=== PATIENT | male | born 1945 | race Caucasian/White ===

== ENCOUNTER 2020-11-28 09:35 | Outpatient (REF) | payer MEDICARE, SELFPAY ==
--- NOTE | 2020-11-28 10:06 | ECG_ITS ---
Test Reason : CP Blood Pressure : / mmHG Vent. Rate : 055 BPM Atrial Rate : 055 BPM P-R Int : 192 ms QRS Dur : 086 ms QT Int : 430 ms P-R-T Axes : 008 -14 017 degrees QTc Int : 411 ms Sinus bradycardia Otherwise normal ECG When compared with ECG of 25-MAR-2020 09:12, No significant changes seen Referred By: Darrion Muse Electronically Signed By:VICKY AMAYA
--- NOTE | 2020-11-28 10:19 | XR_ITS ---
EXAMINATION: XR CHEST CLINICAL INFORMATION: Dyspnea. COMPARISON: 03/25/2020 chest radiograph. TECHNIQUE: 2 views of the chest were obtained. FINDINGS: Kyphotic positioning and low lung volumes limit evaluation. Increased thoracic kyphosis is seen with normal spinal alignment. Mild to moderate multilevel degenerative disc disease is seen with generalized osteopenia. The lungs are clear. The heart and mediastinal structures are unremarkable. XR/XR chest 2V IMPRESSION: No acute cardiopulmonary process.
[2020-11-28 10:37] LABS: MANUAL DIFF FLAG NO
[2020-11-28 10:48] LABS: Basophils Percent Auto 0.4 % (0-2); Eosinophils Absolute Auto 0.5 X10*3/uL (0.0-0.4); Hematocrit 44.5 % (42-52); Hemoglobin 14.3 g/dl (14.0-18.0); Imm Gran Abs Auto 0.02 X10*3/uL (0.00-0.03); Imm Gran Pct Auto 0.2 % (0.0-0.4); Lymphocytes Absolute Auto 2.2 X10*3/uL (1.2-4.9); Lymphocytes Percent Auto 26.8 % (20-40); Mean Corpuscular HGB Conc 32.1 g/dl (31.0-36.0); Mean Corpuscular Hemoglobin 30.3 pg (27.0-33.0); Mean Corpuscular Volume 94.3 fL (80-98); Mean Platelet Volume 10.3 fL (9.4-12.4); Monocytes Absolute Auto 0.6 X10*3/uL (0.1-1.2); Monocytes Percent Auto 7.6 % (2-11); Neutrophils Absolute Auto 4.8 X10*3/uL (2.0-8.3); Platelet Count 238 X10*3/uL (160-400); Red Blood Count 4.72 X10*6/uL (4.60-5.80); Red Cell Distribution Width 13.6 % (11.0-16.0); White Blood Count 8.2 X10*3/uL (4.8-10.8)
[2020-11-28 11:09] LABS: Anion Gap 10 (12-20); Blood Urea Nitrogen 17 mg/dL (9-16); Calcium 9.4 mg/dL (8.4-10.2); Carbon Dioxide 28 mmol/L (22-29); Chloride 107 mmol/L (96-108); Estimated Glomerular Filt Rate > 60; Glucose Fasting 94 mg/dL (60-99); Potassium 4.4 mmol/l (3.3-5.1); Sodium 141 mmol/L (135-145)
== END 2020-11-28 09:36 | disposition home or self-care (01) ==
LOC: HO.LAB 09:35
PROVIDERS: PCP Internal Medicine; Visit Provider Internal Medicine
DX: Z00.00 Encounter for general adult medical examination without abnormal findings (principal); R06.00 Dyspnea, unspecified
CPT/HCPCS: 36415; 71046; 80048; 85025; 93005

== ENCOUNTER 2020-12-20 11:25 | Outpatient (REF) | payer MEDICARE, SELFPAY ==
--- NOTE | ~2020-12-20 | CT_ITS ---
EXAMINATION: CT HEAD WITHOUT CONTRAST CLINICAL INFORMATION: Abnormality of gait and mobility. COMPARISON: None TECHNIQUE: Contiguous axial imaging was performed from the skull base to vertex without intravenous administration of contrast. This CT examination was performed using dose optimization techniques as appropriate, variously including the following: *Automated exposure control *Adjustment of mA and/or kV according to patient size (this includes techniques or standardized protocols for targeted exams where dose is matched to indication/reason for exam; i.e. extremities or head) *Use of iterative reconstruction technique DLP: 1095 mGy-cm FINDINGS: There is no acute intra-axial, extra-axial bleed, masses, collection, or midline shift. There is no acute infarction of evolution. The lateral ventricles are symmetrical and significantly enlarged. There is mild prominence of cortical sulci. There is no edema. The olea to white matter differences are maintained. Bone windows reveal no calvarial abnormality. Bilateral paranasal sinuses and mastoid air cells are well aerated. There is no scalp soft tissue abnormality. There is mild mucoperiosteal thickening in bilateral maxillary sinuses. The rest of the paranasal sinuses and mastoid air cells are well aerated. CT/CT head/brain wo con IMPRESSION: No acute intracranial process seen. Significant enlargement of lateral and third ventricles, suspicious for NPH.
== END 2020-12-20 11:26 | disposition home or self-care (01) ==
LOC: HO.CT 11:25
PROVIDERS: PCP Internal Medicine; Visit Provider Internal Medicine
DX: R26.9 Unspecified abnormalities of gait and mobility (principal)
CPT/HCPCS: 70450

== ENCOUNTER 2021-01-24 17:25 | Outpatient (REF) | payer MEDICARE, SELFPAY ==
--- NOTE | ~2021-01-24 | XR_ITS ---
EXAMINATION: PRE-MRI SCREENING ORBITS CLINICAL INFORMATION: Pre-MRI screening COMPARISON: CT head 12/20/2020 TECHNIQUE: 3 views of the orbits FINDINGS: A metallic fragment measuring about 2 mm is seen in the subcutaneous tissues just lateral to the right orbit. This is better spatial he visualized on the recent head CT (2:19). No other metallic foreign bodies are noted aside from dentures. No metallic foreign bodies are seen in the orbits. XR/XR pre mri screening IMPRESSION: Small metallic foreign body lateral to right orbit, better localized on the recent CT scan.
--- NOTE | ~2021-01-24 | MR_ITS ---
EXAMINATION: MR BRAIN WITHOUT CONTRAST CLINICAL INFORMATION: Idiopathic normal pressure hydrocephalus. COMPARISON: Head CT from 12/20/2020 and brain MRI dated 07/20/2012. TECHNIQUE: Multiplanar, multisequence imaging of the brain was performed without contrast. FINDINGS: Degree of lateral and third ventricular dilatation is stable compared to the recent CT study and mildly increased when compared to the MRI exam from 2012. The fourth ventricle is relatively normal in size. Generalized parenchymal volume loss again evident. No diffusion abnormalities are identified to suggest an acute or subacute infarct. No mass effect or midline shift is seen. Scattered mild white matter signal changes again evident which may be due to chronic microangiopathy. No extra-axial fluid collections are seen. The brainstem and cerebellum are normal. The gradient refocused acquisition is normal. The craniovertebral junction, marrow signal, and midline structures are normal. The major intracranial flow voids at the level of the [place] of [place] are preserved. The dural venous sinus flow voids are maintained. The mastoid air cells and paranasal sinuses are fairly well aerated. MR/MR head/brain wo con IMPRESSION: Significant lateral and third ventriculomegaly, stable from the recent CT study and mildly increased when compared to the MR study from 07/20/2012. Mild chronic white matter microangiopathy and generalized parenchymal volume loss.
== END 2021-01-24 17:26 | disposition home or self-care (01) ==
LOC: HO.MRI 17:25
PROVIDERS: PCP Internal Medicine; Visit Provider Internal Medicine
DX: G91.2 (Idiopathic) normal pressure hydrocephalus (principal)
CPT/HCPCS: 70551

== ENCOUNTER 2021-04-04 13:25 | Outpatient (REF) | payer MEDICARE, SELFPAY ==
[2021-04-04 14:29] LABS: Platelet Count 237 X10*3/uL (160-400)
[2021-04-04 14:51] LABS: INTERNATIONAL NORM RATIO 1.1 (0.9-1.1); Prothrombin Time 13.3 SEC (10.8-13.0)
== END 2021-04-04 13:26 | disposition home or self-care (01) ==
LOC: HO.LAB 13:25
PROVIDERS: PCP Internal Medicine; Visit Provider Neurological Surgery
DX: G93.89 Other specified disorders of brain (principal); G91.2 (Idiopathic) normal pressure hydrocephalus
CPT/HCPCS: 36415; 85049; 85610

== ENCOUNTER 2021-05-21 07:12 | Day surgery (SDC) | payer MEDICARE, SELFPAY ==
[2021-05-15 13:23] VITALS: BMI 33.6
--- NOTE | 2021-05-15 14:17 | P.CONAN_ITS ---
Documented by User: Michelle Gleason 05/18/21 08:37 HPI - Anesthesia Eval Consult details Narrative: 75yo M for Colonoscopy PMFSH Active Problems Active Problems: All Active Problems (Updated 05/15/21 @ 13:25 by Annette Brand) Skin lesion (Acute) Dyspnea (Acute) Normal pressure hydrocephalus (Acute) Cerebral ventriculomegaly (Acute) Past Medical History Medical History Arthritis Cerebral ventriculomegaly COVID-19 vaccine administered Dementia Gait instability History of BPH History of lumbar puncture Family History Family History Father No problems noted. Mother No problems noted. Surgical History Surgical History H/O colonoscopy History of esophagogastroduodenoscopy (EGD) History of tonsillectomy Hx of appendectomy Social History Social History Do you presently have visiting nurse or other home services: No Alcohol intake: former Patient Tobacco Use Status: Never used Tobacco Use of substances other than those prescribed or required for medical reasons: No Have you been hit, kicked, punched, or otherwise hurt by someone within the past year? If so, by whom?: No Are you DNR?: No Advance Directives Information Provided: No Advance Directives on File: No Recently lost weight without trying: No Eating poorly because of decreased appetite: No Nutrition Risks: No Nutritional Risk Poor oral hygiene: No (upper partial) Meds Allergies Allergy/AdvReac Type Severity Reaction Status Date / Time cabbage Allergy Severe throat Verified 05/21/21 07:[address] [facility] Medications Medication Instructions Recorded Confirmed Last Taken Type donepezil 10 mg tablet 10 mg PO BEDTIME 11/27/20 05/15/21 Unknown History tamsulosin 0.4 mg capsule 0.4 mg PO BEDTIME 11/27/20 05/15/21 Unknown History Exam Exam Date and Time: May 15, 2021 1417 Height,Weight and Vital Signs: Height 5 ft 11 in Weight 109.316 kg Pertinent Lab Results Pertinent Lab Results: Laboratory Tests 11/28/20 11/28/20 04/04/21 10:01 10:01 13:45 WBC 8.2 Hgb 14.3 Hct 44.5 Plt Count 237 Sodium 141 Potassium 4.4 Chloride 107 Carbon Dioxide 28 BUN 17 H Creatinine 1.18 Narrative Narrative: EKG 11/2020 Vent. Rate : 055 BPM Atrial Rate : 055 BPM P-R Int : 192 ms QRS Dur : 086 ms QT Int : 430 ms P-R-T Axes : 008 -14 017 degrees QTc Int : 411 ms Sinus bradycardia Otherwise normal ECG When compared with ECG of 25-MAR-2020 09:12, No significant changes seen Assessment and Plan Assessment Anesthesia Assessment: Chart Reviewed Documented by User: Rosalina Devlin 05/21/21 09:02 PMFSH Past Medical History Medical History Arthritis Cerebral ventriculomegaly COVID-19 vaccine administered Dementia Gait instability History of BPH History of lumbar puncture Family History Family History Father No problems noted. Mother No problems noted. Surgical History Surgical History H/O colonoscopy History of esophagogastroduodenoscopy (EGD) History of tonsillectomy Hx of appendectomy Social History Social History Do you presently have visiting nurse or other home services: No Alcohol intake: former Patient Tobacco Use Status: Never used Tobacco Use of substances other than those prescribed or required for medical reasons: No Have you been hit, kicked, punched, or otherwise hurt by someone within the past year? If so, by whom?: No Are you DNR?: No Advance Directives Information Provided: No Advance Directives on File: No Recently lost weight without trying: No Eating poorly because of decreased appetite: No Nutrition Risks: No Nutritional Risk Poor oral hygiene: No (upper partial) Meds Allergies Allergy/AdvReac Type Severity Reaction Status Date / Time cabbage Allergy Severe throat Verified 05/21/21 07:29 [facility] Medication Instructions Recorded Confirmed Last Taken Type donepezil 10 mg tablet 10 mg PO BEDTIME 11/27/20 05/15/21 Unknown History tamsulosin 0.4 mg capsule 0.4 mg PO BEDTIME 11/27/20 05/15/21 Unknown History Exam Airway Mallampati Class: II TM Dist: >3cm Neck ROM: Full Heart: RRR Lungs: CTA Assessment and Plan Assessment Anesthesia Assessment: Anesthesia Plan Discussed and Chart Reviewed Final Anesthetic Review NPO: Yes ASA Class: III Final Preanesthetic Review: Meds/Allgs Chart Reviewed, Consent Obtained/Reviewed and Anes Risks/Benef Reviewed Patient Risk: Intermediate Procedure Risk: Low Anesthetic Plan Anesthetic Plan: MAC: Disposition: Standard PACU
[2021-05-21 08:09] VITALS: BP 118/78; PULSE 60; RESP 18; TEMP 36.3; O2SAT 97
[2021-05-21] MEDS: Lactated Ringers 1,000 ML 50 ML IVCONT (08:11)
[2021-05-21 09:21] VITALS: BP 88/43; PULSE 60; RESP 18; TEMP 36.1; O2SAT 95
[2021-05-21 09:25] VITALS: BP 97/49; PULSE 53; RESP 19; O2SAT 96
--- NOTE | 2021-05-21 09:26 | P.BOP_ITS ---
Brief Operative Note Date of Service: 05/21/21 Pre-op diagnosis: Screening Post-op diagnosis: other (Colon polyp) Procedure: Colonoscopy to the cecum with snare polypectomy Surgeon: Lang Wylie Anesthesia: MAC Was an Pediatric Clinical Nurse Specialist used for this Procedure?: No Estimated blood loss (mL): 3.0 Pathology: other (A. Ascending colon polyp) Condition: stable Disposition: PACU
[2021-05-21 09:36] VITALS: BP 109/59; PULSE 57; RESP 20; O2SAT 97
[2021-05-21 09:51] VITALS: BP 115/56; PULSE 66; RESP 18; O2SAT 99
--- NOTE | 2021-05-21 10:23 | OP_ITS ---
SURGEON: Lang Wylie MD INDICATIONS: The patient presents for evaluation of colorectal cancer screening and personal history of tubular adenoma of the colon. Full consent has been obtained from him for this, including risks of bleeding and perforation. PREOPERATIVE DIAGNOSIS: POSTOPERATIVE DIAGNOSIS: PROCEDURE PERFORMED: Colonoscopy to cecum with snare polypectomy. ESTIMATED BLOOD LOSS: COMPLICATIONS: ANESTHESIA: Monitored anesthesia care. ASSISTANTS: SPECIMENS: PREOPERATIVE DIAGNOSES: Colorectal cancer screening and personal history of tubular adenoma of the colon. POSTOPERATIVE DIAGNOSES: Colorectal cancer screening and personal history of tubular adenoma of the colon, small colon polyp, diverticulosis and internal hemorrhoids. DESCRIPTION OF PROCEDURE: The patient was placed in the left lateral decubitus position. The digital rectal exam revealed no abnormalities. The Olympus video pediatric colonoscope was entered into the rectum and advanced to the cecum with the assistance of abdominal wall pressure. Once in the cecum, I did identify normal-appearing cecal pouch with appendiceal orifice and a normal-appearing ileocecal valve. The entire cecum was well visualized and appeared normal. The scope was slowly withdrawn assessing all mucosal surfaces carefully. Preparation was excellent. In the ascending colon, was a slightly raised approximately 6 mm polyp, which was snared and recovered by suction. The polypectomy site appeared clean, without any sign of residual polyp nor bleeding. I did not visualize any other polyps, colitis, nor angiodysplasia. There was a moderate amount of sigmoid diverticulosis. In the rectum, scope was retroflexed visualizing small internal hemorrhoids, but no other pathology. The rectal mucosa appeared normal. The scope was straightened out and withdrawn from the patient. He tolerated the procedure well and was returned to the recovery area in stable condition. IMPRESSION: 1. Small colon polyp, status post snare polypectomy. 2. Diverticulosis. 3. Internal hemorrhoids. PLAN: The results of the pathology will be checked. Given these relatively minimal findings and his age, I do not think he will need any further screening colonoscopies in the future. He was advised not to use any aspirin and NSAIDs for 1 week. MD ROLANDO Heart/MIGUE / [id number]
== END 2021-05-21 10:19 | disposition home or self-care (01) ==
PROVIDERS: PCP Internal Medicine; Visit Provider Internal Medicine
PROC: 0DJD8ZZ Inspection of Lower Intestinal Tract, Via Natural or Artificial Opening Endoscopic (ICD-10-PCS; CPT 45378; principal; 2021-05-21 08:20)
DX: Z12.11 Encounter for screening for malignant neoplasm of colon (principal); Z86.010 Personal history of colon polyps; D12.2 Benign neoplasm of ascending colon; K57.30 Diverticulosis of large intestine without perforation or abscess without bleeding; K64.8 Other hemorrhoids; G91.2 (Idiopathic) normal pressure hydrocephalus; G93.89 Other specified disorders of brain; F03.90 Unspecified dementia, unspecified severity, without behavioral disturbance, psychotic disturbance, mood disturbance, and anxiety; R26.89 Other abnormalities of gait and mobility; Z79.899 Other long term (current) drug therapy
CPT/HCPCS: 45385; 88305

== ENCOUNTER 2021-11-01 12:20 | Outpatient (REF) | payer MEDICARE, SELFPAY ==
[2021-11-01 13:27] LABS: MANUAL DIFF FLAG NO
[2021-11-01 13:35] LABS: Basophils Percent Auto 0.4 % (0-2); Eosinophils Absolute Auto 0.6 X10*3/uL (0.0-0.4); Eosinophils Percent Auto 6.2 % (0-4); Hematocrit 36.4 % (42.0-52.0); Hemoglobin 11.7 g/dl (14.0-18.0); Imm Gran Abs Auto 0.02 X10*3/uL (0.00-0.03); Imm Gran Pct Auto 0.2 % (0.0-0.4); Lymphocytes Absolute Auto 2.9 X10*3/uL (1.2-4.9); Lymphocytes Percent Auto 31.2 % (20-40); Mean Corpuscular HGB Conc 32.1 g/dl (31.0-36.0); Mean Corpuscular Hemoglobin 29.7 pg (27.0-33.0); Mean Corpuscular Volume 92.4 fL (80.0-98.0); Mean Platelet Volume 9.5 fL (9.4-12.4); Monocytes Absolute Auto 0.9 X10*3/uL (0.1-1.2); Monocytes Percent Auto 9.1 % (2-11); Neutrophils Absolute Auto 4.9 x10*3/uL (2.0-8.3); Neutrophils Percent Auto 52.9 % (45-73); Platelet Count 405 X10*3/uL (160-400); Red Blood Count 3.94 X10*6/uL (4.60-5.80); White Blood Count 9.3 X10*3/uL (4.8-10.8)
[2021-11-01 13:50] LABS: Alanine Aminotransferase 14 U/L (0-40); Albumin Level 3.7 g/dL (3.5-5.0); Alkaline Phosphatase 95 U/L (39-117); Anion Gap 11 (12-20); Aspartate Amino Transferase 13 U/L (5-37); Bilirubin Direct 0.2 mg/dL (0.0-0.5); Bilirubin Total 0.4 mg/dL (0.0-1.0); Blood Urea Nitrogen 16 mg/dL (9-16); C Reactive Protein 6.04 mg/dL (< or = 0.50); Calcium 9.8 mg/dL (8.4-10.2); Carbon Dioxide 28 mmol/L (22-29); Chloride 104 mmol/L (96-108); Estimated Glomerular Filt Rate 53; Glucose Random 179 mg/dL (60-115); Potassium 4.4 mmol/L (3.3-5.1); Sodium 139 mmol/L (135-145); Total Protein 7.5 g/dL (6.5-8.0)
[2021-11-01 14:24] LABS: Thyroid Stimulating Hormone 1.58 uIU/mL (0.32-4.0)
[2021-11-01 14:29] LABS: Erythrocyte Sedimentation Rate 90 MM/HR (0-15)
[2021-11-01 14:50] LABS: T4 Thyroxine 6.4 ug/dL (4.5-12.0)
== END 2021-11-01 12:21 | disposition home or self-care (01) ==
LOC: HO.10HDL 12:20
PROVIDERS: PCP Internal Medicine; Visit Provider Internal Medicine
DX: K59.00 Constipation, unspecified (principal); K62.5 Hemorrhage of anus and rectum
CPT/HCPCS: 36415; 80048; 80076; 84436; 84443; 85025; 85652; 86140

== ENCOUNTER 2021-11-07 10:49 | Day surgery (SDC) | payer MEDICARE, SELFPAY ==
[2021-11-07 11:04] VITALS: BMI 31.6
[2021-11-07 11:13] VITALS: BP 129/72; PULSE 82; RESP 18; TEMP 36.9; O2SAT 98
[2021-11-07] MEDS: Sodium Phosphate,Mono-Dibasic 133 ML ENEMA PR ×2 (11:32→12:02)
--- NOTE | 2021-11-07 12:30 | HO.ANESPROP2 ---
[facility] Active Problems Active Problems: All Active Problems (Updated 10/24/21 @ 11:08 by Darrion Muse MD) Obesity (Acute) Sinusitis (Acute) Skin lesion (Acute) Dyspnea (Acute) Normal pressure hydrocephalus (Acute) Cerebral ventriculomegaly (Acute) Past Medical History Medical History Arthritis Cerebral ventriculomegaly COVID-19 vaccine administered Dementia Gait instability History of BPH History of lumbar puncture Obesity Family History Family History (Updated 10/24/21 @ 10:57 by FIDE Warren) Father No problems noted. Mother No problems noted. Family history of problems with anesthesia: No Surgical History Surgical History H/O colonoscopy History of esophagogastroduodenoscopy (EGD) History of tonsillectomy Hx of appendectomy History of Problems with Anesthesia: No Social History Social History Housing: House Do you presently have visiting nurse or other home services: No Alcohol intake: former Patient Tobacco Use Status: Never used Tobacco e-Cigarette/Vaping Use: Never Used Second Hand Smoke Exposure: No Use of substances other than those prescribed or required for medical reasons: No Are you DNR?: No Advance Directives: No Advance Directives Information Provided: No service: No Current occupational status: employed Cognitive needs: No Hearing needs: No Vision needs: Yes (Glasses) Meds Allergies Allergy/AdvReac Type Severity Reaction Status Date / Time cabbage Allergy Severe throat Verified 11/07/21 11:02 [facility] Medications Medication Instructions Recorded Confirmed Last Taken Type donepezil 10 mg tablet 10 mg PO BEDTIME 11/27/20 10/24/21 Unknown History tamsulosin 0.4 mg capsule 0.4 mg PO BEDTIME 11/27/20 10/24/21 Unknown History Exam Exam Date and Time: November 07, 2021 1230 Height,Weight and Vital Signs: Height 6 ft Weight 105.687 kg Last Vital Signs Temp 98.5 F 11/07/21 11:13 Pulse 82 11/07/21 11:13 Resp 18 11/07/21 11:13 BP 129/72 11/07/21 11:13 Pulse Ox 98 11/07/21 11:13 Airway Mallampati Class: I TM Dist: >3cm Neck ROM: Full Denture: Upper Loose/Missing/Broken Teeth: Yes Heart: ok Lungs: ok Assessment and Plan Final Anesthetic Review Family History of Problems with Anesthesia: No History of Problems with Anesthesia: No NPO: Yes ASA Class: III Final Preanesthetic Review: No Changes in Pt Med Stat, Meds/Allgs Chart Reviewed, Consent Obtained/Reviewed and Anes Risks/Benef Reviewed Patient Risk: High Procedure Risk: Low Anesthetic Plan Anesthetic Plan: MAC: and Agree w/ Assess. and Plan Disposition: Standard PACU
[2021-11-07 13:20] VITALS: BP 101/62; PULSE 67; RESP 18; TEMP 36.6; O2SAT 95
--- NOTE | 2021-11-07 13:31 | PM.OP ---
Brief Operative Note Date of Service: 11/07/21 Pre-op diagnosis: Change in Bowels, rectal bleeding Post-op diagnosis: other (Ulcerative colitis from rectum to 30cm) Procedure: Colonoscopy to the transverse colon with biopsies Surgeon: Lang Wylie Anesthesia: MAC Was an Endoscopy Support Specialist used for this Procedure?: No Estimated blood loss (mL): 3.0 Pathology: other (A. Colon at 30cm B. Colon 20-30cm C. Rectum) Condition: stable Disposition: PACU
[2021-11-07 13:35] VITALS: BP 116/65; PULSE 57; RESP 16; TEMP 36.6; O2SAT 95
[2021-11-07 13:50] VITALS: BP 126/67; PULSE 61; RESP 16; TEMP 36.6; O2SAT 99
--- NOTE | 2021-11-07 14:46 | OP_ITS ---
SURGEON: Lang Wylie MD INDICATIONS: Patient presents for evaluation of change in bowel habits and rectal bleeding. Full consent was obtained from him for this, including risks of bleeding and perforation. PREOPERATIVE DIAGNOSIS: Change in bowel habits and rectal bleeding. POSTOPERATIVE DIAGNOSIS: PROCEDURE PERFORMED: ESTIMATED BLOOD LOSS: COMPLICATIONS: ANESTHESIA: Monitored anesthesia care. ASSISTANTS: SPECIMENS: PROCEDURE: Colonoscopy to the transverse colon with biopsies. POSTOPERATIVE DIAGNOSES: Change in bowel habits and rectal bleeding, ulcerative colitis extending from rectum to 30 cm. DESCRIPTION OF PROCEDURE: The patient was placed in the left lateral decubitus position. The digital rectal exam revealed no abnormalities. There was no sign of perianal disease. The Olympus video pediatric colonoscope was entered into the rectum and advanced to the region of the transverse colon. I did not advance beyond this area due to a very poor prep. With irrigation, I was able to visualize normal underlying mucosa in different sections. The scope was then slowly withdrawn assessing all mucosal surfaces carefully. At 30 cm, there was a clear demarcation from normal mucosa to active colitis. The active colitis extended from the distal rectum, seen in the retroflexed position to 30 cm. There were no skip lesions. There were no polyps nor masses. I did obtain biopsies at 30 cm in the area of normal-appearing mucosa. I then obtained multiple biopsies between 20 and 30 cm and in the rectum. The scope was retroflexed visualizing some small internal hemorrhoids as well as the proctitis. Scope was straightened and withdrawn from the patient. He tolerated the procedure well and was returned to the recovery area in stable condition. IMPRESSION: Active proctocolitis extending to 30 cm. PLAN: Given the patient's symptomatology of some systemic symptoms with fatigue and anorexia, in addition to his GI symptoms of the bowel movement irregularity and bleeding, I shall put him on a short course of prednisone. I will start him on 30 mg daily for 1 week, then have him decrease that by 5 mg per week. Given his age, I opted to start him on 30mg of prednisone rather than 40mg. I will also start him on mesalamine 1600 mg t.i.d. and also a mesalamine suppository 1000 mg nightly. I will see him in within 1 or 2 months for followup but hopefully the medication, particularly the prednisone, will help things settle down quickly and improve his symptoms. He was advised to stay off all aspirin and NSAIDs long-term. He was advised to contact me before the office visit if problems persist or worsen. MD ROLANDO Heart/MIGUE / [id number] MTDD
== END 2021-11-07 14:39 | disposition home or self-care (01) ==
PROVIDERS: PCP Internal Medicine; Visit Provider Internal Medicine
PROC: 0DJD8ZZ Inspection of Lower Intestinal Tract, Via Natural or Artificial Opening Endoscopic (ICD-10-PCS; CPT 45378; principal; 2021-11-07 12:00)
DX: K62.5 Hemorrhage of anus and rectum (principal); K59.00 Constipation, unspecified; Z86.010 Personal history of colon polyps; K51.30 Ulcerative (chronic) rectosigmoiditis without complications; K64.8 Other hemorrhoids; R15.2 Fecal urgency; R53.83 Other fatigue; G91.2 (Idiopathic) normal pressure hydrocephalus; Z79.899 Other long term (current) drug therapy
CPT/HCPCS: 45380; 88305

== ENCOUNTER → 2022-03-26 07:30 | Outpatient (REF) | payer MEDICARE, SELFPAY ==
--- NOTE | 2022-03-26 | HM_ITS ---
Conclusion: 1. Patient was monitored for total period of 5 days and 2 hours 2. Baseline rhythm was normal sinus rhythm with average heart of 68 beats per minute 3. Multiple short runs of supraventricular episodes noted with longest lasting 23 beats, fastest at 164 beats per minute. Longest episode is irregular and could represent short episode of atrial fibrillation 4. No sustained atrial fibrillation noted 5. No pauses or bradycardia noted 6. Total of 15,887 PACs noted accounting for 2.65% of total beats account for frequent PACs 7. No patient reported events MTDD
== END ==
LOC: HO.CARD 07:30
PROVIDERS: Visit Provider Nurse Practitioner Family
DX: R00.1 Bradycardia, unspecified (principal)
CPT/HCPCS: 93242

== ENCOUNTER → 2022-04-05 09:50 | Outpatient (REF) | payer MEDICARE, SELFPAY ==
[2022-04-05 10:10] LABS: MANUAL DIFF FLAG NO
--- NOTE | 2022-04-05 10:14 | ECG_ITS ---
Test Reason : bradycardia Blood Pressure : / mmHG Vent. Rate : 056 BPM Atrial Rate : 056 BPM P-R Int : 174 ms QRS Dur : 084 ms QT Int : 438 ms P-R-T Axes : 020 -20 004 degrees QTc Int : 422 ms Sinus bradycardia Inferior infarct , age undetermined Abnormal ECG When compared with ECG of 28-NOV-2020 10:11, No significant change was found Referred By: Darrion Muse Electronically Signed By:Harrison Fernandez
[2022-04-05 10:27] LABS: Basophils Percent Auto 0.5 % (0-2); Eosinophils Absolute Auto 0.3 X10*3/uL (0.0-0.4); Eosinophils Percent Auto 3.9 % (0-4); Hematocrit 39.6 % (42.0-52.0); Hemoglobin 12.7 g/dl (14.0-18.0); Imm Gran Abs Auto 0.02 X10*3/uL (0.00-0.03); Imm Gran Pct Auto 0.3 % (0.0-0.4); Lymphocytes Absolute Auto 2.6 X10*3/uL (1.2-4.9); Lymphocytes Percent Auto 35.5 % (20-40); Mean Corpuscular HGB Conc 32.1 g/dl (31.0-36.0); Mean Corpuscular Hemoglobin 29.2 pg (27.0-33.0); Mean Platelet Volume 9.8 fL (9.4-12.4); Monocytes Absolute Auto 0.5 X10*3/uL (0.1-1.2); Neutrophils Absolute Auto 3.9 x10*3/uL (2.0-8.3); Neutrophils Percent Auto 52.8 % (45-73); Platelet Count 251 X10*3/uL (160-400); Red Blood Count 4.35 X10*6/uL (4.60-5.80); Red Cell Distribution Width 13.6 % (11.0-16.0); White Blood Count 7.4 X10*3/uL (4.8-10.8)
[2022-04-05 10:36] LABS: Estimated Average Glucose 174 mg/dL; Hemoglobin A1c % 7.7 %
[2022-04-05 10:49] LABS: Alanine Aminotransferase 131 U/L (0-40); Albumin Level 3.7 g/dL (3.5-5.0); Alkaline Phosphatase 229 U/L (39-117); Anion Gap 11 (12-20); Aspartate Amino Transferase 284 U/L (5-37); Blood Urea Nitrogen 15 mg/dL (9-16); Calcium 9.7 mg/dL (8.4-10.2); Carbon Dioxide 24 mmol/L (22-29); Chloride 105 mmol/L (96-108); Estimated Glomerular Filt Rate > 60; Glucose Fasting 168 mg/dL (60-99); Potassium 4.3 mmol/L (3.3-5.1); Sodium 136 mmol/L (135-145); Total Protein 7.2 g/dL (6.5-8.0)
== END ==
LOC: HO.CARD 09:50
PROVIDERS: PCP Internal Medicine; Visit Provider Internal Medicine
DX: Z00.00 Encounter for general adult medical examination without abnormal findings (principal); Z13.0 Encounter for screening for diseases of the blood and blood-forming organs and certain disorders involving the immune mechanism; E11.9 Type 2 diabetes mellitus without complications
CPT/HCPCS: 36415; 80053; 83036; 85025; 93005

== ENCOUNTER 2022-04-09 09:06 | Outpatient (REF) | payer MEDICARE, SELFPAY ==
[2022-04-09 11:08] LABS: Alanine Aminotransferase 61 U/L (0-40); Albumin Level 3.7 g/dL (3.5-5.0); Alkaline Phosphatase 227 U/L (39-117); Aspartate Amino Transferase 35 U/L (5-37); Bilirubin Direct 0.2 mg/dL (0.0-0.5); Bilirubin Total 0.6 mg/dL (0.0-1.0); Total Protein 7.1 g/dL (6.5-8.0)
[2022-04-09 11:22] LABS: ~HepC Num1 0.12 S/CO (0.00-0.79); ~Hepatitis B Surface Antibody NONREACTIVE (Nonreactive); ~Hepatitis C Antibody Nonreactive (Nonreactive)
== END 2022-04-09 09:07 | disposition home or self-care (01) ==
LOC: HO.LAB 09:06
PROVIDERS: PCP Internal Medicine; Visit Provider Internal Medicine
DX: Z00.00 Encounter for general adult medical examination without abnormal findings (principal); R79.89 Other specified abnormal findings of blood chemistry; Z20.2 Contact with and (suspected) exposure to infections with a predominantly sexual mode of transmission
CPT/HCPCS: 36415; 80076; 86706; 86803

== ENCOUNTER 2022-04-25 11:28 | Outpatient (REF) | payer MEDICARE, SELFPAY ==
--- NOTE | ~2022-04-25 | US_ITS ---
EXAMINATION: US ABDOMEN COMPLETE CLINICAL INFORMATION: Unspecified abdominal pain. Abnormal LFTs. COMPARISON: None TECHNIQUE: Real-time imaging of the abdominal viscera. FINDINGS: PANCREAS: Most of the pancreas is obscured by overlying gas. ABDOMINAL AORTA: The proximal, mid, and distal segments are normal in caliber. INFERIOR VENA CAVA: Visualized portions are normal. LIVER: The liver is normal in size. The liver contour is normal. Parenchymal echogenicity is normal. No focal hepatic lesion. Mild dilated intrahepatic ducts are noted. GALLBLADDER: Gallbladder wall thickness is 0.18 cm with slightly echogenic calcified jackson and echogenic bile. The gallbladder is physiologically distended without evidence of stones, polyps, wall thickening or pericholecystic fluid. COMMON BILE DUCT: Normal in caliber measuring 0.6 cm in diameter. RIGHT KIDNEY: There are 2 anechoic cysts. A midpole cyst measures 1.4 x 1.8 x 1.6 cm and a lower pole cyst measures 6.7 x 5.8 x 7.0 cm. No hydronephrosis or renal calculi. The kidney measures 10.2 cm in maximum dimension. LEFT KIDNEY: There is an echogenic stone in the midpole measuring 0.3 x 0.3 x 0.3 cm. No hydronephrosis or focal parenchymal lesions. The kidney measures 13.1 cm in maximum dimension. SPLEEN: No focal lesion seen. The spleen measures 9.5 cm in maximum dimension. FREE FLUID: None. US/US abdomen complete IMPRESSION: Mild dilated intrahepatic ducts . No extrahepatic ductal dilatation. Echogenic bile with calcified echogenic jackson but no wall thickness. It is not typical-appearing for porcelain-type gallbladder. Nonobstructive echogenic midpole calculi left kidney and at least 2 right renal cysts.
== END 2022-04-25 11:29 | disposition home or self-care (01) ==
LOC: HO.HMGCX 11:28
PROVIDERS: Visit Provider Internal Medicine
DX: R10.9 Unspecified abdominal pain (principal)
CPT/HCPCS: 76700

== ENCOUNTER → 2022-06-03 09:49 | Outpatient (BNVA) | payer MEDICARE, SELFPAY | PROVIDERS: PCP Internal Medicine; Visit Provider Dietitian, Registered | DX: E11.69 Type 2 diabetes mellitus with other specified complication (principal); E66.9 Obesity, unspecified; Z68.30 Body mass index [BMI] 30.0-30.9, adult; Z71.3 Dietary counseling and surveillance | CPT/HCPCS: 97802 ==

== ENCOUNTER → 2022-06-20 13:28 | Outpatient (BNVA) | payer MEDICARE, SELFPAY | PROVIDERS: PCP Internal Medicine; Referring Provider Nurse Practitioner Family; Visit Provider Internal Medicine | DX: I25.10 Atherosclerotic heart disease of native coronary artery without angina pectoris (principal); I48.0 Paroxysmal atrial fibrillation; R94.31 Abnormal electrocardiogram [ECG] [EKG] | CPT/HCPCS: 93005; 99202 ==

== ENCOUNTER 2022-06-25 14:11 | Outpatient (REF) | payer MEDICARE, SELFPAY ==
[2022-06-25 14:34] LABS: MANUAL DIFF FLAG NO
[2022-06-25 15:47] LABS: Basophils Percent Auto 0.4 % (0-2); Eosinophils Absolute Auto 0.3 X10*3/uL (0.0-0.4); Eosinophils Percent Auto 3.7 % (0-4); Hematocrit 40.5 % (42.0-52.0); Hemoglobin 13.1 g/dl (14.0-18.0); Imm Gran Abs Auto 0.01 X10*3/uL (0.00-0.03); Imm Gran Pct Auto 0.1 % (0.0-0.4); Lymphocytes Absolute Auto 2.3 X10*3/uL (1.2-4.9); Mean Corpuscular HGB Conc 32.3 g/dl (31.0-36.0); Mean Corpuscular Hemoglobin 29.6 pg (27.0-33.0); Mean Corpuscular Volume 91.6 fL (80.0-98.0); Mean Platelet Volume 9.7 fL (9.4-12.4); Monocytes Absolute Auto 0.8 X10*3/uL (0.1-1.2); Monocytes Percent Auto 10.9 % (2-11); Neutrophils Absolute Auto 3.6 x10*3/uL (2.0-8.3); Neutrophils Percent Auto 51.9 % (45-73); Platelet Count 294 X10*3/uL (160-400); Red Blood Count 4.42 X10*6/uL (4.60-5.80); Red Cell Distribution Width 13.9 % (11.0-16.0)
[2022-06-25 15:56] LABS: Estimated Average Glucose 140 mg/dL; Hemoglobin A1c % 6.5 %
[2022-06-25 16:30] LABS: Erythrocyte Sedimentation Rate 45 MM/HR (0-15)
[2022-06-25 16:32] LABS: Creatinine Urine 205.25 mg/dL; Microalbum/Creatinine Ratio Ur 14.1 ug/mg cr
[2022-06-25 16:35] LABS: Alanine Aminotransferase 8 U/L (0-40); Albumin Level 3.8 g/dL (3.5-5.0); Alkaline Phosphatase 85 U/L (39-117); Anion Gap 14 (12-20); Aspartate Amino Transferase 13 U/L (5-37); Bilirubin Total 0.2 mg/dL (0.0-1.0); Blood Urea Nitrogen 17 mg/dL (9-16); Calcium 9.2 mg/dL (8.4-10.2); Carbon Dioxide 27 mmol/L (22-29); Chloride 104 mmol/L (96-108); Estimated Glomerular Filt Rate 56; Glucose Random 155 mg/dL (60-115); Potassium 4.4 mmol/L (3.3-5.1); Sodium 141 mmol/L (135-145); Total Protein 7.1 g/dL (6.5-8.0)
== END 2022-06-25 14:12 | disposition home or self-care (01) ==
LOC: HO.LAB 14:11
PROVIDERS: PCP Internal Medicine; Visit Provider Surgery
DX: R10.9 Unspecified abdominal pain (principal); E11.69 Type 2 diabetes mellitus with other specified complication; E66.01 Morbid (severe) obesity due to excess calories; G91.2 (Idiopathic) normal pressure hydrocephalus; G93.89 Other specified disorders of brain; K62.5 Hemorrhage of anus and rectum; R63.4 Abnormal weight loss; R93.5 Abnormal findings on diagnostic imaging of other abdominal regions, including retroperitoneum; R94.31 Abnormal electrocardiogram [ECG] [EKG]
CPT/HCPCS: 36415; 80053; 82043; 83036; 85025; 85652; 99202

== ENCOUNTER → 2022-06-26 12:50 | Outpatient (REF) | payer MEDICARE, SELFPAY ==
--- NOTE | 2022-06-26 12:52 | CA_ITS ---
Transthoracic Echocardiogram Patient (Last, First, Middle): Juventino Escobar D Gender: Male Date of : 1945 Age: 76 Procedure Date: 06/26/2022 Procedure Type: Transthoracic Echocardiogram Location: OP Height: 180.34 cm Weight: 98.88 kg BSA: 2.19 m2 Heart Rate: 50 bpm BP: 130 / 67 mmHg Plant Technical Specialist: SB Referring MD: Jimenez Spencer MD Medieval English Literature Professor: Jesse Montenegro MD Symptoms: I25.10 - Atherosclerotic heart disease of [place] coronary artery without... Study Quality: Adequate ECG Rhythm: Bradycardia Conclusions: - 1. Normal LV systolic function with grade 1 diastolic dysfunction with underlying regional wall motion abnormality suggestive coronary artery disease 2. Trivial aortic and mitral regurgitation 3. Mildly dilated ascending aorta at 3.7 cm 4. No pericardial effusion Findings Left Ventricle Normal left ventricular size, thickness, and systolic function. The visually estimated ejection fraction is between 60-65%. Spectral Doppler is indicative of an impaired relaxation filling pattern. E/E prime ratio is <8, consistent with normal filling pressures. Evidence suggests grade I (mild) diastolic dysfunction. There is mild septal asymmetric hypertrophy. Wall Motion Rest Echo Findings The basal inferior segment is hypokinetic. The mid inferoseptal and mid anteroseptal segments are akinetic. All other scored wall segments showed normal motion. Right Ventricle Normal right ventricular cavity size and systolic function. Atria The left atrium is mildly dilated. Interatrial shunt cannot be excluded. The right atrium is normal in size. Aortic Valve Normal aortic valve structure and function. There is no aortic valve stenosis. There is trace (trivial) aortic valve regurgitation. Mitral Valve There is mild anterior and posterior mitral leaflet thickening. There is trace mitral valve regurgitation. There is no mitral valve stenosis. Pulmonic Valve The pulmonic valve was not well visualized. Tricuspid Valve Likely normal tricuspid valve structure and function. Tricuspid regurgitation envelope is inadequate for calculation of right ventricular systolic pressure. Normal right atrial pressure. Great Vessels The pulmonary artery was not well visualized. There is mild dilatation of the ascending aorta measuring 3.70 cm. Venous The inferior vena cava is normal in size and collapses greater than 50% with inspiration. Pericardium/Pleural There is no evidence of pericardial effusion. Prior Study Comparison no previous study in the last 5 years for comparison Measurements 2D Linear Measurements IVSd: 0.56 0.6-0.9/0.6-1.0 cm LVIDd: 5.31 3.9-5.3/4.2-5.9 cm LVIDd Index: 2.42 2.4-3.2/2.2-3.1 cm/m2 LVIDs: 3.54 2.0-3.6 cm LVPWd: 0.55 0.7-1.1 cm LA Diam: 4.60 2.7-3.8/3.0-4.0 cm LAIDs Index: 2.10 1.5-2.3 cm/m2 LV Mass: 120.13 67-162/88-224 g LV Mass Index: 54.85 43-95/49-115 g/m2 LVOT Diam: 2.20 3.0+(-)1.3 cm 2D Systolic Function EF 4C: 65.20 >55% EF 2C: 54.90 >55% EF BiP: 61.50 >55% Mitral Valve MV Pk E: 0.56 MV PK A: 0.42 MV Decel Time: 175.00 E/A: 1.30 E'Lateral: 9.68 E'Medial: 5.98 E/E' Med: 9.30 E/E' Lat: 5.80 PHT: 51.00 MVA PHT: 4.31 Decel Edmunds: 3.18 Aortic Valve AoV Pk Jarocho: 1.18 AoV Mn Jarocho: 0.80 AoV VTI: 0.26 AoV Pk Grad: 6.00 Aov Mn Grad: 3.00 ABEL Cont.VTI: 3.29 AI Pk Jarocho: 3.74 AI Edmunds: 2.09 LVOT LVOT Pk Jarocho: 0.94 LVOT Mn Jarocho: 0.67 LVOT VTI: 0.22 LVOT Pk Grad: 4.00 LVOT Mn Grad: 2.00 LVOT Diam: 2.20 LVOT Area: 3.80 Diastolic Function MV Pk E: 0.56 MV Pk A: 0.42 E/A: 1.30 E'Medial: 5.98 E/E' Med: 9.30 E' Laterial: 9.68 E/E' Lat: 5.80 Right Ventricle TAPSE (mm): 17.10 TVS' Jarocho: 7.29 Tricuspid Valve RA Press: 3.00 Great Vessels Aorta Sinus of Valsalva: 4.00 2.0-3.[address] Ridge: 3.13 1.7-3.4 cm Ao Asc: 3.70 2.1-3.4 cm Ao Arch: 3.60 Pulmonary Valve PV Pk Jarocho: 0.95 Peak PV Grad: 4.00 Updated in Other Vendor System with Status of Final Jesse Montenegro MD electronically signed on 06/26/2022 3:09:53 PM with status of Final
== END ==
LOC: HO.CARD 12:50
PROVIDERS: Visit Provider Internal Medicine
DX: I25.10 Atherosclerotic heart disease of native coronary artery without angina pectoris (principal); I48.0 Paroxysmal atrial fibrillation
CPT/HCPCS: 93306

== ENCOUNTER → 2022-07-05 09:55 | Outpatient (REF) | payer MEDICARE, SELFPAY ==
--- NOTE | ~2022-07-05 | NM_ITS ---
Lexiscan Myocardial perfusion study Indication: Abnormal EKG, assess for coronary disease and ischemia Technique: The patient was brought in for a Lexiscan perfusion study on 07/05/2022 and was injected 0.4 mg of Lexiscan intravenously. Within a minute of this injection 35 mCi of sestamibi was given intravenously. Images were obtained using the SPECT gamma camera interlaced with the gating device. Images were obtained in supine position. Resting perfusion study was performed on 07/08/2022. Patient was administered 35 mCi of sestamibi intravenously at rest. Images were then obtained in supine position. Total DLP 90mG-cm. Images were processed with the software and compared side to side in short axis, horizontal long axis and vertical long axis views. Findings: Raw acquisition reviewed. The stress perfusion study showed mildly diminished tracer uptake in the basal part of inferior wall. However there is also adjacent subdiaphragmatic tracer uptake. With CT attenuation correction, there seems to be improvement and hence could be all from diaphragmatic attenuation artifact. The gated study shows normal LV systolic function with calculated LVEF of 74%. LV cavity is normal in size. The gated study shows normal wall thickening and contraction of segments. Resting study shows diminished tracer uptake along the basal to mid inferior wall and adjacent inferior septum. There is improvement with CT attenuation correction. Hence could all be from diaphragmatic attenuation artifact. Gating at rest reveals normal wall motion with ejection fraction at 69%. The findings are consistent with fixed basal inferior and adjacent inferior septal defect. Could be from diaphragmatic attenuation artifact based on improvement with CT attenuation correction. No clear reversible defects. NM/NM cardiolite stress test Impression: 1. Myocardial perfusion imaging study shows no clear evidence of any ischemia or infarction. Probably normal perfusion. 2. Gated LVEF is 74% during stress and 69% during rest. 3. Transient ischemic dilatation not present. EKG component of the test reported separately.
--- NOTE | 2022-07-05 09:58 | CA_ITS ---
Acquisition Time: 2022-07-05 10:10:02 Total Exercise Time: 00:02:00 Test Indications: Abnormal ECG Medications: METFORMIN TRAZADONE TAMSULOSIN DONEPEZIL Protocol: LEXISCAN Max HR: 121 BPM 83% of Pred: 145 BPM Max BP: 118/062 mmHG Max Work Load: 1.0 METS Pharmacological stress test with Lexiscan injection, while sitting and kicking his legs, without anginal symptoms, with isolated PACs, with normotensive response to injection, with nondiagnostic EKG for ischemia. Nuclear images pending. Test reviewed with Dr Perez. Note: Test originally ordered as exercise nuclear stress test and pt reports unsteadiness with ambulation and inablity to walk on treadmill . Thest changed to a pharmacological nuclear stress test. Referred By: Jimenez Spencer Overread By: KIEL ROBIN
== END ==
LOC: HO.CARD 09:55
PROVIDERS: PCP Internal Medicine; Visit Provider Internal Medicine
DX: Z13.89 Encounter for screening for other disorder (principal)
CPT/HCPCS: 78452; 93017; A9500; J0280; J2785

== ENCOUNTER 2022-07-05 16:27 | Observation (INO) | payer MEDICARE, SELFPAY ==
[2022-07-05 16:44] VITALS: BP 109/61; BP 148/98; PULSE 56; PULSE 63; RESP 18; TEMP 37.1; O2SAT 98; O2SAT 99; BMI 29.5
--- NOTE | 2022-07-05 16:46 | ECG_ITS ---
Test Reason : SYNCOPE Blood Pressure : / mmHG Vent. Rate : 052 BPM Atrial Rate : 052 BPM P-R Int : 160 ms QRS Dur : 088 ms QT Int : 410 ms P-R-T Axes : 009 -19 -08 degrees QTc Int : 381 ms Sinus bradycardia Inferior infarct (cited on or before 05-APR-2022) Abnormal ECG When compared with ECG of 05-APR-2022 10:12, No significant change was found Referred By: Haylie Ramirez Electronically Signed By:ENA IRVIN
[2022-07-05 16:52] LABS: Glucose, Whole Blood 139 mg/dL (60-115)
[2022-07-05 17:10] LABS: MANUAL DIFF FLAG NO
--- NOTE | 2022-07-05 17:17 | ED_ITS ---
HPI - Syncope General Chief Complaint: Syncope Stated Complaint: SYNCOPE Time Seen by Provider: 07/05/22 16:33 Source: patient and EMS Mode of arrival: EMS Limitations: no limitations History of Present Illness HPI narrative: Patient comes to the emergency room complaining of nausea vomiting, diarrhea and a syncopal episode. Patient states that he was sitting in his garage, supervising work that was being done at his son's house. Patient states that the garage door was open, he was sitting down. The next thing he remembers is EMS arriving. EMS reports that the patient was in a sitting position, not responding, seems like he was in a deep sleep, then he started waking up. Patient states that he does not remember any of this. Patient states that he never had any chest pain or shortness of breath. Of note, this morning, initially patient started doing a stress test cycling, however it was switched to a nuclear stress test. Patient states that he was warned that he will not feel well in the afternoon. Patient states that after he woke from his unconscious state, he had 1 episode of vomiting and diarrhea. At this time, patient states he is asymptomatic. Related Data Home Medications Medication Instructions Recorded Confirmed donepezil 10 mg tablet 10 mg PO BEDTIME 11/27/20 06/25/22 tamsulosin 0.4 mg capsule 0.4 mg PO BEDTIME 11/27/20 06/25/22 balsalazide 750 mg capsule 2,250 mg PO TID 03/12/22 06/25/22 Previous Rx's Medication Instructions Recorded trazodone 50 mg tablet 50 mg PO BEDTIME PRN sleep #30 tabs 02/07/22 zolpidem 5 mg tablet (Ambien) 5 mg PO BEDTIME PRN sleep #30 tabs 02/12/22 metformin 500 mg tablet 500 mg PO DAILY #90 tabs 04/15/22 Allergies Allergy/AdvReac Type Severity Reaction Status Date / Time cabbage Allergy Severe throat Verified 06/25/22 13:40 stepan Review of Systems Review of Systems: Constitutional : No Weight loss, No Fever, No Chills, No Night Sweats, No Fatigue, No Malaise ENT/Mouth : No Hearing loss, No Ear Pain, No Nasal Congestion, No Sinus Pain, No Hoarseness, No sore throat, No Rhinorrhea, No Swallowing Difficulty Eyes: No Eye Pain, No Swelling, No Redness, No Foreign Body, No Discharge, No Vision Changes Cardiovascular : No Chest Pain, No SOB, No Dyspnea on Exertion, No Orthopnea, No Edema, No Palpitations, complaining of a syncopal episode Respiratory : No Cough, No Sputum, No Wheezing, No Smoke Exposure, No Dyspnea Gastrointestinal : No Nausea, No Vomiting, No Diarrhea, No Constipation, No abd ominal Pain, No Hematochezia, No Melena Genitourinary : no irregular bleeding, No Dysuria, No Urinary Frequency, No Hematuria, No Urinary Incontinence, No Urgency, No Flank Pain, No Urinary Flow Changes, No Hesitancy Musculoskeletal : No joint pain, No Myalgias, No Joint Swelling Skin : No Skin Lesions, No rash Neuro : No Weakness, No Numbness, No Paresthesias, No Dizziness, No Headache Psych : No Anxiety/Panic, No Depression, No SI/HI/AH/VH, No Social Issues, Heme/Lymph: No Bruising, No Bleeding,No Lymphadenopathy Endocrine : No Polyuria, No Polydipsia, No Temperature Intolerance [facility] Past Medical History Medical History Arthritis Cerebral ventriculomegaly COVID-19 vaccine administered Dementia Gait instability History of BPH History of lumbar puncture Obesity Surgical History H/O colonoscopy History of esophagogastroduodenoscopy (EGD) History of tonsillectomy Hx of appendectomy Family History Family History Father No problems noted. Mother No problems noted. Social History Social History Housing: House Do you presently have visiting nurse or other home services: No Alcohol intake: former Patient Tobacco Use Status: Never used Tobacco e-Cigarette/Vaping Use: Never Used Second Hand Smoke Exposure: No Advance Directives: No Advance Directives Information Provided: No service: No Current occupational status: employed Cognitive needs: No Hearing needs: No Vision needs: Yes (Glasses) Physical Exam Vital Signs: Vital Signs: Last Vital Signs Temp 98.7 F 07/05/22 16:44 Pulse 56 07/05/22 16:44 Resp 18 07/05/22 16:44 BP 109/61 07/05/22 16:44 Pulse Ox 99 07/05/22 16:44 O2 Del Method 07/05/22 16:44 BMI result Body Mass Index 29.5 Const: Other: Appearance: Alert. Oriented X3. No acute distress. Eyes: Pupils equal, round and reactive to light. ENT: Pharynx normal. Neck: Normal inspection. Neck supple. No lymph nodes noted. No crepitus CVS: Normal heart rate and rhythm. Pulses normal. Normal S1 and S2 Respiratory: No respiratory distress. Breath sounds normal. No Wheezing. No ral es Abdomen: Soft and nontender. No rigidity. No distention. Skin: Skin warm and dry. Normal skin color. Normal skin turgor. Extremities: No lower extremity edema. No Lacerations. No Rash Neuro: Oriented X 3. No motor deficit. No sensory deficit. Moving all extremities. No slurred speech. CN 2 through 12 grossly intact Psych: calm, cooperative, normal affect Course Course Course Narrative: At this time, patient is asymptomatic. Labs and EKG pending. I discussed the labs and EKG with Dr. Sal, patient had a syncopal episode, new onset acute kidney injury, likely secondary to vomiting and diarrhea. Patient remains asymptomatic at this time. Patient will be admitted MDM - Syncope Lab Data Result diagrams: 07/05/22 17:06 07/05/22 17:05 Labs: Lab Results 07/05/22 07/05/22 07/05/22 Range/Units 16:48 17:01 17:05 WBC (4.8-10.8) X10*3/uL RBC (4.60-5.80) X10*6/uL Hgb (14.0-18.0) g/dl Hct (42.0-52.0) % MCV (80.0-98.0) fL MCH (27.0-33.0) pg MCHC (31.0-36.0) g/dl RDW (11.0-16.0) % Plt Count (160-400) X10*3/uL MPV (9.4-12.4) fL Immature Gran % (Auto) (0.0-0.4) % Neut % (Auto) (45-73) % Lymph % (Auto) (20-40) % [place] % (Auto) (2-11) % Eos % (Auto) (0-4) % Baso % (Auto) (0-2) % Lymph # (Auto) (1.2-4.9) X10*3/uL [place] # (Auto) (0.1-1.2) X10*3/uL Eos # (Auto) (0.0-0.4) X10*3/uL Baso # (Auto) (0.0-0.2) X10*3/uL Abs Immat Gran (auto) (0.00-0.03) X10*3/uL Absolute Neuts (auto) (2.0-8.3) x10*3/uL Absolute Nucleated RBC (0.0-0.012) X10*3/uL Nucleated RBC % (auto) (0.0-0.2) /100WBC PT (10.0-13.1) SEC INR (0.9-1.1) Sodium 142 (135-145) mmol/L Potassium 4.2 (3.3-5.1) mmol/L Chloride 103 (96-108) mmol/L Carbon Dioxide 30 H (22-29) mmol/L Anion Gap 13 (12-20) BUN 24 H (9-16) mg/dL Creatinine 1.64 H (0.5-1.4) mg/dL Estim Creat Clear Calc 48.7 Estimated GFR 41 POC Glucose 139 H (60-115) mg/dL Random Glucose 162 H (60-115) mg/dL Calcium 9.3 (8.4-10.2) mg/dL Magnesium 2.3 (1.6-2.6) mg/dL Total Bilirubin 0.4 (0.0-1.0) mg/dL Direct Bilirubin < 0.2 (0.0-0.5) mg/dL AST 12 (5-37) U/L ALT 10 (0-40) U/L Alkaline Phosphatase 73 (39-117) U/L Troponin I High Sens (<3.5-35.0) ng/L B-Natriuretic Peptide (<100) pg/mL Total Protein 6.4 L (6.5-8.0) g/dL Albumin 3.5 (3.5-5.0) g/dL Ethyl Alcohol mg/dL COVID-19 (DONALD) Negative (Negative) COVID-19 Clin Com See Note 07/05/22 07/05/22 07/05/22 Range/Units 17:05 17:05 17:06 WBC 15.2 H (4.8-10.8) X10*3/uL RBC 4.30 L (4.60-5.80) X10*6/uL Hgb 12.7 L (14.0-18.0) g/dl Hct 39.5 L (42.0-52.0) % MCV 91.9 (80.0-98.0) fL MCH 29.5 (27.0-33.0) pg MCHC 32.2 (31.0-36.0) g/dl RDW 14.4 (11.0-16.0) % Plt Count 341 (160-400) X10*3/uL MPV 9.2 L (9.4-12.4) fL Immature Gran % (Auto) 0.9 H (0.0-0.4) % Neut % (Auto) 74.3 H (45-73) % Lymph % (Auto) 15.8 L (20-40) % [place] % (Auto) 8.2 (2-11) % Eos % (Auto) 0.4 (0-4) % Baso % (Auto) 0.4 (0-2) % Lymph # (Auto) 2.4 (1.2-4.9) X10*3/uL [place] # (Auto) 1.2 (0.1-1.2) X10*3/uL Eos # (Auto) 0.1 (0.0-0.4) X10*3/uL Baso # (Auto) 0.1 (0.0-0.2) X10*3/uL Abs Immat Gran (auto) 0.13 H (0.00-0.03) X10*3/uL Absolute Neuts (auto) 11.3 H (2.0-8.3) x10*3/uL Absolute Nucleated RBC 0.000 (0.0-0.012) X10*3/uL Nucleated RBC % (auto) 0.0 (0.0-0.2) /100WBC PT 13.4 H (10.0-13.1) SEC INR 1.2 H (0.9-1.1) Sodium (135-145) mmol/L Potassium (3.3-5.1) mmol/L Chloride (96-108) mmol/L Carbon Dioxide (22-29) mmol/L Anion Gap (12-20) BUN (9-16) mg/dL Creatinine (0.5-1.4) mg/dL Estim Creat Clear Calc Estimated GFR POC Glucose (60-115) mg/dL Random Glucose (60-115) mg/dL Calcium (8.4-10.2) mg/dL Magnesium (1.6-2.6) mg/dL Total Bilirubin (0.0-1.0) mg/dL Direct Bilirubin (0.0-0.5) mg/dL AST (5-37) U/L ALT (0-40) U/L Alkaline Phosphatase (39-117) U/L Troponin I High Sens 5.6 (<3.5-35.0) ng/L B-Natriuretic Peptide 126 H (<100) pg/mL Total Protein (6.5-8.0) g/dL Albumin (3.5-5.0) g/dL Ethyl Alcohol mg/dL COVID-19 (DONALD) (Negative) COVID-19 Clin Com 07/05/22 Range/Units 17:06 WBC (4.8-10.8) X10*3/uL RBC (4.60-5.80) X10*6/uL Hgb (14.0-18.0) g/dl Hct (42.0-52.0) % MCV (80.0-98.0) fL MCH (27.0-33.0) pg MCHC (31.0-36.0) g/dl RDW (11.0-16.0) % Plt Count (160-400) X10*3/uL MPV (9.4-12.4) fL Immature Gran % (Auto) (0.0-0.4) % Neut % (Auto) (45-73) % Lymph % (Auto) (20-40) % [place] % (Auto) (2-11) % Eos % (Auto) (0-4) % Baso % (Auto) (0-2) % Lymph # (Auto) (1.2-4.9) X10*3/uL [place] # (Auto) (0.1-1.2) X10*3/uL Eos # (Auto) (0.0-0.4) X10*3/uL Baso # (Auto) (0.0-0.2) X10*3/uL Abs Immat Gran (auto) (0.00-0.03) X10*3/uL Absolute Neuts (auto) (2.0-8.3) x10*3/uL Absolute Nucleated RBC (0.0-0.012) X10*3/uL Nucleated RBC % (auto) (0.0-0.2) /100WBC PT (10.0-13.1) SEC INR (0.9-1.1) Sodium (135-145) mmol/L Potassium (3.3-5.1) mmol/L Chloride (96-108) mmol/L Carbon Dioxide (22-29) mmol/L Anion Gap (12-20) BUN (9-16) mg/dL Creatinine (0.5-1.4) mg/dL Estim Creat Clear Calc Estimated GFR POC Glucose (60-115) mg/dL Random Glucose (60-115) mg/dL Calcium (8.4-10.2) mg/dL Magnesium (1.6-2.6) mg/dL Total Bilirubin (0.0-1.0) mg/dL Direct Bilirubin (0.0-0.5) mg/dL AST (5-37) U/L ALT (0-40) U/L Alkaline Phosphatase (39-117) U/L Troponin I High Sens (<3.5-35.0) ng/L B-Natriuretic Peptide (<100) pg/mL Total Protein (6.5-8.0) g/dL Albumin (3.5-5.0) g/dL Ethyl Alcohol < 10 mg/dL COVID-19 (DONALD) (Negative) COVID-19 Clin Com Discharge Plan Discharge Clinical Impression: Syncope, ADRIANA (acute kidney injury), Nausea vomiting and diarrhea Patient Disposition: Admitted as Observation Prescriptions: No Action trazodone 50 mg tablet 50 mg PO BEDTIME PRN (Reason: sleep) Qty: 30 8RF zolpidem [Ambien] 5 mg tablet 5 mg PO BEDTIME PRN (Reason: sleep) Qty: 30 2RF tamsulosin 0.4 mg capsule 0.4 mg PO BEDTIME donepezil 10 mg tablet 10 mg PO BEDTIME balsalazide 750 mg capsule 2,250 mg PO TID metformin 500 mg tablet 500 mg PO DAILY Qty: 90 8RF
[2022-07-05 17:19] LABS: INTERNATIONAL NORM RATIO 1.2 (0.9-1.1); Prothrombin Time 13.4 SEC (10.0-13.1)
[2022-07-05 17:24] LABS: Ethanol < 10 mg/dL
[2022-07-05 17:27] LABS: Alanine Aminotransferase 10 U/L (0-40); Albumin Level 3.5 g/dL (3.5-5.0); Alkaline Phosphatase 73 U/L (39-117); Anion Gap 13 (12-20); Aspartate Amino Transferase 12 U/L (5-37); Bilirubin Direct < 0.2 mg/dL (0.0-0.5); Bilirubin Total 0.4 mg/dL (0.0-1.0); Blood Urea Nitrogen 24 mg/dL (9-16); Calcium 9.3 mg/dL (8.4-10.2); Carbon Dioxide 30 mmol/L (22-29); Chloride 103 mmol/L (96-108); Creatinine Clr Calc Pharmacy 48.7; Estimated Glomerular Filt Rate 41; Glucose Random 162 mg/dL (60-115); Magnesium 2.3 mg/dL (1.6-2.6); Potassium 4.2 mmol/L (3.3-5.1); Sodium 142 mmol/L (135-145); Total Protein 6.4 g/dL (6.5-8.0)
[2022-07-05 17:30] LABS: Basophils Absolute Auto 0.1 X10*3/uL (0.0-0.2); Basophils Percent Auto 0.4 % (0-2); Eosinophils Absolute Auto 0.1 X10*3/uL (0.0-0.4); Eosinophils Percent Auto 0.4 % (0-4); Hematocrit 39.5 % (42.0-52.0); Hemoglobin 12.7 g/dl (14.0-18.0); Imm Gran Abs Auto 0.13 X10*3/uL (0.00-0.03); Imm Gran Pct Auto 0.9 % (0.0-0.4); Lymphocytes Absolute Auto 2.4 X10*3/uL (1.2-4.9); Lymphocytes Percent Auto 15.8 % (20-40); Mean Corpuscular HGB Conc 32.2 g/dl (31.0-36.0); Mean Corpuscular Hemoglobin 29.5 pg (27.0-33.0); Mean Corpuscular Volume 91.9 fL (80.0-98.0); Mean Platelet Volume 9.2 fL (9.4-12.4); Monocytes Absolute Auto 1.2 X10*3/uL (0.1-1.2); Monocytes Percent Auto 8.2 % (2-11); Neutrophils Absolute Auto 11.3 x10*3/uL (2.0-8.3); Neutrophils Percent Auto 74.3 % (45-73); Platelet Count 341 X10*3/uL (160-400); Red Cell Distribution Width 14.4 % (11.0-16.0); White Blood Count 15.2 X10*3/uL (4.8-10.8)
[2022-07-05 17:32] LABS: B Type Natriuretic Peptide 126 pg/mL (<100); Troponin-I High Sensitivity 5.6 ng/L (<3.5-35.0)
[2022-07-05 17:36] LABS: COVID-19 Test Negative (Negative)
[2022-07-05] MEDS: 0.9 % Sodium Chloride 1,000 ML 999 ML IVCONT (17:39)
[2022-07-05] MEDS: ondansetron HCL 4 MG/2 ML VIAL IVPUSH (18:16)
[2022-07-05] MEDS: Loperamide HCl 2 MG CAPSULE 4 MG PO (18:17)
--- NOTE | 2022-07-05 18:39 | PHA.MEDREC ---
Pharmacy Consult ? Medication Reconciliation Pharmacy has completed the medication reconciliation. To note: patient states he is not taking metformin, trazodone or ambien. However there are recent claims.
[2022-07-05 18:56] VITALS: BP 109/52; PULSE 55
[2022-07-05 18:58] VITALS: BP 118/53; PULSE 82
[2022-07-05 18:59] VITALS: BP 118/50; PULSE 80
[2022-07-05 19:00] VITALS: PULSE 74; RESP 20; TEMP 36.7; O2SAT 99
--- NOTE | 2022-07-05 19:14 | PM.IMHP ---
History of Present Illness Date of Service: 07/05/22 Chief Complaint: syncope Started 6-year-old male with past medical history of BPH, cerebral ventriculomegaly, normal pressure hydrocephalus, type 2 diabetes, SVT, PAF, who presents to the hospital with syncopal episode. Patient reports that he had an elective stress test in the morning, it appears to have been a pharmacological stress test. Patient reports that he did well during the stress but he was told to take it easy. On being sent home, he went to help his son move items from a property had just claimed. Patient reports the building was very hot with very minimal air movement. He reports that he was not doing any moving or lifting and was just sitting in the chair observing his son when all the sudden he felt slight lightheadedness and passed out. He reports no shortness of breath, no palpitations, no change in vision, and no headache before, during or after the syncopal episode. This lasted less than a minute and he regained consciousness with no postictal symptoms. Patient denies any nausea or vomiting, no abdominal pain, no diarrhea constipation, any urinary symptoms and no lower extremity edema. No shortness of breath. On arrival to the ED patient hemodynamically stable with no significant abnormal vitals labs are significant for WBC count 12.9, 24, BUN of 24, creatinine of 1.64 patient's EKG shows sinus bradycardia with a heart rate of 52, otherwise no significant ST T wave changes Review of Systems Review of Systems: Yes all other systems are reviewed and are negative [facility] Medical History (Updated 07/06/22 @ 06:50 by Syl Donato MD) Abnormal LFTs Arthritis Cerebral ventriculomegaly COVID-19 vaccine administered Dementia Gait instability History of BPH History of lumbar puncture Insomnia Obesity PAF (paroxysmal atrial fibrillation) SVT (supraventricular tachycardia) Type 2 diabetes mellitus with obesity Family History Father No problems noted. Mother No problems noted. Surgical History H/O colonoscopy History of esophagogastroduodenoscopy (EGD) History of tonsillectomy Hx of appendectomy Social History Housing: House Do you presently have visiting nurse or other home services: No Alcohol intake: never Patient Tobacco Use Status: Never used Tobacco e-Cigarette/Vaping Use: Never Used Second Hand Smoke Exposure: No Use of substances other than those prescribed or required for medical reasons: No Advance Directives: No Advance Directives Information Provided: No service: No Current occupational status: employed Cognitive needs: No Hearing needs: No Vision needs: Yes (Glasses) Meds Allergies Allergy/AdvReac Type Severity Reaction Status Date / Time cabbage Allergy Severe throat Verified 06/25/22 13:40 swells Active Medications: Current Medications Acetaminophen (Acetaminophen 325 Mg Tablet) 650 mg PO Q6H PRN PRN Reason: Pain, Mild (Pain Scale 1-3) Docusate Sodium (Docusate Sodium 100 Mg Capsule) 100 mg PO DAILY PRN PRN Reason: Constipation Lactated Ringer's (Lr) 1,000 mls @ 100 mls/hr IVCONT .Q10H CAMELIA Ondansetron HCl (Ondansetron Hcl 4 Mg/2 Ml Vial) 4 mg IVPUSH Q8H PRN PRN Reason: Nausea and Vomiting Pharmacy Consult (Consult Rx Perform Med Rec) 1 each MISCELLANE ONCE PRN PRN Reason: Consult order Sodium Chloride (0.9 % Sodium Chloride Flush 3 Ml Syringe) [facility] Home Medications Medication Instructions Recorded Confirmed Last Taken Type donepezil 10 mg tablet 10 mg PO BEDTIME 11/27/20 07/05/22 Unknown History tamsulosin 0.4 mg capsule 0.4 mg PO BEDTIME 11/27/20 07/05/22 Unknown History balsalazide 750 mg capsule 2,250 mg PO TID 03/12/22 07/05/22 Unknown History prednisone 5 mg tablet See Taper PO DAILY 07/05/22 07/05/22 Unknown History Physical Exam Vital Signs and Narrative: Vital Signs: Last Vital Signs Temp 98.0 F 07/05/22 19:00 Pulse 74 07/05/22 19:00 Resp 20 07/05/22 19:00 BP 118/50 L 07/05/22 18:59 Pulse Ox 99 07/05/22 19:00 O2 Del Method 07/05/22 19:00 BMI result Body Mass Index 29.5 Const: General: cooperative and no acute distress Orientation/consciousness: patient oriented x3 Eyes: General: appearance normal, both eyes and all related structures Resp: Effort & Inspection: normal respiratory effort Auscultation: clear to auscultation bilaterally Cardio: Rate: regular rate Rhythm: regular rhythm GI: Palpation (GI): Soft to palpation Auscultation: normal bowel sounds Skin: General skin exam: no rashes or lesions noted Neuro: Other: no neurological deficits General: patient oriented x3 Cognition (Neuro): normal cognition Extrem: General: Yes normal to inspection and Yes no pedal edema Results Labs CBC and Chem 7: 07/06/22 04:16 07/06/22 04:16 Labs: Laboratory Results - last 24 hr 07/05/22 07/05/22 07/05/22 16:48 17:01 17:05 MCV MCH MCHC RDW Plt Count MPV Immature Gran % (Auto) Neut % (Auto) Lymph % (Auto) [place] % (Auto) Eos % (Auto) Baso % (Auto) Lymph # (Auto) [place] # (Auto) Eos # (Auto) Baso # (Auto) Abs Immat Gran (auto) Absolute Neuts (auto) Absolute Nucleated RBC Nucleated RBC % (auto) PT INR Anion Gap 13 Estim Creat Clear Calc 48.7 Estimated GFR 41 POC Glucose 139 H Random Glucose 162 H Calcium 9.3 Magnesium 2.3 Total Bilirubin 0.4 Direct Bilirubin < 0.2 AST 12 ALT 10 Alkaline Phosphatase 73 B-Natriuretic Peptide Total Protein 6.4 L Albumin 3.5 Ethyl Alcohol COVID-19 (DONALD) Negative COVID-19 Clin Com See Note 07/05/22 07/05/22 07/05/22 17:05 17:05 17:06 MCV 91.9 MCH 29.5 MCHC 32.2 RDW 14.4 Plt Count 341 MPV 9.2 L Immature Gran % (Auto) 0.9 H Neut % (Auto) 74.3 H Lymph % (Auto) 15.8 L [place] % (Auto) 8.2 Eos % (Auto) 0.4 Baso % (Auto) 0.4 Lymph # (Auto) 2.4 [place] # (Auto) 1.2 Eos # (Auto) 0.1 Baso # (Auto) 0.1 Abs Immat Gran (auto) 0.13 H Absolute Neuts (auto) 11.3 H Absolute Nucleated RBC 0.000 Nucleated RBC % (auto) 0.0 PT 13.4 H INR 1.2 H Anion Gap Estim Creat Clear Calc Estimated GFR POC Glucose Random Glucose Calcium Magnesium Total Bilirubin Direct Bilirubin AST ALT Alkaline Phosphatase B-Natriuretic Peptide 126 H Total Protein Albumin Ethyl Alcohol COVID-19 (DONALD) COVID-19 Clin Com 07/05/22 17:06 MCV MCH MCHC RDW Plt Count MPV Immature Gran % (Auto) Neut % (Auto) Lymph % (Auto) [place] % (Auto) Eos % (Auto) Baso % (Auto) Lymph # (Auto) [place] # (Auto) Eos # (Auto) Baso # (Auto) Abs Immat Gran (auto) Absolute Neuts (auto) Absolute Nucleated RBC Nucleated RBC % (auto) PT INR Anion Gap Estim Creat Clear Calc Estimated GFR POC Glucose Random Glucose Calcium Magnesium Total Bilirubin Direct Bilirubin AST ALT Alkaline Phosphatase B-Natriuretic Peptide Total Protein Albumin Ethyl Alcohol < 10 COVID-19 (DONALD) COVID-19 Clin Com Assessment and Plan (1) Syncope: Status: Acute (2) ADRIANA (acute kidney injury): Status: Acute Plan 76-year-old male with past medical history of a PAF, diabetes, presents to the hospital with a syncopal episode after undergoing elective stress test # syncope - SVT vs vasovagal given the setting that it occurred in - orthostatic vitals normal - no EKG changes suggestive of arrhythmia - echo done this month showed diastolic heart failure with wall motion abnormality as well as abnormal holter monitor- the holter reported frequent supraventricular ectopy and possible A fib. - that is why patient had undergone the stress test - will consult Cardiology for any further recommendation including Holter monitor # ADRIANA - likely secondary to dehydration - will treat with IV flui - follow BMPO # DM - diet controlled - diabetic diet # PAF? - seen on holtor monitor - held rate control as pt found to be bradycardic - per guest relations coordinator note ?As the suspected atrial fibrillation episodes are still not definitive and they are very brief lasting only seconds, we will probably watch him for now considering the high bleeding risk from rectum.? - will monitor on telemetry DVT ppx: early ambulation Quality Stroke Does the patient have a stroke diagnosis?: No VTE Prior VTE?: No VTE Risk Level:: Medical - low VTE Device Contraindication: Treatment Not Indicated VTE Drug Contraindication: Treatment Not Indicated
[2022-07-05] MEDS: Lactated Ringers 1,000 ML 100 ML IVCONT (20:33)
[2022-07-06] VITALS: BP 114/55; PULSE 53; RESP 16; TEMP 36.8; O2SAT 99
[2022-07-06 04:20] LABS: MANUAL DIFF FLAG NO
[2022-07-06 04:21] LABS: Basophils Percent Auto 0.2 % (0-2); Eosinophils Absolute Auto 0.1 X10*3/uL (0.0-0.4); Eosinophils Percent Auto 0.6 % (0-4); Hemoglobin 12.3 g/dl (14.0-18.0); Imm Gran Abs Auto 0.06 X10*3/uL (0.00-0.03); Imm Gran Pct Auto 0.5 % (0.0-0.4); Lymphocytes Absolute Auto 2.6 X10*3/uL (1.2-4.9); Lymphocytes Percent Auto 20.1 % (20-40); Mean Corpuscular HGB Conc 32.4 g/dl (31.0-36.0); Mean Corpuscular Hemoglobin 29.6 pg (27.0-33.0); Mean Corpuscular Volume 91.6 fL (80.0-98.0); Monocytes Absolute Auto 1.3 X10*3/uL (0.1-1.2); Monocytes Percent Auto 10.1 % (2-11); Neutrophils Absolute Auto 8.8 x10*3/uL (2.0-8.3); Neutrophils Percent Auto 68.5 % (45-73); Platelet Count 316 X10*3/uL (160-400); Red Blood Count 4.15 X10*6/uL (4.60-5.80); Red Cell Distribution Width 14.5 % (11.0-16.0); White Blood Count 12.9 X10*3/uL (4.8-10.8)
[2022-07-06 04:42] LABS: Anion Gap 14 (12-20); Blood Urea Nitrogen 21 mg/dL (9-16); Calcium 8.7 mg/dL (8.4-10.2); Carbon Dioxide 28 mmol/L (22-29); Chloride 103 mmol/L (96-108); Creatinine Clr Calc Pharmacy 68.9; Estimated Glomerular Filt Rate > 60; Glucose Random 114 mg/dL (60-115); Potassium 4.6 mmol/L (3.3-5.1); Sodium 140 mmol/L (135-145)
[2022-07-06] MEDS: Lactated Ringers 1,000 ML 100 ML IVCONT (05:52)
--- NOTE | 2022-07-06 10:16 | PM.CNCAR ---
History of Present Illness History of Present Illness Date of Service: 07/06/22 Chief complaint: SYNCOPE Narrative: This is a cardiology consultation regarding syncopal episode. Patient was recently seen in the office for an abnormal Holter. He had no cardiac symptoms or prior cardiac history. He underwent Holter monitor that showed frequent supraventricular ectopy and a very short burst of possible atrial fibrillation. He was then seen in consultation and was scheduled for an echocardiogram and stress test. He actually came for the 1st part of stress test today had the procedure and then went home. He was okay and had lunch. Subsequently went to a building where apparently his son was just organizing. Patient was just sitting in a chair and giving instructions. In any case, he suddenly felt as if he was blacking out. His son apparently supported him. Also, it seems that the bleeding was very hard with minimal at movement. Patient has no other symptoms like angina or shortness of breath or in fact anything else cardiac related. After a brief moment or so he was able to regain consciousness and get back to his normal self. He was then brought to the ER admitted. Initial EKG had some sinus bradycardia but overnight he has been doing good with no complaints. Now he is back to his normal self. Would like to go home. Review of Systems Review of Systems: Yes all other systems are reviewed and are negative Constitutional: Constitutional: Reports as per HPI Eyes: Eyes: Reports as per HPI ENT: Reports as per HPI Cardiovascular: Cardiovascular: Reports as per HPI, Denies acrocyanosis, Denies cool extremities, Denies chest pain, Denies leg edema, Reports lightheadedness, Reports Loss of Consciousness, Denies palpitations and Denies dyspnea Respiratory: Respiratory: Reports as per HPI, Reports no additional respiratory complaints and Denies dyspnea Gastrointestinal: Gastrointestinal: Reports as per HPI and Reports no additional gastrointestinal complaints Genitourinary: Genitourinary: Reports no additional male genitourinary complaints and Reports as per HPI Musculoskeletal: Musculoskeletal: Reports no additional musculoskeletal complaints and Reports as per HPI Integumentary/Breasts: Skin/Breast: Reports system reviewed and no additional complaints, except as docu Neurologic: Reports system reviewed and no additional complaints, except as documented and Reports as per HPI Psychiatric: Psychiatric: Reports no additional psychiatric complaints and Reports as per HPI Endocrine: Endocrine: Reports no additional endocrine complaints, Reports as per HPI and Denies palpitations Hematologic/Lymphatic: Hematologic/Lymphatic: Reports no additional hematologic/lymphatic complaints and Reports as per HPI Allergic/Immunologic: Allergic/Immunologic: Reports no additional allergic/immunologic complaints and Reports as per HPI [facility] Past Medical History Medical History (Updated 07/06/22 @ 06:50 by Syl Donato MD) Abnormal LFTs Arthritis Cerebral ventriculomegaly COVID-19 vaccine administered Dementia Gait instability History of BPH History of lumbar puncture Insomnia Obesity PAF (paroxysmal atrial fibrillation) SVT (supraventricular tachycardia) Type 2 diabetes mellitus with obesity Family History Family History Father No problems noted. Mother No problems noted. Surgical History Surgical History H/O colonoscopy History of esophagogastroduodenoscopy (EGD) History of tonsillectomy Hx of appendectomy Social History Social History Housing: House Do you presently have visiting nurse or other home services: No Alcohol intake: never Patient Tobacco Use Status: Never used Tobacco e-Cigarette/Vaping Use: Never Used Second Hand Smoke Exposure: No service: No Current occupational status: employed Cognitive needs: No Hearing needs: No Vision needs: Yes (Glasses) Meds Allergies Allergy/AdvReac Type Severity Reaction Status Date / Time cabbage Allergy Severe throat Verified 06/25/22 13:40 swells Active Medications: Current Medications Acetaminophen (Acetaminophen 325 Mg Tablet) 650 mg PO Q6H PRN PRN Reason: Pain, Mild (Pain Scale 1-3) Balsalazide (Balsalazide Disodium 750 Mg Capsule) 2,250 mg PO TID [facility] Docusate Sodium (Docusate Sodium 100 Mg Capsule) 100 mg PO DAILY PRN PRN Reason: Constipation Donepezil HCl (Donepezil Hcl 10 Mg Tablet) 10 mg PO BEDTIME CAMEL[place] Lactated Ringer's (Lr) 1,000 mls @ 100 mls/hr IVCONT .Q10H [facility] Last Admin: 07/06/22 05:52 Dose: 100 mls/hr Ondansetron HCl (Ondansetron Hcl 4 Mg/2 Ml Vial) 4 mg IVPUSH Q8H PRN PRN Reason: Nausea and Vomiting Pharmacy Consult (Consult Rx Perform Med Rec) 1 each MISCELLANE ONCE PRN PRN Reason: Consult order Sodium Chloride (0.9 % Sodium Chloride Flush 3 Ml Syringe) 3 ml IVFLUSH QSHIFT [facility] Last Admin: 07/06/22 08:37 Dose: Not Given Tamsulosin HCl (Tamsulosin Hcl 0.4 Mg Capsule) 0.4 mg PO BEDTIME [facility] Home Medications Medication Instructions Recorded Confirmed Last Taken Type donepezil 10 mg tablet 10 mg PO BEDTIME 11/27/20 07/05/22 Unknown History tamsulosin 0.4 mg capsule 0.4 mg PO BEDTIME 11/27/20 07/05/22 Unknown History balsalazide 750 mg capsule 2,250 mg PO TID 03/12/22 07/05/22 Unknown History prednisone 5 mg tablet See Taper PO DAILY 07/05/22 07/05/22 Unknown History Physical Exam Vital Signs: Vital Signs: Last Vital Signs Temp 98.2 F 07/06/22 00:00 Pulse 53 07/06/22 00:00 Resp 16 07/06/22 00:00 BP 114/55 L 07/06/22 00:00 Pulse Ox 99 07/06/22 00:00 O2 Del Method 07/06/22 00:00 BMI result Body Mass Index 29.5 Const: General: comfortable and no acute distress Orientation/consciousness: patient oriented x3 HEENT: Other: Unremarkable Head: Yes normal to inspection Neck: Neck: Yes normal visual inspection Chest: Chest palpation & inspection: normal inspection of the chest Resp: Auscultation: clear to auscultation bilaterally Cardio: Palpation: normal PMI Heart sounds: S1 normal heart sound present, S2 normal heart sound present, no gallops, no murmurs and no rubs GI: Palpation (GI): Soft to palpation Back/Spine/Pelvis: Other: unremarkable Skin: General skin exam: no rashes or lesions noted Neuro: General: patient oriented x3 Extrem: General: Yes normal to inspection Psych: Mental Status: mental status grossly normal Objective Labs and Meds Result diagrams: 07/06/22 04:16 07/06/22 04:16 Lab results: Laboratory Results - last 24 hr 07/05/22 07/05/22 07/05/22 16:48 17:01 17:05 WBC RBC Hgb Hct MCV MCH MCHC RDW Plt Count MPV Immature Gran % (Auto) Neut % (Auto) Lymph % (Auto) [place] % (Auto) Eos % (Auto) Baso % (Auto) Lymph # (Auto) [place] # (Auto) Eos # (Auto) Baso # (Auto) Abs Immat Gran (auto) Absolute Neuts (auto) Absolute Nucleated RBC Nucleated RBC % (auto) PT INR Sodium 142 Potassium 4.2 Chloride 103 Carbon Dioxide 30 H Anion Gap 13 BUN 24 H Creatinine 1.64 H Estim Creat Clear Calc 48.7 Estimated GFR 41 POC Glucose 139 H Random Glucose 162 H Calcium 9.3 Magnesium 2.3 Total Bilirubin 0.4 Direct Bilirubin < 0.2 AST 12 ALT 10 Alkaline Phosphatase 73 Troponin I High Sens B-Natriuretic Peptide Total Protein 6.4 L Albumin 3.5 Ethyl Alcohol COVID-19 (DONALD) Negative COVID-19 Clin Com See Note 07/05/22 07/05/22 07/05/22 17:05 17:05 17:06 WBC 15.2 H RBC 4.30 L Hgb 12.7 L Hct 39.5 L MCV 91.9 MCH 29.5 MCHC 32.2 RDW 14.4 Plt Count 341 MPV 9.2 L Immature Gran % (Auto) 0.9 H Neut % (Auto) 74.3 H Lymph % (Auto) 15.8 L Angelina % (Auto) 8.2 Eos % (Auto) 0.4 Baso % (Auto) 0.4 Lymph # (Auto) 2.4 Angelina # (Auto) 1.2 Eos # (Auto) 0.1 Baso # (Auto) 0.1 Abs Immat Gran (auto) 0.13 H Absolute Neuts (auto) 11.3 H Absolute Nucleated RBC 0.000 Nucleated RBC % (auto) 0.0 PT 13.4 H INR 1.2 H Sodium Potassium Chloride Carbon Dioxide Anion Gap BUN Creatinine Estim Creat Clear Calc Estimated GFR POC Glucose Random Glucose Calcium Magnesium Total Bilirubin Direct Bilirubin AST ALT Alkaline Phosphatase Troponin I High Sens 5.6 B-Natriuretic Peptide 126 H Total Protein Albumin Ethyl Alcohol COVID-19 (DONALD) COVID-19 Clin Com 07/05/22 07/06/22 07/06/22 17:06 04:16 04:16 WBC 12.9 H RBC 4.15 L Hgb 12.3 L Hct 38.0 L MCV 91.6 MCH 29.6 MCHC 32.4 RDW 14.5 Plt Count 316 MPV 9.0 L Immature Gran % (Auto) 0.5 H Neut % (Auto) 68.5 Lymph % (Auto) 20.1 Angelina % (Auto) 10.1 Eos % (Auto) 0.6 Baso % (Auto) 0.2 Lymph # (Auto) 2.6 Angelina # (Auto) 1.3 H Eos # (Auto) 0.1 Baso # (Auto) 0.0 Abs Immat Gran (auto) 0.06 H Absolute Neuts (auto) 8.8 H Absolute Nucleated RBC 0.000 Nucleated RBC % (auto) 0.0 PT INR Sodium 140 Potassium 4.6 Chloride 103 Carbon Dioxide 28 Anion Gap 14 BUN 21 H Creatinine 1.16 Estim Creat Clear Calc 68.9 Estimated GFR > 60 POC Glucose Random Glucose 114 Calcium 8.7 D Magnesium Total Bilirubin Direct Bilirubin AST ALT Alkaline Phosphatase Troponin I High Sens B-Natriuretic Peptide Total Protein Albumin Ethyl Alcohol < 10 COVID-19 (DONALD) COVID-19 Clin Com Assessment and Plan (1) Syncope: Status: Acute (2) PAF (paroxysmal atrial fibrillation): Status: Acute Plan For EKG from admission with sinus bradycardia at 52/Min; cannot exclude old inferior infarct or anterior infarct. Not much different from prior EKG. Unremarkable troponin. Tele is also unremarkable. Etiology for syncope probably vasovagal. He did have some sinus bradycardia upon arrival but doubt that is the reason. Also because of the stress test he was NPO overnight and that could have played a role. At this time, he is stable and could be discharged. Will arrange outpatient follow-up with another Holter as well as carotid Dopplers. Discussed with the emergency room RN; discussed with Dr. Sal; discussed with over the phone. She is agreeable with plan. Procedures Date of Service Date of Service: 07/06/22
--- NOTE | 2022-07-06 10:35 | PM.DS ---
DS: Providers Provider Date of Service: 07/06/22 Date of admission: 07/05/22 19:08 Primary care physician: Unknown Physician Consults: 07/05/22 19:10 Consult to Cardiology Routine Consulting Provider: Jimenez Spencer Reason for consultation: Syncope post stress test Has provider been notified: No DS: Diagnosis Discharge Diagnosis (1) Syncope: Status: Acute (2) ADRIANA (acute kidney injury): Status: Acute DS: Summary Hospital Course Hospital Course: Admission note HPI ? Started 6-year-old male with past medical history of BPH, cerebral ventriculomegaly, normal pressure hydrocephalus, type 2 diabetes, SVT, PAF, who presents to the hospital with syncopal episode.? Patient reports that he had an elective stress test in the morning, it appears to have been a? pharmacological stress test.? Patient reports that he did well during the stress but he was told to take it easy.? On being sent home, he went to help his son move items from a property had just claimed.? Patient reports the building was very hot with very minimal air movement.? He reports that he was not doing any moving or lifting and was just sitting in the chair observing his son when all the sudden he felt slight lightheadedness and passed out.? He reports no shortness of breath, no palpitations, no change in vision, and no headache before, during or after the syncopal episode.? This lasted less than a minute and he regained consciousness with no postictal symptoms.? Patient denies any nausea or vomiting, no abdominal pain, no diarrhea constipation, any urinary symptoms and no lower extremity edema.? No shortness of breath.? On arrival to the ED patient hemodynamically stable with no significant abnormal vitals ?labs are significant for WBC count 12.9, 24, BUN of 24, creatinine of 1.64 ?patient's EKG shows sinus bradycardia with a heart rate of 52, otherwise no significant ST T wave changes Hospital course The patient was admitted to the hospital for evaluation of syncopal episode. Orthostatic vitals were normal. No EKG changes noted. Believed to be secondary to dehydration possible vasovagal attack as he was evaluated by Cardiology team who recommended outpatient follow-up for placement of Holter monitoring and carotid ultrasound. Noted to have mild acute kidney injury secondary to dehydration that recovered back to baseline with IV fluid overnight. continue the rest of your home medications Stay well hydrated Follow-up with cardiology clinic as scheduled Time Spent with Patient Time attestation: Total time spent providing and/or coordinating discharge services: Discharge coordination time: Less than 30 minutes Quality: Safe Use of Opioids Does Pt have an Active Cancer Diagnosis on the Problem List?: No Quality: Stroke Does the patient have a stroke diagnosis?: No Physical Exam Vital Signs: Vital Signs: Last Vital Signs Temp 98.2 F 07/06/22 00:00 Pulse 53 07/06/22 00:00 Resp 16 07/06/22 00:00 BP 114/55 L 07/06/22 00:00 Pulse Ox 99 07/06/22 00:00 O2 Del Method 07/06/22 00:00 BMI result Body Mass Index 29.5 Const: Other: Constitutional : Alert, oriented, not in distress Neck : Normal inspection, Supple Cardiovascular : RRR, no JVP, no lower extremity edema Respiratory : fair bilateral air entry, no crackles, wheezes or rhonchi Gastrointestinal: soft, lax, Normal bowel sounds, Non tender Skin : Warm, Dry Neurological : Alert & oriented x3, No focal deficit , CN 2-12 within normal DS: Data Data Completed and Pending Labs on day of discharge: Laboratory Results - last 24 hr 07/05/22 07/05/22 07/05/22 16:48 17:01 17:05 WBC RBC Hgb Hct MCV MCH MCHC RDW Plt Count MPV Immature Gran % (Auto) Neut % (Auto) Lymph % (Auto) [place] % (Auto) Eos % (Auto) Baso % (Auto) Lymph # (Auto) [place] # (Auto) Eos # (Auto) Baso # (Auto) Abs Immat Gran (auto) Absolute Neuts (auto) Absolute Nucleated RBC Nucleated RBC % (auto) PT INR Sodium 142 Potassium 4.2 Chloride 103 Carbon Dioxide 30 H Anion Gap 13 BUN 24 H Creatinine 1.64 H Estim Creat Clear Calc 48.7 Estimated GFR 41 POC Glucose 139 H Random Glucose 162 H Calcium 9.3 Magnesium 2.3 Total Bilirubin 0.4 Direct Bilirubin < 0.2 AST 12 ALT 10 Alkaline Phosphatase 73 Troponin I High Sens B-Natriuretic Peptide Total Protein 6.4 L Albumin 3.5 Ethyl Alcohol COVID-19 (DONALD) Negative COVID-19 Clin Com See Note 07/05/22 07/05/22 07/05/22 17:05 17:05 17:06 WBC 15.2 H RBC 4.30 L Hgb 12.7 L Hct 39.5 L MCV 91.9 MCH 29.5 MCHC 32.2 RDW 14.4 Plt Count 341 MPV 9.2 L Immature Gran % (Auto) 0.9 H Neut % (Auto) 74.3 H Lymph % (Auto) 15.8 L [place] % (Auto) 8.2 Eos % (Auto) 0.4 Baso % (Auto) 0.4 Lymph # (Auto) 2.4 [place] # (Auto) 1.2 Eos # (Auto) 0.1 Baso # (Auto) 0.1 Abs Immat Gran (auto) 0.13 H Absolute Neuts (auto) 11.3 H Absolute Nucleated RBC 0.000 Nucleated RBC % (auto) 0.0 PT 13.4 H INR 1.2 H Sodium Potassium Chloride Carbon Dioxide Anion Gap BUN Creatinine Estim Creat Clear Calc Estimated GFR POC Glucose Random Glucose Calcium Magnesium Total Bilirubin Direct Bilirubin AST ALT Alkaline Phosphatase Troponin I High Sens 5.6 B-Natriuretic Peptide 126 H Total Protein Albumin Ethyl Alcohol COVID-19 (DONALD) COVID-19 Clin Com 07/05/22 07/06/22 07/06/22 17:06 04:16 04:16 WBC 12.9 H RBC 4.15 L Hgb 12.3 L Hct 38.0 L MCV 91.6 MCH 29.6 MCHC 32.4 RDW 14.5 Plt Count 316 MPV 9.0 L Immature Gran % (Auto) 0.5 H Neut % (Auto) 68.5 Lymph % (Auto) 20.1 [place] % (Auto) 10.1 Eos % (Auto) 0.6 Baso % (Auto) 0.2 Lymph # (Auto) 2.6 [place] # (Auto) 1.3 H Eos # (Auto) 0.1 Baso # (Auto) 0.0 Abs Immat Gran (auto) 0.06 H Absolute Neuts (auto) 8.8 H Absolute Nucleated RBC 0.000 Nucleated RBC % (auto) 0.0 PT INR Sodium 140 Potassium 4.6 Chloride 103 Carbon Dioxide 28 Anion Gap 14 BUN 21 H Creatinine 1.16 Estim Creat Clear Calc 68.9 Estimated GFR > 60 POC Glucose Random Glucose 114 Calcium 8.7 D Magnesium Total Bilirubin Direct Bilirubin AST ALT Alkaline Phosphatase Troponin I High Sens B-Natriuretic Peptide Total Protein Albumin Ethyl Alcohol < 10 COVID-19 (DONALD) COVID-19 Clin Com Discharge Plan Discharge Patient Disposition: Home, Self-Care Referrals: Physician,Bernice J [Primary Care Provider] - 1 Week Discharge Medications: Continued prednisone 5 mg tablet See Taper PO DAILY Taper: Prednisone 80 mg daily for 7 Days and 0 Hour 70 mg daily for 7 Days and 0 Hour 60 mg daily for 7 Days and 0 Hour 50 mg daily for 7 Days and 0 Hour 40 mg daily for 7 Days and 0 Hour 30 mg daily for 7 Days and 0 Hour 20 mg daily for 7 Days and 0 Hour 10 mg daily for 7 Days and 0 Hour tamsulosin 0.4 mg capsule 0.4 mg PO BEDTIME donepezil 10 mg tablet 10 mg PO BEDTIME balsalazide 750 mg capsule 2,250 mg PO TID Discharge Orders: Discharge Order (Routine); Ordered 07/06/22 Ordered By: Kelly Sal Diet: Advance to usual diet Activity on Discharge: As tolerated Stand Alone Forms: Patient Portal Discharge page Care Plan Goals: Read below Health Concerns: Read below Plan of Treatment: Read below Assessment: you were admitted to the hospital for observation after having an episode of syncope. Evaluated by blood work and CT scan with no acute findings. Noticed to have mild kidney injury that was treated back to baseline with IV fluids. Evaluated by material flow analyst who recommended an outpatient follow-up for Holter monitoring and carotid Doppler. continue the rest of your home medications Stay well hydrated Follow-up with cardiology clinic as scheduled
--- NOTE | 2022-07-06 11:00 | PC.NURSE ---
Colazal not loaded in ed pyxis and pt pending discharge. pt aware.
== END 2022-07-06 11:30 | disposition home or self-care (01) ==
LOC: HO.ED 17:54 → HO.EDOVER 19:23 → HO.S3 07-06 09:38 → HO.EDOVER 07-06 10:30
PROVIDERS: Admitting Provider Internal Medicine; Emergency Provider Emergency Medicine; PCP Internal Medicine; Visit Provider Student in an Organized Health Care Education/Training Program
DX: R55 Syncope and collapse (principal); I48.0 Paroxysmal atrial fibrillation; N17.9 Acute kidney failure, unspecified; R06.02 Shortness of breath; E11.9 Type 2 diabetes mellitus without complications; R11.2 Nausea with vomiting, unspecified; R19.7 Diarrhea, unspecified; Z20.822 Contact with and (suspected) exposure to COVID-19; Z79.899 Other long term (current) drug therapy; Z20.828 Contact with and (suspected) exposure to other viral communicable diseases; Z79.4 Long term (current) use of insulin
CPT/HCPCS: 36415; 78452; 80048; 80076; 82077; 82947; 83735; 83880; 84484; 85025; 85610; 87635; 93005; 93017; 96365; 96366; 96375; 96376; 99215; 99218; 99285; A9500; J2405; J2785

== ENCOUNTER 2022-07-09 07:14 | Outpatient (REF) | payer MEDICARE, SELFPAY ==
--- NOTE | ~2022-07-09 | CT_ITS ---
EXAMINATION: CT ABDOMEN AND PELVIS WITH CONTRAST CLINICAL INFORMATION: Diverticulitis COMPARISON: Abdominal ultrasound April 2022 TECHNIQUE: Multidetector volumetric images were obtained from the superior aspect of the liver through the pubic symphysis following administration 85 mL of Omnipaque 350 intravenous contrast. Sagittal and coronal reformatted images were obtained on the technologist's workstation. Oral contrast: Yes This CT examination was performed using dose optimization techniques as appropriate, variously including the following: *Automated exposure control *Adjustment of mA and/or kV according to patient size (this includes techniques or standardized protocols for targeted exams where dose is matched to indication/reason for exam; i.e. extremities or head) *Use of iterative reconstruction technique DLP: 194 mGy-cm FINDINGS: LUNG BASES: The visualized lung bases are unremarkable. LIVER, GALLBLADDER, AND BILIARY TREE: The liver is normal in size, shape, and attenuation. No focal hepatic lesion or biliary ductal dilatation is present. The gallbladder is unremarkable with no evidence of radiopaque gallstones, gallbladder wall thickening, or obvious pericholecystic inflammatory changes. PANCREAS: There is a 1 x 1.5 cm cyst in the body of the pancreas. SPLEEN: Unremarkable. ADRENAL GLANDS: Unremarkable. KIDNEYS AND URETERS: There is cortical thinning or scarring of the lower pole of the left kidney. There are multiple right renal stones. There is a 6 x 4 mm stone in the right renal pelvis. There are smaller right upper pole stones, largest measuring 2 mm. There is mild right hydronephrosis. There are right renal cysts, largest measuring 6 x 7 cm exophytic to the lower pole of the right kidney. BLADDER: Unremarkable. GASTROINTESTINAL TRACT: There is long segment wall thickening and edema of the sigmoid colon and rectum. There is stranding of the surrounding fat, prominent vessels, and small pericolic lymph nodes. Appearance is more suggestive of proctocolitis than diverticulitis. There is diverticulosis of the colon. The more proximal colon is slightly dilated and stool-filled suggestive of mild partial obstruction. Small and large bowel is otherwise unremarkable. The appendix is not seen. ABDOMINAL WALL: There is an umbilical hernia containing fat. LYMPH NODES: Normal. VASCULAR: There is evidence of atherosclerotic disease. No aneurysm seen. PELVIC VISCERA: Unremarkable. OSSEOUS STRUCTURES: There are degenerative changes of the spine. CT/CT abdomen pelvis w IV con IMPRESSION: Abnormal sigmoid colon and rectum suggestive of proctocolitis. The more proximal colon is slightly dilated and filled with stool suggestive of mild secondary obstruction. Diverticulosis of the colon. Mild right hydronephrosis or by 6 mm right renal pelvis stone. Smaller stones in the upper pole right kidney. Right renal cysts. 1 x 1.5 cm cyst in the body of the pancreas. Follow-up MR of the pancreas with MRCP recommended. Findings will be communicated by the [place] work flow consultant dietitian. Fleischner guidelines were followed.
[2022-07-09] MEDS: iohexoL 350 MG/ML 100 ML INFUS..BTL IV (09:54)
[2022-07-09] MEDS: Barium Sulfate Oral (Mocha) 450 ML ORAL.SUSP 900 ML PO (09:55)
== END 2022-07-09 07:15 | disposition home or self-care (01) ==
LOC: HO.CT 07:14
PROVIDERS: Visit Provider Surgery
DX: K57.92 Diverticulitis of intestine, part unspecified, without perforation or abscess without bleeding (principal)
CPT/HCPCS: 74177; Q9967

== ENCOUNTER 2022-07-19 11:08 | Outpatient (REF) | payer MEDICARE, SELFPAY ==
[2022-07-19 11:32] LABS: MANUAL DIFF FLAG NO
[2022-07-19 11:48] LABS: Basophils Percent Auto 0.1 % (0-2); Eosinophils Percent Auto 0.2 % (0-4); Hematocrit 36.6 % (42.0-52.0); Hemoglobin 11.9 g/dl (14.0-18.0); Imm Gran Abs Auto 0.03 X10*3/uL (0.00-0.03); Imm Gran Pct Auto 0.4 % (0.0-0.4); Lymphocytes Absolute Auto 1.2 X10*3/uL (1.2-4.9); Lymphocytes Percent Auto 14.2 % (20-40); Mean Corpuscular HGB Conc 32.5 g/dl (31.0-36.0); Mean Corpuscular Hemoglobin 29.7 pg (27.0-33.0); Mean Corpuscular Volume 91.3 fL (80.0-98.0); Mean Platelet Volume 8.8 fL (9.4-12.4); Monocytes Absolute Auto 0.5 X10*3/uL (0.1-1.2); Monocytes Percent Auto 5.6 % (2-11); Neutrophils Absolute Auto 6.7 x10*3/uL (2.0-8.3); Neutrophils Percent Auto 79.5 % (45-73); Platelet Count 315 X10*3/uL (160-400); Red Blood Count 4.01 X10*6/uL (4.60-5.80); Red Cell Distribution Width 14.2 % (11.0-16.0); White Blood Count 8.4 X10*3/uL (4.8-10.8)
[2022-07-19 12:26] LABS: Alanine Aminotransferase 11 U/L (0-40); Albumin Level 3.3 g/dL (3.5-5.0); Alkaline Phosphatase 64 U/L (39-117); Anion Gap 15 (12-20); Aspartate Amino Transferase 9 U/L (5-37); Bilirubin Direct 0.2 mg/dL (0.0-0.5); Bilirubin Total 0.4 mg/dL (0.0-1.0); Blood Urea Nitrogen 17 mg/dL (9-16); Calcium 8.9 mg/dL (8.4-10.2); Carbon Dioxide 27 mmol/L (22-29); Chloride 102 mmol/L (96-108); Estimated Glomerular Filt Rate > 60; Glucose Random 195 mg/dL (60-115); Potassium 4.1 mmol/L (3.3-5.1); Sodium 140 mmol/L (135-145); Total Protein 6.2 g/dL (6.5-8.0)
[2022-07-19 14:01] LABS: Erythrocyte Sedimentation Rate 45 MM/HR (0-15)
[2022-07-22 03:42] LABS: HBc Num1 0.08 S/CO (0.00-0.79); HBsAGNum1 0.22 S/CO (0.00-0.99); Hepatitis B Core Antibody Nonreactive (Nonreactive); Hepatitis B Surface Antigen Negative (Negative); ~Hepatitis B Surface Antibody NONREACTIVE (Nonreactive)
[2022-07-22 17:11] LABS: TS Negative Control Passed; TS Panel A 1; TS Panel B 0; TS Positive Control Passed; TSpotTB Negative (Negative)
== END 2022-07-19 11:09 | disposition home or self-care (01) ==
LOC: HO.LAB 11:08
PROVIDERS: PCP Internal Medicine; Visit Provider Internal Medicine
DX: Z11.1 Encounter for screening for respiratory tuberculosis (principal); K51.311 Ulcerative (chronic) rectosigmoiditis with rectal bleeding
CPT/HCPCS: 36415; 80053; 82248; 85025; 85652; 86140; 86481; 86704; 86706; 87340

== ENCOUNTER → 2022-07-22 07:38 | Outpatient (REF) | payer MEDICARE, SELFPAY ==
--- NOTE | 2022-07-22 07:39 | HM_ITS ---
* Total monitoring time 6 days and 23 hours. * Underlying rhythm is sinus. Average rate 69/Min. Range 34 to 141/Min. * Frequent supraventricular ectopy with a burden of 12%. Several brief episodes, longest 20 beats. * Rare ventricular ectopy, isolated. * No patient events. MTDD
== END ==
LOC: HO.CARD 07:38
PROVIDERS: PCP Internal Medicine; Visit Provider Internal Medicine
DX: I48.0 Paroxysmal atrial fibrillation (principal); E11.69 Type 2 diabetes mellitus with other specified complication; E66.9 Obesity, unspecified
CPT/HCPCS: 93242; 97803

== ENCOUNTER → 2022-07-23 14:01 | Outpatient (BNVA) | payer MEDICARE, SELFPAY | PROVIDERS: PCP Internal Medicine; Visit Provider Surgery | DX: K52.9 Noninfective gastroenteritis and colitis, unspecified (principal); K62.5 Hemorrhage of anus and rectum; G91.2 (Idiopathic) normal pressure hydrocephalus; R93.5 Abnormal findings on diagnostic imaging of other abdominal regions, including retroperitoneum | CPT/HCPCS: 99212 ==

== ENCOUNTER 2022-08-06 09:38 | Outpatient (REF) | payer MEDICARE, SELFPAY ==
--- NOTE | ~2022-08-06 | US_ITS ---
EXAMINATION: US EXTRACRANIAL CAROTID DUPLEX, BILATERAL CLINICAL INFORMATION: Carotid stenosis COMPARISON: None TECHNIQUE: Real-time ultrasound and Doppler techniques (integrating B-mode 2-D vascular images, Doppler spectral analysis and color-flow Doppler imaging) were utilized to interrogate the extracranial carotid arteries, the vertebral arteries and proximal subclavian arteries bilaterally. The degree of stenosis is determined by criteria similar to NASCET. FINDINGS: Right Side: 1. There is minimal atherosclerotic plaque seen in the bifurcation/proximal ICA region. 2. The common carotid artery PSV proximally is 172 cm/s and distally 96.6 cm/s. 3. The proximal internal carotid artery velocities are 73.9 cm/s systolic and 23.5 cm/s diastolic. 4. The proximal external carotid artery PSV is 108 cm/s. 5. The vertebral artery shows antegrade flow. 6. The subclavian artery waveforms are normal. Left Side: 1. There is no significant atherosclerotic plaque seen in the bifurcation/proximal ICA region. 2. The common carotid artery PSV proximally is 123 cm/s and distally 85.6 cm/s. 3. The proximal internal carotid artery velocities are 104 cm/s systolic and 30.6 cm/s diastolic. 4. The proximal external carotid artery PSV is 129 cm/s. 5. The vertebral artery shows antegrade flow. 6. The subclavian artery waveforms are normal. US/US carotid duplex BI IMPRESSION: 1. RIGHT: Minimal, non-hemodynamically significant stenosis of the proximal right internal carotid artery corresponding to a 0-49% stenosis by velocity criteria. 2. LEFT: Normal left internal carotid artery without atherosclerotic plaque or hemodynamically significant stenosis.
== END 2022-08-06 09:39 | disposition home or self-care (01) ==
LOC: HO.HMGCX 09:38
PROVIDERS: PCP Internal Medicine; Visit Provider Internal Medicine
DX: I65.23 Occlusion and stenosis of bilateral carotid arteries (principal); R55 Syncope and collapse
CPT/HCPCS: 93880

== ENCOUNTER → 2022-08-28 14:35 | Outpatient (BNVA) | payer MEDICARE, SELFPAY | PROVIDERS: PCP Internal Medicine; Referring Provider Internal Medicine; Visit Provider Internal Medicine | DX: I25.10 Atherosclerotic heart disease of native coronary artery without angina pectoris (principal); I48.0 Paroxysmal atrial fibrillation; R94.31 Abnormal electrocardiogram [ECG] [EKG]; R55 Syncope and collapse | CPT/HCPCS: 99212 ==

== ENCOUNTER 2022-09-06 13:47 | Outpatient (REF) | payer MEDICARE, SELFPAY ==
[2022-09-06 14:00] VITALS: BP 123/61; PULSE 93; RESP 16; TEMP 37.7; O2SAT 96
[2022-09-06 14:02] VITALS: BMI 29.5
--- NOTE | 2022-09-06 14:46 | P.BOP_ITS ---
Brief Operative Note Date of Service: 09/06/22 Pre-op diagnosis: Syncope Post-op diagnosis: same Procedure: Placement of implantable loop recorder Implants: After obtaining full informed consent patient was in the minor surgery suite. Patient was then laid supine on the operating table. Patient's precordial area was then prepped and draped in a sterile fashion. Patient was then given local anesthetic with epinephrine intradermally and subcutaneously. Small incision was then made. A [employer]tr[employer] implantable loop recorder was then implanted using Seldinger technique in the subcutaneous space. Measured R-wave at 0.33-0.4 mV. The wound was then closed with Steri-Strips. Pressure dressing was then applied. Surgeon: Jesse Montenegro MD Anesthesia: local Was an [employer]chandising Coordinator used for this Procedure?: No Estimated blood loss (mL): 2 Pathology: none sent Condition: stable Disposition: same day
[2022-09-06 14:55] VITALS: BP 114/59; PULSE 71; RESP 16; O2SAT 95
== END 2022-09-06 13:48 | disposition home or self-care (01) ==
LOC: HO.MS 13:47
PROVIDERS: PCP Internal Medicine; Visit Provider Internal Medicine Cardiovascular Disease
PROC: (CPT 33285; principal; 2022-09-06 14:30)
DX: R55 Syncope and collapse (principal)
CPT/HCPCS: 33285; C1764

== ENCOUNTER 2022-09-09 12:46 | Outpatient (REF) | payer MEDICARE, SELFPAY ==
[2022-09-09 13:34] LABS: Estimated Average Glucose 151 mg/dL; Hemoglobin A1c % 6.9 %
== END 2022-09-09 12:47 | disposition home or self-care (01) ==
LOC: HO.LAB 12:46
PROVIDERS: PCP Internal Medicine; Visit Provider Internal Medicine
DX: E11.9 Type 2 diabetes mellitus without complications (principal)
CPT/HCPCS: 36415; 83036

== ENCOUNTER → 2022-09-26 14:01 | Outpatient (BNVA) | payer MEDICARE, SELFPAY | PROVIDERS: PCP Internal Medicine; Referring Provider Internal Medicine; Visit Provider Internal Medicine | DX: R94.31 Abnormal electrocardiogram [ECG] [EKG] (principal); R55 Syncope and collapse; I48.0 Paroxysmal atrial fibrillation; Z95.818 Presence of other cardiac implants and grafts | CPT/HCPCS: 99212 ==

== ENCOUNTER → 2022-11-12 08:18 | Outpatient (BNVA) | payer MEDICARE, SELFPAY | PROVIDERS: PCP Internal Medicine; Visit Provider Psychiatry & Neurology Neurology | DX: R41.89 Other symptoms and signs involving cognitive functions and awareness (principal); R26.9 Unspecified abnormalities of gait and mobility; F41.9 Anxiety disorder, unspecified; G47.00 Insomnia, unspecified | CPT/HCPCS: 36415; 82306; 82607; 82746; 84443; 85652; 99202 ==

== ENCOUNTER 2022-11-12 09:52 | Outpatient (REF) | payer MEDICARE, SELFPAY ==
[2022-11-12 11:42] LABS: Erythrocyte Sedimentation Rate 26 MM/HR (0-15)
[2022-11-12 12:04] LABS: Folate 15.2 ng/mL (> or = 4.0); TSH reflex Free T4 2.13 uIU/mL (0.32-4.0); Vitamin B12 548 pg/mL (200-900)
[2022-11-17 10:18] LABS: Vitamin D 25-OH, D2 <4 ng/mL; Vitamin D 25-OH, D3 17 ng/mL; Vitamin D 25-OH, Total 17 ng/mL (30-100)
== END 2022-11-12 09:53 | disposition home or self-care (01) ==
LOC: HO.10HDL 09:52
PROVIDERS: Visit Provider Psychiatry & Neurology Neurology
DX: Z13.89 Encounter for screening for other disorder (principal)
CPT/HCPCS: 36415; 82306; 82607; 82746; 84443; 85652

== ENCOUNTER 2022-12-31 14:00 | Outpatient (RCR) | payer MEDICARE, SELFPAY | END 2023-01-31 14:25 | disposition home or self-care (01) | LOC: HO.PT 14:00 | PROVIDERS: PCP Internal Medicine; Visit Provider Psychiatry & Neurology Neurology | DX: R26.9 Unspecified abnormalities of gait and mobility (principal) | CPT/HCPCS: 97110; 97162; 97530 ==

== ENCOUNTER → 2023-01-30 13:20 | Outpatient (BNVA) | payer MEDICARE, SELFPAY | PROVIDERS: PCP Internal Medicine; Visit Provider Dietitian, Registered | DX: E11.69 Type 2 diabetes mellitus with other specified complication (principal); E66.9 Obesity, unspecified; Z68.29 Body mass index [BMI] 29.0-29.9, adult; Z71.3 Dietary counseling and surveillance | CPT/HCPCS: 97803 ==

== ENCOUNTER → 2023-02-11 09:37 | Outpatient (BNVA) | payer MEDICARE, SELFPAY | PROVIDERS: Visit Provider Nurse Practitioner Family | DX: G47.00 Insomnia, unspecified (principal); R26.9 Unspecified abnormalities of gait and mobility; F41.9 Anxiety disorder, unspecified; R41.89 Other symptoms and signs involving cognitive functions and awareness | CPT/HCPCS: 99212 ==

== ENCOUNTER 2023-03-15 15:47 | Inpatient (IN) | payer MEDICARE, SELFPAY ==
--- NOTE | ~2023-03-15 | CT_ITS ---
EXAMINATION: CT ABDOMEN AND PELVIS without and with CONTRAST CLINICAL INFORMATION: brbpr. constipation. bloating COMPARISON: CT of the Abdomen pelvis 07/09/2022 TECHNIQUE: Helical CT scan of abdomen and pelvis. IV contrast: 80 mL Omnipaque 350 Oral contrast: Was not administered Reconstruction: Coronal and sagittal reformatted images performed at CT scanner by the technologist. [This CT examination was performed using dose optimization techniques as appropriate, variously including the following: *Automated exposure control *Adjustment of mA and/or kV according to patient size (this includes techniques or standardized protocols for targeted exams where dose is matched to indication/reason for exam; i.e. extremities or head) *Use of iterative reconstruction technique] FINDINGS: LUNG BASES: The visualized lung bases are unremarkable. Moderate volume of coronary calcification LIVER, GALLBLADDER, AND BILIARY TREE: The liver is normal in size, shape, and attenuation. No focal hepatic lesion or biliary ductal dilatation is present. The gallbladder is unremarkable with no evidence of radiopaque gallstones, gallbladder wall thickening, or obvious pericholecystic inflammatory changes. PANCREAS: No acute change of the pancreas. No mass. No pancreatic duct dilatation. SPLEEN: Spleen normal in size and contour. No focal lesion. ADRENAL GLANDS: Adrenal glands are normal in size. No focal mass. KIDNEYS AND URETERS: 2 mm nonobstructive stone at the midpole right kidney. There is a 9 mm stone in the right renal pelvis. No hydronephrosis. Exophytic cyst lower pole right kidney measuring 6.8 cm. No follow-up imaging is recommended for simple renal cyst. No ureteral calculus. No hydronephrosis. Normal left kidney. BLADDER: Unremarkable. GASTROINTESTINAL TRACT: No evidence of contrast pooling within the bowel loops to indicate site of active hemorrhage. There are numerous diverticula of the sigmoid colon. There is diffuse bowel wall thickening and pericolonic edema in the sigmoid colon. This suggests probable diverticulitis.. A colonic mass however cannot be excluded . This is more severe than the prior study 07/09/2022. There is moderate gaseous distention of the colon proximal to the area of edema. There is a moderate to large volume of stool in the colon. The appendix is nonvisualized . The small bowel loops are unremarkable. The stomach is normal. There is no hiatal hernia. MESENTERY: There is a percutaneous catheter looping through the anterior abdomen extending inferior to the liver. As noted above there is edema around the sigmoid colon. No abscess or free air. ABDOMINAL WALL: No significant hernia is appreciated. LYMPH NODES: Normal. VASCULAR: Scattered vascular calcifications in the abdomen and pelvis. No aneurysm of aorta. PELVIC VISCERA: Prostate measures 4.9 cm transverse. Coarse calcifications within the prostate. OSSEOUS STRUCTURES: Multilevel degenerative spondylosis spine. CT/CT gi bleed abd pel wo/w IVcon IMPRESSION: 1. No evidence of active hemorrhage in the bowel. 2. Diverticulosis of sigmoid colon. There is diffuse bowel wall thickening and pericolonic edema in the sigmoid colon. This suggests probable diverticulitis. A colonic mass however cannot be excluded. This is more severe than the prior study 07/09/2022. There is moderate gaseous distention of the colon proximal to the area of edema. 3. Percutaneous catheter in the abdomen. 4. Nonobstructive calculi right kidney. 9 mm stone in the right renal pelvis. No hydronephrosis.
[2023-03-15 15:48] VITALS: BP 108/69; PULSE 82; RESP 16; TEMP 36.6; O2SAT 97; BMI 27.4
--- NOTE | 2023-03-15 15:49 | ED_ITS ---
HPI - Abdominal Pain General Chief Complaint: Abdominal Pain <DOTTY Rahman - Last Filed: 03/15/23 15:54> Stated Complaint: bowel issue <DOTTY Rahman - Last Filed: 03/15/23 15:54> Time Seen by Provider: 03/15/23 16:35 <DOTTY Rahman - Last Filed: 03/15/23 15:54> Source: patient <Rosalina Deng MD - Last Filed: 03/15/23 23:18> Mode of arrival: ambulatory <Rosalina Deng MD - Last Filed: 03/15/23 23:18> History of Present Illness HPI narrative: 77-year-old male with history of 2 days of no bowel movement and increa sing abdominal discomfort and states that today he has been unable to pass gas but did have bleeding which she has not had before. Patient is status post shunt placement in January of this year for hydrocephalus. <Rosalina Deng MD - Last Filed: 03/15/23 23:18> Related Data Home Medications: Home Medications Medication Instructions Recorded Confirmed donepezil 10 mg tablet 10 mg PO BEDTIME 11/27/20 11/12/22 tamsulosin 0.4 mg capsule 0.4 mg PO BEDTIME 11/27/20 11/12/22 balsalazide 750 mg capsule 2,250 mg PO TID 03/12/22 11/12/22 Previous Rx's Medication Instructions Recorded flash glucose scanning reader #1 ea 09/04/22 (FreeStyle Tyrese 14 Day Grindstone) blood-glucose meter (FreeStyle #1 ea 09/17/22 Lite Meter kit) trazodone 50 mg tablet 50 mg PO BEDTIME #30 tabs 11/12/22 cholecalciferol (vitamin D3) 1,250 1,250 mcg PO QWEEK #14 caps 11/18/22 mcg (50,000 unit) capsule blood sugar diagnostic (FreeStyle #100 ea 11/19/22 Lite Strips) lancets 28 gauge (FreeStyle #100 ea 11/20/22 Lancets) metformin 500 mg tablet,extended 500 mg PO DAILY #90 tabs 11/21/22 release 24 hr magnesium citrate (Citrate of 45 ml PO BID PRN constipation #296 03/15/23 Magnesia oral) mL <DOTTY Rahman - Last Filed: 03/15/23 15:54> Allergies/Adverse Reactions: Allergies Allergy/AdvReac Type Severity Reaction Status Date / Time cabbage Allergy Severe throat Verified 02/11/23 09:52 swells <DOTTY Rahman - Last Filed: 03/15/23 15:54> Review of Systems Review of Systems Pertinent positives and negatives as stated in HPI <Rosalina Deng MD - Last Filed: 03/15/23 23:18> [facility] Past Medical History Source: nursing notes reviewed <Rosalina Deng MD - Last Filed: 03/15/23 23:18> Medical History: Medical History Abnormal LFTs Arthritis Cerebral ventriculomegaly COVID-19 vaccine administered Dementia Gait instability History of BPH History of lumbar puncture Insomnia Obesity PAF (paroxysmal atrial fibrillation) SVT (supraventricular tachycardia) Type 2 diabetes mellitus with obesity <DOTTY Rahman - Last Filed: 03/15/23 15:54> Surgical History: Surgical History H/O colonoscopy History of esophagogastroduodenoscopy (EGD) History of tonsillectomy Hx of appendectomy <DOTTY Rahman - Last Filed: 03/15/23 15:54> Family History Family History: Family History Father No problems noted. Mother No problems noted. <DOTTY Rahman - Last Filed: 03/15/23 15:54> Social History Social History: Social History Housing: House Do you presently have visiting nurse or other home services: No Alcohol intake: never Patient Tobacco Use Status: Never used Tobacco e-Cigarette/Vaping Use: Never Used Second Hand Smoke Exposure: No Advance Directives: No Advance Directives Information Provided: No service: No Current occupational status: employed Cognitive needs: Yes (cane) Hearing needs: No Vision needs: Yes (Glasses) <DOTTY Rahman - Last Filed: 03/15/23 15:54> Physical Exam ED Vital Signs: Vital Signs - 24 hr 03/15/23 15:48 03/15/23 18:00 03/15/23 20:00 Temperature 97.9 F 98.4 F 98.0 F Pulse Rate 82 60 68 Respiratory Rate 16 16 16 Blood Pressure 108/69 116/65 118/68 Pulse Oximetry 97 98 98 Oxygen Delivery Method Room Air Room Air Room Air BMI result Body Mass Index 27.4 <DOTTY Rahman - Last Filed: 03/15/23 15:54> Vital Signs - 24 hr 03/15/23 15:48 03/15/23 18:00 03/15/23 20:00 Temperature 97.9 F 98.4 F 98.0 F Pulse Rate 82 60 68 Respiratory Rate 16 16 16 Blood Pressure 108/69 116/65 118/68 Pulse Oximetry 97 98 98 Oxygen Delivery Method Room Air Room Air Room Air BMI result Body Mass Index 27.4 VITAL SIGNS: Reviewed. GENERAL: Well developed, well nourished, in no acute distress. HEAD: Normocephalic/atraumatic EYES: PERRLA, EOMI EARS: Ext canals without abnormality NOSE: Nares patent bilateral OROPHARYNX: no oral lesions noted, posterior pharynx clear NECK: Supple, no adenopathy LUNGS: Normal breath sounds. No adventitious sounds or accessory muscle use. SpO2<97> CARDIOVASCULAR: Regular rate and rhythm without noted murmurs, no JVD but bilateral nonpitting lower extremity edema ABDOMEN: Soft, left lower quadrant discomfort without rebound, mild distension with bowel sounds. ZENAIDA: No noted external hemorrhoids, rectal vault with minimal thin bloody stool MUSCULOSKELETAL: No tenderness, deformities, or effusions noted on gross inspection. EXTREMITIES: No cyanosis, clubbing or edema. SKIN: Inspection of the skin reveals no rashes NEUROLOGIC: Alert and oriented x 4. Strength and sensation to light touch were grossly intact x 4. <Rosalina Deng MD - Last Filed: 03/15/23 23:18> Course Course Course Narrative: RME: 77yo M w/PMHx DM, proximal AFib, cerebral ventriculomegaly c/o constipation x1 week without BM & passing brbpr. Last passed flatus yesterday. Also reports lightheadedness and fever the other day (resolved). Denies taking AC. denies N/V, CP, SOB Abdomen soft/nontender EKG, labs, UA, occult stool, CT/AP gi bleed protocol ordered Full HPI, ROS and PE to be performed by primary ED provider. <DOTTY Rahman - Last Filed: 03/15/23 15:54> Medical Decision Making Medical Decision Making MDM Narrative: 77-year-old male with history and clinical presentation mildly concerning for possible bowel obstruction, ischemic in nature given pain in low left lower quadrant with thin blood noted on rectal exam and obstipation. - labs, EKG, UA, CT scan for GI bleed I reviewed all investigations as well as speaking with the General senior research consultant and given the fact that patient is stating that he has been unable to pass gas there is obvious colonic thickening to suggest colitis though he shannan ins afebrile without leukocytosis there is a history of being treated for ulcerative colitis with Dr. Wylie. Recommendation is that patient should be admitted and evaluated by GI in the morning. 2314: I discussed case with inpatient hospitalist who accepts admission. <Rosalina Deng MD - Last Filed: 03/15/23 23:18> Differential Diagnosis Please see the discussion above <Rosalina Deng MD - Last Filed: 03/15/23 23:18> Consult Healthcare Provider Management of the patient was discussed with: Hospitalist and Respiratory Care Specialist <Rosalina Deng MD - Last Filed: 03/15/23 23:18> Please see the discussion above <Rosalina Deng MD - Last Filed: 03/15/23 23:18> Lab Data Please see the discussion above <Rosalina Deng MD - Last Filed: 03/15/23 23:18> Result Diagrams: 03/15/23 16:22 03/15/23 16:22 <DOTTY Rahman - Last Filed: 03/15/23 15:54> Labs: Lab Results 03/15/23 03/15/23 03/15/23 Range/Units 16:22 16:22 16:22 WBC 9.2 (4.8-10.8) X10*3/uL RBC 4.19 L (4.60-5.80) X10*6/uL Hgb 12.3 L (14.0-18.0) g/dl Hct 37.9 L (42.0-52.0) % MCV 90.5 (80.0-98.0) fL MCH 29.4 (27.0-33.0) pg MCHC 32.5 (31.0-36.0) g/dl RDW 15.0 (11.0-16.0) % Plt Count 325 (160-400) X10*3/uL MPV 9.3 L (9.4-12.4) fL Immature Gran % (Auto) 0.3 (0.0-0.4) % Neut % (Auto) 60.2 (45-73) % Lymph % (Auto) 25.9 (20-40) % [place] % (Auto) 12.6 H (2-11) % Eos % (Auto) 0.7 (0-4) % Baso % (Auto) 0.3 (0-2) % Lymph # (Auto) 2.4 (1.2-4.9) X10*3/uL [place] # (Auto) 1.2 (0.1-1.2) X10*3/uL Eos # (Auto) 0.1 (0.0-0.4) X10*3/uL Baso # (Auto) 0.0 (0.0-0.2) X10*3/uL Abs Immat Gran (auto) 0.03 (0.00-0.03) X10*3/uL Absolute Neuts (auto) 5.6 (2.0-8.3) x10*3/uL Absolute Nucleated RBC 0.000 (0.0-0.012) X10*3/uL Nucleated RBC % (auto) 0.0 (0.0-0.2) /100WBC PT 13.0 (10.0-13.1) SEC INR 1.1 (0.9-1.1) Sodium 139 (135-145) mmol/L Potassium 4.1 (3.3-5.1) mmol/L Chloride 106 (96-108) mmol/L Carbon Dioxide 24 (22-29) mmol/L Anion Gap 13 (12-20) BUN 26 H (9-16) mg/dL Creatinine 1.17 (0.5-1.4) mg/dL Estim Creat Clear Calc 58.9 Estimated GFR > 60 Random Glucose 156 H (60-115) mg/dL Calcium 9.6 D (8.4-10.2) mg/dL Magnesium 2.5 (1.6-2.6) mg/dL Total Bilirubin 0.4 (0.0-1.0) mg/dL Direct Bilirubin 0.1 (0.0-0.5) mg/dL AST 10 (5-37) U/L ALT 11 (0-40) U/L Alkaline Phosphatase 70 (39-117) U/L Troponin I High Sens (<3.5-35.0) ng/L Total Protein 6.7 (6.5-8.0) g/dL Albumin 3.7 (3.5-5.0) g/dL Lipase 6 L (8-78) U/L Stool Occult Blood (NEGATIVE) 03/15/23 03/15/23 Range/Units 16:22 17:50 WBC (4.8-10.8) X10*3/uL RBC (4.60-5.80) X10*6/uL Hgb (14.0-18.0) g/dl Hct (42.0-52.0) % MCV (80.0-98.0) fL MCH (27.0-33.0) pg MCHC (31.0-36.0) g/dl RDW (11.0-16.0) % Plt Count (160-400) X10*3/uL MPV (9.4-12.4) fL Immature Gran % (Auto) (0.0-0.4) % Neut % (Auto) (45-73) % Lymph % (Auto) (20-40) % [place] % (Auto) (2-11) % Eos % (Auto) (0-4) % Baso % (Auto) (0-2) % Lymph # (Auto) (1.2-4.9) X10*3/uL [place] # (Auto) (0.1-1.2) X10*3/uL Eos # (Auto) (0.0-0.4) X10*3/uL Baso # (Auto) (0.0-0.2) X10*3/uL Abs Immat Gran (auto) (0.00-0.03) X10*3/uL Absolute Neuts (auto) (2.0-8.3) x10*3/uL Absolute Nucleated RBC (0.0-0.012) X10*3/uL Nucleated RBC % (auto) (0.0-0.2) /100WBC PT (10.0-13.1) SEC INR (0.9-1.1) Sodium (135-145) mmol/L Potassium (3.3-5.1) mmol/L Chloride (96-108) mmol/L Carbon Dioxide (22-29) mmol/L Anion Gap (12-20) BUN (9-16) mg/dL Creatinine (0.5-1.4) mg/dL Estim Creat Clear Calc Estimated GFR Random Glucose (60-115) mg/dL Calcium (8.4-10.2) mg/dL Magnesium (1.6-2.6) mg/dL Total Bilirubin (0.0-1.0) mg/dL Direct Bilirubin (0.0-0.5) mg/dL AST (5-37) U/L ALT (0-40) U/L Alkaline Phosphatase (39-117) U/L Troponin I High Sens 4.3 (<3.5-35.0) ng/L Total Protein (6.5-8.0) g/dL Albumin (3.5-5.0) g/dL Lipase (8-78) U/L Stool Occult Blood POSITIVE (NEGATIVE) <DOTTY Rahman - Last Filed: 03/15/23 15:54> Lab Results 03/15/23 03/15/23 03/15/23 Range/Units 16:22 16:22 16:22 WBC 9.2 (4.8-10.8) X10*3/uL RBC 4.19 L (4.60-5.80) X10*6/uL Hgb 12.3 L (14.0-18.0) g/dl Hct 37.9 L (42.0-52.0) % MCV 90.5 (80.0-98.0) fL MCH 29.4 (27.0-33.0) pg MCHC 32.5 (31.0-36.0) g/dl RDW 15.0 (11.0-16.0) % Plt Count 325 (160-400) X10*3/uL MPV 9.3 L (9.4-12.4) fL Immature Gran % (Auto) 0.3 (0.0-0.4) % Neut % (Auto) 60.2 (45-73) % Lymph % (Auto) 25.9 (20-40) % [place] % (Auto) 12.6 H (2-11) % Eos % (Auto) 0.7 (0-4) % Baso % (Auto) 0.3 (0-2) % Lymph # (Auto) 2.4 (1.2-4.9) X10*3/uL [place] # (Auto) 1.2 (0.1-1.2) X10*3/uL Eos # (Auto) 0.1 (0.0-0.4) X10*3/uL Baso # (Auto) 0.0 (0.0-0.2) X10*3/uL Abs Immat Gran (auto) 0.03 (0.00-0.03) X10*3/uL Absolute Neuts (auto) 5.6 (2.0-8.3) x10*3/uL Absolute Nucleated RBC 0.000 (0.0-0.012) X10*3/uL Nucleated RBC % (auto) 0.0 (0.0-0.2) /100WBC PT 13.0 (10.0-13.1) SEC INR 1.1 (0.9-1.1) Sodium 139 (135-145) mmol/L Potassium 4.1 (3.3-5.1) mmol/L Chloride 106 (96-108) mmol/L Carbon Dioxide 24 (22-29) mmol/L Anion Gap 13 (12-20) BUN 26 H (9-16) mg/dL Creatinine 1.17 (0.5-1.4) mg/dL Estim Creat Clear Calc 58.9 Estimated GFR > 60 Random Glucose 156 H (60-115) mg/dL Calcium 9.6 D (8.4-10.2) mg/dL Magnesium 2.5 (1.6-2.6) mg/dL Total Bilirubin 0.4 (0.0-1.0) mg/dL Direct Bilirubin 0.1 (0.0-0.5) mg/dL AST 10 (5-37) U/L ALT 11 (0-40) U/L Alkaline Phosphatase 70 (39-117) U/L Troponin I High Sens (<3.5-35.0) ng/L Total Protein 6.7 (6.5-8.0) g/dL Albumin 3.7 (3.5-5.0) g/dL Lipase 6 L (8-78) U/L Stool Occult Blood (NEGATIVE) 03/15/23 03/15/23 Range/Units 16:22 17:50 WBC (4.8-10.8) X10*3/uL RBC (4.60-5.80) X10*6/uL Hgb (14.0-18.0) g/dl Hct (42.0-52.0) % MCV (80.0-98.0) fL MCH (27.0-33.0) pg MCHC (31.0-36.0) g/dl RDW (11.0-16.0) % Plt Count (160-400) X10*3/uL MPV (9.4-12.4) fL Immature Gran % (Auto) (0.0-0.4) % Neut % (Auto) (45-73) % Lymph % (Auto) (20-40) % [place] % (Auto) (2-11) % Eos % (Auto) (0-4) % Baso % (Auto) (0-2) % Lymph # (Auto) (1.2-4.9) X10*3/uL [place] # (Auto) (0.1-1.2) X10*3/uL Eos # (Auto) (0.0-0.4) X10*3/uL Baso # (Auto) (0.0-0.2) X10*3/uL Abs Immat Gran (auto) (0.00-0.03) X10*3/uL Absolute Neuts (auto) (2.0-8.3) x10*3/uL Absolute Nucleated RBC (0.0-0.012) X10*3/uL Nucleated RBC % (auto) (0.0-0.2) /100WBC PT (10.0-13.1) SEC INR (0.9-1.1) Sodium (135-145) mmol/L Potassium (3.3-5.1) mmol/L Chloride (96-108) mmol/L Carbon Dioxide (22-29) mmol/L Anion Gap (12-20) BUN (9-16) mg/dL Creatinine (0.5-1.4) mg/dL Estim Creat Clear Calc Estimated GFR Random Glucose (60-115) mg/dL Calcium (8.4-10.2) mg/dL Magnesium (1.6-2.6) mg/dL Total Bilirubin (0.0-1.0) mg/dL Direct Bilirubin (0.0-0.5) mg/dL AST (5-37) U/L ALT (0-40) U/L Alkaline Phosphatase (39-117) U/L Troponin I High Sens 4.3 (<3.5-35.0) ng/L Total Protein (6.5-8.0) g/dL Albumin (3.5-5.0) g/dL Lipase (8-78) U/L Stool Occult Blood POSITIVE (NEGATIVE) <Rosalina Deng MD - Last Filed: 03/15/23 23:18> Independent Interpretation I performed an independent interpretation of an: EKG <Rosalina Deng MD - Last Filed: 03/15/23 23:18> Interpretation: Sinus rhythm with PACs, HR-93, no STEMI, NM/QRS/QTC is within normal l imits. <Rosalina Deng MD - Last Filed: 03/15/23 23:18> Radiology Impression Radiologist Impression: My interpretation is in agreement with radiology's impression of the imaging studies. <Rosalina Deng MD - Last Filed: 03/15/23 23:18> Chronic Conditions Patient?s care impacted by: Diabetes <Rosalina Deng MD - Last Filed: 03/15/23 23:18> Medications Administered Discontinued Medications Generic Name Dose Route Start Last Admin Trade Name Freq PRN Reason Stop Dose Admin Iohexol 100 ml 03/15/23 18:42 03/15/23 18:42 Iohexol 350 Mg/Ml 100 Ml Infus..Btl IV 03/15/23 18:43 80 ml ONCE ONE Administration <DOTTY Rahman - Last Filed: 03/15/23 15:54> Medications Administered Discontinued Medications Generic Name Dose Route Start Last Admin Trade Name Freq PRN Reason Stop Dose Admin Iohexol 100 ml 03/15/23 18:42 03/15/23 18:42 Iohexol 350 Mg/Ml 100 Ml Infus..Btl IV 03/15/23 18:43 80 ml ONCE ONE Administration <Rosalina Deng MD - Last Filed: 03/15/23 23:18> Discharge Plan Discharge Clinical Impression: Ulcerative colitis, acute <DOTTY Rahman - Last Filed: 03/15/23 15:54> Patient Disposition: Admitted As Inpatient <DOTTY Rahman - Last Filed: 03/15/23 15:54> Prescriptions: No Action (DME) FreeStyle Tyrese 14 Day Grindstone Misc See Rx Instructions .Route Qty: 1 0RF Rx Instructions: As directed (DME) blood-glucose meter [FreeStyle Lite Meter] Kit See Rx Instructions .Route Qty: 1 0RF Rx Instructions: As directed cholecalciferol (vitamin D3) 1,250 mcg (50,000 unit) capsule 1,250 mcg PO QWEEK Qty: 14 0RF (DME) FreeStyle Lite Strips Strip See Rx Instructions .Route Qty: 100 0RF Rx Instructions: test blood sugar twice a day (DME) lancets [FreeStyle Lancets] 28 gauge misc See Rx Instructions .Route Qty: 100 3RF Rx Instructions: As directed metformin 500 mg tablet extended release 24 hr 500 mg PO DAILY Qty: 90 8RF magnesium citrate [Citrate of Magnesia] Solution 45 ml PO BID PRN (Reason: constipation) Qty: 296 0RF tamsulosin 0.4 mg capsule 0.4 mg PO BEDTIME donepezil 10 mg tablet 10 mg PO BEDTIME balsalazide 750 mg capsule 2,250 mg PO TID trazodone 50 mg tablet 50 mg PO BEDTIME Qty: 30 3RF <DOTTY Rahman - Last Filed: 03/15/23 15:54>
--- NOTE | 2023-03-15 15:51 | ECG_ITS ---
Test Reason : ABDOMINAL PAIN Blood Pressure : / mmHG Vent. 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 rate has increased BY 41 BPM QT has lengthened Referred By: Lesley Dao Electronically Signed By:CALEB OSORIO MD
[2023-03-15 16:31] LABS: MANUAL DIFF FLAG NO
[2023-03-15 16:39] LABS: Basophils Percent Auto 0.3 % (0-2); Eosinophils Absolute Auto 0.1 X10*3/uL (0.0-0.4); Eosinophils Percent Auto 0.7 % (0-4); Hematocrit 37.9 % (42.0-52.0); Hemoglobin 12.3 g/dl (14.0-18.0); Imm Gran Abs Auto 0.03 X10*3/uL (0.00-0.03); Imm Gran Pct Auto 0.3 % (0.0-0.4); Lymphocytes Absolute Auto 2.4 X10*3/uL (1.2-4.9); Lymphocytes Percent Auto 25.9 % (20-40); Mean Corpuscular HGB Conc 32.5 g/dl (31.0-36.0); Mean Corpuscular Hemoglobin 29.4 pg (27.0-33.0); Mean Corpuscular Volume 90.5 fL (80.0-98.0); Mean Platelet Volume 9.3 fL (9.4-12.4); Monocytes Absolute Auto 1.2 X10*3/uL (0.1-1.2); Monocytes Percent Auto 12.6 % (2-11); Neutrophils Absolute Auto 5.6 x10*3/uL (2.0-8.3); Neutrophils Percent Auto 60.2 % (45-73); Platelet Count 325 X10*3/uL (160-400); Red Blood Count 4.19 X10*6/uL (4.60-5.80); White Blood Count 9.2 X10*3/uL (4.8-10.8)
--- NOTE | 2023-03-15 16:43 | PC.NURSE ---
Pt arrived today with complaints of constipation, no good BM for weeks, reports he has been taking BM medications with no good effect. he is a.ox4. Reports he has a brain shunt placed in January, and has had some dizziness since, and has been able to have a couple of normal BM since surgery. Reports he has some bleeding when wiping and in stool that can be passed. denies n/v, reports his appetite has been decreased. reports off and on abdominal cramping, but has none present at this time. Labs collected awaiting provider
[2023-03-15 16:44] LABS: INTERNATIONAL NORM RATIO 1.1 (0.9-1.1)
[2023-03-15 16:56] LABS: Alanine Aminotransferase 11 U/L (0-40); Albumin Level 3.7 g/dL (3.5-5.0); Alkaline Phosphatase 70 U/L (39-117); Anion Gap 13 (12-20); Aspartate Amino Transferase 10 U/L (5-37); Bilirubin Direct 0.1 mg/dL (0.0-0.5); Bilirubin Total 0.4 mg/dL (0.0-1.0); Blood Urea Nitrogen 26 mg/dL (9-16); Calcium 9.6 mg/dL (8.4-10.2); Carbon Dioxide 24 mmol/L (22-29); Chloride 106 mmol/L (96-108); Creatinine Clr Calc Pharmacy 58.9; Estimated Glomerular Filt Rate > 60; Glucose Random 156 mg/dL (60-115); Lipase 6 U/L (8-78); Magnesium 2.5 mg/dL (1.6-2.6); Potassium 4.1 mmol/L (3.3-5.1); Sodium 139 mmol/L (135-145); Total Protein 6.7 g/dL (6.5-8.0)
[2023-03-15 17:03] LABS: Troponin-I High Sensitivity 4.3 ng/L (<3.5-35.0)
[2023-03-15 17:56] LABS: OBS Int Ctl Valid YES; OBS1 POSITIVE (NEGATIVE)
[2023-03-15 18:00] VITALS: BP 116/65; PULSE 60; RESP 16; TEMP 36.9; O2SAT 98
[2023-03-15] MEDS: iohexoL 350 MG/ML 100 ML INFUS..BTL IV (18:42)
[2023-03-15 20:00] VITALS: BP 118/68; PULSE 68; RESP 16; TEMP 36.7; O2SAT 98
[2023-03-15] MEDS: 0.9 % Sodium Chloride 1,000 ML 999 ML IV (23:33)
[2023-03-15] MEDS: 0.9 % Sodium Chloride 1,000 ML 75 ML IVCONT (23:33)
--- NOTE | 2023-03-15 23:45 | P.HPHOSP_ITS ---
History of Present Illness Date of Service: 03/15/23 Chief Complaint: abd pain 77-year-old male with past medical history of type 2 diabetes, paroxysmal AFib, history of ulcer colitis, normal pressure hydrocephalus status post shunt placement, cerebral ventriculomegaly, BPH, presents to the hospital with complaints of abdominal pain as well as bloody bowel movements.. Patient reports that he feels constipated, he has very small bowel movements and has had intermittent bright red blood per rectum, he tries to go to the bathroom but for the past 3 days very small amount of stool comes out. He reports that this been going on for few weeks, worsened over the past 3 days. He reports that he was recently placed back on prednisone by his GI. Does complain of abdominal tenderness in the umbilical region, nonradiating, constant, 5/10, no alleviating or exacerbating factors. Patient reports poor oral intake because i cant go . Reports nausea, no vomiting, no fever or chills, no chest pain, no shortness of breath, no headache or change in vision, no urinary symptoms and no lower extremity edema. On arrival to the ED patient hemodynamically stable with no significant abnormal vitals labs are significant for WBC count of 10.3, hemoglobin of 12.3, hematocrit 37.9, labs otherwise unremarkable Stool occult positive Abdomen pelvic CT shows no evidence of active hemorrhage in the bowel, diverticulosis of sigmoid colon, diffuse bowel wall thickening and pericolonic edema in the sigmoid colon, possible diverticulitis. A colonic mass cannot be ruled out, this seems more severe from 2021, Patient being admitted further management Review of Systems Review of Systems: Yes all other systems are reviewed and are negative [facility] [place] Medical History Abnormal LFTs Arthritis Cerebral ventriculomegaly COVID-19 vaccine administered Dementia Gait instability History of BPH History of lumbar puncture Insomnia Obesity PAF (paroxysmal atrial fibrillation) SVT (supraventricular tachycardia) Type 2 diabetes mellitus with obesity Family History Father No problems noted. Mother No problems noted. Surgical History H/O colonoscopy History of esophagogastroduodenoscopy (EGD) History of tonsillectomy Hx of appendectomy Social History Housing: House Do you presently have visiting nurse or other home services: No Alcohol intake: never Patient Tobacco Use Status: Never used Tobacco e-Cigarette/Vaping Use: Never Used Second Hand Smoke Exposure: No Advance Directives: No Advance Directives Information Provided: No Nutrition Risks: No Nutritional Risk service: No Current occupational status: employed Cognitive needs: Yes (cane) Hearing needs: No Vision needs: Yes (Glasses) Meds Allergies Allergy/AdvReac Type Severity Reaction Status Date / Time cabbage Allergy Severe throat Verified 02/11/23 09:52 swells Active Medications: Current Medications Acetaminophen (Acetaminophen 325 Mg Tablet) 650 mg PO Q6H PRN PRN Reason: Pain, Mild (Pain Scale 1-3) Glucose (Glucose Gel 15 Gm Gel..Gram.) 15 gm PO Q15M PRN; Protocol PRN Reason: per Hypoglycemia Standing Ord. Sodium Chloride (Ns) 1,000 mls @ 999 mls/hr IV .Q1H1M [facility] Stop: 03/16/23 00:15 Last Admin: 03/15/23 23:33 Dose: 999 mls/hr Sodium Chloride (Ns) 1,000 mls @ 75 mls/hr IVCONT .[id number] [facility] Last Admin: 03/15/23 23:33 Dose: 75 mls/hr Lactated Ringer's (Lr) 1,000 mls @ 100 mls/hr IVCONT .Q10H [facility] Dextrose (D10) 250 mls @ 750 mls/hr IV Q15M PRN; Protocol PRN Reason: per Hypoglycemia Standing Ord. Insulin Human Lispro (Insulin Lispro 100 Unit/Ml 3 Ml Vial) 0 unit SUBCUT QIDACHS [facility]; Protocol Methylprednisolone Sodium Succinate (Methylprednisolone Sod Succ 40 Mg/Ml Vial) 20 mg IVPUSH Q8H [facility] Ondansetron HCl (Ondansetron Hcl 4 Mg/2 Ml Vial) 4 mg IVPUSH Q8H PRN PRN Reason: Nausea and Vomiting Sodium Chloride (0.9 % Sodium Chloride Flush 3 Ml Syringe) [facility] Medications Medication Instructions Recorded Confirmed Last Taken Type balsalazide 750 mg capsule 2,250 mg PO TID 03/15/23 03/16/23 Unknown History donepezil 10 mg tablet 10 mg PO BEDTIME 03/15/23 03/16/23 Unknown History metformin 500 mg tablet 500 mg PO DAILY 03/15/23 03/16/23 Unknown History tamsulosin 0.4 mg capsule 0.8 mg PO BEDTIME 03/15/23 03/16/23 Unknown History trazodone 50 mg tablet 50 mg PO BEDTIME 03/15/23 03/16/23 Unknown History Physical Exam 2 Vital Signs and Narrative: Vital Signs: Last Vital Signs Temp 98.0 F 03/15/23 20:00 Pulse 68 03/15/23 20:00 Resp 16 03/15/23 20:00 BP 118/68 03/15/23 20:00 Pulse Ox 98 03/15/23 20:00 O2 Del Method Room Air 03/15/23 20:00 BMI result Body Mass Index 27.4 Const: General: cooperative and no acute distress Orientation/consciousness: patient oriented x3 Eyes: General: appearance normal, both eyes and all related structures Resp: Effort & Inspection: normal respiratory effort Auscultation: clear to auscultation bilaterally Cardio: Rate: regular rate Rhythm: regular rhythm GI: Other: Tender on the umbilical region, no rebound or guarding Palpation (GI): Soft to palpation Auscultation: normal bowel sounds Skin: General skin exam: no rashes or lesions noted Neuro: General: patient oriented x3 Cognition (Neuro): normal cognition Extrem: General: Yes normal to inspection and Yes no pedal edema Results Labs 03/15/23 16:22 03/15/23 16:22 Labs: Laboratory Results - last 24 hr 03/15/23 03/15/23 03/15/23 16:22 16:22 16:22 MCV 90.5 MCH 29.4 MCHC 32.5 RDW 15.0 Plt Count 325 MPV 9.3 L Immature Gran % (Auto) 0.3 Neut % (Auto) 60.2 Lymph % (Auto) 25.9 [place] % (Auto) 12.6 H Eos % (Auto) 0.7 Baso % (Auto) 0.3 Lymph # (Auto) 2.4 [place] # (Auto) 1.2 Eos # (Auto) 0.1 Baso # (Auto) 0.0 Abs Immat Gran (auto) 0.03 Absolute Neuts (auto) 5.6 Absolute Nucleated RBC 0.000 Nucleated RBC % (auto) 0.0 PT 13.0 INR 1.1 Anion Gap 13 Estim Creat Clear Calc 58.9 Estimated GFR > 60 Random Glucose 156 H Calcium 9.6 D Magnesium 2.5 Total Bilirubin 0.4 Direct Bilirubin 0.1 AST 10 ALT 11 Alkaline Phosphatase 70 Troponin I High Sens Total Protein 6.7 Albumin 3.7 Lipase 6 L Stool Occult Blood 03/15/23 03/15/23 16:22 17:50 MCV MCH MCHC RDW Plt Count MPV Immature Gran % (Auto) Neut % (Auto) Lymph % (Auto) [place] % (Auto) Eos % (Auto) Baso % (Auto) Lymph # (Auto) [place] # (Auto) Eos # (Auto) Baso # (Auto) Abs Immat Gran (auto) Absolute Neuts (auto) Absolute Nucleated RBC Nucleated RBC % (auto) PT INR Anion Gap Estim Creat Clear Calc Estimated GFR Random Glucose Calcium Magnesium Total Bilirubin Direct Bilirubin AST ALT Alkaline Phosphatase Troponin I High Sens 4.3 Total Protein Albumin Lipase Stool Occult Blood POSITIVE Imaging Radiologist's Impressions: Impressions Abdomen/Pelvis CT 03/15/23 18:52 IMPRESSION: 1. No evidence of active hemorrhage in the bowel. 2. Diverticulosis of sigmoid colon. There is diffuse bowel wall thickening and pericolonic edema in the sigmoid colon. This suggests probable diverticulitis. A colonic mass however cannot be excluded. This is more severe than the prior study 07/09/2022. There is moderate gaseous distention of the colon proximal to the area of edema. 3. Percutaneous catheter in the abdomen. 4. Nonobstructive calculi right kidney. 9 mm stone in the right renal pelvis. No hydronephrosis. Assessment and Plan (1) Ulcerative colitis, acute: Status: Acute (2) Abdominal pain: Status: Acute (3) GI bleed: Status: Acute Plan 77-year-old male with past medical history of ulcerative colitis presents to the hospital with complaints of constipation, abdominal pain, as well as blood per rectum # acute ulcerative colitis flare - will switch prednisone to IV Solu-Medrol - continue bed solids - IV antibiotics, blood cultures - GI consulted - abdomen CT as above # abdominal pain - likely secondary to UC flare versus diverticulitis - supportive measures, pain control # GI bleed - likely secondary to UC - hemoglobin stable - GI consult # diabetes - hold oral antihyperglycemics - will add low-dose sliding scale insulin - NPO diet for now # BPH - continue Flomax DVT prophylaxis: SCDs in the setting of bleed A.m. patient's need for further evaluation by GI patient required minimum 2 night inpatient hospital stay further management and monitoring Time Spent With Patient Time: Total time managing care of this patient today ____ minutes. Quality Stroke Does the patient have a stroke diagnosis?: No VTE Prior VTE?: No VTE Risk Level:: Medical - moderate - high VTE Device Contraindication: N/A - Device Ordered VTE Drug Contraindication: Treatment Not Indicated
[2023-03-16] MEDS: Lactated Ringers 1,000 ML 100 ML IVCONT ×2 (00:57→20:33)
[2023-03-16] MEDS: 0.9 % Sodium Chloride Flush 3 ML SYRINGE IVFLUSH ×2 (00:57→08:45)
[2023-03-16] MEDS: Acetaminophen 325 MG TABLET 650 MG PO (01:03)
[2023-03-16] MEDS: methylPREDNISolone Sod Succ 40 MG/ML VIAL 20 MG IVPUSH ×2 (01:04→08:42)
--- NOTE | 2023-03-16 02:44 | PC.NURSE ---
Patient alert and oriented x3. Reported given to RNLeanne. Jorge transported to ED overflow unit
--- NOTE | 2023-03-16 03:44 | PC.NURSE ---
Report received from RNElli about pts present condition, the reason for pt coming to the ED and what the care plan was in the ED. Pt is resting in bed, denies any CP, SOB, N/V/D or feeling of faint.
[2023-03-16 05:31] LABS: MANUAL DIFF FLAG NO
[2023-03-16 05:34] LABS: Basophils Percent Auto 0.1 % (0-2); Eosinophils Percent Auto 0.1 % (0-4); Hematocrit 35.6 % (42.0-52.0); Hemoglobin 11.4 g/dl (14.0-18.0); Imm Gran Abs Auto 0.04 X10*3/uL (0.00-0.03); Imm Gran Pct Auto 0.4 % (0.0-0.4); Lymphocytes Absolute Auto 1.3 X10*3/uL (1.2-4.9); Lymphocytes Percent Auto 12.2 % (20-40); Mean Corpuscular Hemoglobin 28.7 pg (27.0-33.0); Mean Corpuscular Volume 89.7 fL (80.0-98.0); Mean Platelet Volume 9.4 fL (9.4-12.4); Monocytes Absolute Auto 0.4 X10*3/uL (0.1-1.2); Monocytes Percent Auto 3.5 % (2-11); Neutrophils Absolute Auto 8.7 x10*3/uL (2.0-8.3); Neutrophils Percent Auto 83.7 % (45-73); Platelet Count 295 X10*3/uL (160-400); Red Blood Count 3.97 X10*6/uL (4.60-5.80); White Blood Count 10.3 X10*3/uL (4.8-10.8)
[2023-03-16 05:53] LABS: Anion Gap 9 (12-20); Blood Urea Nitrogen 21 mg/dL (9-16); Carbon Dioxide 28 mmol/L (22-29); Chloride 106 mmol/L (96-108); Creatinine Clr Calc Pharmacy 66.3; Estimated Glomerular Filt Rate > 60; Glucose Random 147 mg/dL (60-115); Potassium 4.8 mmol/L (3.3-5.1); Sodium 138 mmol/L (135-145)
[2023-03-16 08:13] LABS: Glucose, Whole Blood 163 mg/dL (60-115)
[2023-03-16] MEDS: cefTRIAXone sodium 1 GM in 0.9 % Sodium Chloride 50 ML IV (08:17)
[2023-03-16] MEDS: Insulin Lispro 100 UNIT/ML 3 ML VIAL SUBCUT ×2 (08:42→18:21)
[2023-03-16] MEDS: metroNIDAZOLE 500 MG TABLET PO (08:43)
--- NOTE | 2023-03-16 09:45 | HO.PM.IMPN ---
Subjective Subjective Date of Service: 03/16/23 Interval History: patient states he had 2 more episodes of stool mixed with blood since admission. Continues to have a abdominal discomfort. No nausea or vomiting. Cardiovascular Cardiovascular: Reports no additional cardiovascular complaints Respiratory Respiratory: Reports no additional respiratory complaints Physical Exam Vital Signs: Vital Signs: Last Vital Signs Temp 98.0 F 03/15/23 20:00 Pulse 68 03/15/23 20:00 Resp 16 03/15/23 20:00 BP 118/68 03/15/23 20:00 Pulse Ox 98 03/15/23 20:00 O2 Del Method Room Air 03/15/23 20:00 BMI result Body Mass Index 27.4 Elderly male lying in bed in no distress Neck supple, no JVD Regular rate and rhythm, S1-S2 heard Regular breath sounds bilaterally, no wheezing or crackles appreciated Abdomen with mild generalized tenderness, no guarding, no rigidity, no rebound tenderness Patient is awake, alert and oriented to self, place, time and person ; no focal motor deficit Psych: Normal mood No pedal edema Objective Data Active Medications Acetaminophen (Acetaminophen 325 Mg Tablet) 650 mg PO Q6H PRN PRN Reason: Pain, Mild (Pain Scale 1-3) Last Admin: 03/16/23 01:03 Dose: 650 mg Documented By: PILI Balsalazide (Balsalazide Disodium 750 Mg Capsule) 2,250 mg PO TID [facility] Donepezil HCl (Donepezil Hcl 10 Mg Tablet) 10 mg PO BEDTIME [facility] Glucose (Glucose Gel 15 Gm Gel..Gram.) 15 gm PO Q15M PRN; Protocol PRN Reason: per Hypoglycemia Standing Ord. Lactated Ringer's (Lr) 1,000 mls @ 100 mls/hr IVCONT .Q10H [facility] Last Admin: 03/16/23 00:57 Dose: 100 mls/hr Documented By: PILI Dextrose (D10) 250 mls @ 750 mls/hr IV Q15M PRN; Protocol PRN Reason: per Hypoglycemia Standing Ord. Ceftriaxone Sodium 1 gm/ (Sodium Chloride) 50 mls @ 100 mls/hr IV Q24H [facility] Last Infusion: 03/16/23 08:46 Dose: 0 mls/hr Documented By: MIRNA-JANUSZ Insulin Human Lispro (Insulin Lispro 100 Unit/Ml 3 Ml Vial) 0 unit SUBCUT QIDACHS [facility]; Protocol Last Admin: 03/16/23 08:42 Dose: 2 unit Documented By: ANA Methylprednisolone Sodium Succinate (Methylprednisolone Sod Succ 40 Mg/Ml Vial) 20 mg IVPUSH Q8H [facility] Last Admin: 03/16/23 08:42 Dose: 20 mg Documented By: ANA Metronidazole (Metronidazole 500 Mg Tablet) 500 mg PO Q8H [facility] Last Admin: 03/16/23 08:43 Dose: 500 mg Documented By: ANA Ondansetron HCl (Ondansetron Hcl 4 Mg/2 Ml Vial) 4 mg IVPUSH Q8H PRN PRN Reason: Nausea and Vomiting Sodium Chloride (0.9 % Sodium Chloride Flush 3 Ml Syringe) 3 ml IVFLUSH QSHIFT [facility] Last Admin: 03/16/23 08:45 Dose: 3 ml Documented By: ANA Tamsulosin HCl (Tamsulosin Hcl 0.4 Mg Capsule) 0.8 mg PO BEDTIME [facility] Trazodone HCl (Trazodone Hcl 50 Mg Tablet) 50 mg PO BEDTIME [facility] Labs 03/16/23 05:07 03/16/23 05:07 Labs: Laboratory Results - last 24 hr 03/15/23 03/15/23 03/15/23 16:22 16:22 16:22 MCV 90.5 MCH 29.4 MCHC 32.5 RDW 15.0 Plt Count 325 MPV 9.3 L Immature Gran % (Auto) 0.3 Neut % (Auto) 60.2 Lymph % (Auto) 25.9 [place] % (Auto) 12.6 H Eos % (Auto) 0.7 Baso % (Auto) 0.3 Lymph # (Auto) 2.4 [place] # (Auto) 1.2 Eos # (Auto) 0.1 Baso # (Auto) 0.0 Abs Immat Gran (auto) 0.03 Absolute Neuts (auto) 5.6 Absolute Nucleated RBC 0.000 Nucleated RBC % (auto) 0.0 PT 13.0 INR 1.1 Anion Gap 13 Estim Creat Clear Calc 58.9 Estimated GFR > 60 POC Glucose Random Glucose 156 H Calcium 9.6 D Magnesium 2.5 Total Bilirubin 0.4 Direct Bilirubin 0.1 AST 10 ALT 11 Alkaline Phosphatase 70 Troponin I High Sens Total Protein 6.7 Albumin 3.7 Lipase 6 L Stool Occult Blood 03/15/23 03/15/23 03/16/23 16:22 17:50 05:07 MCV 89.7 MCH 28.7 MCHC 32.0 RDW 15.0 Plt Count 295 MPV 9.4 Immature Gran % (Auto) 0.4 Neut % (Auto) 83.7 H Lymph % (Auto) 12.2 L [place] % (Auto) 3.5 Eos % (Auto) 0.1 Baso % (Auto) 0.1 Lymph # (Auto) 1.3 [place] # (Auto) 0.4 Eos # (Auto) 0.0 Baso # (Auto) 0.0 Abs Immat Gran (auto) 0.04 H Absolute Neuts (auto) 8.7 H Absolute Nucleated RBC 0.000 Nucleated RBC % (auto) 0.0 PT INR Anion Gap Estim Creat Clear Calc Estimated GFR POC Glucose Random Glucose Calcium Magnesium Total Bilirubin Direct Bilirubin AST ALT Alkaline Phosphatase Troponin I High Sens 4.3 Total Protein Albumin Lipase Stool Occult Blood POSITIVE 03/16/23 03/16/23 05:07 08:10 MCV MCH MCHC RDW Plt Count MPV Immature Gran % (Auto) Neut % (Auto) Lymph % (Auto) [place] % (Auto) Eos % (Auto) Baso % (Auto) Lymph # (Auto) [place] # (Auto) Eos # (Auto) Baso # (Auto) Abs Immat Gran (auto) Absolute Neuts (auto) Absolute Nucleated RBC Nucleated RBC % (auto) PT INR Anion Gap 9 L Estim Creat Clear Calc 66.3 Estimated GFR > 60 POC Glucose 163 H Random Glucose 147 H Calcium 9.0 D Magnesium Total Bilirubin Direct Bilirubin AST ALT Alkaline Phosphatase Troponin I High Sens Total Protein Albumin Lipase Stool Occult Blood Assessment and Plan (1) Abdominal pain: Status: Acute (2) GI bleed: Status: Acute Plan 77-year-old male with past medical history of ulcerative colitis presents to the hospital with complaints of abdominal pain, as well as blood per rectum #. Acute diverticulitis: continue empiric IV antibiotics. Blood cultures pending. Symptomatic control with IV opioids p.r.n. #. ?UC flare: Was initiated on IV Solu-Medrol. GI consult pending. #. Acute GI bleed in the setting of above: Patient on IV protonix. Appreciate GI assistance. Closely monitor h&H #. Non- insulin-dependent diabetes mellitus: Hold home metformin. Initiated on Accu-Cheks with sliding scale insulin #. BPH: On flomax DVT prophylaxis: SCDs Need for continued hospitalization: IV antibiotics, GI bleed with GI consult pending Time Spent With Patient Time: Total time managing care of this patient today ____ minutes. Quality Stroke Does the patient have a stroke diagnosis?: No VTE Prior VTE?: No VTE Risk Level:: Medical - moderate - high VTE Device Contraindication: N/A - Device Ordered VTE Drug Contraindication: Treatment Not Indicated
--- NOTE | 2023-03-16 10:22 | MHC.CM.PN ---
IMM 03/16/23 DELIVERED TO BEDSIDE EDOVER BED1, PT ADMITTED W/COLITIS, CM MET W/PT WHO REPORTS HE LIVES W/ WHO IS BEDBOUND AND HAS [employer] MEMBER/VNA HOWEVER. PT REPORTS HE IS INDEP W/CARE, USES A CANE BECAUSE HE HAD BRAIN SURGERY IN [place] ON 02/02/23 AND HAD A SHUNT PLACED. PT HAS NO HOME SERVICES AND IS OPEN TO A VNA HOWEVER WOULD LIKE THE SAME COMPANY THAT HIS USES AND DOES NOT RECALL NAME. PT REPORTS HE FIRED [employer] AND NOW SEES [employer] AND PT REPORTS HE HAS A HCP HIS SON DESI GONZALEZ [phone], COPY REQUESTED. ANTIC D/C HOME NO SERVICES W/SON DESI FOR TRANSPORT
[2023-03-16] MEDS: metroNIDAZOLE/NS 500 MG/100 ML PIGGYBACK 100 MG IV ×2 (10:51→18:19)
[2023-03-16] MEDS: Balsalazide Disodium 750 MG CAPSULE 2250 MG PO ×3 (10:51→21:21)
[2023-03-16 11:30] LABS: Glucose, Whole Blood 124 mg/dL (60-115)
[2023-03-16 13:14] VITALS: BP 134/69; PULSE 51; RESP 16; TEMP 36.6; O2SAT 95
--- NOTE | 2023-03-16 17:47 | PM.GICN ---
History of Present Illness Data of Consult Service Date: 03/16/23 Requesting physician: Rosalina Deng Primary Care Provider: Unknown Physician HPI Reason for consult: abdominal pain 77-year-old male with past medical history of type 2 diabetes, paroxysmal AFib, ulcerative colitis--on tapering dose of steroids right now, normal pressure hydrocephalus s/p shunt placement, cerebral ventriculomegaly, BPH, who I am seeing for assessment for abdominal complaints He noted 2 wks of difficulty passing stool, with straining and small amounts of blood with the stools. He also noted lower abdominal pain, crampy in nature, constant 5/10 in severitiy without any worsening or relieving factors. Dr Wylie had placed him on tapering dose of pred recently. No sick contacts or consumption of infected food, nsaids. He admits to poor appetite, denies nausea, no vomiting, no fever or chills, no chest pain, no shortness of breath, no headache or change in vision, no urinary symptoms and no lower extremity edema.? Labs: WBC count of 10.3, hemoglobin of 12.3, hematocrit 37.9, lipase-neg, labs otherwise unremarkable Imaging: Abdomen pelvic CT: no evidence of active hemorrhage in the bowel, diverticulosis of sigmoid colon, diffuse bowel wall thickening and pericolonic edema in the sigmoid colon and some straning in the rectosigmoid area, possible diverticulitis.? Review of Systems Review of Systems: Constitutional : No Weight loss, No Fever, No Chills ENT/Mouth : No sore throat, No Rhinorrhea Eyes: No Swelling, No Redness Cardiovascular : No Chest Pain, No SOB, No Edema Respiratory : No Cough, No Sputum, No Wheezing Gastrointestinal : see HPI Genitourinary : NO Dysuria, No Urinary Frequency, No Hematuria, No Urgency Musculoskeletal : No joint pain, No Myalgias, No Joint Swelling Skin : No Skin Lesions, No rash Neuro : No Weakness, No Numbness, No Dizziness, No Headache Psych : No Anxiety/Panic, No Depression Heme/Lymph: No Bruising, No Lymphadenopathy Endocrine : No Polyuria, No Polydipsia All other systems reviewed and are negative. [facility] Past Medical History Medical History Abnormal LFTs Arthritis Cerebral ventriculomegaly COVID-19 vaccine administered Dementia Gait instability History of BPH History of lumbar puncture Insomnia Obesity PAF (paroxysmal atrial fibrillation) SVT (supraventricular tachycardia) Type 2 diabetes mellitus with obesity Family History Family History Father No problems noted. Mother No problems noted. Surgical History Surgical History H/O colonoscopy History of esophagogastroduodenoscopy (EGD) History of tonsillectomy Hx of appendectomy Social History Social History Housing: House Do you presently have visiting nurse or other home services: No Alcohol intake: never Patient Tobacco Use Status: Never used Tobacco e-Cigarette/Vaping Use: Never Used Second Hand Smoke Exposure: No Advance Directives: No Advance Directives Information Provided: No Nutrition Risks: No Nutritional Risk service: No Current occupational status: employed Cognitive needs: Yes (cane) Hearing needs: No Vision needs: Yes (Glasses) Meds Allergies Allergy/AdvReac Type Severity Reaction Status Date / Time cabbage Allergy Severe throat Verified 02/11/23 09:52 swells Active Medications: Current Medications Acetaminophen (Acetaminophen 325 Mg Tablet) 650 mg PO Q6H PRN PRN Reason: Pain, Mild (Pain Scale 1-3) Last Admin: 03/16/23 01:03 Dose: 650 mg Balsalazide (Balsalazide Disodium 750 Mg Capsule) 2,250 mg PO TID [facility] Last Admin: 03/16/23 15:57 Dose: 2,250 mg Donepezil HCl (Donepezil Hcl 10 Mg Tablet) 10 mg PO BEDTIME [facility] Glucose (Glucose Gel 15 Gm Gel..Gram.) 15 gm PO Q15M PRN; Protocol PRN Reason: per Hypoglycemia Standing Ord. Lactated Ringer's (Lr) 1,000 mls @ 100 mls/hr IVCONT .Q10H [facility] Last Admin: 03/16/23 15:56 Dose: Not Given Dextrose (D10) 250 mls @ 750 mls/hr IV Q15M PRN; Protocol PRN Reason: per Hypoglycemia Standing Ord. Ceftriaxone Sodium 1 gm/ (Sodium Chloride) 50 mls @ 100 mls/hr IV Q24H [facility] Last Infusion: 03/16/23 08:46 Dose: Infused Metronidazole (Flagyl) 500 mg in 100 mls @ 100 mls/hr IV Q8H [facility] Last Infusion: 03/16/23 12:39 Dose: Infused Insulin Human Lispro (Insulin Lispro 100 Unit/Ml 3 Ml Vial) 0 unit SUBCUT QIDACHS [facility]; Protocol Last Admin: 03/16/23 12:36 Dose: Not Given Ondansetron HCl (Ondansetron Hcl 4 Mg/2 Ml Vial) 4 mg IVPUSH Q8H PRN PRN Reason: Nausea and Vomiting Pantoprazole Sodium (Pantoprazole Sodium 40 Mg/10 Ml Vial) 40 mg IVPUSH BID@0630,1630 [facility] Prednisone (Prednisone 20 Mg Tablet) 40 mg PO DAILY [facility] Sodium Chloride (0.9 % Sodium Chloride Flush 3 Ml Syringe) 3 ml IVFLUSH QSHIFT [facility] Last Admin: 03/16/23 15:56 Dose: Not Given Tamsulosin HCl (Tamsulosin Hcl 0.4 Mg Capsule) 0.8 mg PO BEDTIME [facility] Trazodone HCl (Trazodone Hcl 50 Mg Tablet) 50 mg PO BEDTIME [facility] Home Medications Medication Instructions Recorded Confirmed Last Taken Type balsalazide 750 mg capsule 2,250 mg PO TID 03/15/23 03/16/23 Unknown History donepezil 10 mg tablet 10 mg PO BEDTIME 03/15/23 03/16/23 Unknown History metformin 500 mg tablet 500 mg PO DAILY 03/15/23 03/16/23 Unknown History tamsulosin 0.4 mg capsule 0.8 mg PO BEDTIME 03/15/23 03/16/23 Unknown History trazodone 50 mg tablet 50 mg PO BEDTIME 03/15/23 03/16/23 Unknown History Physical Exam Vital Signs: Vital Signs: Last Vital Signs Temp 97.9 F 03/16/23 13:14 Pulse 51 03/16/23 13:14 Resp 16 03/16/23 13:14 BP 134/69 03/16/23 13:14 Pulse Ox 95 03/16/23 13:14 O2 Del Method Room Air 03/16/23 13:14 BMI result Body Mass Index 27.4 EXAM: GENERAL: The patient is well developed and nontoxic. VITAL SIGNS:see workflow HEENT: Nonicteric sclerae, PERRLA, EOMI. Oropharynx clear. Moist mucous membranes. Conjunctivae appear well perfused. No thyroid mass. CHEST: Chest wall is nontender. HEART: Regular rate and rhythm without murmurs. LUNGS: Clear to auscultation bilaterally. ABDOMEN: Soft, positive bowel sounds, nontender, no organomegaly.no flank tenderness MS; kyphotic spine SKIN: No rash, no excessive bruising, petechiae, or purpura. NEUROLOGIC: Cranial nerves II-XII intact without motor/sensory deficit. psych-nml affect Results Labs 03/16/23 05:07 03/16/23 05:07 Labs: Short CBC 03/16/23 Range/Units 05:07 WBC 10.3 (4.8-10.8) X10*3/uL Hgb 11.4 L (14.0-18.0) g/dl Hct 35.6 L (42.0-52.0) % Plt Count 295 (160-400) X10*3/uL BMP 03/16/23 05:07 Sodium 138 Potassium 4.8 Chloride 106 Carbon Dioxide 28 BUN 21 H Creatinine 1.[address] scan - abdomen: My impression: spinal degen, bowel thickeing and strandig, rectum, sigmoid Assessment and Plan (1) Abdominal pain: Status: Acute (2) GI bleed: Status: Acute (3) Ulcerative colitis, acute: Status: Acute Plan 1/ Acute on chronic colitis inspite of being on tapering dose of steroids, may be infectious or break thru autoimmune colitis. Feels much better today PLAN: 1/ Stop IV steroid and recommend taperng dose steroid, cond ba;salazide for the meantime--add DC mesalamine 2/ check c dff and stool pcr if diarrhea 3/ cont with current abx 4/ allow normal diet as tolerated 5/ avoid nsaids Time Spent With Patient Time: Total time managing care of this patient today ____ minutes. Procedures Date of Service Date of Service: 03/16/23
[2023-03-16 18:12] LABS: Glucose, Whole Blood 260 mg/dL (60-115)
[2023-03-16] MEDS: Pantoprazole Sodium 40 MG/10 ML VIAL IVPUSH (18:19)
[2023-03-16 20:24] VITALS: BP 131/64; PULSE 57; RESP 18; TEMP 36.2; O2SAT 97
[2023-03-16 20:35] LABS: Glucose, Whole Blood 137 mg/dL (60-115)
[2023-03-16 20:38] VITALS: BMI 30.1
[2023-03-16] MEDS: traZODone HCL 50 MG TABLET PO (21:20)
[2023-03-16] MEDS: Tamsulosin HCL 0.4 MG CAPSULE 0.8 MG PO (21:20)
[2023-03-16] MEDS: Donepezil HCl 10 MG TABLET PO (21:20)
[2023-03-16 23:22] LABS: Appearance Urine Clear; Color Urine Yellow; Glucose Urine UA 500 mg/dL (Negative); Leukocyte Esterase Urine Negative (Negative); Nitrite Urine Negative (Negative); PH 6.5 (5.0-9.0); Urine Blood Negative (Negative); Urine Ketones Negative (Negative); Urine Protein Trace mg/dL (Neg-Trace)
[2023-03-17] MEDS: metroNIDAZOLE/NS 500 MG/100 ML PIGGYBACK 100 MG IV ×3 (02:08→17:05)
[2023-03-17 03:29] VITALS: BP 121/59; PULSE 62; RESP 16; TEMP 36; O2SAT 96
[2023-03-17] MEDS: Pantoprazole Sodium 40 MG/10 ML VIAL IVPUSH ×2 (05:17→16:59)
[2023-03-17] MEDS: cefTRIAXone sodium 1 GM in 0.9 % Sodium Chloride 50 ML IV (05:17)
[2023-03-17 05:26] LABS: MANUAL DIFF FLAG NO
[2023-03-17 05:31] LABS: Basophils Percent Auto 0.1 % (0-2); Eosinophils Percent Auto 0.6 % (0-4); Hematocrit 32.8 % (42.0-52.0); Hemoglobin 10.6 g/dl (14.0-18.0); Imm Gran Abs Auto 0.04 X10*3/uL (0.00-0.03); Imm Gran Pct Auto 0.6 % (0.0-0.4); Lymphocytes Absolute Auto 2.5 X10*3/uL (1.2-4.9); Lymphocytes Percent Auto 34.5 % (20-40); Mean Corpuscular HGB Conc 32.3 g/dl (31.0-36.0); Mean Corpuscular Hemoglobin 29.1 pg (27.0-33.0); Mean Corpuscular Volume 90.1 fL (80.0-98.0); Mean Platelet Volume 9.4 fL (9.4-12.4); Monocytes Percent Auto 14.4 % (2-11); Neutrophils Absolute Auto 3.6 x10*3/uL (2.0-8.3); Neutrophils Percent Auto 49.8 % (45-73); Platelet Count 294 X10*3/uL (160-400); Red Blood Count 3.64 X10*6/uL (4.60-5.80); White Blood Count 7.1 X10*3/uL (4.8-10.8)
[2023-03-17 05:40] LABS: Anion Gap 11 (12-20); Blood Urea Nitrogen 18 mg/dL (9-16); Carbon Dioxide 26 mmol/L (22-29); Chloride 108 mmol/L (96-108); Estimated Glomerular Filt Rate > 60; Glucose Random 101 mg/dL (60-115); Potassium 4.3 mmol/L (3.3-5.1); Sodium 141 mmol/L (135-145)
[2023-03-17 07:25] VITALS: BP 127/63; PULSE 85; RESP 20; TEMP 36.6; O2SAT 100
[2023-03-17 08:07] LABS: Glucose, Whole Blood 101 mg/dL (60-115)
[2023-03-17] MEDS: Lactated Ringers 1,000 ML 100 ML IVCONT ×2 (09:25→19:37)
[2023-03-17] MEDS: Balsalazide Disodium 750 MG CAPSULE 2250 MG PO ×3 (09:30→20:08)
[2023-03-17] MEDS: predniSONE 20 MG TABLET 40 MG PO (09:31)
--- NOTE | 2023-03-17 10:11 | HO.PM.IMPN ---
Subjective Subjective Date of Service: 03/17/23 Interval History: Follow-up on colitis, GI bleed, ulcerative colitis flare Interval history: repotrs some diarrhea, moris abd discomfort Physical Exam Vital Signs: Vital Signs: Last Vital Signs Temp 97.9 F 03/17/23 07:25 Pulse 85 03/17/23 07:25 Resp 20 03/17/23 07:25 BP 127/63 03/17/23 07:25 Pulse Ox 100 03/17/23 07:25 O2 Del Method Room Air 03/17/23 07:25 BMI result Body Mass Index 30.1 Const: Other: General: AO X 3, no acute distress Resp: CTA bilateral CVS: S1,S2,RRR GI: +BS, NT, no distention Skin: No rash Neuro: motor grossly intact Psych: appropriate affect Objective Data Active Medications Acetaminophen (Acetaminophen 325 Mg Tablet) 650 mg PO Q6H PRN PRN Reason: Pain, Mild (Pain Scale 1-3) Last Admin: 03/16/23 01:03 Dose: 650 mg Documented By: PILI Balsalazide (Balsalazide Disodium 750 Mg Capsule) 2,250 mg PO TID [facility] Last Admin: 03/17/23 09:30 Dose: 2,250 mg Documented By: ANTONIO Donepezil HCl (Donepezil Hcl 10 Mg Tablet) 10 mg PO BEDTIME [facility] Last Admin: 03/16/23 21:20 Dose: 10 mg Documented By: MELODIE Glucose (Glucose Gel 15 Gm Gel..Gram.) 15 gm PO Q15M PRN; Protocol PRN Reason: per Hypoglycemia Standing Ord. Lactated Ringer's (Lr) 1,000 mls @ 100 mls/hr IVCONT .Q10H [facility] Last Admin: 03/17/23 09:25 Dose: 100 mls/hr Documented By: ANTONIO Dextrose (D10) 250 mls @ 750 mls/hr IV Q15M PRN; Protocol PRN Reason: per Hypoglycemia Standing Ord. Ceftriaxone Sodium 1 gm/ (Sodium Chloride) 50 mls @ 100 mls/hr IV Q24H [facility] Last Infusion: 03/17/23 05:50 Dose: 100 mls/hr Documented By: MELODIE Metronidazole (Flagyl) 500 mg in 100 mls @ 100 mls/hr IV Q8H [facility] Last Admin: 03/17/23 09:28 Dose: 100 mls/hr Documented By: ANTONIO Insulin Human Lispro (Insulin Lispro 100 Unit/Ml 3 Ml Vial) 0 unit SUBCUT QIDACHS [facility]; Protocol Last Admin: 03/17/23 08:16 Dose: Not Given Documented By: ANTONIO Non-Admin Reason: No Insulin Coverage Ondansetron HCl (Ondansetron Hcl 4 Mg/2 Ml Vial) 4 mg IVPUSH Q8H PRN PRN Reason: Nausea and Vomiting Pantoprazole Sodium (Pantoprazole Sodium 40 Mg/10 Ml Vial) 40 mg IVPUSH BID@0630,1630 [facility] Last Admin: 03/17/23 05:17 Dose: 40 mg Documented By: MELODIE Pramoxine HCl (Pramoxine Hcl 1 % Rectal Foam 15 Gm) 1 appl UT TID [facility] Last Admin: 03/17/23 09:36 Dose: Not Given Documented By: ANTONIO Non-Admin Reason: Patient Refused Prednisone (Prednisone 20 Mg Tablet) 40 mg PO DAILY [facility] Last Admin: 03/17/23 09:31 Dose: 40 mg Documented By: ANTONIO Sodium Chloride (0.9 % Sodium Chloride Flush 3 Ml Syringe) 3 ml IVFLUSH QSHIFT [facility] Last Admin: 03/17/23 07:57 Dose: Not Given Documented By: ANTONIO Non-Admin Reason: IV Running Tamsulosin HCl (Tamsulosin Hcl 0.4 Mg Capsule) 0.8 mg PO BEDTIME [facility] Last Admin: 03/16/23 21:20 Dose: 0.8 mg Documented By: MELODIE Trazodone HCl (Trazodone Hcl 50 Mg Tablet) 50 mg PO BEDTIME [facility] Last Admin: 03/16/23 21:20 Dose: 50 mg Documented By: MELODIE Labs 03/17/23 05:06 03/17/23 05:06 Labs: Laboratory Results - last 24 hr 03/16/23 03/16/23 03/16/23 11:27 18:07 20:30 MCV MCH MCHC RDW Plt Count MPV Immature Gran % (Auto) Neut % (Auto) Lymph % (Auto) [place] % (Auto) Eos % (Auto) Baso % (Auto) Lymph # (Auto) [place] # (Auto) Eos # (Auto) Baso # (Auto) Abs Immat Gran (auto) Absolute Neuts (auto) Absolute Nucleated RBC Nucleated RBC % (auto) Anion Gap Estim Creat Clear Calc Estimated GFR POC Glucose 124 H 260 H 137 H Random Glucose Calcium Urine Color Urine Appearance Urine pH Ur Specific [place] Urine Protein Urine Glucose (UA) Urine Ketones Urine Blood Urine Nitrite Ur Leukocyte Esterase 03/16/23 03/17/23 03/17/23 22:45 05:06 05:06 MCV 90.1 MCH 29.1 MCHC 32.3 RDW 15.0 Plt Count 294 MPV 9.4 Immature Gran % (Auto) 0.6 H Neut % (Auto) 49.8 Lymph % (Auto) 34.5 [place] % (Auto) 14.4 H Eos % (Auto) 0.6 Baso % (Auto) 0.1 Lymph # (Auto) 2.5 [place] # (Auto) 1.0 Eos # (Auto) 0.0 Baso # (Auto) 0.0 Abs Immat Gran (auto) 0.04 H Absolute Neuts (auto) 3.6 Absolute Nucleated RBC 0.000 Nucleated RBC % (auto) 0.0 Anion Gap 11 L Estim Creat Clear Calc 78.0 Estimated GFR > 60 POC Glucose Random Glucose 101 Calcium 9.0 Urine Color Yellow Urine Appearance Clear Urine pH 6.5 Ur Specific [place] 1.020 Urine Protein Trace Urine Glucose (UA) 500 H Urine Ketones Negative Urine Blood Negative Urine Nitrite Negative Ur Leukocyte Esterase Negative 03/17/23 07:59 MCV MCH MCHC RDW Plt Count MPV Immature Gran % (Auto) Neut % (Auto) Lymph % (Auto) [place] % (Auto) Eos % (Auto) Baso % (Auto) Lymph # (Auto) [place] # (Auto) Eos # (Auto) Baso # (Auto) Abs Immat Gran (auto) Absolute Neuts (auto) Absolute Nucleated RBC Nucleated RBC % (auto) Anion Gap Estim Creat Clear Calc Estimated GFR POC Glucose 101 Random Glucose Calcium Urine Color Urine Appearance Urine pH Ur Specific [place] Urine Protein Urine Glucose (UA) Urine Ketones Urine Blood Urine Nitrite Ur Leukocyte Esterase Assessment and Plan (1) GI bleed: Status: Acute (2) Ulcerative colitis, acute: Status: Acute (3) T2DM (type 2 diabetes mellitus): Status: Acute Plan 77-year-old male with past medical history of ulcerative colitis presents to the hospital with complaints of abdominal pain, as well as blood per rectum #. Acute diverticulitis:? Clinically improving -continue Ceftriaxone and Flagyl 03/16 #. ?UC flare: continue IV steroid, gi following, advance diet #. Acute GI bleed in the setting of above: -IV protonix. Appreciate GI assistance. -Monitor H/H #. Non- insulin-dependent diabetes mellitus:? -hold Metformin -SSI #. BPH: On flomax DVT prophylaxis: SCDs Need for continued hospitalization:? IV antibiotics for acute diverticulitis Time Spent With Patient Time: Total time managing care of this patient today ____ minutes. Quality Stroke Does the patient have a stroke diagnosis?: No VTE Prior VTE?: No VTE Risk Level:: Medical - moderate - high VTE Device Contraindication: N/A - Device Ordered VTE Drug Contraindication: Treatment Not Indicated
[2023-03-17 11:41] LABS: Glucose, Whole Blood 108 mg/dL (60-115)
--- NOTE | 2023-03-17 15:56 | MHC.CM.PN ---
per rounds pt to be dcd tomorrow plan remains home no servcis
[2023-03-17 16:00] VITALS: BP 130/60; PULSE 70; RESP 20; TEMP 36.1; O2SAT 100
[2023-03-17 16:35] LABS: Glucose, Whole Blood 187 mg/dL (60-115)
[2023-03-17] MEDS: Insulin Lispro 100 UNIT/ML 3 ML VIAL SUBCUT (17:00)
--- NOTE | 2023-03-17 17:30 | P.PNGI_ITS ---
Subjective Subjective Date of Service: 03/17/23 Interval History: Patient reports feeling much better than when he came in the hospital 2 days ago. He reports much less abdominal pain, tolerating a diet so far, and having 2 or 3 BM's which appeared normal and without significant diarrhea nor bleeding. He denies N/V/ sx. Critical Care Time (minutes): 0 Physical Exam Vital Signs: Vital Signs: Last Vital Signs Temp 97.9 F 03/17/23 07:25 Pulse 85 03/17/23 07:25 Resp 20 03/17/23 07:25 BP 127/63 03/17/23 07:25 Pulse Ox 100 03/17/23 07:25 O2 Del Method Room Air 03/17/23 07:25 BMI result Body Mass Index 30.1 Const: General: cooperative, healthy appearing, comfortable, no acute distress, well developed, alert and awake GI: Other: Soft, Nondistended, NT, no mass/rebound/guarding. Objective Data Labs 03/17/23 05:06 03/17/23 05:06 Labs: Laboratory Results - last 24 hr 03/16/23 03/16/23 03/16/23 18:07 20:30 22:45 WBC RBC Hgb Hct MCV MCH MCHC RDW Plt Count MPV Immature Gran % (Auto) Neut % (Auto) Lymph % (Auto) [facility] % (Auto) Eos % (Auto) Baso % (Auto) Lymph # (Auto) [facility] # (Auto) Eos # (Auto) Baso # (Auto) Abs Immat Gran (auto) Absolute Neuts (auto) Absolute Nucleated RBC Nucleated RBC % (auto) Sodium Potassium Chloride Carbon Dioxide Anion Gap BUN Creatinine Estim Creat Clear Calc Estimated GFR POC Glucose 260 H 137 H Random Glucose Calcium Urine Color Yellow Urine Appearance Clear Urine pH 6.5 Ur Specific [place] 1.020 Urine Protein Trace Urine Glucose (UA) 500 H Urine Ketones Negative Urine Blood Negative Urine Nitrite Negative Ur Leukocyte Esterase Negative 03/17/23 03/17/23 03/17/23 05:06 05:06 07:59 WBC 7.1 RBC 3.64 L Hgb 10.6 L Hct 32.8 L MCV 90.1 MCH 29.1 MCHC 32.3 RDW 15.0 Plt Count 294 MPV 9.4 Immature Gran % (Auto) 0.6 H Neut % (Auto) 49.8 Lymph % (Auto) 34.5 [facility] % (Auto) 14.4 H Eos % (Auto) 0.6 Baso % (Auto) 0.1 Lymph # (Auto) 2.5 [facility] # (Auto) 1.0 Eos # (Auto) 0.0 Baso # (Auto) 0.0 Abs Immat Gran (auto) 0.04 H Absolute Neuts (auto) 3.6 Absolute Nucleated RBC 0.000 Nucleated RBC % (auto) 0.0 Sodium 141 Potassium 4.3 Chloride 108 Carbon Dioxide 26 Anion Gap 11 L BUN 18 H Creatinine 0.99 Estim Creat Clear Calc 78.0 Estimated GFR > 60 POC Glucose 101 Random Glucose 101 Calcium 9.0 Urine Color Urine Appearance Urine pH Ur Specific [place] Urine Protein Urine Glucose (UA) Urine Ketones Urine Blood Urine Nitrite Ur Leukocyte Esterase 03/17/23 03/17/23 11:37 16:31 WBC RBC Hgb Hct MCV MCH MCHC RDW Plt Count MPV Immature Gran % (Auto) Neut % (Auto) Lymph % (Auto) [facility] % (Auto) Eos % (Auto) Baso % (Auto) Lymph # (Auto) [facility] # (Auto) Eos # (Auto) Baso # (Auto) Abs Immat Gran (auto) Absolute Neuts (auto) Absolute Nucleated RBC Nucleated RBC % (auto) Sodium Potassium Chloride Carbon Dioxide Anion Gap BUN Creatinine Estim Creat Clear Calc Estimated GFR POC Glucose 108 187 H Random Glucose Calcium Urine Color Urine Appearance Urine pH Ur Specific [place] Urine Protein Urine Glucose (UA) Urine Ketones Urine Blood Urine Nitrite Ur Leukocyte Esterase Procedures Date of Service Date of Service: 03/17/23 Progress Note: A&P Assessment and plan (1) Ulcerative colitis, acute: Status: Acute Assessment and Plan: Imp: I do think at least part of his presentation was in relation to a flare of his UC. Things seem to be clinically improved at this time given his description of normal BM's, less pain, and no significant bleeding Rec: Prednisone taper by 5 mg every week. Continue Balsalazide 2.25gm TID. Diet as tolerated. I will arrange for outpatient follow up. (2) Diverticulitis: Status: Acute Assessment and Plan: Imp: His diverticulitis seems to be much improved since admission as well. There are no complicating features. I suspect this was a contributing factor to his presentation with abdominal pain as well. 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 Diet as tolerated. Time Spent With Patient Time: Total time managing care of this patient today ____ minutes. Quality Stroke Does the patient have a stroke diagnosis?: No VTE Prior VTE?: No VTE Risk Level:: Medical - moderate - high VTE Device Contraindication: N/A - Device Ordered VTE Drug Contraindication: Treatment Not Indicated
[2023-03-17] MEDS: Amoxicillin/Potassium Clav 500 MG TABLET PO (19:37)
[2023-03-17 20:00] VITALS: BP 132/71; PULSE 76; RESP 17; TEMP 37.6; O2SAT 97
[2023-03-17] MEDS: traZODone HCL 50 MG TABLET PO (20:08)
[2023-03-17] MEDS: Tamsulosin HCL 0.4 MG CAPSULE 0.8 MG PO (20:08)
[2023-03-17] MEDS: Donepezil HCl 10 MG TABLET PO (20:09)
[2023-03-17 20:42] LABS: Glucose, Whole Blood 146 mg/dL (60-115)
[2023-03-18 04:00] VITALS: BP 134/65; PULSE 76; RESP 17; TEMP 36.6; O2SAT 97
[2023-03-18 05:00] LABS: MANUAL DIFF FLAG NO
[2023-03-18 05:06] LABS: Basophils Percent Auto 0.1 % (0-2); Eosinophils Percent Auto 0.5 % (0-4); Hematocrit 33.9 % (42.0-52.0); Hemoglobin 10.8 g/dl (14.0-18.0); Imm Gran Abs Auto 0.03 X10*3/uL (0.00-0.03); Imm Gran Pct Auto 0.4 % (0.0-0.4); Lymphocytes Absolute Auto 2.3 X10*3/uL (1.2-4.9); Mean Corpuscular HGB Conc 31.9 g/dl (31.0-36.0); Mean Corpuscular Hemoglobin 28.8 pg (27.0-33.0); Mean Corpuscular Volume 90.4 fL (80.0-98.0); Mean Platelet Volume 9.5 fL (9.4-12.4); Monocytes Absolute Auto 0.9 X10*3/uL (0.1-1.2); Monocytes Percent Auto 10.5 % (2-11); Neutrophils Absolute Auto 5.2 x10*3/uL (2.0-8.3); Neutrophils Percent Auto 61.5 % (45-73); Platelet Count 300 X10*3/uL (160-400); Red Blood Count 3.75 X10*6/uL (4.60-5.80); Red Cell Distribution Width 14.8 % (11.0-16.0); White Blood Count 8.4 X10*3/uL (4.8-10.8)
--- NOTE | 2023-03-18 05:52 | PC.NURSE ---
pt c/o heavy legs tonight, found non pitting edema bilat. ankles md notified iv fluids stopped. pt is sleeping now will monitor.
[2023-03-18 08:00] VITALS: BP 128/57; RESP 20; TEMP 36.9; O2SAT 97
[2023-03-18 08:01] LABS: Glucose, Whole Blood 105 mg/dL (60-115)
[2023-03-18] MEDS: 0.9 % Sodium Chloride Flush 3 ML SYRINGE IVFLUSH (09:10)
[2023-03-18] MEDS: Amoxicillin/Potassium Clav 500 MG TABLET PO (09:11)
[2023-03-18] MEDS: predniSONE 5 MG TABLET 35 MG PO (09:11)
[2023-03-18] MEDS: Balsalazide Disodium 750 MG CAPSULE 2250 MG PO (09:12)
--- NOTE | 2023-03-18 09:43 | P.DS_ITS ---
DS: Providers Provider Date of Service: 03/18/23 Date of admission: 03/15/23 23:38 Primary care physician: Ana Silveira PA-C Consults: 03/15/23 23:17 Consult to Gastroenterology Stat Consulting Provider: Merline Waggoner Reason for consultation: 77-year-old male, pt of Dr. Wylie, comes in with what appears to be UC flar Has provider been notified: No DS: Diagnosis Discharge Diagnosis (1) Ulcerative colitis, acute: Status: Acute (2) Diverticulitis: Status: Acute DS: Summary Hospital Course Hospital Course: Chief Complaint: abd pain 77-year-old male with past medical history of type 2 diabetes, paroxysmal AFib, history of ulcer colitis, normal pressure hydrocephalus status post shunt placement, cerebral ventriculomegaly, BPH, presents to the hospital with complaints of abdominal pain as well as bloody bowel movements..? Patient reports that he feels constipated, he has very small bowel movements and has had intermittent bright red blood per rectum, he tries to go to the bathroom but for the past 3 days very small amount of stool comes out.? He reports that this been going on for few weeks, worsened over the past 3 days.? He reports that he was recently placed back on prednisone by his GI. Does complain of abdominal tenderness in the umbilical region, nonradiating, constant, 5/10, no alleviating or exacerbating factors.? Patient reports poor oral intake because i cant go .? Reports nausea, no vomiting, no fever or chills, no chest pain, no shortness of breath, no headache or change in vision, no urinary symptoms and no lower extremity edema.? On arrival to the ED patient hemodynamically stable with no significant abnormal vitals ?labs are significant for WBC count of 10.3, hemoglobin of 12.3, hematocrit 37.9, labs otherwise unremarkable Stool occult positive Abdomen pelvic CT shows no evidence of active hemorrhage in the bowel, diverticulosis of sigmoid colon, diffuse bowel wall thickening and pericolonic edema in the sigmoid colon, possible diverticulitis.? A colonic mass cannot be ruled out, this seems more severe from 2021, Patient being admitted further management Hospital course: 77-year-old male with history of ulcerative colitis with presented with abdominal pain and workup revealed acute diverticulitis with a flare of ulcerative colitis. He also has some rectal bleeding with no oskar anemia. Acute diverticulitis while in hospital was treated with IV ceftriaxone and Flagyl, overall his symptom has improved was evaluated by GI Dr. Wylie and will be transitioned to oral Augmentin for 4 more days for total of 7 days of antibiotics. He is presently afebrile and WBC is within normal at 8.4. Oscillator of colitis flare has been treated with IV steroid and will be transitioned to oral steroid at the present time starting with a 35 mg daily and reduce any by 5 mg every week per GI recommendation. As for rectal bleeding this was likely related to the diverticulitis and colitis and this seemed to have resolved. Hemoglobin and hematocrit did not shift significantly. To resume all other home medications. Final diagnosis: Acute diverticulitis Ulcerative colitis flare Time Spent with Patient Time attestation: Total time managing care of this patient today ____ minutes. Discharge coordination time: Greater than 30 minutes Quality: Safe Use of Opioids Does Pt have an Active Cancer Diagnosis on the Problem List?: No Quality: Stroke Does the patient have a stroke diagnosis?: No Physical Exam Vital Signs: Vital Signs: Last Vital Signs Temp 98.5 F 03/18/23 08:00 Pulse 76 03/18/23 04:00 Resp 20 03/18/23 08:00 BP 128/57 L 03/18/23 08:00 Pulse Ox 97 03/18/23 08:00 O2 Del Method Room Air 03/18/23 08:00 BMI result Body Mass Index 30.1 Const: Other: General: AO X 3, no acute distress Resp: CTA bilateral CVS: S1,S2,RRR GI: +BS, NT, no distention Skin: No rash Neuro: motor grossly intact Psych: appropriate affect DS: Data Data Completed and Pending Labs on day of discharge: Laboratory Results - last 24 hr 03/17/23 03/17/23 03/17/23 11:37 16:31 20:24 WBC RBC Hgb Hct MCV MCH MCHC RDW Plt Count MPV Immature Gran % (Auto) Neut % (Auto) Lymph % (Auto) [place] % (Auto) Eos % (Auto) Baso % (Auto) Lymph # (Auto) [place] # (Auto) Eos # (Auto) Baso # (Auto) Abs Immat Gran (auto) Absolute Neuts (auto) Absolute Nucleated RBC Nucleated RBC % (auto) POC Glucose 108 187 H 146 H 03/18/23 03/18/23 04:16 07:51 WBC 8.4 RBC 3.75 L Hgb 10.8 L Hct 33.9 L MCV 90.4 MCH 28.8 MCHC 31.9 RDW 14.8 Plt Count 300 MPV 9.5 Immature Gran % (Auto) 0.4 Neut % (Auto) 61.5 Lymph % (Auto) 27.0 [place] % (Auto) 10.5 Eos % (Auto) 0.5 Baso % (Auto) 0.1 Lymph # (Auto) 2.3 [place] # (Auto) 0.9 Eos # (Auto) 0.0 Baso # (Auto) 0.0 Abs Immat Gran (auto) 0.03 Absolute Neuts (auto) 5.2 Absolute Nucleated RBC 0.000 Nucleated RBC % (auto) 0.0 POC Glucose 105 Preliminary micro results at discharge 03/17/23 05:06 Blood Culture - Preliminary Blood - Venous No growth after 24 hours. 03/17/23 05:06 Blood Culture - Preliminary Blood - Venous No growth after 24 hours. Discharge Plan Discharge Anticipated Discharge Date/Time: 03/18/23 09:43 Patient Disposition: Home, Self-Care Discharge Diagnosis: Acute diverticulitis, flare of ulcerative colitis Referrals: Ana Silveira PA-C [Primary Care Provider] - 1 Week Discharge Medications: New amoxicillin-pot clavulanate 500-125 mg Tablet 500 mg PO Q12H Qty: 8 0RF Continued (DME) FreeStyle Tyrese 14 Day Clyde Misc See Rx Instructions .Route Qty: 1 0RF Rx Instructions: As directed (DME) blood-glucose meter [FreeStyle Lite Meter] Kit See Rx Instructions .Route Qty: 1 0RF Rx Instructions: As directed cholecalciferol (vitamin D3) 1,250 mcg (50,000 unit) capsule 1,250 mcg PO QWEEK Qty: 14 0RF (DME) FreeStyle Lite Strips Strip See Rx Instructions .Route Qty: 100 0RF Rx Instructions: test blood sugar twice a day (DME) lancets [FreeStyle Lancets] 28 gauge misc See Rx Instructions .Route Qty: 100 3RF Rx Instructions: As directed metformin 500 mg tablet 500 mg PO DAILY trazodone 50 mg tablet 50 mg PO BEDTIME donepezil 10 mg tablet 10 mg PO BEDTIME tamsulosin 0.4 mg capsule 0.8 mg PO BEDTIME balsalazide 750 mg capsule 2,250 mg PO TID Diet: Advance to usual diet Activity on Discharge: As tolerated Stand Alone Forms: Patient Portal Discharge page Care Plan Goals: Full recovery from diverticulitis, ulcerative colitis Health Concerns: Ulcerative colitis Diverticulitis GI bleeding Plan of Treatment: Take Augmentin as directed for diverticulitis Take prednisone as directed started with 35 mg daily and reducing the by 5 mg every 7 days prescription has been sent to the pharmacy by Dr. Wylie Assessment: As above
--- NOTE | 2023-03-18 11:15 | MHC.CM.PN ---
pt dcd home no skilled servceis ordered by
[2023-03-18 11:22] LABS: Glucose, Whole Blood 199 mg/dL (60-115)
[2023-03-18] MEDS: Insulin Lispro 100 UNIT/ML 3 ML VIAL SUBCUT (11:52)
== END 2023-03-18 15:57 | disposition home or self-care (01) | DRG 385 ==
LOC: HO.ED 23:18 → HO.EDOVER 23:44 → HO.S3 03-16 19:32
PROVIDERS: Internal Medicine; Physician Assistant; Student in an Organized Health Care Education/Training Program; Admitting Provider Internal Medicine; Emergency Provider Student in an Organized Health Care Education/Training Program; PCP Physician Assistant; Visit Provider Internal Medicine
DX: K51.911 Ulcerative colitis, unspecified with rectal bleeding (principal); K57.33 Diverticulitis of large intestine without perforation or abscess with bleeding; G91.2 (Idiopathic) normal pressure hydrocephalus; E11.9 Type 2 diabetes mellitus without complications; N40.0 Benign prostatic hyperplasia without lower urinary tract symptoms; Z98.2 Presence of cerebrospinal fluid drainage device; Z79.84 Long term (current) use of oral hypoglycemic drugs; Z79.899 Other long term (current) drug therapy
CPT/HCPCS: 36415; 74178; 80048; 80076; 81003; 82272; 82947; 83690; 83735; 84484; 85025; 85610; 87040; 93005; 99285; J0696; J2920; Q9967

== ENCOUNTER 2023-03-19 14:09 | Emergency (ER) | payer MEDICARE, SELFPAY ==
[2023-03-19 14:35] VITALS: BP 127/59; PULSE 76; RESP 18; TEMP 36.7; O2SAT 97; BMI 27.1
--- NOTE | 2023-03-19 14:38 | ED_ITS ---
HPI - Abdominal Pain General Chief Complaint: Abdominal Pain <DOTTY Medina - Last Filed: 03/19/23 14:42> Stated Complaint: Stomach Pain Blood in Stool <DOTTY Medina - Last Filed: 03/19/23 14:42> Time Seen by Provider: 03/19/23 20:26 <DOTTY Medina - Last Filed: 03/19/23 14:42> Source: patient, RN notes reviewed and old records reviewed <Gage Encarnacion - Last Filed: 03/19/23 21:40> Mode of arrival: ambulatory <Gage Encarnacion - Last Filed: 03/19/23 21:40> Limitations: no limitations <Gage Encarnacion - Last Filed: 03/19/23 21:40> History of Present Illness HPI narrative: 77-year-old male past medical history significant for ulcerative colitis followed by Dr. 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 patient was actually admitted to this facility from 03/15/2023 through 03/18/2023 for ulcerative colitis flare plus or minus diverticulitis. He was treated with both IV antibiotics and steroids and was consult by his GI doctor, Dr. Wylie he was discharged just yesterday and presents because he had other episode of bright red rectal bleeding. He states it was only a low bit. He denies any fevers, chills he reports he is due to go to with stir tomorrow to have them checkout my brain. He reports mild, intermittent right-sided abdominal pain that is currently dull, / <Gage Encarnacion - Last Filed: 03/19/23 21:40> Related Data Home Medications: Home Medications Medication Instructions Recorded Confirmed balsalazide 750 mg capsule 2,250 mg PO TID 03/15/23 03/16/23 donepezil 10 mg tablet 10 mg PO BEDTIME 03/15/23 03/16/23 metformin 500 mg tablet 500 mg PO DAILY 03/15/23 03/16/23 tamsulosin 0.4 mg capsule 0.8 mg PO BEDTIME 03/15/23 03/16/23 trazodone 50 mg tablet 50 mg PO BEDTIME 03/15/23 03/16/23 Previous Rx's Medication Instructions Recorded flash glucose scanning reader #1 ea 09/04/22 (FreeStyle Tyrese 14 Day [place]) blood-glucose meter (FreeStyle #1 ea 09/17/22 Lite Meter kit) cholecalciferol (vitamin D3) 1,250 1,250 mcg PO QWEEK #14 caps 11/18/22 mcg (50,000 unit) capsule blood sugar diagnostic (FreeStyle #100 ea 11/19/22 Lite Strips) lancets 28 gauge (FreeStyle #100 ea 11/20/22 Lancets) amoxicillin 500 mg-potassium 500 mg PO Q12H #8 tabs 03/18/23 clavulanate 125 mg tablet <DOTTY Medina - Last Filed: 03/19/23 14:42> Allergies/Adverse Reactions: Allergies Allergy/AdvReac Type Severity Reaction Status Date / Time cabbage Allergy Severe throat Verified 02/11/23 09:52 swells <DOTTY Mednia - Last Filed: 03/19/23 14:42> Review of Systems Constitutional: Reports as per HPI, Denies chills, Denies fatigue, Denies fever(s) and Denies headache(s) <Gage Encarnacion - Last Filed: 03/19/23 21:40> Denies headache(s) <Gage Encarnacion - Last Filed: 03/19/23 21:40> Cardiovascular: Denies chest pain and Denies dyspnea <Gage Encarnacion - Last Filed: 03/10 21:40> Respiratory: Denies cough and Denies dyspnea <Gage Encarnacion - Last Filed: 03/19/23 21:40> Gastrointestinal: Reports abdominal pain, Reports hematochezia, Reports constipation, Denies nausea and Denies vomiting <Gage Encarnacion - Last Filed: 03/19/23 21:40> Genitourinary: Denies difficulty urinating and Denies dysuria <Gage Encarnacion - Last Filed: 03/19/23 21:40> Denies headache(s) and Denies focal weakness <Gage Encarnacion - Last Filed: 03/19/23 21:40> Endocrine: Denies fatigue <Gage Encarnacion - Last Filed: 03/19/23 21:40> [facility] Past Medical History Medical History: Medical History Abnormal LFTs Arthritis Cerebral ventriculomegaly COVID-19 vaccine administered Dementia Gait instability History of BPH History of lumbar puncture Insomnia Obesity PAF (paroxysmal atrial fibrillation) SVT (supraventricular tachycardia) Type 2 diabetes mellitus with obesity <DOTTY Medina - Last Filed: 03/19/23 14:42> Surgical History: Surgical History H/O colonoscopy History of esophagogastroduodenoscopy (EGD) History of tonsillectomy Hx of appendectomy <DOTTY Medina - Last Filed: 03/19/23 14:42> Family History Family History: Family History Father No problems noted. Mother No problems noted. <DOTTY Medina - Last Filed: 03/19/23 14:42> Social History Social History: Social History Household Members: Spouse Housing: House Do you presently have visiting nurse or other home services: No Alcohol intake: former Patient Tobacco Use Status: Never used Tobacco Smoked in Last 30 Days: No e-Cigarette/Vaping Use: Never Used Second Hand Smoke Exposure: No Use of substances other than those prescribed or required for medical reasons: No Advance Directives: No Advance Directives Information Provided: Yes service: No Current occupational status: employed Cognitive needs: Yes (cane) Hearing needs: No Vision needs: Yes (Glasses) <DOTTY Medina - Last Filed: 03/19/23 14:42> Physical Exam ED Vital Signs: Vital Signs - 24 hr 03/19/23 14:35 03/19/23 20:20 Temperature 98.0 F 97.4 F Pulse Rate 76 51 Respiratory Rate 18 25 H Blood Pressure 127/59 L 138/64 Pulse Oximetry 97 99 Oxygen Delivery Method Room Air Room Air BMI result Body Mass Index 27.1 <DOTTY Medina Last Filed: 03/19/23 14:42> Vital Signs - 24 hr 03/19/23 14:35 03/19/23 20:20 Temperature 98.0 F 97.4 F Pulse Rate 76 51 Respiratory Rate 18 25 H Blood Pressure 127/59 L 138/64 Pulse Oximetry 97 99 Oxygen Delivery Method Room Air Room Air BMI result Body Mass Index 27.1 <Gage Last Filed: 03/19/23 21:40> Const General: healthy appearing, comfortable, no acute distress, alert and awake < Last Filed: 03/19/23 21:40> Nutritional Appearance: well nourished < Last Filed: 03/19/23 21:40> Orientation/consciousness: patient oriented x3 < Last Filed: 03/19/23 21:40> HENMT Head: Yes normocephalic and Yes atraumatic < Last Filed: 03/19/23 21:40> Throat: Yes posterior oropharynx normal < Last Filed: 03/19/23 21:40> Eyes Eyelids: Yes eyelids normal < Last Filed: 03/19/23 21:40> Conjunctivae: conjunctivae normal < Last Filed: 03/19/23 21:40> Sclerae: sclerae normal < Last Filed: 03/19/23 21:40> Corneas: corneas normal < Last Filed: 03/19/23 21:40> Pupils: Equal, round and reactive pupils present < Last Filed: 03/19/23 21:40> EOM: EOMs intact bilaterally < Last Filed: 03/19/23 21:40> Neck Neck: Yes full ROM < Last Filed: 03/19/23 21:40> Resp Effort & Inspection: normal respiratory effort, able to speak in complete sentences, no audible wheezes and not labored < Last Filed: 03/19/23 21:40> Auscultation: clear to auscultation bilaterally < Last Filed: 03/19/23 21:40> Cardio Rate: regular rate <Gage Encarnacion - Last Filed: 03/19/23 21:40> Rhythm: regular rhythm <Gage Encarnacion - Last Filed: 03/19/23 21:40> GI Inspection: No distended <Gage Encarnacion Last Filed: 03/19/23 21:40> Palpation (GI): Soft to palpation, not firm, nontender, no guarding and not rigid <Gage Encarnacion - Last Filed: 03/19/23 21:40> Auscultation: normoactive bowel sounds <Gagedenae Jiangy - Last Filed: 03/19/23 21:40> Skin General skin exam: no rashes or lesions noted and elasticity normal <Gagedenae Jiang Last Filed: 03/19/23 21:40> Neuro General: patient oriented x3 <Gage Encarnacion - Last Filed: 03/19/23 21:40> Cranial nerves: Yes Equal, round and reactive pupils present and Yes Bilaterally intact EOM present <Gage Encarnacion - Last Filed: 03/19/23 21:40> Cognition (Neuro): normal cognition <Gage Encarnacion Last Filed: 03/19/23 21:40> Extrem Other: Moving all extremities well without any obvious deformities <Gage Encarnacion - Last Filed: 03/19/23 21:40> Course Course Course Narrative: RME - 77 yo male with history of ulcerative colitis, DM2, paroxysmal afib not on anticoagulation who presents to the ER for evaluation of sharp shooting pains along his upper abdomen along with light rectal bleeding. He was recently admitted here from 03/15-03/18 for acute diverticulitis and UC flare. He states he ran out of prednisone today. Bleeding is only with wiping and is bright red. No lower abdominal pain. No nausea, vomiting or diarrhea. Plan: repeat lab workup, exam in treatment room. had CT scan 4 days ago. will hold off for now <DOTTY Medina - Last Filed: 03/19/23 14:42> Reevaluation(s) Reevaluation #1: I reviewed the patient's workup with Dr. Wylie and consulted with him. He agrees with continuing the patient's current treatment plan of Augmentin and prednisone, no emergent indication for repeat imaging at this time. This was discussed with the patient and he will be discharged to follow-up with Dr. Wylie <Gage Encarnacion - Last Filed: 03/19/23 21:40> Time: 21:38 <Gage Encarnacion - Last Filed: 03/19/23 21:40> Medical Decision Making Medical Decision Making MDM Narrative: this 77 year male was just discharged this facility yesterday for ulcer colitis flare as well as diverticulitis. He is currently taking Augmentin as well as prednisone for continued treatment of his condition. He reports today for continued abdominal pain with bloody bowel movement. His H&H has actually improved from labs that were done yesterday. He does have a leukocytosis today that is mild, [id number]. His abdomen is soft, nontender, nondistended at the time my evaluation. We will do a rectal exam and check guaiac. The patient's vital signs are stable, currently I do not see any indication for repeat imaging at this time. <Gage Encarnacion - Last Filed: 03/19/23 21:40> Differential Diagnosis Ulcerative colitis Diverticulitis internal hemorrhoid External hemorrhoid Abdominal pain diverticular perforation <Gage Encarnacion - Last Filed: 03/19/23 21:40> Lab Data Result Diagrams: 03/19/23 14:57 03/19/23 14:57 <DOTTY Medina - Last Filed: 03/19/23 14:42> Labs: Lab Results 03/19/23 03/19/23 03/19/23 Range/Units 14:57 14:57 14:57 WBC 13.4 H (4.8-10.8) X10*3/uL RBC 4.24 L (4.60-5.80) X10*6/uL Hgb 12.3 L (14.0-18.0) g/dl Hct 38.8 L (42.0-52.0) % MCV 91.5 (80.0-98.0) fL MCH 29.0 (27.0-33.0) pg MCHC 31.7 (31.0-36.0) g/dl RDW 15.0 (11.0-16.0) % Plt Count 355 (160-400) X10*3/uL MPV 9.1 L (9.4-12.4) fL Immature Gran % (Auto) 0.4 (0.0-0.4) % Neut % (Auto) 66.3 (45-73) % Lymph % (Auto) 21.7 (20-40) % [place] % (Auto) 10.8 (2-11) % Eos % (Auto) 0.6 (0-4) % Baso % (Auto) 0.2 (0-2) % Lymph # (Auto) 2.9 (1.2-4.9) X10*3/uL [place] # (Auto) 1.5 H (0.1-1.2) X10*3/uL Eos # (Auto) 0.1 (0.0-0.4) X10*3/uL Baso # (Auto) 0.0 (0.0-0.2) X10*3/uL Abs Immat Gran (auto) 0.06 H (0.00-0.03) X10*3/uL Absolute Neuts (auto) 8.9 H (2.0-8.3) x10*3/uL Absolute Nucleated RBC 0.000 (0.0-0.012) X10*3/uL Nucleated RBC % (auto) 0.0 (0.0-0.2) /100WBC ESR 27 H (0-15) MM/HR PT (10.0-13.1) SEC INR (0.9-1.1) APTT (26.0-36.4) SEC Sodium 142 (135-145) mmol/L Potassium 4.4 (3.3-5.1) mmol/L Chloride 105 (96-108) mmol/L Carbon Dioxide 30 H (22-29) mmol/L Anion Gap 11 L (12-20) BUN 20 H (9-16) mg/dL Creatinine 1.28 (0.5-1.4) mg/dL Estim Creat Clear Calc 53.8 Estimated GFR 55 Random Glucose 133 H (60-115) mg/dL Calcium 9.6 D (8.4-10.2) mg/dL Magnesium 2.3 (1.6-2.6) mg/dL Total Bilirubin 0.2 (0.0-1.0) mg/dL Direct Bilirubin < 0.2 (0.0-0.5) mg/dL AST 11 (5-37) U/L ALT 10 (0-40) U/L Alkaline Phosphatase 63 (39-117) U/L C-Reactive Protein 1.24 H (< or = 0.50) mg/dL Total Protein 6.6 (6.5-8.0) g/dL Albumin 3.6 (3.5-5.0) g/dL Lipase 12 (8-78) U/L Urine Color Urine Appearance Urine pH (5.0-9.0) Ur Specific [place] (1.005-1.025) Urine Protein (Neg-Trace) mg/dL Urine Glucose (UA) (Negative) mg/dL Urine Ketones (Negative) mg/dL Urine Blood (Negative) Urine Nitrite (Negative) Ur Leukocyte Esterase (Negative) Stool Occult Blood (NEGATIVE) 03/19/23 03/19/23 03/19/23 Range/Units 14:57 20:58 21:04 WBC (4.8-10.8) X10*3/uL RBC (4.60-5.80) X10*6/uL Hgb (14.0-18.0) g/dl Hct (42.0-52.0) % MCV (80.0-98.0) fL MCH (27.0-33.0) pg MCHC (31.0-36.0) g/dl RDW (11.0-16.0) % Plt Count (160-400) X10*3/uL MPV (9.4-12.4) fL Immature Gran % (Auto) (0.0-0.4) % Neut % (Auto) (45-73) % Lymph % (Auto) (20-40) % [place] % (Auto) (2-11) % Eos % (Auto) (0-4) % Baso % (Auto) (0-2) % Lymph # (Auto) (1.2-4.9) X10*3/uL [place] # (Auto) (0.1-1.2) X10*3/uL Eos # (Auto) (0.0-0.4) X10*3/uL Baso # (Auto) (0.0-0.2) X10*3/uL Abs Immat Gran (auto) (0.00-0.03) X10*3/uL Absolute Neuts (auto) (2.0-8.3) x10*3/uL Absolute Nucleated RBC (0.0-0.012) X10*3/uL Nucleated RBC % (auto) (0.0-0.2) /100WBC ESR (0-15) MM/HR PT 12.7 (10.0-13.1) SEC INR 1.1 (0.9-1.1) APTT 29.8 (26.0-36.4) SEC Sodium (135-145) mmol/L Potassium (3.3-5.1) mmol/L Chloride (96-108) mmol/L Carbon Dioxide (22-29) mmol/L Anion Gap (12-20) BUN (9-16) mg/dL Creatinine (0.5-1.4) mg/dL Estim Creat Clear Calc Estimated GFR Random Glucose (60-115) mg/dL Calcium (8.4-10.2) mg/dL Magnesium (1.6-2.6) mg/dL Total Bilirubin (0.0-1.0) mg/dL Direct Bilirubin (0.0-0.5) mg/dL AST (5-37) U/L ALT (0-40) U/L Alkaline Phosphatase (39-117) U/L C-Reactive Protein (< or = 0.50) mg/dL Total Protein (6.5-8.0) g/dL Albumin (3.5-5.0) g/dL Lipase (8-78) U/L Urine Color Yellow Urine Appearance Clear Urine pH 5.5 (5.0-9.0) Ur Specific [place] 1.025 (1.005-1.025) Urine Protein Trace (Neg-Trace) mg/dL Urine Glucose (UA) Negative (Negative) mg/dL Urine Ketones Trace (Negative) mg/dL Urine Blood Negative (Negative) Urine Nitrite Negative (Negative) Ur Leukocyte Esterase Negative (Negative) Stool Occult Blood NEGATIVE (NEGATIVE) <DOTTY Medina - Last Filed: 03/19/23 14:42> Lab Results 03/19/23 03/19/23 03/19/23 Range/Units 14:57 14:57 14:57 WBC 13.4 H (4.8-10.8) X10*3/uL RBC 4.24 L (4.60-5.80) X10*6/uL Hgb 12.3 L (14.0-18.0) g/dl Hct 38.8 L (42.0-52.0) % MCV 91.5 (80.0-98.0) fL MCH 29.0 (27.0-33.0) pg MCHC 31.7 (31.0-36.0) g/dl RDW 15.0 (11.0-16.0) % Plt Count 355 (160-400) X10*3/uL MPV 9.1 L (9.4-12.4) fL Immature Gran % (Auto) 0.4 (0.0-0.4) % Neut % (Auto) 66.3 (45-73) % Lymph % (Auto) 21.7 (20-40) % [place] % (Auto) 10.8 (2-11) % Eos % (Auto) 0.6 (0-4) % Baso % (Auto) 0.2 (0-2) % Lymph # (Auto) 2.9 (1.2-4.9) X10*3/uL [place] # (Auto) 1.5 H (0.1-1.2) X10*3/uL Eos # (Auto) 0.1 (0.0-0.4) X10*3/uL Baso # (Auto) 0.0 (0.0-0.2) X10*3/uL Abs Immat Gran (auto) 0.06 H (0.00-0.03) X10*3/uL Absolute Neuts (auto) 8.9 H (2.0-8.3) x10*3/uL Absolute Nucleated RBC 0.000 (0.0-0.012) X10*3/uL Nucleated RBC % (auto) 0.0 (0.0-0.2) /100WBC ESR 27 H (0-15) MM/HR PT (10.0-13.1) SEC INR (0.9-1.1) APTT (26.0-36.4) SEC Sodium 142 (135-145) mmol/L Potassium 4.4 (3.3-5.1) mmol/L Chloride 105 (96-108) mmol/L Carbon Dioxide 30 H (22-29) mmol/L Anion Gap 11 L (12-20) BUN 20 H (9-16) mg/dL Creatinine 1.28 (0.5-1.4) mg/dL Estim Creat Clear Calc 53.8 Estimated GFR 55 Random Glucose 133 H (60-115) mg/dL Calcium 9.6 D (8.4-10.2) mg/dL Magnesium 2.3 (1.6-2.6) mg/dL Total Bilirubin 0.2 (0.0-1.0) mg/dL Direct Bilirubin < 0.2 (0.0-0.5) mg/dL AST 11 (5-37) U/L ALT 10 (0-40) U/L Alkaline Phosphatase 63 (39-117) U/L C-Reactive Protein 1.24 H (< or = 0.50) mg/dL Total Protein 6.6 (6.5-8.0) g/dL Albumin 3.6 (3.5-5.0) g/dL Lipase 12 (8-78) U/L Urine Color Urine Appearance Urine pH (5.0-9.0) Ur Specific [place] (1.005-1.025) Urine Protein (Neg-Trace) mg/dL Urine Glucose (UA) (Negative) mg/dL Urine Ketones (Negative) mg/dL Urine Blood (Negative) Urine Nitrite (Negative) Ur Leukocyte Esterase (Negative) Stool Occult Blood (NEGATIVE) 03/19/23 03/19/23 03/19/23 Range/Units 14:57 20:58 21:04 WBC (4.8-10.8) X10*3/uL RBC (4.60-5.80) X10*6/uL Hgb (14.0-18.0) g/dl Hct (42.0-52.0) % MCV (80.0-98.0) fL MCH (27.0-33.0) pg MCHC (31.0-36.0) g/dl RDW (11.0-16.0) % Plt Count (160-400) X10*3/uL MPV (9.4-12.4) fL Immature Gran % (Auto) (0.0-0.4) % Neut % (Auto) (45-73) % Lymph % (Auto) (20-40) % [place] % (Auto) (2-11) % Eos % (Auto) (0-4) % Baso % (Auto) (0-2) % Lymph # (Auto) (1.2-4.9) X10*3/uL [place] # (Auto) (0.1-1.2) X10*3/uL Eos # (Auto) (0.0-0.4) X10*3/uL Baso # (Auto) (0.0-0.2) X10*3/uL Abs Immat Gran (auto) (0.00-0.03) X10*3/uL Absolute Neuts (auto) (2.0-8.3) x10*3/uL Absolute Nucleated RBC (0.0-0.012) X10*3/uL Nucleated RBC % (auto) (0.0-0.2) /100WBC ESR (0-15) MM/HR PT 12.7 (10.0-13.1) SEC INR 1.1 (0.9-1.1) APTT 29.8 (26.0-36.4) SEC Sodium (135-145) mmol/L Potassium (3.3-5.1) mmol/L Chloride (96-108) mmol/L Carbon Dioxide (22-29) mmol/L Anion Gap (12-20) BUN (9-16) mg/dL Creatinine (0.5-1.4) mg/dL Estim Creat Clear Calc Estimated GFR Random Glucose (60-115) mg/dL Calcium (8.4-10.2) mg/dL Magnesium (1.6-2.6) mg/dL Total Bilirubin (0.0-1.0) mg/dL Direct Bilirubin (0.0-0.5) mg/dL AST (5-37) U/L ALT (0-40) U/L Alkaline Phosphatase (39-117) U/L C-Reactive Protein (< or = 0.50) mg/dL Total Protein (6.5-8.0) g/dL Albumin (3.5-5.0) g/dL Lipase (8-78) U/L Urine Color Yellow Urine Appearance Clear Urine pH 5.5 (5.0-9.0) Ur Specific [place] 1.025 (1.005-1.025) Urine Protein Trace (Neg-Trace) mg/dL Urine Glucose (UA) Negative (Negative) mg/dL Urine Ketones Trace (Negative) mg/dL Urine Blood Negative (Negative) Urine Nitrite Negative (Negative) Ur Leukocyte Esterase Negative (Negative) Stool Occult Blood NEGATIVE (NEGATIVE) <Gage Encarnacion - Last Filed: 03/19/23 21:40> Discharge Plan Discharge Clinical Impression: Ulcerative colitis, Diverticulitis <DOTTY Medina - Last Filed: 03/19/23 14:42> Patient Disposition: Home, Self-Care <DOTTY Medina - Last Filed: 03/19/23 14:42> Instructions: Ulcerative Colitis (ED) <DOTTY Medina - Last Filed: 03/19/23 14:42> Additional Instructions: all of your blood tests were reassuring today. I spoke to your malt liquors sales representative, Dr. Wylie recommends that you take a dose of prednisone and Augmentin before bed tonight and he will be in touch to arrange an outpatient office visit return for any new or worsening symptoms <DOTTY Medina - Last Filed: 03/19/23 14:42> Prescriptions: No Action (DME) FreeStyle Tyrese 14 Day [place] Misc See Rx Instructions .Route Qty: 1 0RF Rx Instructions: As directed (DME) blood-glucose meter [FreeStyle Lite Meter] Kit See Rx Instructions .Route Qty: 1 0RF Rx Instructions: As directed cholecalciferol (vitamin D3) 1,250 mcg (50,000 unit) capsule 1,250 mcg PO QWEEK Qty: 14 0RF (DME) FreeStyle Lite Strips Strip See Rx Instructions .Route Qty: 100 0RF Rx Instructions: test blood sugar twice a day (DME) lancets [FreeStyle Lancets] 28 gauge misc See Rx Instructions .Route Qty: 100 3RF Rx Instructions: As directed metformin 500 mg tablet 500 mg PO DAILY trazodone 50 mg tablet 50 mg PO BEDTIME donepezil 10 mg tablet 10 mg PO BEDTIME tamsulosin 0.4 mg capsule 0.8 mg PO BEDTIME balsalazide 750 mg capsule 2,250 mg PO TID amoxicillin-pot clavulanate 500-125 mg Tablet 500 mg PO Q12H Qty: 8 0RF <DOTTY Medina - Last Filed: 03/19/23 14:42>
[2023-03-19 15:03] LABS: MANUAL DIFF FLAG NO
[2023-03-19 15:09] LABS: Basophils Percent Auto 0.2 % (0-2); Eosinophils Absolute Auto 0.1 X10*3/uL (0.0-0.4); Eosinophils Percent Auto 0.6 % (0-4); Hematocrit 38.8 % (42.0-52.0); Hemoglobin 12.3 g/dl (14.0-18.0); Imm Gran Abs Auto 0.06 X10*3/uL (0.00-0.03); Imm Gran Pct Auto 0.4 % (0.0-0.4); Lymphocytes Absolute Auto 2.9 X10*3/uL (1.2-4.9); Lymphocytes Percent Auto 21.7 % (20-40); Mean Corpuscular HGB Conc 31.7 g/dl (31.0-36.0); Mean Corpuscular Volume 91.5 fL (80.0-98.0); Mean Platelet Volume 9.1 fL (9.4-12.4); Monocytes Absolute Auto 1.5 X10*3/uL (0.1-1.2); Monocytes Percent Auto 10.8 % (2-11); Neutrophils Absolute Auto 8.9 x10*3/uL (2.0-8.3); Neutrophils Percent Auto 66.3 % (45-73); Platelet Count 355 X10*3/uL (160-400); Red Blood Count 4.24 X10*6/uL (4.60-5.80); White Blood Count 13.4 X10*3/uL (4.8-10.8)
[2023-03-19 15:11] LABS: INTERNATIONAL NORM RATIO 1.1 (0.9-1.1); Prothrombin Time 12.7 SEC (10.0-13.1)
[2023-03-19 15:13] LABS: Partial Thromboplastin Time 29.8 SEC (26.0-36.4)
[2023-03-19 15:47] LABS: Alanine Aminotransferase 10 U/L (0-40); Albumin Level 3.6 g/dL (3.5-5.0); Alkaline Phosphatase 63 U/L (39-117); Anion Gap 11 (12-20); Aspartate Amino Transferase 11 U/L (5-37); Bilirubin Direct < 0.2 mg/dL (0.0-0.5); Bilirubin Total 0.2 mg/dL (0.0-1.0); Blood Urea Nitrogen 20 mg/dL (9-16); C Reactive Protein 1.24 mg/dL (< or = 0.50); Calcium 9.6 mg/dL (8.4-10.2); Carbon Dioxide 30 mmol/L (22-29); Chloride 105 mmol/L (96-108); Creatinine Clr Calc Pharmacy 53.8; Estimated Glomerular Filt Rate 55; Glucose Random 133 mg/dL (60-115); Lipase 12 U/L (8-78); Magnesium 2.3 mg/dL (1.6-2.6); Potassium 4.4 mmol/L (3.3-5.1); Sodium 142 mmol/L (135-145); Total Protein 6.6 g/dL (6.5-8.0)
[2023-03-19 16:01] LABS: Erythrocyte Sedimentation Rate 27 MM/HR (0-15)
[2023-03-19 20:20] VITALS: BP 138/64; PULSE 51; RESP 25; TEMP 36.3; O2SAT 99
[2023-03-19 21:13] LABS: Appearance Urine Clear; Color Urine Yellow; Glucose Urine UA Negative (Negative); Leukocyte Esterase Urine Negative (Negative); Nitrite Urine Negative (Negative); PH 5.5 (5.0-9.0); Specific Gravity - Urine 1.025 (1.005-1.025); Urine Blood Negative (Negative); Urine Ketones Trace mg/dL (Negative); Urine Protein Trace mg/dL (Neg-Trace)
[2023-03-19 21:17] LABS: OBS Int Ctl Valid YES; OBS1 NEGATIVE (NEGATIVE)
[2023-03-19 22:30] VITALS: BP 116/60; PULSE 50; RESP 20; TEMP 36.6; O2SAT 96
== END 2023-03-19 22:49 | disposition home or self-care (01) ==
PROVIDERS: Physician Assistant; Emergency Provider Internal Medicine; PCP Physician Assistant
DX: K51.90 Ulcerative colitis, unspecified, without complications (principal); K57.92 Diverticulitis of intestine, part unspecified, without perforation or abscess without bleeding; E11.9 Type 2 diabetes mellitus without complications; I48.0 Paroxysmal atrial fibrillation; Z79.01 Long term (current) use of anticoagulants; Z79.84 Long term (current) use of oral hypoglycemic drugs
CPT/HCPCS: 36415; 80048; 80076; 81003; 82272; 83690; 83735; 85025; 85610; 85652; 85730; 86140; 99283; 99284

== ENCOUNTER 2023-04-01 09:38 | Outpatient (REF) | payer MEDICARE, SELFPAY ==
[2023-04-01 10:09] LABS: MANUAL DIFF FLAG NO
[2023-04-01 10:22] LABS: Basophils Percent Auto 0.3 % (0-2); Eosinophils Absolute Auto 0.1 X10*3/uL (0.0-0.4); Eosinophils Percent Auto 0.8 % (0-4); Hemoglobin 11.9 g/dl (14.0-18.0); Imm Gran Abs Auto 0.03 X10*3/uL (0.00-0.03); Imm Gran Pct Auto 0.4 % (0.0-0.4); Lymphocytes Absolute Auto 2.8 X10*3/uL (1.2-4.9); Lymphocytes Percent Auto 39.5 % (20-40); Mean Corpuscular HGB Conc 32.2 g/dl (31.0-36.0); Mean Corpuscular Hemoglobin 29.5 pg (27.0-33.0); Mean Corpuscular Volume 91.6 fL (80.0-98.0); Mean Platelet Volume 9.6 fL (9.4-12.4); Monocytes Absolute Auto 0.8 X10*3/uL (0.1-1.2); Monocytes Percent Auto 11.6 % (2-11); Neutrophils Absolute Auto 3.4 x10*3/uL (2.0-8.3); Neutrophils Percent Auto 47.4 % (45-73); Platelet Count 310 X10*3/uL (160-400); Red Blood Count 4.04 X10*6/uL (4.60-5.80); Red Cell Distribution Width 15.1 % (11.0-16.0); White Blood Count 7.1 X10*3/uL (4.8-10.8)
[2023-04-01 10:57] LABS: Alanine Aminotransferase 9 U/L (0-40); Albumin Level 3.5 g/dL (3.5-5.0); Alkaline Phosphatase 63 U/L (39-117); Anion Gap 12 (12-20); Aspartate Amino Transferase 10 U/L (5-37); Bilirubin Direct 0.1 mg/dL (0.0-0.5); Bilirubin Total 0.5 mg/dL (0.0-1.0); Blood Urea Nitrogen 18 mg/dL (9-16); C Reactive Protein 4.01 mg/dL (< or = 0.50); Calcium 9.4 mg/dL (8.4-10.2); Carbon Dioxide 27 mmol/L (22-29); Chloride 108 mmol/L (96-108); Estimated Glomerular Filt Rate > 60; Glucose Random 121 mg/dL (60-115); Potassium 4.5 mmol/L (3.3-5.1); Sodium 142 mmol/L (135-145); Total Protein 6.5 g/dL (6.5-8.0)
[2023-04-01 11:21] LABS: Erythrocyte Sedimentation Rate 44 MM/HR (0-15)
== END 2023-04-01 09:39 | disposition home or self-care (01) ==
LOC: HO.LAB 09:38
PROVIDERS: PCP Physician Assistant; Visit Provider Internal Medicine
DX: K51.311 Ulcerative (chronic) rectosigmoiditis with rectal bleeding (principal); R19.7 Diarrhea, unspecified
CPT/HCPCS: 36415; 80048; 80076; 85025; 85652; 86140

== ENCOUNTER 2023-04-02 09:54 | Outpatient (REF) | payer MEDICARE, SELFPAY ==
[2023-04-02 11:00] LABS: Leukocytes Stool Qualitative MANY: >10/OIF (NEGATIVE)
[2023-04-02 11:06] LABS: CDiff Gene PCR NEGATIVE (Negative)
[2023-04-02 12:46] LABS: Adenovirus F 40/41 Not Detected (Not Detect.); Campylobacter Not Detected (Not Detect.); Cryptosporidium Not Detected (Not Detect.); Cyclospora cayetanensis Not Detected (Not Detect.); E. coli EAEC Not Detected (Not Detect.); E. coli EPEC Not Detected (Not Detect.); E. coli ETEC Not Detected (Not Detect.); E. coli STEC Not Detected (Not Detect.); Entamoeba histolytica Not Detected (Not Detect.); Giardia lamblia Not Detected (Not Detect.); Plesiomonas shigelloides Not Detected (Not Detect.); Salmonella Not Detected (Not Detect.); Shigella sp./EIEC Not Detected (Not Detect.); Vibrio Not Detected (Not Detect.); Vibrio Cholerae Not Detected (Not Detect.); Yersinia enterocolitica Not Detected (Not Detect.)
[2023-04-02 12:47] LABS: Astrovirus Not Detected (Not Detect.); Norovirus GI/GII Not Detected (Not Detect.); Rotavirus A Not Detected (Not Detect.); Sapovirus Not Detected (Not Detect.)
[2023-04-09 21:44] LABS: Calprotectin, Fecal 5550 mcg/g
== END 2023-04-02 09:55 | disposition home or self-care (01) ==
LOC: HO.LNP 09:54
PROVIDERS: Visit Provider Internal Medicine
DX: K51.311 Ulcerative (chronic) rectosigmoiditis with rectal bleeding (principal); R19.7 Diarrhea, unspecified
CPT/HCPCS: 83993; 87493; 87507; 89055

== ENCOUNTER 2023-04-29 10:53 | Outpatient (REF) | payer MEDICARE, SELFPAY | END 2023-04-29 10:54 | disposition home or self-care (01) | LOC: HO.MDS 10:53 | PROVIDERS: Visit Provider Internal Medicine | DX: K51.311 Ulcerative (chronic) rectosigmoiditis with rectal bleeding (principal) | CPT/HCPCS: 96365; J3380 ==

== ENCOUNTER → 2023-05-01 14:01 | Outpatient (BNVA) | payer MEDICARE, SELFPAY | PROVIDERS: PCP Physician Assistant; Referring Provider Physician Assistant; Visit Provider Internal Medicine | DX: R55 Syncope and collapse (principal); I47.1 Supraventricular tachycardia; I49.8 Other specified cardiac arrhythmias; G93.89 Other specified disorders of brain; R94.31 Abnormal electrocardiogram [ECG] [EKG]; Z95.818 Presence of other cardiac implants and grafts; Z98.890 Other specified postprocedural states | CPT/HCPCS: 99212 ==

== ENCOUNTER → 2023-05-10 23:59 | Outpatient (BNV) | payer MEDICARE, SELFPAY ==
--- NOTE | 2023-05-20 12:36 | MHC.OFFVIS ---
Intake Intake Visit Reasons: Remote ILR Check- [employer] Allergies cabbage Allergy (Severe, Verified 05/01/23 14:07) throat swells [facility] Medical History (Updated 05/01/23 @ 15:44 by Jimenez Spencer MD) Abnormal LFTs Arthritis Cerebral ventriculomegaly COVID-19 vaccine administered Dementia Gait instability History of BPH History of lumbar puncture Insomnia Obesity SVT (supraventricular tachycardia) T2DM (type 2 diabetes mellitus) Type 2 diabetes mellitus with obesity Surgical History H/O colonoscopy History of esophagogastroduodenoscopy (EGD) History of tonsillectomy Hx of appendectomy Family History Father No problems noted. Mother No problems noted. Social History Household Members: Spouse Housing: House Do you presently have visiting nurse or other home services: No Alcohol intake: former Patient Tobacco Use Status: Never used Tobacco e-Cigarette/Vaping Use: Never Used Second Hand Smoke Exposure: No service: No Current occupational status: employed Cognitive needs: Yes (cane) Hearing needs: No Vision needs: Yes (Glasses) Office Procedures Cardiac Device Check Cardiac Device Check Details: Date of service 05/12/2023; in the current monitoring period, there is no evidence of atrial fibrillation. No bradycardia or pauses. [id number] Cardiac Interrogation, subcut cardiac rhythm monitor Procedure code (CPT) selection complete Assessment & Plan Assessment & Plan (1) Dizziness: Code(s): R42 - Dizziness and giddiness (2) Bradycardia: Code(s): R00.1 - Bradycardia, unspecified (3) Syncope and collapse: Code(s): R55 - Syncope and collapse Coding Level of Care Code Procedure Only Diagnoses Dizziness R42 Bradycardia R00.1 Syncope and collapse R55 CPT Codes Cardiac Device Check - Cardiac Device 16: [id number] Cardiac Interrogation, subcut cardiac rhythm monitor ([id number])
== END ==
PROVIDERS: PCP Physician Assistant; Visit Provider Internal Medicine
DX: R00.1 Bradycardia, unspecified (principal)
CPT/HCPCS: 93298

== ENCOUNTER 2023-05-15 12:07 | Outpatient (REF) | payer MEDICARE, SELFPAY | END 2023-05-15 12:08 | disposition home or self-care (01) | LOC: HO.MDS 12:07 | PROVIDERS: Visit Provider Internal Medicine | DX: K51.811 Other ulcerative colitis with rectal bleeding (principal) | CPT/HCPCS: 96365; 96366; J3380 ==

== ENCOUNTER 2023-06-12 12:36 | Outpatient (REF) | payer MEDICARE, SELFPAY | END 2023-06-12 12:37 | disposition home or self-care (01) | LOC: HO.MDS 12:36 | PROVIDERS: Visit Provider Internal Medicine | DX: K51.311 Ulcerative (chronic) rectosigmoiditis with rectal bleeding (principal) | CPT/HCPCS: 96365; J3380 ==

== ENCOUNTER → 2023-06-13 23:59 | Outpatient (BNV) | payer MEDICARE, SELFPAY ==
--- NOTE | 2023-06-14 14:02 | MHC.OFFVIS ---
Intake Intake Visit Reasons: Remote ILR Check- [employer] Allergies cabbage Allergy (Severe, Verified 05/01/23 14:07) throat swells [facility] Medical History (Updated 05/01/23 @ 15:44 by Jimenez Spencer MD) Abnormal LFTs Arthritis Cerebral ventriculomegaly COVID-19 vaccine administered Dementia Gait instability History of BPH History of lumbar puncture Insomnia Obesity SVT (supraventricular tachycardia) T2DM (type 2 diabetes mellitus) Type 2 diabetes mellitus with obesity Surgical History H/O colonoscopy History of esophagogastroduodenoscopy (EGD) History of tonsillectomy Hx of appendectomy Family History Father No problems noted. Mother No problems noted. Social History Household Members: Spouse Housing: House Do you presently have visiting nurse or other home services: No Alcohol intake: former Patient Tobacco Use Status: Never used Tobacco e-Cigarette/Vaping Use: Never Used Second Hand Smoke Exposure: No service: No Current occupational status: employed Cognitive needs: Yes (cane) Hearing needs: No Vision needs: Yes (Glasses) Office Procedures Cardiac Device Check Cardiac Device Check Details: Date of service 06/13/2023; in the current monitoring period, there is no evidence of atrial fibrillation. No atrial fibrilllation during lifetime. No significant pauses. [id number] Cardiac Interrogation, subcut cardiac rhythm monitor Procedure code (CPT) selection complete Assessment & Plan Assessment & Plan (1) Bradycardia: Code(s): R00.1 - Bradycardia, unspecified (2) Syncope and collapse: Code(s): R55 - Syncope and collapse Coding Level of Care Code Procedure Only Diagnoses Bradycardia R00.1 Syncope and collapse R55 CPT Codes Cardiac Device Check - Cardiac Device 16: [id number] Cardiac Interrogation, subcut cardiac rhythm monitor ([id number])
== END ==
PROVIDERS: PCP Physician Assistant; Visit Provider Internal Medicine
DX: R00.1 Bradycardia, unspecified (principal); R55 Syncope and collapse
CPT/HCPCS: 93298

== ENCOUNTER → 2023-07-15 23:59 | Outpatient (BNV) | payer MEDICARE, SELFPAY ==
--- NOTE | 2023-07-17 16:03 | MHC.OFFVIS ---
Intake Intake Visit Reasons: Remote ILR Check- [employer] Allergies cabbage Allergy (Severe, Verified 05/01/23 14:07) throat swells [facility] Medical History (Updated 05/01/23 @ 15:44 by Jimenez Spencer MD) T2DM (type 2 diabetes mellitus) SVT (supraventricular tachycardia) Type 2 diabetes mellitus with obesity Abnormal LFTs Insomnia Obesity COVID-19 vaccine administered Gait instability History of BPH Dementia Arthritis History of lumbar puncture Cerebral ventriculomegaly Surgical History Hx of appendectomy History of esophagogastroduodenoscopy (EGD) H/O colonoscopy History of tonsillectomy Family History Father No problems noted. Mother No problems noted. Social History Household Members: Spouse Housing: House Do you presently have visiting nurse or other home services: No Alcohol intake: former Patient Tobacco Use Status: Never used Tobacco e-Cigarette/Vaping Use: Never Used Second Hand Smoke Exposure: No service: No Current occupational status: employed Cognitive needs: Yes (cane) Hearing needs: No Vision needs: Yes (Glasses) Office Procedures Cardiac Device Check Cardiac Device Check Details: Date of service 07/15/2023; in the current monitoring period, there is no evidence of atrial fibrillation. No significant pauses. Patient activity about 2 hours a day. [id number] Cardiac Interrogation, subcut cardiac rhythm monitor Procedure code (CPT) selection complete Assessment & Plan Assessment & Plan (1) Atrial arrhythmia: Code(s): I49.8 - Other specified cardiac arrhythmias (2) Dizziness: Code(s): R42 - Dizziness and giddiness (3) Syncope and collapse: Code(s): R55 - Syncope and collapse Coding Level of Care Code Procedure Only Diagnoses Atrial arrhythmia I49.8 Dizziness R42 Syncope and collapse R55 CPT Codes Cardiac Device Check - Cardiac Device 16: [id number] Cardiac Interrogation, subcut cardiac rhythm monitor ([id number])
== END ==
PROVIDERS: PCP Physician Assistant; Visit Provider Internal Medicine
DX: I49.8 Other specified cardiac arrhythmias (principal)
CPT/HCPCS: 93298

== ENCOUNTER 2023-07-30 12:06 | Outpatient (AMB) | payer MEDICARE, SELFPAY ==
[2023-07-30 12:33] VITALS: BMI 31.8
--- NOTE | 2023-07-30 12:33 | MHC.AMNUTRGE ---
Intake VS Expanded 07/30/23 12:33 Height 6 ft Weight 234 lb 2.095 oz BMI 31.8 Intake Visit Reasons: T2DM confirmed Allergies cabbage Allergy (Severe, Verified 05/01/23 14:07) throat swells HPI Nutrition Presentation Details Pt presents for MNT for T2DM Pt reports his FBG range from 95-115 mg/d on metformin 500 mg/d. Pt reports overall feeling well. He acknowledges keeping less active and increasing on snacks related to boredom. Most Recent Diabetes Results: Creatinine 1.15 mg/dL (0.5-1.4) 04/01/23 Blood Urea Nitrogen 18 mg/dL (9-16) H 04/01/23 Sodium 142 mmol/L (135-145) 04/01/23 Potassium 4.5 mmol/L (3.3-5.1) 04/01/23 Chloride 108 mmol/L (96-108) 04/01/23 Carbon Dioxide 27 mmol/L (22-29) 04/01/23 Calcium 9.4 mg/dL (8.4-10.2) 04/01/23 AST 10 U/L (5-37) 04/01/23 ALT 9 U/L (0-40) 04/01/23 Total Protein 6.5 g/dL (6.5-8.0) 04/01/23 Albumin 3.5 g/dL (3.5-5.0) 04/01/23 [facility], [facility] Medical History (Updated 08/07/23 @ 12:37 by Yani Gates, RD, LDN) T2DM (type 2 diabetes mellitus) SVT (supraventricular tachycardia) Type 2 diabetes mellitus with obesity Abnormal LFTs Insomnia Obesity COVID-19 vaccine administered Gait instability History of BPH Dementia Arthritis History of lumbar puncture Cerebral ventriculomegaly Surgical History Hx of appendectomy History of esophagogastroduodenoscopy (EGD) H/O colonoscopy History of tonsillectomy Family History Father No problems noted. Mother No problems noted. Social History Household Members: Spouse Housing: House Do you presently have visiting nurse or other home services: No Alcohol intake: former Patient Tobacco Use Status: Never used Tobacco e-Cigarette/Vaping Use: Never Used Second Hand Smoke Exposure: No service: No Current occupational status: employed Cognitive needs: Yes (cane) Hearing needs: No Vision needs: Yes (Glasses) Assessment & Plan Assessment & Plan (1) Type 2 diabetes mellitus with obesity: Code(s): E11.69 - Type 2 diabetes mellitus with other specified complication; E66.9 - Obesity, unspecified (2) T2DM (type 2 diabetes mellitus): Code(s): E11.9 - Type 2 diabetes mellitus without complications Plan Educate Pt on [id number] stuart meal plan ? Pt's set goal (Date: 06/03/30 ): Reduce snack to 2 a day consisting of less than 30 g carb at follow up (Date: 07/22/22 ): met 50% , (date: 01/02/23 met 100% 07/30/23 Pt to work on choosing lower fat food options example : have tuna vs fried fish with batter 2 times a week Used wt : 99 kg Est kcal as per MSJ: 2491-250 = 2241 (40% carb, 30% fat/prot) Est fluid needs: 2600 ml/d (25 ml/kg bw) Rec fiber: increase to 8-10 g per day and gradually increase as tolerated Rec Na: < 2000 mg /d Educate patient on: (R= Reviewed, V = verbalizes understanding N/R= Needs review N/A= not applicable) Food sources of carbohydrates and serving adequate serving sizes : R Difference between complex carbohydrates and simple carbohydrates, role of fiber: R Differences between fats (MUFA/PUFA/saturated fats, trans fats) and food sources of various fats: R Food sources of sodium and salt and healthy modifications for heart health and kidney health: R Vitamins and minerals: R How to interpret food labels: R (focusing on serving size, carbs, fiber today) Healthy Plate method concept: R V Physical activity: benefits and precaution: R protein and its role in glucose control and healing: R lactose free options to lesses GI Patient Instructions: Try lactose free foods Include lean protein foods in your diet (boiled eggs, fish:tuna/shrimp/lactaid cottage cheese) Follow healthy plate method Coding Level of Care Code Nutr Indiv Subseq (94352) Diagnoses Type 2 diabetes mellitus with obesity E11.69; E66.9 T2DM (type 2 diabetes mellitus) E11.9 Time Spent (min) 30
== END 2023-07-30 13:04 | disposition home or self-care (01) ==
LOC: HO.ENCR 12:06
PROVIDERS: PCP Physician Assistant; Visit Provider Dietitian, Registered
DX: E11.69 Type 2 diabetes mellitus with other specified complication (principal); E66.9 Obesity, unspecified; E11.9 Type 2 diabetes mellitus without complications

== ENCOUNTER → 2023-07-30 12:06 | Outpatient (BNVA) | payer MEDICARE, SELFPAY | PROVIDERS: PCP Physician Assistant; Visit Provider Dietitian, Registered | DX: E11.69 Type 2 diabetes mellitus with other specified complication (principal); E66.9 Obesity, unspecified; Z79.84 Long term (current) use of oral hypoglycemic drugs; Z68.31 Body mass index [BMI] 31.0-31.9, adult | CPT/HCPCS: 97803 ==

== ENCOUNTER 2023-08-08 10:07 | Outpatient (REF) | payer MEDICARE, SELFPAY | END 2023-08-08 10:08 | disposition home or self-care (01) | LOC: HO.MDS 10:07 | PROVIDERS: Visit Provider Internal Medicine | DX: K51.311 Ulcerative (chronic) rectosigmoiditis with rectal bleeding (principal) | CPT/HCPCS: 96365; J3380 ==

== ENCOUNTER → 2023-08-16 23:59 | Outpatient (BNV) | payer MEDICARE, SELFPAY ==
--- NOTE | 2023-08-26 13:56 | A.OFFVIS_ITS ---
Intake Intake Visit Reasons: Remote ILR Check- [employer] Allergies cabbage Allergy (Severe, Verified 05/01/23 14:07) throat swells [facility] Medical History (Updated 08/07/23 @ 12:[address], LDN) T2DM (type 2 diabetes mellitus) SVT (supraventricular tachycardia) Type 2 diabetes mellitus with obesity Abnormal LFTs Insomnia Obesity COVID-19 vaccine administered Gait instability History of BPH Dementia Arthritis History of lumbar puncture Cerebral ventriculomegaly Surgical History Hx of appendectomy History of esophagogastroduodenoscopy (EGD) H/O colonoscopy History of tonsillectomy Family History Father No problems noted. Mother No problems noted. Social History Household Members: Spouse Housing: House Do you presently have visiting nurse or other home services: No Alcohol intake: former Patient Tobacco Use Status: Never used Tobacco e-Cigarette/Vaping Use: Never Used Second Hand Smoke Exposure: No service: No Current occupational status: employed Cognitive needs: Yes (cane) Hearing needs: No Vision needs: Yes (Glasses) Office Procedures Cardiac Device Check Cardiac Device Check Details: Date of service 08/16/2023; in the current monitoring period, there is no evidence of atrial fibrillation. No significant pauses. Patient activity about 2-3 hours a day. Adequate heart rate variability. [id number] Cardiac Interrogation, subcut cardiac rhythm monitor Procedure code (CPT) selection complete Assessment & Plan Assessment & Plan (1) Atrial arrhythmia: Code(s): I49.8 - Other specified cardiac arrhythmias (2) Syncope and collapse: Code(s): R55 - Syncope and collapse Coding Level of Care Code Procedure Only Diagnoses Atrial arrhythmia I49.8 Syncope and collapse R55 CPT Codes Cardiac Device Check - Cardiac Device 16: [id number] Cardiac Interrogation, subcut cardiac rhythm monitor ([id number])
== END ==
PROVIDERS: PCP Physician Assistant; Visit Provider Internal Medicine
DX: I49.8 Other specified cardiac arrhythmias (principal); Z95.818 Presence of other cardiac implants and grafts
CPT/HCPCS: 93298

== ENCOUNTER → 2023-09-17 23:59 | Outpatient (BNV) | payer MEDICARE, SELFPAY ==
--- NOTE | 2023-09-19 09:18 | A.OFFVIS_ITS ---
Intake Intake Visit Reasons: Remote ILR Check- [employer] Allergies cabbage Allergy (Severe, Verified 05/01/23 14:07) throat swells [facility] Medical History (Updated 08/07/23 @ 12:[address], LDN) T2DM (type 2 diabetes mellitus) SVT (supraventricular tachycardia) Type 2 diabetes mellitus with obesity Abnormal LFTs Insomnia Obesity COVID-19 vaccine administered Gait instability History of BPH Dementia Arthritis History of lumbar puncture Cerebral ventriculomegaly Surgical History Hx of appendectomy History of esophagogastroduodenoscopy (EGD) H/O colonoscopy History of tonsillectomy Family History Father No problems noted. Mother No problems noted. Social History Household Members: Spouse Housing: House Do you presently have visiting nurse or other home services: No Alcohol intake: former Patient Tobacco Use Status: Never used Tobacco e-Cigarette/Vaping Use: Never Used Second Hand Smoke Exposure: No service: No Current occupational status: employed Cognitive needs: Yes (cane) Hearing needs: No Vision needs: Yes (Glasses) Office Procedures Cardiac Device Check Cardiac Device Check Details: Date of service 09/17/2023; in the current monitoring period, there is no evidence of atrial fibrillation or pauses. [id number] Cardiac Interrogation, subcut cardiac rhythm monitor Procedure code (CPT) selection complete Assessment & Plan Assessment & Plan (1) Syncope and collapse: Code(s): R55 - Syncope and collapse Coding Level of Care Code Procedure Only Diagnoses Syncope and collapse R55 CPT Codes Cardiac Device Check - Cardiac Device 16: [id number] Cardiac Interrogation, subcut cardiac rhythm monitor ([id number])
== END ==
PROVIDERS: PCP Physician Assistant; Visit Provider Internal Medicine
DX: I49.8 Other specified cardiac arrhythmias (principal); Z95.818 Presence of other cardiac implants and grafts
CPT/HCPCS: 93298

== ENCOUNTER 2023-10-09 14:05 | Outpatient (REF) | payer MEDICARE, SELFPAY ==
[2023-10-09 14:24] LABS: MANUAL DIFF FLAG NO
[2023-10-09 14:58] LABS: Basophils Absolute Auto 0.1 X10*3/uL (0.0-0.2); Basophils Percent Auto 0.5 % (0-2); Eosinophils Absolute Auto 0.1 X10*3/uL (0.0-0.4); Eosinophils Percent Auto 1.3 % (0-4); Hematocrit 42.4 % (42.0-52.0); Hemoglobin 13.1 g/dl (14.0-18.0); Imm Gran Abs Auto 0.03 X10*3/uL (0.00-0.03); Imm Gran Pct Auto 0.3 % (0.0-0.4); Lymphocytes Absolute Auto 1.9 X10*3/uL (1.2-4.9); Lymphocytes Percent Auto 18.5 % (20-40); Mean Corpuscular HGB Conc 30.9 g/dl (31.0-36.0); Mean Corpuscular Hemoglobin 27.8 pg (27.0-33.0); Mean Corpuscular Volume 89.8 fL (80.0-98.0); Mean Platelet Volume 9.5 fL (9.4-12.4); Monocytes Absolute Auto 0.5 X10*3/uL (0.1-1.2); Neutrophils Absolute Auto 7.7 x10*3/uL (2.0-8.3); Neutrophils Percent Auto 74.4 % (45-73); Platelet Count 275 X10*3/uL (160-400); Red Blood Count 4.72 X10*6/uL (4.60-5.80); Red Cell Distribution Width 16.4 % (11.0-16.0); White Blood Count 10.4 X10*3/uL (4.8-10.8)
[2023-10-09 15:29] LABS: Alanine Aminotransferase 9 U/L (0-40); Albumin Level 4.1 g/dL (3.5-5.0); Alkaline Phosphatase 70 U/L (39-117); Anion Gap 10 (12-20); Aspartate Amino Transferase 11 U/L (5-37); Bilirubin Direct 0.1 mg/dL (0.0-0.5); Bilirubin Total 0.3 mg/dL (0.0-1.0); Blood Urea Nitrogen 24 mg/dL (9-16); Calcium 10.5 mg/dL (8.4-10.2); Carbon Dioxide 30 mmol/L (22-29); Chloride 106 mmol/L (96-108); Estimated Glomerular Filt Rate > 60; Glucose Random 184 mg/dL (60-115); Potassium 4.6 mmol/L (3.3-5.1); Sodium 141 mmol/L (135-145); Total Protein 7.6 g/dL (6.5-8.0)
== END 2023-10-09 14:06 | disposition home or self-care (01) ==
LOC: HO.LAB 14:05
PROVIDERS: Visit Provider Internal Medicine
DX: K51.30 Ulcerative (chronic) rectosigmoiditis without complications (principal)
CPT/HCPCS: 36415; 80048; 80076; 80280; 82542; 85025

== ENCOUNTER → 2023-10-19 23:59 | Outpatient (BNV) | payer MEDICARE, SELFPAY ==
--- NOTE | 2023-10-21 18:33 | MHC.OFFVIS ---
Intake Intake Visit Reasons: Remote ILR Check- [employer] Allergies cabbage Allergy (Severe, Verified 05/01/23 14:07) throat swells [facility] Medical History (Updated 08/07/23 @ 12:[address], LDN) T2DM (type 2 diabetes mellitus) SVT (supraventricular tachycardia) Type 2 diabetes mellitus with obesity Abnormal LFTs Insomnia Obesity COVID-19 vaccine administered Gait instability History of BPH Dementia Arthritis History of lumbar puncture Cerebral ventriculomegaly Surgical History Hx of appendectomy History of esophagogastroduodenoscopy (EGD) H/O colonoscopy History of tonsillectomy Family History Father No problems noted. Mother No problems noted. Social History Household Members: Spouse Housing: House Do you presently have visiting nurse or other home services: No Alcohol intake: former Patient Tobacco Use Status: Never used Tobacco e-Cigarette/Vaping Use: Never Used Second Hand Smoke Exposure: No service: No Current occupational status: employed Cognitive needs: Yes (cane) Hearing needs: No Vision needs: Yes (Glasses) Office Procedures Cardiac Device Check Cardiac Device Check Details: Date of service 10/19/2023; in the current monitoring period, there is no evidence of atrial fibrillation or other significant findings. [id number] Cardiac Interrogation, subcut cardiac rhythm monitor Procedure code (CPT) selection complete Assessment & Plan Assessment & Plan (1) Syncope and collapse: Code(s): R55 - Syncope and collapse Plan x Coding Level of Care Code Procedure Only Diagnoses Syncope and collapse R55 CPT Codes Cardiac Device Check - Cardiac Device 16: [id number] Cardiac Interrogation, subcut cardiac rhythm monitor ([id number])
== END ==
PROVIDERS: PCP Physician Assistant; Visit Provider Internal Medicine
DX: R55 Syncope and collapse (principal); Z95.818 Presence of other cardiac implants and grafts
CPT/HCPCS: 93298

== ENCOUNTER 2023-10-21 12:44 | Outpatient (REF) | payer MEDICARE, SELFPAY | END 2023-10-21 12:45 | disposition home or self-care (01) | LOC: HO.MDS 12:44 | PROVIDERS: PCP Physician Assistant; Visit Provider Internal Medicine | DX: K51.311 Ulcerative (chronic) rectosigmoiditis with rectal bleeding (principal) | CPT/HCPCS: 96365; J3380 ==

== ENCOUNTER 2023-11-04 11:06 | Outpatient (AMB) | payer MEDICARE, SELFPAY ==
[2023-11-04 12:59] VITALS: BP 118/66; PULSE 90; BMI 32.9
--- NOTE | 2023-11-04 12:59 | A.OFFVIS_ITS ---
Intake Vital Signs 11/04/23 12:59 Height 6 ft Weight 242 lb 8.136 oz BMI 32.9 BP 118/66 Blood Pressure Location Lt brachial Position Sitting Pulse 90 Intake Visit Reasons: R/S 6 month follow up Intake Note: 6 month follow up Security Shift Manager Required: No Accompanied by: Self / Same As Patient Allergies cabbage Allergy (Severe, Verified 11/04/23 13:00) throat swells Medication List - Last Reconciled 11/04/23 by Jimenez Spencer MD balsalazide 2,250 mg PO TID blood sugar diagnostic (FreeStyle Lite Strips) test blood sugar twice a day blood-glucose meter (FreeStyle Lite Meter kit) As directed cholecalciferol (vitamin D3) 1,250 mcg PO QWEEK donepezil 10 mg PO BEDTIME flash glucose scanning reader (OnitStyle Tyrese 14 Day [place]) As directed lancets (FreeStyle Lancets) As directed metformin 500 mg PO DAILY prednisone 5 mg PO tamsulosin 0.8 mg PO BEDTIME trazodone 50 mg PO BEDTIME 30 days HPI HPI Comments History of Present Illness Details Juventino returns for follow-up. Due to concern for syncopal episodes, he underwent implantable loop monitor. So far, no significant findings to explain the syncope. However, he has not had any syncope episodes either. There was also prior Holter with question of atrial fibrillation, but that has not been clarified on the loop monitor. He also has neurological issues for which he goes to [place]. Not clear if symptoms rather from that. He also underwent a cardiac catheterization but that shows no significant findings. Since last seen, no new concerns. [facility] Medical History (Updated 08/07/23 @ 12:[address], LDN) T2DM (type 2 diabetes mellitus) SVT (supraventricular tachycardia) Type 2 diabetes mellitus with obesity Abnormal LFTs Insomnia Obesity COVID-19 vaccine administered Gait instability History of BPH Dementia Arthritis History of lumbar puncture Cerebral ventriculomegaly Surgical History Hx of appendectomy History of esophagogastroduodenoscopy (EGD) H/O colonoscopy History of tonsillectomy Family History Father No problems noted. Mother No problems noted. Social History Household Members: Spouse Housing: House Do you presently have visiting nurse or other home services: No Alcohol intake: former Patient Tobacco Use Status: Never used Tobacco e-Cigarette/Vaping Use: Never Used Second Hand Smoke Exposure: No service: No Current occupational status: employed Cognitive needs: Yes (cane) Hearing needs: No Vision needs: Yes (Glasses) Review of Systems Const All systems reviewed & are unremarkable except as noted in HPI and below Reports as per HPI and Reports no additional complaints Eyes Reports as per HPI and Denies no additional complaints ENT Denies no additional complaints and Reports as per HPI Card Reports as per HPI, Reports no additional complaints, Denies acrocyanosis, Denies chest pain, Denies leg edema, Denies lightheadedness, Denies palpitations and Denies dyspnea Resp Reports as per HPI, Denies no additional complaints and Denies dyspnea GI Reports as per HPI and Denies no additional complaints Reports no additional complaints and Reports as per HPI Musc Reports no additional complaints and Reports as per HPI Skin/Breast Reports system reviewed and no additional complaints, except as documented Neuro Reports no additional complaints and Reports as per HPI Psych Reports no additional complaints and Reports as per HPI Endo Reports no additional complaints, Reports as per HPI and Denies palpitations Jose Antonio/Lymph Reports no additional complaints and Reports as per HPI Aller/Immun Reports no additional complaints and Reports as per HPI Physical Exam Vital Signs: Last Vital Signs Pulse 90 11/04/23 12:59 BP 118/66 11/04/23 12:59 BMI result Body Mass Index 32.9 Const General: comfortable and no acute distress Orientation/consciousness: patient oriented x3 HEENT Other: Unremarkable Head: Yes normal to inspection Neck Neck: Yes normal visual inspection Chest Chest palpation & inspection: normal inspection of the chest Resp Auscultation: clear to auscultation bilaterally Cardio Palpation: normal PMI Heart sounds: S1 normal heart sound present, S2 normal heart sound present, no gallops, no murmurs and no rubs GI Palpation (GI): Soft to palpation Back/Spine/Pelvis Other: unremarkable Skin General skin exam: no rashes or lesions noted Neuro General: patient oriented x3 Extrem General: Yes normal to inspection Psych Mental Status: mental status grossly normal Assessment & Plan Assessment & Plan (1) Syncope and collapse: Code(s): R55 - Syncope and collapse Plan: Two episodes of syncope of unknown etiology. Apparently, heart rate was noted to be in the 30s, blood pressure 80s. There is also mention of bladder/bowel incontinence. Overall, not clear if it is all cardiogenic or neurogenic. No cl ear findings on implantable loop monitor. Unremarkable carotid Dopplers. May continue to follow ILR remotely. (2) Atrial arrhythmia: Code(s): I49.8 - Other specified cardiac arrhythmias Plan: In the Holter, frequent supraventricular ectopy with a burden of 2.6%. Several short runs. Longest episode, lasting 23 beats was thought to be possibly atrial fibrillation based on regularity. Holter was repeated and that showed frequent ectopy with a burden of 12%. No definitive atrial fibrillation. Not on anticoagulation as episode was questionable and lasted only seconds. There is also history of bleeding from rectum. May continue to follow on the ILR. (3) Abnormal EKG: Code(s): R94.31 - Abnormal electrocardiogram [ECG] [EKG] Plan: EKG shows inferior as well as anterolateral infarct. In the echocardiogram, LVEF is preserved at 60% but basal inferior hypokinesis; mid inferior septal/anteroseptal akinesis. In the perfusion imaging, thought to have fixed basal inferior/inferior septal defect. Report suggesting artifact. In the cardiac catheterization, normal coronary arteries. Hence findings are probably all artifactual. LVEDP was also normal. No further workup. (4) Implantable loop recorder present: Code(s): Z95.818 - Presence of other cardiac implants and grafts Plan: Can follow remotely. Plan Total time spent including review of data, counseling, documentation, coordination of care-31 minutes. Coding Level of Care Code Est Pt Level 4 (74399) Diagnoses Syncope and collapse R55 Atrial arrhythmia I49.8 Abnormal EKG R94.31 Implantable loop recorder present Z95.818
== END 2023-11-04 13:13 | disposition home or self-care (01) ==
PROVIDERS: PCP Physician Assistant; Visit Provider Internal Medicine
DX: R55 Syncope and collapse (principal); I49.8 Other specified cardiac arrhythmias; R94.31 Abnormal electrocardiogram [ECG] [EKG]; Z95.818 Presence of other cardiac implants and grafts
CPT/HCPCS: 99214

== ENCOUNTER → 2023-11-04 11:06 | Outpatient (BNVA) | payer MEDICARE, SELFPAY | PROVIDERS: PCP Physician Assistant; Visit Provider Internal Medicine | DX: R55 Syncope and collapse (principal); I49.8 Other specified cardiac arrhythmias; R94.31 Abnormal electrocardiogram [ECG] [EKG]; Z95.818 Presence of other cardiac implants and grafts | CPT/HCPCS: 99212 ==

== ENCOUNTER → 2023-11-20 23:59 | Outpatient (BNV) | payer MEDICARE, SELFPAY ==
--- NOTE | 2023-11-20 12:38 | A.OFFVIS_ITS ---
Intake Intake Visit Reasons: Remote ILR Check- [employer] Allergies cabbage Allergy (Severe, Verified 11/04/23 13:00) throat swells [facility] Medical History (Updated 08/07/23 @ 12:[address], LDN) T2DM (type 2 diabetes mellitus) SVT (supraventricular tachycardia) Type 2 diabetes mellitus with obesity Abnormal LFTs Insomnia Obesity COVID-19 vaccine administered Gait instability History of BPH Dementia Arthritis History of lumbar puncture Cerebral ventriculomegaly Surgical History Hx of appendectomy History of esophagogastroduodenoscopy (EGD) H/O colonoscopy History of tonsillectomy Family History Father No problems noted. Mother No problems noted. Social History Household Members: Spouse Housing: House Do you presently have visiting nurse or other home services: No Alcohol intake: former Patient Tobacco Use Status: Never used Tobacco e-Cigarette/Vaping Use: Never Used Second Hand Smoke Exposure: No service: No Current occupational status: employed Cognitive needs: Yes (cane) Hearing needs: No Vision needs: Yes (Glasses) Office Procedures Cardiac Device Check Cardiac Device Check Details: Date of service 11/20/2023; in the current monitoring period, there is evidence of atrial fibrillation lasting for about 10 minutes. [id number] Cardiac Interrogation, subcut cardiac rhythm monitor Procedure code (CPT) selection complete Assessment & Plan Assessment & Plan (1) Atrial arrhythmia: Code(s): I49.8 - Other specified cardiac arrhythmias Plan x Coding Level of Care Code Procedure Only Diagnoses Atrial arrhythmia I49.8 CPT Codes Cardiac Device Check - Cardiac Device 16: [id number] Cardiac Interrogation, subcut cardiac rhythm monitor ([id number])
== END ==
PROVIDERS: PCP Physician Assistant; Visit Provider Internal Medicine
DX: I49.8 Other specified cardiac arrhythmias (principal)
CPT/HCPCS: 93298

== ENCOUNTER 2023-11-24 08:30 | Outpatient (AMB) | payer MEDICARE, SELFPAY ==
--- NOTE | 2023-11-24 08:33 | A.OFFVIS_ITS ---
Intake Vital Signs 11/24/23 08:34 Height 6 ft Weight 249 lb 1.957 oz BMI 33.8 BP 130/72 Blood Pressure Location Lt brachial Position Sitting Pulse 89 Pulse Source Pulse Oximeter Intake Visit Reasons: follow up - Afib Allergies cabbage Allergy (Severe, Verified 11/24/23 08:37) throat swells Medication List - Last Reconciled 11/24/23 by Haylie Crowe [employer] apixaban (Eliquis) 5 mg PO BID 30 days balsalazide 2,250 mg PO TID blood sugar diagnostic (FreeStyle Lite Strips) test blood sugar twice a day blood-glucose meter (FreeStyle Lite Meter kit) As directed cholecalciferol (vitamin D3) 1,250 mcg PO QWEEK donepezil 10 mg PO BEDTIME flash glucose scanning reader ([employer] Tyrese 14 Day [place]) As directed lancets ([employer] Lancets) As directed metformin 500 mg PO DAILY prednisone 5 mg PO tamsulosin 0.8 mg PO BEDTIME trazodone 50 mg PO BEDTIME 30 days HPI follow up - Afib HPI Details Juventino is a 78 yo male with PMH of hydrocephalus with DIRECTOR SEARCH shunt in place, diabetes, syncope, implanted loop recorder with new finding of paroxysmal atrial fibrillation who presents for follow-up. Today he states that he believes the AFib may have occurred on a day when he got his tractor stuck which caused him anxiety. He felt his heart beating on that day. Otherwise he does not really notice heart palpitations. No recent lightheadedness, presyncope, syncope, falls. No chest discomfort at rest or with activity. No shortness of breath, PND, orthopnea or edema. Takes his meds as directed. Just started Eliquis. [facility] Medical History T2DM (type 2 diabetes mellitus) SVT (supraventricular tachycardia) Type 2 diabetes mellitus with obesity Abnormal LFTs Insomnia Obesity COVID-19 vaccine administered Gait instability History of BPH Dementia Arthritis History of lumbar puncture Cerebral ventriculomegaly Surgical History Hx of appendectomy History of esophagogastroduodenoscopy (EGD) H/O colonoscopy History of tonsillectomy Family History Father No problems noted. Mother No problems noted. Social History Household Members: Spouse Housing: House Do you presently have visiting nurse or other home services: No Alcohol intake: former Patient Tobacco Use Status: Never used Tobacco e-Cigarette/Vaping Use: Never Used Second Hand Smoke Exposure: No service: No Current occupational status: employed Cognitive needs: Yes (cane) Hearing needs: No Vision needs: Yes (Glasses) Review of Systems Const All systems reviewed & are unremarkable except as noted in HPI and below ENT Denies dizziness Card Denies chest pain, Denies chest pain at rest, Denies chest pain with activity, Denies rapid heart rate, Denies pedal edema, Denies edema, Denies leg edema, Denies lightheadedness, Denies palpitations, Denies dyspnea, Reports dyspnea on exertion and Denies orthopnea Resp Denies cough, Denies dyspnea and Reports dyspnea on exertion GI Denies hematochezia and Denies change in stool character Musc Denies abnormal gait, Denies limited range of motion, Denies muscle cramps, Denies muscle weakness, Denies numbness, Denies radiating pain into limb, Denies stiffness and Denies tingling Neuro Denies abnormal gait, Denies dizziness, Denies numbness and Denies tingling Endo Denies palpitations Physical Exam Vital Signs: Last Vital Signs Pulse 89 11/24/23 08:34 BP 130/72 11/24/23 08:34 BMI result Body Mass Index 33.8 Const General: cooperative, healthy appearing, comfortable and no acute distress Orientation/consciousness: patient oriented x3 Neck Neck: Yes normal visual inspection Resp Effort & Inspection: normal respiratory effort Auscultation: clear to auscultation bilaterally, no crackles, no rales, no rhonchi and no wheezes Cardio Jugular venous distension: no JVD Rate: regular rate Rhythm: regular rhythm Heart sounds: S1 normal heart sound present, S2 normal heart sound present, no murmurs and no rubs Neuro General: patient oriented x3 Extrem General: Yes normal to inspection, No no pedal edema and No calf tenderness Psych Appearance: grossly normal Mental Status: mental status grossly normal Speech and movement: Normal speech and movement present Assessment & Plan Assessment & Plan (1) Paroxysmal atrial fibrillation: Code(s): I48.0 - Paroxysmal atrial fibrillation Plan: Newer finding of paroxysmal atrial fibrillation on implanted loop recorder remote transmission. Episode lasting over 2 minutes with high V rate. A previous Holter monitor was done on 07/22/2022 showing sinus rhythm with average heart rate 69, brief episode into the 30s, PACs with burden 12%, episode 23 beats long, question AFib. Diagnosis of clear paroxysmal AFib not official until now. Last echo 06/26/2022 showed EF 60%, basal inferior hypokinesis, mid inferior septal and anterior septal akinesis. At this time will continue to monitor with loop recorder transmissions. He also had an episode of bradycardia with heart rate into the 30s. Will hold off on heart rate slowing medication. If no further significant bradycardia then will consider adding low-dose metoprolol to help with AFib rate control. Chads Vasc score of 3. He was started on Eliquis 5 mg b.i.d. for anticoagulation last week. Labs done 10/09/2023 showed creatinine 1.13. Diagnosis of AFib, stroke risk with AFib, need for anticoagulation all reviewed with him. Cardiology office visit in 6 months, sooner if needed (2) Bradycardia: Code(s): R00.1 - Bradycardia, unspecified Plan: Brief episodes of bradycardia noted on Holter monitor and on 1 implanted loop recorder transmission. The recent 1 occurred at 06:30. Patient unsure if he was sleeping at that time. Discussed possibility of sleep apnea with him and he denies any concern for this problem. Will plan for sleep study if he has recurrent episodes of bradycardia during sleep time. If he has episodes during daytime than pacemaker may be needed. Implanted loop recorder was placed for problem of syncope. Will continue to follow (3) Syncope: Code(s): R55 - Syncope and collapse Plan: Loop recorder in place (4) S/P cardiac cath: Comment: 09/12/2022, no CAD Code(s): Z98.890 - Other specified postprocedural states Plan: No coronary artery disease Plan Time spent on chart review, documentation, interview and assessment Coding Level of Care Code Est Pt Level 4 (13576) Diagnoses Paroxysmal atrial fibrillation I48.0 Bradycardia R00.1 Syncope R55 S/P cardiac cath Z98.890 Time Spent (min) 28
[2023-11-24 08:34] VITALS: BP 130/72; PULSE 89; BMI 33.8
== END 2023-11-24 09:06 | disposition home or self-care (01) ==
PROVIDERS: PCP Physician Assistant; Visit Provider Nurse Practitioner Family
DX: I48.0 Paroxysmal atrial fibrillation (principal); R00.1 Bradycardia, unspecified; R55 Syncope and collapse; Z98.890 Other specified postprocedural states
CPT/HCPCS: 99214

== ENCOUNTER → 2023-11-24 08:30 | Outpatient (BNVA) | payer MEDICARE, SELFPAY | PROVIDERS: PCP Physician Assistant; Visit Provider Nurse Practitioner Family | DX: I48.0 Paroxysmal atrial fibrillation (principal); R00.1 Bradycardia, unspecified; R55 Syncope and collapse; Z98.890 Other specified postprocedural states | CPT/HCPCS: 99212 ==

== ENCOUNTER 2023-12-02 09:47 | Outpatient (REF) | payer MEDICARE, SELFPAY | END 2023-12-02 09:48 | disposition home or self-care (01) | LOC: HO.MDS 09:47 | PROVIDERS: Visit Provider Internal Medicine | DX: K51.311 Ulcerative (chronic) rectosigmoiditis with rectal bleeding (principal) | CPT/HCPCS: 96365; J3380 ==

== ENCOUNTER 2023-12-15 10:52 | Outpatient (REF) | payer MEDICARE, SELFPAY ==
[2023-12-15 11:20] LABS: MANUAL DIFF FLAG NO
[2023-12-15 11:54] LABS: Basophils Absolute Auto 0.1 X10*3/uL (0.0-0.2); Basophils Percent Auto 0.6 % (0-2); Eosinophils Absolute Auto 0.4 X10*3/uL (0.0-0.4); Eosinophils Percent Auto 4.5 % (0-4); Hematocrit 40.7 % (42.0-52.0); Hemoglobin 13.1 g/dl (14.0-18.0); Imm Gran Abs Auto 0.02 X10*3/uL (0.00-0.03); Imm Gran Pct Auto 0.3 % (0.0-0.4); Lymphocytes Absolute Auto 2.3 X10*3/uL (1.2-4.9); Lymphocytes Percent Auto 30.4 % (20-40); Mean Corpuscular HGB Conc 32.2 g/dl (31.0-36.0); Mean Corpuscular Hemoglobin 29.6 pg (27.0-33.0); Mean Corpuscular Volume 92.1 fL (80.0-98.0); Mean Platelet Volume 9.5 fL (9.4-12.4); Monocytes Absolute Auto 0.6 X10*3/uL (0.1-1.2); Monocytes Percent Auto 8.3 % (2-11); Neutrophils Absolute Auto 4.3 x10*3/uL (2.0-8.3); Neutrophils Percent Auto 55.9 % (45-73); Platelet Count 269 X10*3/uL (160-400); Red Blood Count 4.42 X10*6/uL (4.60-5.80); Red Cell Distribution Width 14.6 % (11.0-16.0); White Blood Count 7.7 X10*3/uL (4.8-10.8)
[2023-12-15 11:55] LABS: INTERNATIONAL NORM RATIO 1.2 (0.9-1.1); Prothrombin Time 14.2 SEC (11.1-13.3)
[2023-12-15 12:25] LABS: Erythrocyte Sedimentation Rate 19 MM/HR (0-15)
[2023-12-15 12:38] LABS: Alanine Aminotransferase 9 U/L (0-40); Albumin Level 3.9 g/dL (3.5-5.0); Alkaline Phosphatase 70 U/L (39-117); Anion Gap 13 (12-20); Aspartate Amino Transferase 12 U/L (5-37); Bilirubin Direct < 0.2 mg/dL (0.0-0.5); Bilirubin Total 0.2 mg/dL (0.0-1.0); Blood Urea Nitrogen 21 mg/dL (9-16); Calcium 9.8 mg/dL (8.4-10.2); Carbon Dioxide 25 mmol/L (22-29); Chloride 108 mmol/L (96-108); Estimated Glomerular Filt Rate 49; Glucose Random 197 mg/dL (60-115); Potassium 4.1 mmol/L (3.3-5.1); Sodium 142 mmol/L (135-145)
== END 2023-12-15 10:53 | disposition home or self-care (01) ==
LOC: HO.LAB 10:52
PROVIDERS: Visit Provider Internal Medicine
DX: K51.311 Ulcerative (chronic) rectosigmoiditis with rectal bleeding (principal)
CPT/HCPCS: 36415; 80048; 80076; 85025; 85610; 85652; 86140

== ENCOUNTER 2023-12-16 11:46 | Outpatient (REF) | payer MEDICARE, SELFPAY ==
[2023-12-21 18:09] LABS: Calprotectin, Fecal 2820 mcg/g
== END 2023-12-16 11:47 | disposition home or self-care (01) ==
LOC: HO.LNP 11:46
PROVIDERS: Visit Provider Internal Medicine
DX: K51.311 Ulcerative (chronic) rectosigmoiditis with rectal bleeding (principal)
CPT/HCPCS: 83993

== ENCOUNTER → 2023-12-22 23:59 | Outpatient (BNV) | payer MEDICARE, SELFPAY ==
--- NOTE | 2023-12-24 12:25 | MHC.OFFVIS ---
Intake Intake Visit Reasons: Remote ILR Check- [employer] Allergies cabbage Allergy (Severe, Verified 11/24/23 08:37) throat swells [facility] Medical History T2DM (type 2 diabetes mellitus) SVT (supraventricular tachycardia) Type 2 diabetes mellitus with obesity Abnormal LFTs Insomnia Obesity COVID-19 vaccine administered Gait instability History of BPH Dementia Arthritis History of lumbar puncture Cerebral ventriculomegaly Surgical History Hx of appendectomy History of esophagogastroduodenoscopy (EGD) H/O colonoscopy History of tonsillectomy Family History Father No problems noted. Mother No problems noted. Social History Household Members: Spouse Housing: House Do you presently have visiting nurse or other home services: No Alcohol intake: former Patient Tobacco Use Status: Never used Tobacco e-Cigarette/Vaping Use: Never Used Second Hand Smoke Exposure: No service: No Current occupational status: employed Cognitive needs: Yes (cane) Hearing needs: No Vision needs: Yes (Glasses) Office Procedures Cardiac Device Check Cardiac Device Check Details: Date of service 12/22/2023; in the current monitoring period, there is no evidence of atrial fibrillation. [id number] Cardiac Interrogation, subcut cardiac rhythm monitor Procedure code (CPT) selection complete Assessment & Plan Assessment & Plan (1) Paroxysmal atrial fibrillation: Code(s): I48.0 - Paroxysmal atrial fibrillation Plan x Coding Level of Care Code Procedure Only Diagnoses Paroxysmal atrial fibrillation I48.0 CPT Codes Cardiac Device Check - Cardiac Device 16: [id number] Cardiac Interrogation, subcut cardiac rhythm monitor ([id number])
== END ==
PROVIDERS: PCP Physician Assistant; Visit Provider Internal Medicine
DX: I48.0 Paroxysmal atrial fibrillation (principal); Z95.818 Presence of other cardiac implants and grafts
CPT/HCPCS: 93298

== ENCOUNTER 2024-01-09 11:14 | Outpatient (REF) | payer MEDICARE, SELFPAY ==
[2024-01-09 11:29] LABS: MANUAL DIFF FLAG NO
[2024-01-09 11:55] LABS: Basophils Absolute Auto 0.1 X10*3/uL (0.0-0.2); Basophils Percent Auto 0.5 % (0-2); Eosinophils Absolute Auto 0.3 X10*3/uL (0.0-0.4); Eosinophils Percent Auto 2.9 % (0-4); Hematocrit 41.2 % (42.0-52.0); Hemoglobin 13.3 g/dl (14.0-18.0); Imm Gran Abs Auto 0.05 X10*3/uL (0.00-0.03); Imm Gran Pct Auto 0.5 % (0.0-0.4); Lymphocytes Absolute Auto 1.7 X10*3/uL (1.2-4.9); Lymphocytes Percent Auto 15.8 % (20-40); Mean Corpuscular HGB Conc 32.3 g/dl (31.0-36.0); Mean Corpuscular Hemoglobin 29.2 pg (27.0-33.0); Mean Corpuscular Volume 90.5 fL (80.0-98.0); Mean Platelet Volume 10.1 fL (9.4-12.4); Monocytes Absolute Auto 0.5 X10*3/uL (0.1-1.2); Monocytes Percent Auto 4.2 % (2-11); Neutrophils Absolute Auto 8.2 x10*3/uL (2.0-8.3); Neutrophils Percent Auto 76.1 % (45-73); Platelet Count 244 X10*3/uL (160-400); Red Blood Count 4.55 X10*6/uL (4.60-5.80); Red Cell Distribution Width 13.8 % (11.0-16.0); White Blood Count 10.8 X10*3/uL (4.8-10.8)
== END 2024-01-09 11:15 | disposition home or self-care (01) ==
LOC: HO.LAB 11:14
PROVIDERS: Visit Provider Internal Medicine
DX: K51.311 Ulcerative (chronic) rectosigmoiditis with rectal bleeding (principal); Z79.899 Other long term (current) drug therapy
CPT/HCPCS: 36415; 80280; 82542; 85025

== ENCOUNTER 2024-01-13 10:11 | Outpatient (REF) | payer MEDICARE, SELFPAY ==
[2024-01-13 10:17] VITALS: BP 141/56; PULSE 70; RESP 17; TEMP 36.6
[2024-01-13] MEDS: Acetaminophen 325 MG TABLET 975 MG PO (10:37)
[2024-01-13] MEDS: Vedolizumab 300 MG in 0.9 % Sodium Chloride 250 ML 510 MG IV (10:59)
== END 2024-01-13 10:12 | disposition home or self-care (01) ==
LOC: HO.MDS 10:11
PROVIDERS: Visit Provider Internal Medicine
DX: K51.311 Ulcerative (chronic) rectosigmoiditis with rectal bleeding (principal)
CPT/HCPCS: 96365; J3380

== ENCOUNTER → 2024-01-23 23:59 | Outpatient (BNV) | payer MEDICARE, SELFPAY ==
--- NOTE | 2024-01-23 12:40 | MHC.OFFVIS ---
Intake Intake Visit Reasons: Remote ILR Check- [employer] Allergies cabbage Allergy (Severe, Verified 11/24/23 08:37) throat swells [facility] Medical History T2DM (type 2 diabetes mellitus) SVT (supraventricular tachycardia) Type 2 diabetes mellitus with obesity Abnormal LFTs Insomnia Obesity COVID-19 vaccine administered Gait instability History of BPH Dementia Arthritis History of lumbar puncture Cerebral ventriculomegaly Surgical History Hx of appendectomy History of esophagogastroduodenoscopy (EGD) H/O colonoscopy History of tonsillectomy Family History Father No problems noted. Mother No problems noted. Social History Household Members: Spouse Housing: House Do you presently have visiting nurse or other home services: No Alcohol intake: former Patient Tobacco Use Status: Never used Tobacco e-Cigarette/Vaping Use: Never Used Second Hand Smoke Exposure: No service: No Current occupational status: employed Cognitive needs: Yes (cane) Hearing needs: No Vision needs: Yes (Glasses) Office Procedures Cardiac Device Check Cardiac Device Check Details: Date of service 01/23/2024; in the current monitoring period, there is no evidence of atrial fibrillation. [id number] Cardiac Interrogation, subcut cardiac rhythm monitor Procedure code (CPT) selection complete Assessment & Plan Assessment & Plan (1) Paroxysmal atrial fibrillation: Code(s): I48.0 - Paroxysmal atrial fibrillation Plan x Coding Level of Care Code Procedure Only Diagnoses Paroxysmal atrial fibrillation I48.0 CPT Codes Cardiac Device Check - Cardiac Device 16: [id number] Cardiac Interrogation, subcut cardiac rhythm monitor ([id number])
== END ==
PROVIDERS: PCP Physician Assistant; Visit Provider Internal Medicine
DX: I48.0 Paroxysmal atrial fibrillation (principal)
CPT/HCPCS: 93298

== ENCOUNTER 2024-02-09 13:23 | Outpatient (AMB) | payer MEDICARE, SELFPAY ==
[2024-02-09 13:38] VITALS: BMI 33.5
--- NOTE | 2024-02-09 13:38 | A.OFFVIS_ITS ---
Intake VS Expanded 02/09/24 13:38 02/17/24 21:32 Height 6 ft 6 ft Weight 247 lb 5.738 oz 247 lb BMI 33.5 33.5 Intake Visit Reasons: T2DM/CONFIRMED Allergies cabbage Allergy (Severe, Verified 11/24/23 08:37) throat swells HPI Nutrition Presentation Details Pt presents for MNT f/u for T2DM Pt reports typically having 2 meals/day (breakfast and dinner ) then skips lunch and has pastries/empty calorie snacks as the meals. Today will review healthier lunch options, easy to prepare. MBS-Alvzfnf-Uc.Jeor Equation Height 6 ft Weight 247 lb Resting Metabolic Rate 1888.41 Calculated Activity Level Sedentary Calories Needed to Maintain Weight 2266.09 Most Recent Diabetes Results: Creatinine 1.26 mg/dL (0.5-1.4) 02/11/24 Blood Urea Nitrogen 22 mg/dL (9-16) H 02/11/24 Sodium 143 mmol/L (135-145) 02/11/24 Potassium 4.3 mmol/L (3.3-5.1) 02/11/24 Chloride 108 mmol/L (96-108) 02/11/24 Carbon Dioxide 28 mmol/L (22-29) 02/11/24 Calcium 9.7 mg/dL (8.4-10.2) 02/11/24 AST 10 U/L (5-37) 02/11/24 ALT 10 U/L (0-40) 02/11/24 Total Protein 7.3 g/dL (6.5-8.0) 02/11/24 Albumin 3.9 g/dL (3.5-5.0) 02/11/24 [facility] Medical History T2DM (type 2 diabetes mellitus) SVT (supraventricular tachycardia) Type 2 diabetes mellitus with obesity Abnormal LFTs Insomnia Obesity COVID-19 vaccine administered Gait instability History of BPH Dementia Arthritis History of lumbar puncture Cerebral ventriculomegaly Surgical History Hx of appendectomy History of esophagogastroduodenoscopy (EGD) H/O colonoscopy History of tonsillectomy Family History Father No problems noted. Mother No problems noted. Social History Household Members: Spouse Housing: House Do you presently have visiting nurse or other home services: No Alcohol intake: never Patient Tobacco Use Status: Never used Tobacco e-Cigarette/Vaping Use: Never Used Second Hand Smoke Exposure: No service: No Current occupational status: employed Cognitive needs: Yes (cane) Hearing needs: No Vision needs: Yes (Glasses) Assessment & Plan Assessment & Plan (1) Type 2 diabetes mellitus with obesity: Code(s): E11.69 - Type 2 diabetes mellitus with other specified complication; E66.9 - Obesity, unspecified (2) T2DM (type 2 diabetes mellitus): Code(s): E11.9 - Type 2 diabetes mellitus without complications Plan Educate Pt on [id number] stuart meal plan ? wt: 112 kg Est kcal as per MSJ: 2491-250 = 2241 (40% carb, 30% fat/prot) Est fluid needs: 2600 ml/d (25 ml/kg bw) Rec fiber: increase to 8-10 g per day and gradually increase as tolerated Rec Na: < 2000 mg /d Educate patient on: (R= Reviewed, V = verbalizes understanding N/R= Needs review N/A= not applicable) * Food sources of carbohydrates and serving adequate serving sizes : R * Difference between complex carbohydrates and simple carbohydrates, role of fiber: R * Differences between fats (MUFA/PUFA/saturated fats, trans fats) and food sources of various fats: R * Food sources of sodium and salt and healthy modifications for heart health a nd kidney health: R * Vitamins and minerals: R * How to interpret food labels: R (focusing on serving size, carbs, fiber today) * Healthy Plate method concept: R V * Physical activity: benefits and precaution: R * protein and its role in glucose control and healing: R * lactose free options to lessen GI symptoms Patient Instructions: Have a chicken sandwich (or eggsalad sand) or yogurt with fruit at lunch in place of pastries SEe list of meal option with simple preparation. Coding Level of Care Code Nutr Indiv Subseq (62486) Diagnoses Type 2 diabetes mellitus with obesity E11.69; E66.9 T2DM (type 2 diabetes mellitus) E11.9 Time Spent (min) 30
[2024-02-17 21:32] VITALS: BMI 33.5
== END 2024-02-09 14:19 | disposition home or self-care (01) ==
LOC: HO.ENCR 13:23
PROVIDERS: PCP Physician Assistant; Visit Provider Dietitian, Registered
DX: E11.69 Type 2 diabetes mellitus with other specified complication (principal); E66.9 Obesity, unspecified; E11.9 Type 2 diabetes mellitus without complications

== ENCOUNTER → 2024-02-09 13:23 | Outpatient (BNVA) | payer MEDICARE, SELFPAY | PROVIDERS: PCP Physician Assistant; Visit Provider Dietitian, Registered | DX: E11.69 Type 2 diabetes mellitus with other specified complication (principal); E66.9 Obesity, unspecified; Z71.3 Dietary counseling and surveillance; Z68.33 Body mass index [BMI] 33.0-33.9, adult | CPT/HCPCS: 97803 ==

== ENCOUNTER 2024-02-11 16:07 | Emergency (ER) | payer MEDICARE, SELFPAY ==
--- NOTE | ~2024-02-11 | XR_ITS ---
EXAMINATION: XR SKULL CLINICAL INFORMATION: Recent intracranial shunt for pre-MRI evaluation. COMPARISON: None available. TECHNIQUE: 2 views of skull FINDINGS: There is a programmable shunt visualized inserted through the right parietal occipital region and its tip appears to be in midline. No calvarial abnormality seen. 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 Rest of the paranasal sinuses are clear. No gross bony abnormality seen. XR/XR skull <4V IMPRESSION: There is programmable shunt through the right parietal occipital region. Hypoplastic right frontal sinus
--- NOTE | ~2024-02-11 | CT_ITS ---
EXAMINATION: CT HEAD WITHOUT CONTRAST CLINICAL INFORMATION: Papilledema. History of hydrocephalus. COMPARISON: Brain MRI from 01/24/2021. TECHNIQUE: Contiguous axial imaging was performed from the skull base to vertex without intravenous administration of contrast. This CT examination was performed using dose optimization techniques as appropriate, variously including the following: *Automated exposure control. *Adjustment of mA and/or kV according to patient size (this includes techniques or standardized protocols for targeted exams where dose is matched to indication/reason for exam; i.e. extremities or head). *Use of iterative reconstruction technique. DLP: 869 mGy-cm FINDINGS: Right posterior approach ventriculoperitoneal shunt catheter in place with tip terminating in the body of the contralateral left lateral ventricle. The ventricles are slightly increased in size compared to exam from 2020. The third ventricle measures up to 2.4 cm in diameter (previously 2.2 cm). There is no evidence of acute intracranial hemorrhage or edematous territorial infarction. [place]-white matter differentiation is preserved. 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 No midline shift. No extra-axial fluid collections. No acute soft tissue or osseous abnormalities. Persistent metopic suture. Mild mucosal thickening of the paranasal sinuses. The mastoid air cells and middle ear cavities are clear. Bilateral lens extractions. CT/CT head/brain wo IV con IMPRESSION: 1. Right posterior approach ventriculoperitoneal shunt catheter in place. The ventricles remain expanded, slightly increased in size compared to exam from 2020. 2. No evidence of acute intracranial hemorrhage or edematous territorial infarction. 3. Mild to moderate underlying microangiopathy.
[2024-02-11 16:41] VITALS: BP 146/84; PULSE 75; RESP 20; TEMP 36.8; O2SAT 96; BMI 31.9
--- NOTE | 2024-02-11 16:41 | ED.EYEPROB ---
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 Had cataract surgery in right eye 3 weeks ago and had follow up appt today at Dr. Gonzales's office, where he was told to come to the ER for MRI due to a possible swollen nerve . No eye pain, or changes in vision. Patient is feeling well and has no physical complaints. He has no headache, chest pain, shortness breast, abdominal pain, nausea, vomiting or diarrhea. No other complaints or concerns at this time. Location: right eye Mechanism: none Associated symptoms: none Treatments Prior to Arrival: none Related Data Home Medications ?Medication ?Instructions ?Recorded ?Confirmed balsalazide 750 mg capsule 2,250 mg PO TID 03/15/23 11/24/23 donepezil 10 mg tablet 10 mg PO BEDTIME 03/15/23 11/24/23 metformin 500 mg tablet 500 mg PO DAILY 03/15/23 11/24/23 tamsulosin 0.4 mg capsule 0.8 mg PO BEDTIME 03/15/23 11/24/23 prednisone 5 mg tablet 5 mg PO 11/04/23 11/24/23 Previous Rx's ?Medication ?Instructions ?Recorded flash glucose scanning reader #1 ea 09/04/22 (FreeStyle Tyrese 14 Day [place]) blood-glucose meter (FreeStyle #1 ea 09/17/22 Lite Meter kit) cholecalciferol (vitamin D3) 1,250 1,250 mcg PO QWEEK #14 caps 11/18/22 mcg (50,000 unit) capsule blood sugar diagnostic (FreeStyle #100 ea 11/19/22 Lite Strips) lancets 28 gauge (FreeStyle #100 ea 11/20/22 Lancets) trazodone 50 mg tablet 50 mg PO BEDTIME 30 days #30 tabs 10/07/23 apixaban 5 mg tablet (Eliquis) 5 mg PO BID 30 days #60 tabs 11/21/23 Allergies Allergy/AdvReac Type Severity Reaction Status Date / Time cabbage Allergy Severe throat Verified 11/24/23 08:37 stepan Review of Systems Review of Systems: Yes all other systems are reviewed and are negative Constitutional: Constitutional: Reports as per [facility] Past Medical History Attestation statement: The following information was validated with the patient. Medical History T2DM (type 2 diabetes mellitus) SVT (supraventricular tachycardia) Type 2 diabetes mellitus with obesity Abnormal LFTs Insomnia Obesity COVID-19 vaccine administered Gait instability History of BPH Dementia Arthritis History of lumbar puncture Cerebral ventriculomegaly Surgical History Hx of appendectomy History of esophagogastroduodenoscopy (EGD) H/O colonoscopy History of tonsillectomy Family History Family History Father No problems noted. Mother No problems noted. Social History Social History Household Members: Spouse Housing: House Do you presently have visiting nurse or other home services: No Alcohol intake: never Patient Tobacco Use Status: Never used Tobacco Smoked in Last 30 Days: No e-Cigarette/Vaping Use: Never Used Second Hand Smoke Exposure: No Use of substances other than those prescribed or required for medical reasons: No Advance Directives: No Advance Directives Information Provided: No service: No Current occupational status: employed Cognitive needs: Yes (cane) Hearing needs: No Vision needs: Yes (Glasses) Physical Exam Vital Signs: Vital Signs: Last Vital Signs Temp 98.4 F 02/11/24 23:09 Pulse 77 02/11/24 23:09 Resp 20 02/11/24 23:09 BP 140/63 H 02/11/24 23:09 Pulse Ox 98 02/11/24 23:09 O2 Del Method Room Air 02/11/24 23:09 BMI result Body Mass Index 31.9 Const: General: cooperative, comfortable and no acute distress Orientation/consciousness: patient oriented x3 Limitations: no limitations HEENT: Head: Yes normal to inspection, Yes normocephalic and Yes atraumatic Ears: hearing grossly normal bilaterally General nose exam: Normal external nose present Face and sinus: Yes normal facial exam Mouth: Normal oral and palatal mucosa present, oropharynx normal and moist mucous membranes Throat: Yes posterior oropharynx normal Eyes: General: appearance normal, both eyes and all related structures Alignment and Position: alignment normal Eyelids: Yes eyelids normal Conjunctivae: conjunctivae normal Sclerae: sclerae normal Pupils: Equal, round and reactive pupils present EOM: EOMs intact bilaterally Direct Ophthalmoscopy: no photophobia Neck: Neck: Yes normal visual inspection, Yes full ROM and Yes no lymphadenopathy Lymphatic: no lymphadenopathy noted Chest: Chest palpation & inspection: normal inspection of the chest Resp: Effort & Inspection: normal respiratory effort and able to speak in complete sentences Auscultation: clear to auscultation bilaterally, no crackles, no rales, no rhonchi and no wheezes Cardio: Rate: regular rate Rhythm: regular rhythm Heart sounds: S1 normal heart sound present and S2 normal heart sound present GI: Inspection: Yes normal to inspection Skin: General skin exam: no rashes or lesions noted Trauma: no lacerations or abrasions Wounds: no wounds Neuro: General: patient oriented x3 and moves all extremities Cranial nerves: Yes CN's II-XII intact bilaterally and Yes Equal, round and reactive pupils present Cognition (Neuro): normal cognition Gait exam (Neuro): Normal gait present Motor exam (neuro): 5/5 motor strength present throughout and Pronator motor function not present Extrem: General: Yes normal to inspection Right upper extremity: normal to inspection Left upper extremity: normal to inspection Right lower extremity: normal to inspection Left lower extremity: normal to inspection Course Reevaluation(s) Reevaluation #1: Received phone call from MRI after obtaining x-rays of face this is a metal shunt however is programmable. Given that this is programmable patient needs a neurosurgeon to reset shunt at bedside during the MRI. Time: 18:37 Reevaluation #2: I spoke to my attending physician, Dr. Casillas, and recommended that as patient is asymptomatic, he will need to follow-up outpatient in that this is not an emergent transfer situation. Spoke to Dr. Gonzales, freight handler and advised patient that we are unable to perform a MRI at bedside, I discussed that this likely will need to be performed outpatient. He states that this is beyond his scope, and is uncertain what to do. I discussed with freight handler that he would likely need to be seen at a hospital that has neurosurgery at bedside to reset shunt. Dr. Gonzales's concern was patient had no evidence papilledema on examination prior to cataract surgery and now does. Will obtain CT head to ensure no advancing hydrocephalus, and MRI needs to be done outpatient. Time: 19:00 Reevaluation #3: Sign-out given to my colleague, Singh Hogan PA-C pending CT head, he remains asymptomatic at this time. Time: 21:17 Additional Reevaluation(s): 10:54pm: Patient asymptomatic. Head CT scan negative for any acute brain bleed or mass. Shows stable normal hydrocephalus. Patient given copy CT scan. Negative for signs of stroke. Patient explained worrisome sign informed to return to the ED if he has them. Medical Decision Making Medical Decision Making MDM Narrative: This is a 23-hmuh-bga-male, with a hx of type 2 diabetes, paroxysmal AFib, history of ulcer colitis, normal pressure hydrocephalus status post shunt placement, cerebral ventriculomegaly, BPH, who presents to the ER after being instructed to come to the ER for MRI of his right eye. Had cataract surgery in right eye 3 weeks ago and had follow up appt today at Dr. Gonzales's office, where he was told to come to the ER for MRI due to a possible swollen nerve . No eye pain or changes in vision. I spoke to Dr. Gonzales's office who was able to review the medical record from today's office visit and there was findings of papilledema on his examination. Given his history, they instructed patient to come to the emergency room for further evaluation, they did not order an MRI screening form that we have found in the emergency room. I called over to MRI, they do have an opening where they can fit patient in however given patient has metal shunt in his head, and will need additional images prior to having MRI performed. Patient is completely asymptomatic, denies any vision changes, blurred vision, headache, dizziness, chest pain, shortness breast, abdominal pain, nausea, vomiting or diarrhea. Differential Diagnosis Differential Diagnoses: The differential diagnosis associated with the presentation includes Hydrocephalus, intracranial mass, intracranial hemorrhage-unlikely, wellness check Admission/Observation Consideration of admission/observation: Escalation of care including admission/observation considered Consult Healthcare Provider Management of the patient was discussed with: Forming Process Worker Dr. Gonzales Lab Data MDM Lab Attestation statement: I reviewed the patient's lab results. No leukocytosis, normocytic anemia noted with an H&H of 13/40.7, slight hyperglycemia at 2:16 a.m.. Chemistry otherwise nondiagnostic. 02/11/24 18:13 02/11/24 18:13 Labs: Lab Results 02/11/24 Range/Units 18:13 WBC 8.8 (4.8-10.8) X10*3/uL RBC 4.47 L (4.60-5.80) X10*6/uL Hgb 13.0 L (14.0-18.0) g/dl Hct 40.7 L (42.0-52.0) % MCV 91.1 (80.0-98.0) fL MCH 29.1 (27.0-33.0) pg MCHC 31.9 (31.0-36.0) g/dl RDW 13.2 (11.0-16.0) % Plt Count 274 (160-400) X10*3/uL MPV 9.7 (9.4-12.4) fL Immature Gran % (Auto) 0.3 (0.0-0.4) % Neut % (Auto) 75.0 H (45-73) % Lymph % (Auto) 18.8 L (20-40) % [place] % (Auto) 4.4 (2-11) % Eos % (Auto) 1.0 (0-4) % Baso % (Auto) 0.5 (0-2) % Lymph # (Auto) 1.7 (1.2-4.9) X10*3/uL [place] # (Auto) 0.4 (0.1-1.2) X10*3/uL Eos # (Auto) 0.1 (0.0-0.4) X10*3/uL Baso # (Auto) 0.0 (0.0-0.2) X10*3/uL Abs Immat Gran (auto) 0.03 (0.00-0.03) X10*3/uL Absolute Neuts (auto) 6.6 (2.0-8.3) x10*3/uL Absolute Nucleated RBC 0.000 (0.0-0.012) X10*3/uL Nucleated RBC % (auto) 0.0 (0.0-0.2) /100WBC Sodium 143 (135-145) mmol/L Potassium 4.3 (3.3-5.1) mmol/L Chloride 108 (96-108) mmol/L Carbon Dioxide 28 (22-29) mmol/L Anion Gap 11 L (12-20) BUN 22 H (9-16) mg/dL Creatinine 1.26 (0.5-1.4) mg/dL Estim Creat Clear Calc 61.9 Estimated GFR 55 Random Glucose 216 H (60-115) mg/dL Calcium 9.7 (8.4-10.2) mg/dL Total Bilirubin 0.3 (0.0-1.0) mg/dL Direct Bilirubin 0.1 (0.0-0.5) mg/dL AST 10 (5-37) U/L ALT 10 (0-40) U/L Alkaline Phosphatase 68 (39-117) U/L Total Protein 7.3 (6.5-8.0) g/dL Albumin 3.9 (3.5-5.0) g/dL Radiology Impression Discussion of test interpretation with radiology: I have reviewed the radiologist's reading. Radiologist Impression: EXAMINATION: XR SKULL CLINICAL INFORMATION: Recent intracranial shunt for pre-MRI evaluation. COMPARISON: None available. TECHNIQUE: 2 views of skull FINDINGS: There is a programmable shunt visualized inserted through the right parietal occipital region and its tip appears to be in midline. No calvarial abnormality seen. 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 Rest of the paranasal sinuses are clear. No gross bony abnormality seen. XR/XR skull <4V IMPRESSION: There is programmable shunt through the right parietal occipital region. Hypoplastic right frontal sinus Dictated By: Gaetano Lake MD Chronic Conditions Patient?s care impacted by: Other (Hydrocephalus with shunt placement) Critical Care Time Critical Care Time Critical Care Time: Yes Total Critical Care Time: 60 Attestation: I have personally provided critical care time exclusive of time spent on separately billable procedures. Time includes review of lab data, radiology results, discussion with consultants, and monitoring for potential decompensation. Intervention performed as documented. Discharge Plan Discharge Clinical Impression: Eye exam abnormal, Hydrocephalus Patient Disposition: Home, Self-Care Instructions: Hydrocephalus (DC) Additional Instructions: You were seen in the emergency department after being told by your eye physician to be evaluated due to an abnormal eye exam. We were unable to perform your MRI in the hospital as we do not have a neurosurgeon that will be able to reset your shunt. I am recommending that you follow-up with your neurosurgeon tomorrow, call tomorrow to make an appointment in regard to this test. You may tell him that you have papilloedema on your examination which may assist them in further diagnostic imaging and testing. If any new or worsening symptoms occur including but not limited to changes in vision, headache, dizziness, weakness, chest pain, shortness of breath, eye pain, loss of vision, slurred speech, facial droop, paralysis of extremities, eye redness, eye discharge, or any concerning symptoms please return for re-evaluation. Prescriptions: No Action (DME) FreeStyle Tyrese 14 Day [place] Misc See Rx Instructions .Route Qty: 1 0RF Rx Instructions: As directed (DME) blood-glucose meter [FreeStyle Lite Meter] Kit See Rx Instructions .Route Qty: 1 0RF Rx Instructions: As directed cholecalciferol (vitamin D3) 1,250 mcg (50,000 unit) capsule 1,250 mcg PO QWEEK Qty: 14 0RF (DME) FreeStyle Lite Strips Strip See Rx Instructions .Route Qty: 100 0RF Rx Instructions: test blood sugar twice a day (DME) lancets [FreeStyle Lancets] 28 gauge misc See Rx Instructions .Route Qty: 100 3RF Rx Instructions: As directed trazodone 50 mg tablet 50 mg PO BEDTIME 30 Days Qty: 30 3RF Eliquis 5 mg tablet 5 mg PO BID 30 Days Qty: 60 5RF metformin 500 mg tablet 500 mg PO DAILY donepezil 10 mg tablet 10 mg PO BEDTIME tamsulosin 0.4 mg capsule 0.8 mg PO BEDTIME balsalazide 750 mg capsule 2,250 mg PO TID prednisone 5 mg tablet 5 mg PO Interventions: ED Discharge Assessment Last Done: 02/11/24 23:09 Discharge Date/Time: 02/11/24 23:13 Print Language: Kittitian
[2024-02-11 18:19] LABS: MANUAL DIFF FLAG NO
[2024-02-11 18:20] LABS: Basophils Percent Auto 0.5 % (0-2); Eosinophils Absolute Auto 0.1 X10*3/uL (0.0-0.4); Hematocrit 40.7 % (42.0-52.0); Imm Gran Abs Auto 0.03 X10*3/uL (0.00-0.03); Imm Gran Pct Auto 0.3 % (0.0-0.4); Lymphocytes Absolute Auto 1.7 X10*3/uL (1.2-4.9); Lymphocytes Percent Auto 18.8 % (20-40); Mean Corpuscular HGB Conc 31.9 g/dl (31.0-36.0); Mean Corpuscular Hemoglobin 29.1 pg (27.0-33.0); Mean Corpuscular Volume 91.1 fL (80.0-98.0); Mean Platelet Volume 9.7 fL (9.4-12.4); Monocytes Absolute Auto 0.4 X10*3/uL (0.1-1.2); Monocytes Percent Auto 4.4 % (2-11); Neutrophils Absolute Auto 6.6 x10*3/uL (2.0-8.3); Platelet Count 274 X10*3/uL (160-400); Red Blood Count 4.47 X10*6/uL (4.60-5.80); Red Cell Distribution Width 13.2 % (11.0-16.0); White Blood Count 8.8 X10*3/uL (4.8-10.8)
[2024-02-11 18:33] LABS: Alanine Aminotransferase 10 U/L (0-40); Albumin Level 3.9 g/dL (3.5-5.0); Alkaline Phosphatase 68 U/L (39-117); Anion Gap 11 (12-20); Aspartate Amino Transferase 10 U/L (5-37); Bilirubin Direct 0.1 mg/dL (0.0-0.5); Bilirubin Total 0.3 mg/dL (0.0-1.0); Blood Urea Nitrogen 22 mg/dL (9-16); Calcium 9.7 mg/dL (8.4-10.2); Carbon Dioxide 28 mmol/L (22-29); Chloride 108 mmol/L (96-108); Creatinine Clr Calc Pharmacy 61.9; Estimated Glomerular Filt Rate 55; Glucose Random 216 mg/dL (60-115); Potassium 4.3 mmol/L (3.3-5.1); Sodium 143 mmol/L (135-145); Total Protein 7.3 g/dL (6.5-8.0)
[2024-02-11 21:24] VITALS: BP 143/71; PULSE 52; RESP 20; TEMP 36.6; O2SAT 98
--- NOTE | 2024-02-11 22:47 | PC.NURSE ---
nurse called to bedside- pt wishes to leave as his is at home bedbound- DOTTY Ontiveros notified
[2024-02-11 23:04] VITALS: BP 140/63; PULSE 77; RESP 20; TEMP 36.9; O2SAT 98
[2024-02-11 23:09] VITALS: BP 140/63; PULSE 77; RESP 20; TEMP 36.9; O2SAT 98
== END 2024-02-11 23:13 | disposition home or self-care (01) ==
PROVIDERS: Physician Assistant Medical; Emergency Provider Internal Medicine; PCP Physician Assistant
DX: G91.9 Hydrocephalus, unspecified (principal); E11.9 Type 2 diabetes mellitus without complications; I48.0 Paroxysmal atrial fibrillation; Z98.2 Presence of cerebrospinal fluid drainage device
CPT/HCPCS: 36415; 70250; 70450; 80048; 80076; 85025; 99284

== ENCOUNTER 2024-02-16 15:32 | Outpatient (REF) | payer MEDICARE, SELFPAY ==
[2024-02-21 01:34] LABS: Calprotectin, Fecal 3340 mcg/g
== END 2024-02-16 15:33 | disposition home or self-care (01) ==
LOC: HO.LNP 15:32
PROVIDERS: Visit Provider Internal Medicine
DX: K51.30 Ulcerative (chronic) rectosigmoiditis without complications (principal)
CPT/HCPCS: 83993

== ENCOUNTER 2024-04-02 09:10 | Outpatient (REF) | payer MEDICARE, SELFPAY ==
[2024-04-02 09:39] LABS: MANUAL DIFF FLAG NO
[2024-04-02 10:32] LABS: Basophils Absolute Auto 0.1 X10*3/uL (0.0-0.2); Basophils Percent Auto 0.6 % (0-2); Eosinophils Absolute Auto 0.3 X10*3/uL (0.0-0.4); Eosinophils Percent Auto 4.3 % (0-4); Hematocrit 38.4 % (42.0-52.0); Hemoglobin 12.4 g/dl (14.0-18.0); Imm Gran Abs Auto 0.02 X10*3/uL (0.00-0.03); Imm Gran Pct Auto 0.3 % (0.0-0.4); Lymphocytes Absolute Auto 2.2 X10*3/uL (1.2-4.9); Mean Corpuscular HGB Conc 32.3 g/dl (31.0-36.0); Mean Corpuscular Hemoglobin 29.1 pg (27.0-33.0); Mean Corpuscular Volume 90.1 fL (80.0-98.0); Mean Platelet Volume 10.2 fL (9.4-12.4); Monocytes Absolute Auto 0.7 X10*3/uL (0.1-1.2); Monocytes Percent Auto 8.5 % (2-11); Neutrophils Absolute Auto 4.6 x10*3/uL (2.0-8.3); Neutrophils Percent Auto 58.3 % (45-73); Platelet Count 242 X10*3/uL (160-400); Red Blood Count 4.26 X10*6/uL (4.60-5.80); White Blood Count 7.9 X10*3/uL (4.8-10.8)
[2024-04-02 11:00] LABS: C Reactive Protein < 0.10 mg/dL (< or = 0.50)
[2024-04-02 11:16] LABS: Erythrocyte Sedimentation Rate 10 MM/HR (0-15)
== END 2024-04-02 09:11 | disposition home or self-care (01) ==
LOC: HO.LAB 09:10
PROVIDERS: PCP Physician Assistant; Visit Provider Internal Medicine
DX: K51.30 Ulcerative (chronic) rectosigmoiditis without complications (principal); Z79.899 Other long term (current) drug therapy
CPT/HCPCS: 36415; 80280; 82542; 85025; 85652; 86140

== ENCOUNTER → 2024-04-28 23:59 | Outpatient (BNV) | payer MEDICARE, SELFPAY ==
--- NOTE | 2024-07-05 12:45 | MHC.OFFVIS ---
Intake Visit Reasons: Remote ILR check- [employer] Allergies cabbage Allergy (Severe, Verified 05/10/24 12:58) throat swells PFSH Medical History T2DM (type 2 diabetes mellitus) SVT (supraventricular tachycardia) Type 2 diabetes mellitus with obesity Abnormal LFTs Insomnia Obesity COVID-19 vaccine administered Gait instability History of BPH Dementia Arthritis History of lumbar puncture Cerebral ventriculomegaly Surgical History Hx of appendectomy History of esophagogastroduodenoscopy (EGD) H/O colonoscopy History of tonsillectomy Family History Father No problems noted. Mother No problems noted. Social History Household Members: Spouse Housing: House Do you presently have visiting nurse or other home services: No Alcohol intake: never Patient Tobacco Use Status: Never used Tobacco e-Cigarette/Vaping Use: Never Used Second Hand Smoke Exposure: No service: No Current occupational status: employed Cognitive needs: Yes (cane) Hearing needs: No Vision needs: Yes (Glasses) Office Procedures Cardiac Device Check Cardiac Device Check Details: Date of service 04/28/2024; in the current monitoring period, there is no evidence of atrial fibrillation or other significant arrhythmias. No significant pauses or heart blocks. [id number] Cardiac Interrogation, subcut cardiac rhythm monitor Procedure code (CPT) selection complete Assessment & Plan Assessment & Plan (1) Paroxysmal atrial fibrillation: Code(s): I48.0 - Paroxysmal atrial fibrillation Category: Medical (2) Atrial arrhythmia: Code(s): I49.8 - Other specified cardiac arrhythmias Category: Medical (3) Syncope and collapse: Code(s): R55 - Syncope and collapse Category: Medical Plan x Coding Level of Care Code Procedure Only Diagnoses Paroxysmal atrial fibrillation I48.0 Atrial arrhythmia I49.8 Syncope and collapse R55 CPT Codes Cardiac Device Check - Cardiac Device 16: [id number] Cardiac Interrogation, subcut cardiac rhythm monitor ([id number])
== END ==
PROVIDERS: PCP Physician Assistant; Visit Provider Internal Medicine
DX: I48.0 Paroxysmal atrial fibrillation (principal); I49.8 Other specified cardiac arrhythmias; R55 Syncope and collapse; Z95.818 Presence of other cardiac implants and grafts
CPT/HCPCS: 93298

== ENCOUNTER 2024-05-10 12:43 | Outpatient (AMB) | payer MEDICARE, SELFPAY ==
[2024-05-10 12:56] VITALS: BP 134/72; PULSE 73; BMI 32.5
--- NOTE | 2024-05-10 12:56 | MHC.OFFVIS ---
Vital Signs 05/10/24 12:56 Height 6 ft Weight 240 lb BMI 32.5 BP 134/72 Blood Pressure Location Lt brachial Position Sitting Pulse 73 Intake Visit Reasons: 6 month FU Allergies cabbage Allergy (Severe, Verified 05/10/24 12:58) throat swells Medication List - Last Reconciled 05/10/24 by Jimenez Spencer MD apixaban (Eliquis) 5 mg PO BID 90 days balsalazide 2,250 mg PO TID blood sugar diagnostic (FreeStyle Lite Strips) test blood sugar twice a day blood-glucose meter ([employer] Lite Meter kit) As directed cholecalciferol (vitamin D3) 1,250 mcg PO QWEEK donepezil 10 mg PO BEDTIME flash glucose scanning reader ([employer] Tyrese 14 Day [place]) As directed lancets ([employer] Lancets) As directed metformin 500 mg PO DAILY metformin ER 500 mg PO BID omeprazole 40 mg PO DAILY prednisone 5 mg PO tamsulosin 0.8 mg PO BEDTIME trazodone 50 mg PO BEDTIME 30 days trospium 20 mg PO DAILY HPI Comments Details: Juventino returns for follow-up. He underwent an implantable loop recorder implantation due to syncopal episodes. So far, no clear etiology detected. He has not had any recurring episodes of syncope either. Otherwise, also detected to have atrial fibrillation episodes and started anticoagulation. He also underwent cardiac catheterization but no significant findings. Has neurological issues for which he goes to [facility]. Overall, feeling good. No new complaints. [facility], [facility] Medical History T2DM (type 2 diabetes mellitus) SVT (supraventricular tachycardia) Type 2 diabetes mellitus with obesity Abnormal LFTs Insomnia Obesity COVID-19 vaccine administered Gait instability History of BPH Dementia Arthritis History of lumbar puncture Cerebral ventriculomegaly Surgical History Hx of appendectomy History of esophagogastroduodenoscopy (EGD) H/O colonoscopy History of tonsillectomy Family History Father No problems noted. Mother No problems noted. Social History Household Members: Spouse Housing: House Do you presently have visiting nurse or other home services: No Alcohol intake: never Patient Tobacco Use Status: Never used Tobacco e-Cigarette/Vaping Use: Never Used Second Hand Smoke Exposure: No service: No Current occupational status: employed Cognitive needs: Yes (cane) Hearing needs: No Vision needs: Yes (Glasses) Review of Systems Const All systems reviewed & are unremarkable except as noted in HPI and below Reports as per HPI and Reports no additional complaints Eyes Reports as per HPI and Denies no additional complaints ENT Denies no additional complaints and Reports as per HPI Card Reports as per HPI, Reports no additional complaints, Denies acrocyanosis, Denies chest pain, Denies leg edema, Denies lightheadedness, Denies palpitations and Denies dyspnea Resp Reports as per HPI, Denies no additional complaints and Denies dyspnea GI Reports as per HPI and Denies no additional complaints Reports no additional complaints and Reports as per HPI Musc Reports no additional complaints and Reports as per HPI Skin/Breast Reports system reviewed and no additional complaints, except as documented Neuro Reports no additional complaints and Reports as per HPI Psych Reports no additional complaints and Reports as per HPI Endo Reports no additional complaints, Reports as per HPI and Denies palpitations Jose Antonio/Lymph Reports no additional complaints and Reports as per HPI Aller/Immun Reports no additional complaints and Reports as per HPI Physical Exam Vital Signs: Last Vital Signs Pulse 73 05/10/24 12:56 BP 134/72 05/10/24 12:56 BMI result Body Mass Index 32.5 Const General: comfortable and no acute distress Orientation/consciousness: patient oriented x3 HEENT Other: Unremarkable Head: Yes normal to inspection Neck Neck: Yes normal visual inspection Chest Chest palpation & inspection: normal inspection of the chest Resp Auscultation: clear to auscultation bilaterally Cardio Palpation: normal PMI Heart sounds: S1 normal heart sound present, S2 normal heart sound present, no gallops, no murmurs and no rubs GI Palpation (GI): Soft to palpation Back/Spine/Pelvis Other: unremarkable Skin General skin exam: no rashes or lesions noted Neuro General: patient oriented x3 Extrem General: Yes normal to inspection Psych Mental Status: mental status grossly normal Office Procedures EKG Details: EKG with sinus rhythm, 73/Min; old inferior infarct; supraventricular ectopy; possible ventricular ectopic beat vs aberrant conduction. [id number], Complete Assessment & Plan Assessment & Plan (1) Syncope and collapse: Code(s): R55 - Syncope and collapse Category: Medical Plan: Two episodes of syncope of unknown etiology. Apparently, heart rate was noted to be in the 30s, blood pressure 80s. There is also mention of bladder/bowel incontinence. Overall, not clear if it is all cardiogenic or neurogenic. No clear findings on implantable loop monitor. Unremarkable carotid Dopplers. May continue to follow ILR remotely. (2) Paroxysmal atrial fibrillation: Code(s): I48.0 - Paroxysmal atrial fibrillation Category: Medical Plan: Continue anticoagulation. (3) Abnormal EKG: Code(s): R94.31 - Abnormal electrocardiogram [ECG] [EKG] Category: Medical Plan: EKG shows inferior as well as anterolateral infarct. In the echocardiogram, LVEF is preserved at 60% but basal inferior hypokinesis; mid inferior septal/anteroseptal akinesis. In the perfusion imaging, thought to have fixed basal inferior/inferior septal defect. Report suggesting artifact. In the cardiac catheterization, normal coronary arteries. LVEDP was also normal. No further workup. (4) Implantable loop recorder present: Code(s): Z95.818 - Presence of other cardiac implants and grafts Category: Medical Plan: Can follow remotely. Plan Total time spent including review of data, counseling, documentation, coordination of care-32 minutes. Coding Level of Care Code Est Pt Level 4 (25018) Diagnoses Syncope and collapse R55 Paroxysmal atrial fibrillation I48.0 Abnormal EKG R94.31 Implantable loop recorder present Z95.818 CPT Codes EKG - CPT: 00586-[id number], Complete ([id number])
== END 2024-05-10 13:25 | disposition home or self-care (01) ==
PROVIDERS: PCP Physician Assistant; Visit Provider Internal Medicine
DX: R55 Syncope and collapse (principal); I48.0 Paroxysmal atrial fibrillation; R94.31 Abnormal electrocardiogram [ECG] [EKG]; Z95.818 Presence of other cardiac implants and grafts
CPT/HCPCS: 93010; 99214

== ENCOUNTER → 2024-05-10 12:43 | Outpatient (BNVA) | payer MEDICARE, SELFPAY | PROVIDERS: PCP Physician Assistant; Visit Provider Internal Medicine | DX: I48.0 Paroxysmal atrial fibrillation (principal); R55 Syncope and collapse; R94.31 Abnormal electrocardiogram [ECG] [EKG]; Z95.818 Presence of other cardiac implants and grafts | CPT/HCPCS: 93005; 99212 ==

== ENCOUNTER 2024-06-17 13:08 | Outpatient (REF) | payer MEDICARE, SELFPAY ==
--- NOTE | ~2024-06-17 | CT_ITS ---
EXAMINATION: CT HEAD WITHOUT CONTRAST CLINICAL INFORMATION: AUTOMOTIVE ARTIST shunt. COMPARISON: CT head February 11, 2024, December 20, 2020 TECHNIQUE: Contiguous axial imaging was performed from the skull base to vertex without intravenous administration of contrast. Coronal and sagittal reformatted images are performed at the CT scanner. [This CT examination was performed using dose optimization techniques as appropriate, variously including the following: *Automated exposure control *Adjustment of mA and/or kV according to patient size (this includes techniques or standardized protocols for targeted exams where dose is matched to indication/reason for exam; i.e. extremities or head) *Use of iterative reconstruction technique] DLP: 1066 mGy-cm. FINDINGS: No change position of the right posterior ventriculoperitoneal shunt catheter. Tip terminates near the body of the contralateral left lateral ventricle. The ventricles are similarly dilated unchanged since CAT scan February 11, 2024. Bifrontal ventricular diameter measures 8.1 cm. This measures 7.9 cm on prior CAT scan. Third ventricle measures 2.2 cm transverse. This previously measured 2.4 cm. There is no evidence of acute intracranial hemorrhage or edematous territorial infarction. Cordova-white matter differentiation is preserved. 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 No midline shift. No extra-axial fluid collections. There is no osseous abnormality. The mastoid air cells and visualized portions of the paranasal sinuses are well-aerated. CT/CT head/brain wo IV con IMPRESSION: 1. No change position of the right posterior ventriculoperitoneal shunt catheter. 2. Stable ventriculomegaly. 3. No acute intracranial hemorrhage or edematous territorial infarction.
== END 2024-06-17 13:09 | disposition home or self-care (01) ==
LOC: HO.CT 13:08
PROVIDERS: PCP Physician Assistant; Visit Provider Neurological Surgery
DX: Z98.2 Presence of cerebrospinal fluid drainage device (principal)
CPT/HCPCS: 70450

== ENCOUNTER → 2024-07-01 23:59 | Outpatient (BNV) | payer MEDICARE, SELFPAY ==
--- NOTE | 2024-07-07 11:59 | MHC.OFFVIS ---
Intake Visit Reasons: Remote ILR monitoring- [employer] Allergies cabbage Allergy (Severe, Verified 05/10/24 12:58) throat swells PFSH Medical History T2DM (type 2 diabetes mellitus) SVT (supraventricular tachycardia) Type 2 diabetes mellitus with obesity Abnormal LFTs Insomnia Obesity COVID-19 vaccine administered Gait instability History of BPH Dementia Arthritis History of lumbar puncture Cerebral ventriculomegaly Surgical History Hx of appendectomy History of esophagogastroduodenoscopy (EGD) H/O colonoscopy History of tonsillectomy Family History Father No problems noted. Mother No problems noted. Social History Household Members: Spouse Housing: House Do you presently have visiting nurse or other home services: No Alcohol intake: never Patient Tobacco Use Status: Never used Tobacco e-Cigarette/Vaping Use: Never Used Second Hand Smoke Exposure: No service: No Current occupational status: employed Cognitive needs: Yes (cane) Hearing needs: No Vision needs: Yes (Glasses) Office Procedures Cardiac Device Check Cardiac Device Check Details: Date of service 07/01/2024; in the current monitoring period, there no significant findings of concern. [id number] Cardiac Interrogation, subcut cardiac rhythm monitor Procedure code (CPT) selection complete Assessment & Plan Assessment & Plan (1) Paroxysmal atrial fibrillation: Code(s): I48.0 - Paroxysmal atrial fibrillation Category: Medical Plan x Coding Level of Care Code Procedure Only Diagnoses Paroxysmal atrial fibrillation I48.0 CPT Codes Cardiac Device Check - Cardiac Device 16: [id number] Cardiac Interrogation, subcut cardiac rhythm monitor ([id number])
== END ==
PROVIDERS: PCP Physician Assistant; Visit Provider Internal Medicine
DX: I48.0 Paroxysmal atrial fibrillation (principal); Z95.818 Presence of other cardiac implants and grafts
CPT/HCPCS: 93298

== ENCOUNTER → 2024-08-02 23:59 | Outpatient (BNV) | payer MEDICARE, SELFPAY ==
--- NOTE | 2024-08-08 13:04 | MHC.OFFVIS ---
Intake Visit Reasons: Remote ILR monitoring- [employer] Allergies cabbage Allergy (Severe, Verified 05/10/24 12:58) throat swells PFSH Medical History T2DM (type 2 diabetes mellitus) SVT (supraventricular tachycardia) Type 2 diabetes mellitus with obesity Abnormal LFTs Insomnia Obesity COVID-19 vaccine administered Gait instability History of BPH Dementia Arthritis History of lumbar puncture Cerebral ventriculomegaly Surgical History Hx of appendectomy History of esophagogastroduodenoscopy (EGD) H/O colonoscopy History of tonsillectomy Family History Father No problems noted. Mother No problems noted. Social History Household Members: Spouse Housing: House Do you presently have visiting nurse or other home services: No Alcohol intake: never Patient Tobacco Use Status: Never used Tobacco e-Cigarette/Vaping Use: Never Used Second Hand Smoke Exposure: No service: No Current occupational status: employed Cognitive needs: Yes (cane) Hearing needs: No Vision needs: Yes (Glasses) Office Procedures Cardiac Device Check Cardiac Device Check Details: Date of service 08/02/2024; in the current monitoring period, there is no evidence of atrial fibrillation. [id number] Cardiac Interrogation, subcut cardiac rhythm monitor Procedure code (CPT) selection complete Assessment & Plan Assessment & Plan (1) Paroxysmal atrial fibrillation: Code(s): I48.0 - Paroxysmal atrial fibrillation Category: Medical Plan x Coding Level of Care Code Procedure Only Diagnoses Paroxysmal atrial fibrillation I48.0 CPT Codes Cardiac Device Check - Cardiac Device 16: [id number] Cardiac Interrogation, subcut cardiac rhythm monitor ([id number])
== END ==
PROVIDERS: PCP Physician Assistant; Visit Provider Internal Medicine
DX: I48.0 Paroxysmal atrial fibrillation (principal); Z95.818 Presence of other cardiac implants and grafts
CPT/HCPCS: 93298

== ENCOUNTER 2024-08-10 10:09 | Outpatient (AMB) | payer MEDICARE, SELFPAY ==
--- NOTE | 2024-08-10 10:17 | A.OFFVIS_ITS ---
VS Expanded 08/10/24 10:46 Height 6 ft Weight 239 lb 3.225 oz BMI 32.4 Intake Visit Reasons: T2DM/CONFIRMED Allergies cabbage Allergy (Severe, Verified 05/10/24 12:58) throat swells Nutrition Presentation Details: Pt presents for MNT f/u for T2DM Pt reports finding himself choosing foods with little preparation such as B: muffin in AM, coffee wiht no sugar or cereal with mil snacks on fruits or pastries L: sandwich and glass of milk or fast food meal dinner: fast food meal or frozen meal like shepherds pie , milk or water or cereal with milk BS Monitoring Most Recent Diabetes Results: Creatinine 1.26 mg/dL (0.5-1.4) 02/11/24 Blood Urea Nitrogen 22 mg/dL (9-16) H 02/11/24 Sodium 143 mmol/L (135-145) 02/11/24 Potassium 4.3 mmol/L (3.3-5.1) 02/11/24 Chloride 108 mmol/L (96-108) 02/11/24 Carbon Dioxide 28 mmol/L (22-29) 02/11/24 Calcium 9.7 mg/dL (8.4-10.2) 02/11/24 AST 10 U/L (5-37) 02/11/24 ALT 10 U/L (0-40) 02/11/24 Total Protein 7.3 g/dL (6.5-8.0) 02/11/24 Albumin 3.9 g/dL (3.5-5.0) 02/11/24 [facility] Medical History T2DM (type 2 diabetes mellitus) SVT (supraventricular tachycardia) Type 2 diabetes mellitus with obesity Abnormal LFTs Insomnia Obesity COVID-19 vaccine administered Gait instability History of BPH Dementia Arthritis History of lumbar puncture Cerebral ventriculomegaly Surgical History Hx of appendectomy History of esophagogastroduodenoscopy (EGD) H/O colonoscopy History of tonsillectomy Family History Father No problems noted. Mother No problems noted. Social History Household Members: Spouse Housing: House Do you presently have visiting nurse or other home services: No Alcohol intake: never Patient Tobacco Use Status: Never used Tobacco e-Cigarette/Vaping Use: Never Used Second Hand Smoke Exposure: No service: No Current occupational status: employed Cognitive needs: Yes (cane) Hearing needs: No Vision needs: Yes (Glasses) Assessment & Plan Assessment & Plan (1) Type 2 diabetes mellitus with obesity: Code(s): E11.69 - Type 2 diabetes mellitus with other specified complication; E66.9 - Obesity, unspecified Category: Medical (2) T2DM (type 2 diabetes mellitus): Code(s): E11.9 - Type 2 diabetes mellitus without complications Category: Medical Plan Educate Pt on [id number] stuart meal plan ? wt: 108 kg (09/02) Est kcal as per MSJ: 2491-250 = 2241 (40% carb, 30% fat/prot) Est fluid needs: 2600 ml/d (25 ml/kg bw) Rec fiber: increase to 8-10 g per day and gradually increase as tolerated Rec Na: < 2000 mg /d Educate patient on: (R= Reviewed, V = verbalizes understanding N/R= Needs review N/A= not applicable) * Food sources of carbohydrates and serving adequate serving sizes : R * Difference between complex carbohydrates and simple carbohydrates, role of fiber: R * Differences between fats (MUFA/PUFA/saturated fats, trans fats) and food sources of various fats: R * Food sources of sodium and salt and healthy modifications for heart health and kidney health: R * Vitamins and minerals: R * How to interpret food labels: R (focusing on serving size, carbs, fiber today) * Healthy Plate method concept: R V * Physical activity: benefits and precaution: R * protein and its role in glucose control and healing: R * lactose free options to lessen GI symptoms : R * Balance your meals with lean protein foods and choose fiber rich foods Patient Instructions: Include a lean protein at breakfast with the muffin (example 1/2 muffin and nut or eggs or ygourt) Choose meals following healthy plate method example sandwich on whole grain, salad , milk for lunch/dinner Choose nutrient dense snacks : 1/2 peanut butter sandwich, fruit and cottage cheese as example keep hydrated by choosing water with meals /snacks Coding Level of Care Code Nutr Indiv Subseq (05150) Diagnoses Type 2 diabetes mellitus with obesity E11.69; E66.9 T2DM (type 2 diabetes mellitus) E11.9 Time Spent (min) 25
[2024-08-10 10:46] VITALS: BMI 32.4
== END 2024-08-10 11:26 | disposition home or self-care (01) ==
PROVIDERS: PCP Physician Assistant; Visit Provider Dietitian, Registered
DX: E11.69 Type 2 diabetes mellitus with other specified complication (principal); E66.9 Obesity, unspecified; E11.9 Type 2 diabetes mellitus without complications

== ENCOUNTER → 2024-08-10 10:09 | Outpatient (BNVA) | payer MEDICARE, SELFPAY | PROVIDERS: PCP Physician Assistant; Visit Provider Dietitian, Registered | DX: E11.69 Type 2 diabetes mellitus with other specified complication (principal); E66.9 Obesity, unspecified; Z71.3 Dietary counseling and surveillance; Z68.32 Body mass index [BMI] 32.0-32.9, adult | CPT/HCPCS: 97803 ==

== ENCOUNTER → 2024-09-03 23:59 | Outpatient (BNV) | payer MEDICARE, SELFPAY ==
--- NOTE | 2024-09-19 10:31 | MHC.OFFVIS ---
Intake Visit Reasons: Remote ILR monitoring- [employer] Allergies cabbage Allergy (Severe, Verified 05/10/24 12:58) throat swells PFSH Medical History T2DM (type 2 diabetes mellitus) SVT (supraventricular tachycardia) Type 2 diabetes mellitus with obesity Abnormal LFTs Insomnia Obesity COVID-19 vaccine administered Gait instability History of BPH Dementia Arthritis History of lumbar puncture Cerebral ventriculomegaly Surgical History Hx of appendectomy History of esophagogastroduodenoscopy (EGD) H/O colonoscopy History of tonsillectomy Family History Father No problems noted. Mother No problems noted. Social History Household Members: Spouse Housing: House Do you presently have visiting nurse or other home services: No Alcohol intake: never Patient Tobacco Use Status: Never used Tobacco e-Cigarette/Vaping Use: Never Used Second Hand Smoke Exposure: No service: No Current occupational status: employed Cognitive needs: Yes (cane) Hearing needs: No Vision needs: Yes (Glasses) Office Procedures Cardiac Device Check Cardiac Device Check Details: Date of service 09/03/2024; in the current monitoring period, there is no evidence of atrial fibrillation. [id number] Cardiac Interrogation, subcut cardiac rhythm monitor Procedure code (CPT) selection complete Assessment & Plan Assessment & Plan (1) Status post placement of implantable loop recorder: Code(s): Z95.818 - Presence of other cardiac implants and grafts Category: Medical (2) Bradycardia: Code(s): R00.1 - Bradycardia, unspecified Category: Medical (3) Atrial arrhythmia: Code(s): I49.8 - Other specified cardiac arrhythmias Category: Medical Plan x Coding Level of Care Code Procedure Only Diagnoses Status post placement of implantable loop recorder Z95.818 Bradycardia R00.1 Atrial arrhythmia I49.8 CPT Codes Cardiac Device Check - Cardiac Device 16: [id number] Cardiac Interrogation, subcut cardiac rhythm monitor ([id number])
== END ==
PROVIDERS: PCP Physician Assistant; Visit Provider Internal Medicine
DX: I49.8 Other specified cardiac arrhythmias (principal); Z95.818 Presence of other cardiac implants and grafts
CPT/HCPCS: 93298

== ENCOUNTER → 2024-11-04 23:59 | Outpatient (BNV) | payer MEDICARE, SELFPAY ==
--- NOTE | 2024-11-14 18:17 | MHC.OFFVIS ---
Intake Visit Reasons: Remote ILR check- [employer] Allergies cabbage Allergy (Severe, Verified 05/10/24 12:58) throat swells PFSH Medical History T2DM (type 2 diabetes mellitus) SVT (supraventricular tachycardia) Type 2 diabetes mellitus with obesity Abnormal LFTs Insomnia Obesity COVID-19 vaccine administered Gait instability History of BPH Dementia Arthritis History of lumbar puncture Cerebral ventriculomegaly Surgical History Hx of appendectomy History of esophagogastroduodenoscopy (EGD) H/O colonoscopy History of tonsillectomy Family History Father No problems noted. Mother No problems noted. Social History Household Members: Spouse Housing: House Do you presently have visiting nurse or other home services: No Alcohol intake: never Patient Tobacco Use Status: Never used Tobacco e-Cigarette/Vaping Use: Never Used Second Hand Smoke Exposure: No service: No Current occupational status: employed Cognitive needs: Yes (cane) Hearing needs: No Vision needs: Yes (Glasses) Office Procedures Cardiac Device Check Cardiac Device Check Details: Date of service 11/04/2024; in the current monitoring period, there is no evidence of atrial fibrillation or other significant findings. [id number] Cardiac Interrogation, subcut cardiac rhythm monitor Procedure code (CPT) selection complete Assessment & Plan Assessment & Plan (1) Status post placement of implantable loop recorder: Code(s): Z95.818 - Presence of other cardiac implants and grafts Category: Medical (2) Bradycardia: Code(s): R00.1 - Bradycardia, unspecified Category: Medical (3) Paroxysmal atrial fibrillation: Code(s): I48.0 - Paroxysmal atrial fibrillation Category: Medical Plan x Coding Level of Care Code Procedure Only Diagnoses Status post placement of implantable loop recorder Z95.818 Bradycardia R00.1 Paroxysmal atrial fibrillation I48.0 CPT Codes Cardiac Device Check - Cardiac Device 16: [id number] Cardiac Interrogation, subcut cardiac rhythm monitor ([id number])
== END ==
PROVIDERS: PCP Physician Assistant; Visit Provider Internal Medicine
DX: I48.0 Paroxysmal atrial fibrillation (principal); R00.1 Bradycardia, unspecified; Z95.818 Presence of other cardiac implants and grafts
CPT/HCPCS: 93298

== ENCOUNTER 2024-12-09 13:52 | Outpatient (AMB) | payer MEDICARE, SELFPAY ==
--- NOTE | 2024-12-09 13:55 | A.OFFVIS_ITS ---
Vital Signs 12/09/24 14:02 Height 6 ft Weight 239 lb BMI 32.4 Intake Visit Reasons: Gait/Cog impairment f/u Intake Note: Patient presents for gait. Allergies cabbage Allergy (Severe, Verified 12/09/24 14:05) throat swells Medication List - Last Reconciled 12/09/24 by Shelly Vanegas MD apixaban (Eliquis) 5 mg PO BID 90 days balsalazide 2,250 mg PO TID blood sugar diagnostic (FreeStyle Lite Strips) test blood sugar twice a day blood-glucose meter (Manifest DigitalStyle Lite Meter kit) As directed cholecalciferol (vitamin D3) 1,250 mcg PO QWEEK donepezil 10 mg PO BEDTIME flash glucose scanning reader ([employer] Tyrese 14 Day Gaylord) As directed lancets ([employer] Lancets) As directed metformin 500 mg PO DAILY metformin ER 500 mg PO BID omeprazole 40 mg PO DAILY prednisone 5 mg PO tamsulosin 0.8 mg PO BEDTIME trazodone 50 mg PO BEDTIME 30 days trospium 20 mg PO DAILY HPI Comments Details: 79 y/o male patient presents for follow up of insomnia and gait disorder. Pt reports that he had shunt placed last week on .He is scheduled for shuntogram next month - [facility] He noticed that his gait steady. He had afall 2 weeks ago when he tripped over his own feet. He has been good other neil. Pt reports that he can sleep better with trazodone 50 mg qHS. He can sleep throughout the night, and wakes up refreshed. Memory is stable. [facility] Medical History T2DM (type 2 diabetes mellitus) SVT (supraventricular tachycardia) Type 2 diabetes mellitus with obesity Abnormal LFTs Insomnia Obesity COVID-19 vaccine administered Gait instability History of BPH Dementia Arthritis History of lumbar puncture Cerebral ventriculomegaly Surgical History History of brain shunt Hx of appendectomy History of esophagogastroduodenoscopy (EGD) H/O colonoscopy History of tonsillectomy Family History Father No problems noted. Mother No problems noted. Social History Household Members: Spouse Housing: House Do you presently have visiting nurse or other home services: No Alcohol intake: never Patient Tobacco Use Status: Never used Tobacco e-Cigarette/Vaping Use: Never Used Second Hand Smoke Exposure: No service: No Current occupational status: employed Cognitive needs: Yes (cane) Hearing needs: No Vision needs: Yes (Glasses) Physical Exam Vital Signs: BMI result Body Mass Index 32.4 Const General: cooperative and healthy appearing Nutritional Appearance: average body habitus Orientation/consciousness: patient oriented x3 Resp Effort & Inspection: normal respiratory effort and able to speak in complete sentences Neuro Other: Gait- wide based , small steps , off balance General: patient oriented x3, moves all extremities and no focal motor deficits Cognition (Neuro): normal cognition Motor exam (neuro): 5/5 motor strength present throughout, Pronator motor function not present and no tremor noted Psych Appearance: grossly normal Mental Status: mental status grossly normal Affect: normal affect Attitude: cooperative Orientation What is the (year) (season) (date) (day) (month)?: year, season, date, day and month Where are we (state) (county) (town or city) (hospital) (floor)?: state, county, town or city, hospital/clinic and floor Registration Name of 3 unrelated objects clearly and slowly, then ask patient to repeat all 3 of them. (1st repeat determines score. Make sure they can repeat all three): object 1, object 2 and object 3 Attention & Calculation (CHOOSE ONE) Spell WORLD backwards (DLROW): 5 letters Recall Ask patient to repeat the 3 items from question #3.: object 1, object 2 and object 3 Language Show patient a wristwatch & ask what it is. Repeat for pencil.: watch and pencil Ask the patient to repeat the phrase 'No ifs, ands, or buts' after you.: correct Ask the patient to 'take a piece of paper with their right hand' 'fold paper in half' 'place paper on floor': take paper in right hand, fold paper in half and place paper on floor Print the sentence 'CLOSE YOUR EYES' on a piece. If patient actually closes eyes then score.: followed written direction Give patient a blank piece of paper & ask to write a sentence. Score if it contains a noun & verb.: sentence contains subject and verb Ask patient to copy figure of intersecting pentagons exactly. Score if all 10 angles & 2 intersects are included.: all 10 angles present & 2 are intersected Score Score: 30 Assessment & Plan Assessment & Plan (1) Cognitive impairment: Comment: age related, insomnia,untreated anxiety Code(s): R41.89 - Other symptoms and signs involving cognitive functions and awareness Category: Medical (2) Insomnia: Comment: psychophysiological Code(s): G47.00 - Insomnia, unspecified Category: Medical Qualifiers: Insomnia type: unspecified Qualified Code(s): G47.00 - Insomnia, unspecified (3) Anxiety: Code(s): F41.9 - Anxiety disorder, unspecified Category: Medical (4) Gait disorder: Code(s): R26.9 - Unspecified abnormalities of gait and mobility Category: Medical Plan Continue to use trazodone 50mg qhs for mood and insomnia Encouraged patient to continue to do physical and cognitive activity. Coding Level of Care Code Est Pt Level 4 (82921) Diagnoses Cognitive impairment R41.89 Insomnia, unspecified type G47.00 Insomnia type: unspecified Anxiety F41.9 Gait disorder R26.9
[2024-12-09 14:02] VITALS: BMI 32.4
--- OUTSIDE RECORDS SUMMARY | 2024-12-09 17:44 | XMS_ITS | Encounter Summary ---
Author Organization [facility] Address [address] [place] [address] Care Team Providers Care Faculty Physician Name Role Phone Ana Silveira Primary Care Provider [phone] Encounter Details Date Type Department Care Team (Late st Contact Info) Description 03/20/2021 Orders Only [facility] CT Scan [address] [place] [address] Emilie Cook MD [address] [place] [address] NPH (normal pressure hydrocephalus) (CMS/HCC) (HCC) (Primary Dx) Social History Tobacco Use Types Packs/Day Years Used Date Smoking Tobacco: Never Smokeless Tobacco: Never Alcohol Use Standard Drinks/Week Comments Not Currently 0 (1 standard drink = 0.6 oz pur e alcohol) Sex and Gender Information Value Date Recorded Sex Assigned at Male 10/29/2022 1:27 PM EST Legal Sex Male 3:19 PM EDT Gender Identity Male 10/29/2022 1:27 PM EST Sexual Orientation Choose not to disclose 2021 1:27 PM EST documented as of this encounter Plan of Treatment Upcoming Encounters Date Type Department Care Team (Late st Contact Info) Description 12/28/2024 10:00 AM EST Appointment [facility] Nuclear Medicine [address] [place] [address] Arsalan Goncalves MD [address] [place] [address] 01/04/2025 4:15 PM EST Telehealth [facility] [address] [place], [place] [id number] Arsalan Goncalves MD [address], [place] [phone] documented as of this encounter Results * Due to [place] state law, this organization might not be sharing negative HIV tests. * COVID-19 PCR, Pre-Surgical (Asymptomatic) (04/07/2021 9:03 AM EDT) SARS CoV 2 RNA, RT PCR Not Detected Not Detected JOSÉ HER QUANT STUDIO 04/07/2021 3:34 PM EDT [facility] Comment:A Not Detected (Nega tive) test result is indicative of the absence of SARS-CoV-2 RNA at the level of LoD (Limit of Detection). A negative result does not rule out the possibility of COVID-19 and should not be used as the sole basis for treatment or patient management decisions. If COVID-19 is still suspected, based on exposure history together with other clinical findings, re-testing should be considered. Saliva Mouth region structure / Unknown Non-Blood Collection / Unknown 04/07/2021 9:03 AM EDT 04/07/2021 9:43 AM EDT Narrative [facility] - 04/07/2021 3:34 PM EDT These tests were developed, validated, and their performance characteristics determined by the [facility] Laboratory at [facility] under CLIA [id number]. They have not been cleared or approved by the U.S. Food and Drug Administration (FDA). FDA Policy for Diagnostic Tests for Coronavirus Disease-2019 during the Public Health Emergency issued January 24, 2020, is followed. us Emilie Cook MD LAB BODY FLUIDS AND STOOLS OR DERABLES Final Result [facility] [address], [place] [address] documented in this encounter Visit Diagnoses Diagnosis NPH (normal pressure hydrocephalus) (HCC)- Primary Idiopathic normal pressure hydrocephalus (INPH) documented in this encounter Care Teams Faculty Physician Relationship Specialty Start Date End Date Ana Silveira [address] [place] [phone] PCP - General 03/13/23 documented as of this encounter
--- OUTSIDE RECORDS SUMMARY | 2024-12-09 17:44 | XMS_ITS | Encounter Summary ---
Author Organization [facility] Address [address] [place] [address] Care Team Providers Care Cytogenetic Technician Name Role Phone Ana Silveira Primary Care Provider Encounter Details Date Type Department Care Team (Late st Contact Info) Description 03/22/2021 Orders Only [facility] Interventional Radiology [address] [place] [phone] Mackenzie Narayan PA [address] [place] [phone] Social History Tobacco Use Types Packs/Day Years [...] Info) Description 12/28/2024 10:00 AM EST Appointment [facility] Nuclear Medicine [address] [place] [address] [phone] Arsalan Goncalves MD [address] [place] [phone] 01/04/2025 4:15 PM EST Telehealth [facility] Neurosurgery Clinic [address] [place], [place] [phone] Arsalan Goncalves MD [address] [place] [address] documented as of this encounter Visit Diagnoses Not on filedocumented in this encounter Care Teams Cytogenetic Technician Relationship Specialty Start Date End Date Ana Silveira [address] [place] [phone] PCP - General 03/13/23 documented as of this encounter
--- OUTSIDE RECORDS SUMMARY | 2024-12-09 17:44 | XMS_ITS | Clinical Summary ---
Author Organization [facility] Address [address] [place] [address] Care Team Providers Care Tar Pot Worker Name Role Phone Ana Silveira Primary Care Provider [phone] Allergies Active Allergy Reactions Criticality Noted Date Comments Cabbage Angioedema High 01/27/2023 Medications donepeziL (ARICEPT) 10 mg tablet Take 10 mg by mouth nightly. 1 Active tamsulosin (FLOMAX) 0.4 mg capsule Take 0.8 mg by mouth nightly. 1 Active balsalazide (COLAZAL) 750 mg capsule Take 2,250 mg by mouth 3 times a day. Active metFORMIN (GLUMETZA) 500 mg 24 hr tablet Take 500 mg by mouth daily with food. Active traZODone (DESYREL) 50 mg tablet Take 50 mg by mouth nightly. Active trospium (SANCTURA) 20 mg tablet Take 20 mg by mouth daily. Active ergocalciferol (VITAMIN D2) 1,250 mcg (50,000 unit) capsule Take 50,000 Units by mouth once a week. On Wednesdays Active acetaminophen (TYLENOL) 325 mg tablet Take 2 tablets (650 mg total) by mouth every 4 hours as needed for pain. 3 Active docusate sodium (COLACE) 100 mg capsule Take 1 capsule (100 mg total) by mouth 2 times a day. 3 Active Active Problems Problem Noted Date Diagnosed Date Hydrocephalus 02/05/2023 Diverticular disease 01/28/2023 Acquired hammer toe of left foot 01/28/2023 Acquired hammer toe of right foot 01/28/2023 BPH (benign prostatic hyperplasia) 01/28/2023 Chronic ulcerative rectosigmoiditis (CMS/HCC) Class 1 obesity 01/28/2023 Cobalamin deficiency 01/28/2023 Hemorrhoids 01/28/2023 Minimal cognitive impairment 01/28/2023 Primary localized osteoarthrosis of ankle and fo ot 01/28/2023 Idiopathic normal pressure hydrocephalus (CMS/HC C) 11/08/2022 Gait difficulty 05/17/2021 Encounters Date Type Department Care Team Description 12/09/2024 Telephone [facility] Neurosurgery Clinic [address] [place] [phone] Telephone Intake, Staff 12/06/2024 Orders Only [facility] Nuclear Medicine [address] [place] [phone] Luciana Gray MD 12/05/2024 Orders Only [facility] [address] [place] [phone] Stephanie Mckenzie PA SR. LOGISTICS ANALYST (ventriculoperitone al) shunt status (Primary Dx) 12/03/2024 Orders Only [facility] [address] [place] [phone] Jamila Ventura, RUBEN SR. LOGISTICS ANALYST (ventriculoperitone al) shunt status (Primary Dx) 12/01/2024 Telephone [facility] [address] [place] [address] Arsalan Goncalves MD 10/05/2024 1:00 PM EST Follow-Up [facility] Neurosurgery [address] [address] Arsalan Goncalves MD Hydrocephalus, unspecified type (CMS/HCC) (HCC) (Primary Dx) 10/05/2024 11:04 AM EST - 10/05/2024 11:59 PM EST Hospital Encounter [facility] CT Scan [address] [place] [phone] Arsalan Goncalves MD SR. LOGISTICS ANALYST (ventriculoperitone al) shunt status Discharge Disposition: Home or Self Care () from Last 3 Months Immunizations Name Administration Dates Next Due INFLUENZA, SPLIT VIRUS, TRIVALENT, PF 09/07/2015 Influenza, High Dose Seasonal, Preservative Free 07/28/2019,07/28/2018 Influenza, High Dose Seasonal, Quadrivalent PF 1 Influenza, Injectable, Quadrivalent Preservative Free 11/14/2022 Influenza, Injectable, Quadrivalent, Preservativ e Free 06/11/2017 Influenza, Trivalent, Adjuvanted, PF 07/10/2016 Pneumococcal Polysaccharide Vaccine, 23 Valent 1 Zoster Vaccine Recombinant 09/21/2021,07/08/2021 Zoster Vaccine, Live 09/07/2015 Family History Medical History Relation Name Comments Heart disease Father Myocardial Infarction Father Dementia Mother Relation Name Status Comments Father Mother Social History Tobacco Use Types Packs/Day Years Used Date Smoking Tobacco: Never Smokeless Tobacco: Never Tobacco Cessation:Counseling Given: Not Answered Alcohol Use Standard Drinks/Week Comments Not Currently 0 (1 standard drink = 0.6 oz pur e alcohol) no alcohol since ~2012 Sex and Gender Information Value Date Recorded Sex Assigned at Male 10/29/2022 1:27 PM EST Legal Sex Male 3:19 PM EDT Gender Identity Male 10/29/2022 1:27 PM EST Sexual Orientation Choose not to disclose 2021 1:27 PM EST Last Filed Vital Signs Vital Sign Reading Time Taken Comments Blood Pressure 126/76 10/05/2024 1:10 PM EST Pulse 101 10/05/2024 1:10 PM EST Temperature 36.6 ??C (97.8 ??F) 02/20/2023 1:19 PM ED T Respiratory Rate 18 10/05/2024 1:10 PM EST Oxygen Saturation 97% 10/05/2024 1:10 PM EST Inhaled Oxygen Concentration - - Weight 93.4 kg (206 lb) 02/05/2023 8:32 AM EDT Height 182.9 cm (6') 02/05/2023 8:32 AM EDT Body Mass Index 27.94 02/05/2023 8:32 AM EDT Plan of Treatment Upcoming Encounters Date Type Department Care Team (Late st Contact Info) Description 12/28/2024 10:00 AM EST Appointment [facility] Nuclear Medicine [address] [place] [address] Arsalan Goncalves MD [address] [place] [address] 01/04/2025 4:15 PM EST Telehealth [facility] Neurosurgery Clinic [address] [place] [address] Arsalan Goncalves MD [address] [place], [place] [phone] Health Maintenance Due Date Last Done Comments Hepatitis C Screening 1945 DTaP,Tdap,and Td Vaccines (1 - Tdap) 1968 Alcohol/Substance Use Screening 11/10/2024 Depression Screening and Follow-Up 11/10/2024 Health Care Proxy Review 11/10/2024 Social Drivers of Health Annual Screening 11/10/2024 Colonoscopy Discontinued 12/04/2015 Zoster Vaccines Completed 09/21/2021, 06/11, 09/07/2015 Colon Cancer Screening Discontinued FOBT / Fit Test Discontinued 01/28/2023 Sigmoidoscopy Discontinued 01/28/2023 Pneumococcal Vaccine: 65+ Years Completed 09/25/2023, 08/27/2016 RSV Vaccine (60+ years old and patients) Completed 06/29/2024 COVID-19 Vaccine Completed 07/26/2024, , 08/30/2021, Additional history exists Influenza Vaccine Completed 07/26/2024, , 11/14/2022, Additional history exists Cologuard Discontinued Hepatitis B Vaccines Aged Out No long er eligible based on patient's age to complete this topic Medical Devices Implanted Type Area Whale Trainer Device Identifier Shelf Expiration Date Model / Serial / Lot Shunt Valve Programmable - [id number] Implanted:Qty: 1 on 02/05/2023 by Arsalan Goncalves MD at [facility] Implant Right: Brain CODMAN 07/10/2027 [id number] / / [id number] Procedures * Due to [place] [employer] law, this organization might not be sharing negative HIV tests. Procedure Name Priority Date/Time Associated Diagnosis Comments CT HEAD WO CONTRAST Routine 10/05/2024 1 1:13 AM EST SR. LOGISTICS ANALYST (ventriculoperitone al) shunt status from Last 3 Months Results * Due to [place] [employer] law, this organization might not be sharing negative HIV tests. * CT Head WO Contrast (10/05/2024 11:13 AM EST) Anatomical Region Laterality Modality Head and Neck Computed Tomogra phy 10/05/2024 12:1 5 PM EST Impressions 10/05/2024 12:22 PM EST 1. There is a right posterior approach ventriculostomy catheter which terminates in the area of the body of the left lateral ventricle. This catheter is unchanged in position since the prior exam from 06/17/2024 and 02/05/2024. 2. There is moderate to marked enlargement of the ventricular system with mild prominence of cortical sulci suggesting the presence of hydrocephalus. Overall the degree of ventricular enlargement is unchanged since the previous exam. 3. There are a few scattered low-density areas in the periventricular white matter consistent with chronic small vessel change. RECOMMENDATIONS: See above. If this radiology report contains a blank impression section, it is an incomplete radiology report. ??Please contact the interpreting radiologist or applicable radiology division as soon as possible to obtain the completed interpretation. ? Workstation ID: [id number] Up-to-date CT equipment and radiation dose reduction techniques were employed. CTDIvol: 46.8 mGy. DLP: 1023 mGy-cm. Narrative 10/05/2024 12:[address] OF THE HEAD WITHOUT CONTRAST INDICATION: hydrocephalus Z98.2 - I10 - Presence of cerebrospinal fluid drainage device TECHNIQUE: Non Contrast CT of the head was performed without contrast. ??Multiplanar reformats were obtained. COMPARISON: CT scan from 06/17/2024 and 02/05/2020 FINDINGS: There is moderate to marked enlargement of the ventricles with mild prominence of the cortical sulci. The findings suggest the presence of chronic hydrocephalus which appears unchanged since the exam from 06/17/2024 and the earlier exam from 02/05/2024. There is a right parietal approach ventriculostomy catheter which is unchanged in position with its tip terminating in the body of the left lateral ventricle. The catheter appears to be intact. No intracranial hemorrhage or acute infarct is identified. No significant mass effect or midline shift is seen. There is scattered small low-density areas in the periventricular white matter likely representing chronic small vessel change. The olea-white matter differentiation is preserved. There is mild membrane thickening in the paranasal sinuses. The mastoid sinuses are clear. The orbits are intact. The patient is status post lens replacement. Resulting Agency Comment [id number] Procedure Note Jose Alberto Lowe MD - 10/05/2024 CT OF THE HEAD WITHOUT CONTRAST INDICATION: hydrocephalus Z98.2 - I10 - Presence of cerebrospinal fluiddrainage device TECHNIQUE: Non Contrast CT of the head was performed without contrast.Multiplanar reformats were obtained. COMPARISON: CT scan from 06/17/2024 and 02/05/2020 FINDINGS: There is moderate to marked enlargement of the ventricles with mildprominence of the cortical sulci. The findings suggest the presence ofchronic hydrocephalus which appears unchanged since the exam from 06/17/2024nd the earlier exam from 02/05/2024. There is a right parietal approach ventriculostomy catheter which isunchanged in position with its tip terminating in the body of the leftlateral ventricle. The catheter appears to be intact. No intracranial hemorrhage or acute infarct is identified. No significantmass effect or midline shift is seen. There is scattered small low-density areas in the periventricular whitematter likely representing chronic small vessel change. The olea-whitematter differentiation is preserved. There is mild membrane thickening in the paranasal sinuses. The mastoidsinuses are clear. The orbits are intact. The patient is status post lens replacement. IMPRESSION: 1. There is a right posterior approach ventriculostomy catheter whichterminates in the area of the body of the left lateral ventricle. Thiscatheter is unchanged in position since the prior exam from 06/17/2024 and02/05/2024. 2. There is moderate to marked enlargement of the ventricular system withmild prominence of cortical sulci suggesting the presence ofhydrocephalus. Overall the degree of ventricular enlargement is unchangedsince the previous exam. 3. There are a few scattered low-density areas in the periventricularwhite matter consistent with chronic small vessel change. RECOMMENDATIONS: See above. If this radiology report contains a blank impression section, it is anincomplete radiology report. Please contact the interpreting radiologistor applicable radiology division as soon as possible to obtain thecompleted interpretation. Workstation ID: [id number] Up-to-date CT equipment and radiation dose reduction techniques wereemployed. CTDIvol: 46.8 mGy. DLP: 1023 mGy-cm. Arsalan Goncalves MD IMG CT PROCEDURES Final Result from Last 3 Months Insurance MEDICARE [facility] Advance Directives Documents on File Type Date Recorded Patient Certified Addiction Counselor Expl anation Health Care Proxy 01/28/2023 9:53 AM * Presumed Full Code (Latest Code Status on File) Date Activated Date Inactivated Comments 02/05/2023 5:07 PM 02/06/2023 8:04 PM * Presumed Full Code Date Activated Date Inactivated Comments 02/05/2023 8:04 AM 02/05/2023 5:07 PM Healthcare Agents on File Name Relationship Healthcare Agent Relationshi p Communication Etienne Major Health Care Agent Care Teams Tar Pot Worker Relationship Specialty Start Date End Date Ana Silveira [address] [place] [phone] PCP - General 03/13/23
--- OUTSIDE RECORDS SUMMARY | 2024-12-09 17:44 | XMS_ITS | Encounter Summary ---
Author Organization [facility] Address [address] [place] [address] Care Team Providers Care Gas Manager Name Role Phone Ana Silveira Primary Care Provider Encounter Details Date Type Department Care Team (Late st Contact Info) Description 03/20/2021 Telephone [facility] Interventional Radiology [address] [place] [address] [phone] Mary Lou Social History Tobacco Use Types Packs/Day Years [...] PM EST documented as of this encounter Patient Instructions * Patient Instructions* Mary Lou - 03/20/2021 3:49 PM EDT SARS-CoV2 (COVID-19) Preoperative and Preprocedural Testing Instructions I. Instructions Regarding Testing You are required to undergo testing for COVID-19 prior to your scheduled surgery or procedure. Thistest will take approximately 24 hours to process, and you will be called with the results. You must report to one of our ambulatory testing locations to have this test performed. Your preference in location ([facility] or [facility]) will be included in the lab order today, and you must report to the designated center. We will be unable to accommodate you at an alternative location. Testing must be performed 2 days prior to your scheduled surgical date. We require that you arrive at the testing location before 11:30 am the day of your assigned COVID testing. Failure to arrive for testing during this time window on your assigned day may result in cancellation or delay of your scheduled procedure. Please have your ID available at time of testing. No further paperwork will be required at time of presentation. II. Post-Testing Instructions Your surgeon or interventionalist???s office will contact you the day prior to surgery with your test results. These will aid in decision-making regarding any need for postponement of your procedure.If you have a [facility] account for your [facility] medical record, you can view these results inyour account once they are ready. Don???t hesitate to contact our office if you have any questions.Please note that if your test returns POSITIVE for COVID-19, we will notify the [place] Department of Public Health, as we are required to do for public health monitoring. III. Special Instructions for Surgery In addition to testing, we are asking you take additional precautions to stay healthy. You should begin following these precautions FIVE DAYS prior to your scheduled surgery or procedure. ??? Stay home except to get medical care: You should restrict activities outside your home, except for getting medical care. Do not go to work, school, or public areas. Avoid using public transportation, ride-sharing, or taxis. ??? Wear a facemask: You should wear a facemask when you are around other people ??? Clean your hands often: Wash your hands often with soap and water for at least 20 seconds or clean your hands with an alcohol-based hand metal handler that contains 60 to 95% alcohol, covering all surfaces of your hands and rubbing them together until they feel dry. Avoid touching your eyes, nose, and mouth with unwashed hands. Your household members should also wash their hands frequently. ??? Separate yourself from other people and animals in your home: As much as possible, you should stay in a specific room and away from other people in your home. Also, you should use a separate bathroom, if available. You should avoid visitors. ??? Avoid sharing personal household items: You should not share dishes, drinking glasses, cups, eating utensils, towels, or bedding with other people or pets in your home. After using these items, they should be washed thoroughly with soap and water. ??? Clean all ???high-touch?? surfaces everyday: High touch surfaces include counters, tabletops, doorknobs, bathroom fixtures, toilets, phones, keyboards, tablets, and bedside tables. Use a household cleaning spray or wipe, according to the label instructions. IV. Symptom Screening You will be screened for symptoms of COVID several times over the course of your care with us. Please expect a call from our nursing staff the day before your scheduled surgery or procedure, at whichtime they will perform a detailed screen and review any special instructions with you. Please let us know if, at the present time, you are experiencing any of the following: ??? Fever ??? Cough ??? Shortness of breath documented in this encounter Plan of Treatment Upcoming Encounters Date Type Department Care Team (Late st Contact Info) Description 12/28/2024 10:00 AM EST Appointment [facility] Nuclear Medicine [address] [place] [address] Arsalan Goncalves MD [address] [place] [phone] 01/04/2025 4:15 PM EST Telehealth [facility] Building Neurosurgery Clinic [address] [place] [address] Arsalan Goncalves MD [address] [place] [phone] documented as of this encounter Visit Diagnoses Not on filedocumented in this encounter Care Teams Gas Manager Relationship Specialty Start Date End Date Ana Silveira [address] [place] [phone] PCP - General 03/13/23 documented as of this encounter
--- OUTSIDE RECORDS SUMMARY | 2024-12-09 17:44 | XMS_ITS ---
Author Organization [facility] Address [address] [place] [phone] Care Team Providers Care Corduroy Brusher Operator Name Role Phone Ana Dawkins Primary Care Provider Un available Lang Wylie Unavailable [phone] ALLERGIES No Known Allergies REASON FOR VISIT Patient presents today for ulcerative rectosigmoiditis MEDICATIONS Medication SIG (Take, Route, Frequency, Duration) Notes Start Date End Date Status Balsalazide Disodium 750 MG TAKE 3 CAPSULES 3 TIMES DAILY Orally Three times a day for 2 days Active Entyvio 300 MG 1 Intravenous Every 6 weeks for 42 days 10/26/2023 Active Omeprazole 40 MG 1 Orally Once a day for 30 day(s) 12/13/2023 Active traZODone HCl 50 MG Oral for 30 Active predniSONE 5 MG 2 Orally Once a day for 30 day(s) 05/21/2023 Active Vitamin B Complex Ac tive Trospium Chloride 20 MG Oral for 30 Active Eliquis 5 MG 1 tablet Orally Twic e a day for 30 day(s) Active Donepezil HCl 5 MG 1 tablet at bedtime Orally Once a day Active metFORMIN HCl 500 MG TAKE 1 TABLET BY MO UTH DAILY Oral for 30 Active SOCIAL HISTORY Sex Assigned At : Social History Observation Description Sex Assigned At Unknown Alcohol Screen Question Answer Notes Did you have a drink containing alcohol in the p ast year? 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 Continue the 3 Balsalazide three times a day. Continue the one 5mg prednisone pill daily. 06/24/2024 Other You can stop th e omeprazole, but resume it if you start having more reflux or heartburn PLAN OF TREATMENT Treatment Notes Assessment Notes Chronic ulcerative rectosigm oiditis without complications Continue the Entyvio infusions every 6 weeks. Continue the 3 Balsalazide three times a day. Continue the one 5mg prednisone pill daily. Other You can stop the ome prazole, but resume it if you start having more reflux or heartburn Next Appt Details Follow Up: 6 Months, Reason: Provider Name:Lang Wylie , 12/24/2024 01:00:00 PM, [address] [place] [address], [address], [place], [phone], Progress Notes * Examination Category Sub-Category Detail Notes General Examination GENERAL APPEARANCE: pleasant , well nourished, well developed, in no acute distress EYES: sclera non-icteric NECK/THYROID: no cervical lymphade nopathy, neck supple HEART: S1, S2 normal LUNGS: clear to auscultatio n bilaterally ABDOMEN: normal bowel sounds, no guarding or rigidity, no hepatosplenomegaly, no masses palpable, soft, nontender, nondistended. NEUROLOGIC: alert and oriented SKIN: nonjaundiced, no spi angelo angiomata. EXTREMITIES: no edema ORAL CAVITY: mucosa moist
--- OUTSIDE RECORDS SUMMARY | 2024-12-09 17:45 | XMS_ITS | Encounter Summary ---
Author Organization [facility] Address [address] [place] [address] Care Team Providers Care Electrical Tests Supervisor Name Role Phone Ana Silveira Primary Care Provider Encounter Details Date Type Department Care Team (Late st Contact Info) Description 12/01/2024 Telephone [facility] Neurosurgery Clinic [address] [place] [address] Arsalan Goncalves MD [address] [place] [address] [phone] Social History Tobacco Use Types Packs/Day Years [...] PM EST documented as of this encounter Miscellaneous Notes * Telephone Encounter - Cristina Almanza - 12/09/2024 11:22 AM EST Left voicemail with patient looking to schedule a follow up with Dr. Goncalves after shuntogram on 12/28. * Telephone Encounter - Svetlana Jensen - 12/01/2024 4:25 PM EST ATTN: Dr. Goncalves's Admin The patient called back asking if he could have the shuntogram performed in [place] if possible. Hesaid he needs to stay close to home for an undefined period of time because his 's caregiver has been hospitalized for a major operation and he needs to be there with his for now. He can go to [facility] ([phone] - main switchboard) or [facility] if eitherof these locations could perform this test. Please contact him directly at [phone] to advise what can be done. * Telephone Encounter - Miryam Serrano - 12/01/2024 4:05 PM EST Patient calling to see when he should be seen again by Dr Goncalves. He was seen on 10/[address] Goncalves would like him to have a shuntogram prior to his next clinic visit. Can someone please place the order so that can be coordinated? documented in this encounter Plan of Treatment Upcoming Encounters Date Type Department Care Team (Late st Contact Info) Description 12/28/2024 10:00 AM EST Appointment [facility] Nuclear Medicine [address] [place] [address] Arsalan Goncalves MD [address] [place] [address] 01/04/2025 4:15 PM EST Telehealth [facility] Neurosurgery Clinic [address] [place] [address] Arsalan Goncavles MD [address] [place] [phone] documented as of this encounter Visit Diagnoses Not on filedocumented in this encounter Care Teams Electrical Tests Supervisor Relationship Specialty Start Date End Date Ana Silveira [address] [place] [phone] PCP - General 03/13/23 documented as of this encounter
--- OUTSIDE RECORDS SUMMARY | 2024-12-09 17:45 | XMS_ITS | Encounter Summary ---
Author Organization [facility] Address [address] [place] [address] Care Team Providers Care Rn Or Lvn Name Role Phone Ana Silveira Primary Care Provider Encounter Details Date Type Department Care Team (Late st Contact Info) Description 12/06/2024 Orders Only [facility] Nuclear Medicine [address] [place] [address] [phone] Luciana Gray MD [address] [place] [phone] Social History Tobacco Use Types Packs/Day Years [...] Info) Description 12/28/2024 10:00 AM EST Appointment [facility] Nuclear Medicine [address] [place] [address] [phone] Arsalan Goncalves MD [address] [place] [address] [phone] 01/04/2025 4:15 PM EST Telehealth [facility] Neurosurgery Clinic [address] [place], [place] [phone] Arsalan Goncalves MD [address] [place] [address] documented as of this encounter Visit Diagnoses Not on filedocumented in this encounter Care Teams Rn Or Lvn Relationship Specialty Start Date End Date Ana Silveira [address] [place] [phone] PCP - General 03/13/23 documented as of this encounter
--- OUTSIDE RECORDS SUMMARY | 2024-12-09 17:45 | XMS_ITS ---
Author Organization [facility] Address [address] [place] [address] Care Team Providers Care Footwear Factory Worker Name Role Phone Ana Dawkins Primary Care Provider Un available Lang Wylie Unavailable [phone] REASON FOR VISIT omperazole refill MEDICATIONS Medication SIG (Take, Route, Frequency, Duration) Notes Start Date End Date Status Pepto-Bismol 262 MG/15ML 30 ml Orally Ev christ 4 to 6 hours as needed for indigestion for 30 day(s) 07/09/2024 Active Encounters Encounter Location Date Provider Diagnosis [facility] [address] [place] [phone] 07/09/2024 Lang Wylie PLAN OF TREATMENT Medication Medication Name Sig Start Date Stop Date Notes Pepto-Bismol 262 MG/15ML 30 ml Orally Ev christ 4 to 6 hours as needed for indigestion for 30 day(s) 07/09/2024 Next Appt Details Provider Name:Lang Wylie , 12/24/2024 01:00:00 PM, [address], [address], [place], [phone],
--- OUTSIDE RECORDS SUMMARY | 2024-12-09 17:45 | XMS_ITS | Encounter Summary ---
Author Organization [facility] Address [address] [place] [address] Care Team Providers Care Bit And Shank Department Supervisor Name Role Phone Ana Silveira Primary Care Provider Encounter Details Date Type Department Care Team (Late st Contact Info) Description 12/03/2024 Orders Only [facility] Neurosurgery Clinic [address] [place], [place] [phone] Jamila Ventura NP [address] [place] [address] LIFESTYLE BLOCK FARMER (ventriculoperitoneal ) shunt status (Primary Dx) Social History Tobacco Use Types [...] Info) Description 12/28/2024 10:00 AM EST Appointment [facility] Nuclear Medicine [address] [place] [address] Arsalan Goncalves MD [address] [place] [address] 01/04/2025 4:15 PM [facility] Telehealth [facility] Neurosurgery Clinic [address] [place] [address] Arsalan Goncalves MD [address] [place] [address] documented as of this encounter Visit Diagnoses Diagnosis LIFESTYLE BLOCK FARMER (ventriculoperitoneal) shunt status- Primary documented in this encounter Care Teams Bit And Shank Department Supervisor Relationship Specialty Start Date End Date Ana Sivleira [address] [place] [phone] PCP - General 03/13/23 documented as of this encounter
--- OUTSIDE RECORDS SUMMARY | 2024-12-09 17:45 | XMS_ITS | Encounter Summary ---
Author Organization [facility] Address [address] [place] [address] Care Team Providers Care Tool Maker Apprentice Name Role Phone Ana Silveira Primary Care Provider [phone] Encounter Details Date Type Department Care Team (Late st Contact Info) Description 12/09/2024 Telephone [facility] Neurosurgery Clinic [address] [place] [address] Telephone Intake, Staff Social History Tobacco Use Types Packs/Day Years [...] encounter Miscellaneous Notes * Telephone Encounter - Svetlana Jensen - 12/09/2024 11:44 AM EST ATTN: Cristina Quezada called to schedule f/up appt with Dr. Goncalves after Shuntogram to be performed on 12/28/2024 at 10:00 am. The first available appt I was able to find was not until 01/04/2025, and I wasn't sure if he would need to be seen on the same day as the Shuntogram. Please contact Juventino directly at [phone] to schedule. documented in this encounter Plan of Treatment Upcoming Encounters Date Type Department Care Team (Late st Contact Info) Description 12/28/2024 10:00 AM EST Appointment [facility] Nuclear Medicine [address] [place] [address] Arsalan Goncalves MD [address] [place] [phone] 01/04/2025 4:15 PM EST Telehealth [facility] Building Neurosurgery Clinic [address] [place] [address] Arsalan Goncalves MD [address] [place] [phone] documented as of this encounter Visit Diagnoses Not on filedocumented in this encounter Care Teams Tool Maker Apprentice Relationship Specialty Start Date End Date Ana Silveira [address] [place] [phone] PCP - General 03/13/23 documented as of this encounter
--- OUTSIDE RECORDS SUMMARY | 2024-12-09 17:45 | XMS_ITS | Encounter Summary ---
Author Organization [facility] Address [address] [place] [address] Care Team Providers Care Auth Specialist Name Role Phone Ana Silveira Primary Care Provider [phone] Reason for Referral * Diagnostic Imaging (Routine) - Authorized Specialty Diagnoses / Procedures Referred By Contac t Referred To Contact Diagnoses NC MACHINIST (ventriculoperitoneal) shunt status Procedures NM Cerebral Shunt Patency Arsalan Goncalves MD [address] [place] [phone] Phone: tel: fax: Referral ID Status Reason Start Date Expiration Date V isits Requested Visits Authorized [id number] Authorized 12/05/2024 06/06/2026 4 4 Encounter Details Date Type Department Care Team (Late st Contact Info) Description 12/05/2024 Orders Only [facility] Neurosurgery Clinic [address] [place] [address] Stephanie Mckenzie PA [address] [place] [phone] [place] MACHINIST (ventriculoperitoneal ) shunt status (Primary Dx) Social [...] PM EST documented as of this encounter Progress Notes * DOTTY Zambrano - 12/05/2024 10:23 AM EST NM cerebral shunt patency test ordered for patient, will be done with nuclear medicine but will need to be pre-arranged to ensure someone from NSGY can access shunt. documented in this encounter Plan of Treatment Upcoming Encounters Date Type Department Care Team (Late st Contact Info) Description 12/28/2024 10:00 AM EST Appointment [facility] Nuclear Medicine [address] [place] [address] Arsalan Goncalves MD [address] [place] [address] 01/04/2025 4:15 PM EST Telehealth [facility] Building Neurosurgery Clinic [address] [place] [address] Arsalan Goncalves MD [address] [place] [phone] Scheduled Orders Name Type Priority Associated Diagnoses Orde r Schedule NM Cerebral Shunt Patency Imaging Routine NC MACHINIST (ventriculoperitoneal) shunt status Expected: 12/05/2024 (Approximate), Expires: 02/02/2026 documented as of this encounter Visit Diagnoses Diagnosis NC MACHINIST (ventriculoperitoneal) shunt status- Primary documented in this encounter Care Teams Auth Specialist Relationship Specialty Start Date End Date Ana Silveira [address] [place] [phone] PCP - General 03/13/23 documented as of this encounter
--- OUTSIDE RECORDS SUMMARY | 2024-12-09 17:45 | XMS_ITS | Referral Summary ---
Author Organization [facility] Address [address] [place] [address] Care Team Providers Care Speeder Tender Name Role Phone Ana Silveira Primary Care Provider Encounters Date Type Department Care Team Description 12/09/2024 Telephone [facility] Neurosurgery Clinic [address] [place] [phone] Telephone Intake, Staff 12/06/2024 Orders Only [facility] Nuclear Medicine [address] [place] [phone] Luciana Gray MD 12/05/2024 Orders Only [facility] Neurosurgery Clinic [address] [place] [phone] Stephanie Mckenzie PA REALTIME REPORTER (ventriculoperitone al) shunt status (Primary Dx) 12/03/2024 Orders Only [facility] Neurosurgery Clinic [address] [place] [address] Jamila Ventura NP REALTIME REPORTER (ventriculoperitone al) shunt status (Primary Dx) 12/01/2024 Telephone [facility] Neurosurgery [address] [address] Arsalan Goncalves MD 10/05/2024 1:00 PM EST Follow-Up [facility] Neurosurgery [address] [address] Arsalan Goncalves MD Hydrocephalus, unspecified type (CMS/HCC) (HCC) (Primary Dx) 10/05/2024 11:04 AM EST - 10/05/2024 11:59 PM EST Hospital Encounter [facility] CT Scan [address] [place] [address] Arsalan Goncalves MD REALTIME REPORTER (ventriculoperitone al) shunt status Discharge Disposition: Home or Self Care () from Last 3 Months Allergies Active Allergy Reactions Criticality Noted Date [...] hydrocephalus (CMS/HC C) 11/08/2022 Gait difficulty 05/17/2021 Immunizations Name Administration Dates Next Due INFLUENZA, SPLIT VIRUS, TRIVALENT, PF 09/07/2015 Influenza, High Dose Seasonal, Preservative Free 07/28/2019,07/28/2018 Influenza, High Dose Seasonal, Quadrivalent PF 1 Influenza, Injectable, Quadrivalent Preservative Free 11/14/2022 Influenza, Injectable, Quadrivalent, Preservativ e Free 06/11/2017 Influenza, Trivalent, Adjuvanted, PF 07/10/2016 Pneumococcal Polysaccharide Vaccine, 23 Valent 1 Zoster Vaccine Recombinant 09/21/2021,07/08/2021 Zoster Vaccine, Live 09/07/2015 Social History Tobacco Use Types Packs/Day Years [...] Info) Description 12/28/2024 10:00 AM EST Appointment [facility] Nuclear Medicine [address] [place] [address] Arsalan Goncalves MD [address] [place] [address] 01/04/2025 4:15 PM EST Telehealth [facility] Building Neurosurgery Clinic [address] [place] [address] Arsalan Goncalves MD [address] [place] [address] Medical Devices Implanted Type Area Dental Floss Packer Device Identifier Shelf Expiration Date Model / Serial / Lot Shunt Valve Programmable - [id number] Implanted:Qty: 1 on 02/05/2023 by Arsalan Goncalves MD at [facility] Implant Right: Brain CODMAN 07/10/2027 [id number] / / [id number] Procedures * Due to [place] [employer] law, this organization might not be sharing negative HIV tests. Procedure Name Priority Date/Time Associated Diagnosis Comments CT HEAD WO CONTRAST Routine 10/05/2024 1 1:13 AM EST REALTIME REPORTER (ventriculoperitone al) shunt status from Last 3 Months Results * Due to [place] [employer] law, this organization might not be sharing [...] obtain the completed interpretation. ? Workstation ID: [id number] Up-to-date CT equipment and radiation dose reduction [...] status post lens replacement. Resulting Agency Comment [id number] Procedure Note Jose Alberto Lowe MD - [...] possible to obtain thecompleted interpretation. Workstation ID: [id number] Up-to-date CT equipment and radiation dose reduction techniques wereemployed. CTDIvol: 46.8 mGy. DLP: 1023 mGy-cm. Arsalan Goncalves MD IM CT PROCEDURES Final Result from Last 3 Months Insurance MEDICARE BCBS MCR SUPP Advance Directives Documents on File Type Date Recorded Patient Service Center Representative Expl anation Health Care Proxy 01/28/2023 9:53 AM * Presumed Full Code (Latest Code Status on File) Date Activated Date Inactivated Comments 02/05/2023 5:07 PM 02/06/2023 8:04 PM * Presumed Full Code Date Activated Date Inactivated Comments 02/05/2023 8:04 AM 02/05/2023 5:07 PM Healthcare Agents on File Name Relationship Healthcare Agent Relationshi p Communication Etienne Major Health Care Agent Care Teams Speeder Tender Relationship Specialty Start Date End Date Ana Silveira [address] [place] [phone] PCP - General 03/13/23
--- OUTSIDE RECORDS SUMMARY | 2024-12-09 17:45 | XMS_ITS | Patient Health Record ---
Author Organization [facility] Address [address] [place] [address] Care Team Providers Care Production Department Supervisor Name Role Phone Ana Dawkins Primary Care Provider Un available Inessa Lang Unavailable [phone] ALLERGIES No Known Allergies RESULTS Component Value Reference Range Notes Prothrombin Time INR Reviewed date:12/16/2023 10:57:00 AM Interpretation: Performing Lab:[facility], [address] [place] [phone] Notes/Report: Prothrombin Time 14.2 11.1-13.3 SEC INTERNATIONAL NORM RATIO 1.2 0.9-1.1 INTERNATIONAL NORMALIZED RATIO (INR) REFERENCE RANGES Reference Range For patients not on anticoagulant therapy: 0.9 - 1.1 INR ranges for oral anticoagulant therapy: For prevention and treatment of venous thrombosis and pulmonary embolism: 2.0 - 3.0 For acute myocardial infarction with aspirin therapy: 2.0 - 3.0 For acute myocardial infarction without aspirin therapy: 3.0 - 4.0 For patients with mechanical prosthetic heart valves: 2.5 - 3.5 Calprotectin, Fecal Reviewed date:01/02/2024 08:19:22 PM Interpretation: Performing Lab:[facility], [address] [place] [phone] Notes/Report: Calprotectin, Fecal 2820 Reference Range: <50 Normal 50-120 Borderline >120 Elevated Calprotectin in Crohn's disease and ulcerative colitis can be five to several thousand times above the reference population (50 mcg/g or less). Levels are usually 50 mcg/g or less in healthy patients and with irritable bowel syndrome. Repeat testing in 4-6 weeks is suggested for borderline values. THIS TEST WAS PERFORMED AT: [facility] [address] [place] [address] DAGOBERTO JOHNSON MD,PHD,SOREN Complete Blood Count Auto Di ff Reviewed date:12/16/2023 11:45:46 PM Interpretation: Performing Lab:[facility], [address] [place] [phone] Notes/Report: White Blood Count 7.7 4.8-10.8 X10*3/uL Red Blood Count 4.42 4.60-5.80 X10*6/uL Hemoglobin 13.1 14.0-18.0 g/dl Hematocrit 40.7 42.0-52.0 % Mean Corpuscular Volume 92.1 80.0-98.0 fL Mean Corpuscular Hemoglobin 29.6 27.0-33.0 pg Mean Corpuscular HGB Conc 32.2 31.0-36.0 g/dl Red Cell Distribution Width 14.6 11.0-16.0 % Platelet Count 269 160-400 X10*3/uL Mean Platelet Volume 9.5 9.4-12.4 fL Neutrophils Percent Auto 55.9 45-73 % Imm Gran Pct Auto 0.3 0.0-0.4 % Lymphocytes Percent Auto 30.4 20-40 % Monocytes Percent Auto 8.3 2-11 % Eosinophils Percent Auto 4.5 0-4 % Basophils Percent Auto 0.6 0-2 % NRBC Pct Auto 0.0 0.0-0.2 /100WBC Neutrophils Absolute Auto 4.3 2.0-8.3 x10*3/u L Imm Gran Abs Auto 0.02 0.00-0.03 X10*3/uL Lymphocytes Absolute Auto 2.3 1.2-4.9 X10*3/u L Monocytes Absolute Auto 0.6 0.1-1.2 X10*3/uL Eosinophils Absolute Auto 0.4 0.0-0.4 X10*3/u L Basophils Absolute Auto 0.1 0.0-0.2 X10*3/uL NRBC Abs Auto 0.000 0.0-0.012 X10*3/uL Erythrocyte Sedimentation Ra te Reviewed date:12/16/2023 10:56:10 AM Interpretation: Performing Lab:[facility], [address] [place] [phone] Notes/Report: Erythrocyte Sedimentation Rate 19 0-15 MM/HR Patients with polycythemia and many hemoglobin abnormalities may have depressed sed rates whereas patients with anemia may have elevated sed rates. Liver Panel Reviewed date:12/16/2023 10:56:20 AM Interpretation: Performing Lab:[address] [phone] Notes/Report: Bilirubin Total 0.2 0.0-1.0 mg/dL Bilirubin Direct < 0.2 0.0-0.5 mg/dL Aspartate Amino Transferase 12 5-37 U/L Alanine Aminotransferase 9 0-40 U/L Total Protein 7.0 6.5-8.0 g/dL Albumin Level 3.9 3.5-5.0 g/dL Alkaline Phosphatase 70 39-117 U/L Basic Metabolic Panel Reviewed date:12/16/2023 11:49:55 PM Interpretation: Performing Lab:[address] [phone] Notes/Report: Sodium 142 135-145 mmol/L Potassium 4.1 3.3-5.1 mmol/L Chloride 108 96-108 mmol/L Carbon Dioxide 25 22-29 mmol/L Anion Gap 13 12-20 Blood Urea Nitrogen 21 9-16 mg/dL Creatinine 1.41 0.5-1.4 mg/dL Estimated Glomerular Filt Rate 49 NOTE: For -Austrian individuals, multiply the result by 1.210. Chronic Kidney Disease: Estimated GFR < 60 mL/min/1.73m2 Severe Kidney Disease: Estimated GFR < 15 mL/min/1.73m2 Glucose Random 197 60-115 mg/dL Calcium 9.8 8.4-10.2 mg/dL C Reactive Protein Reviewed date:12/16/2023 10:56:44 AM Interpretation: Performing Lab:[address] [phone] Notes/Report: C Reactive Protein 0.20 < or = 0.50 mg/dL Complete Blood Count Auto Di ff Reviewed date:01/15/2024 12:52:04 AM Interpretation: Performing Lab:[address] [phone] Notes/Report: White Blood Count 10.8 4.8-10.8 X10*3/uL Red Blood Count 4.55 4.60-5.80 X10*6/uL Hemoglobin 13.3 14.0-18.0 g/dl Hematocrit 41.2 42.0-52.0 % Mean Corpuscular Volume 90.5 80.0-98.0 fL Mean Corpuscular Hemoglobin 29.2 27.0-33.0 pg Mean Corpuscular HGB Conc 32.3 31.0-36.0 g/dl Red Cell Distribution Width 13.8 11.0-16.0 % Platelet Count 244 160-400 X10*3/uL Mean Platelet Volume 10.1 9.4-12.4 fL Neutrophils Percent Auto 76.1 45-73 % Imm Gran Pct Auto 0.5 0.0-0.4 % Lymphocytes Percent Auto 15.8 20-40 % Monocytes Percent Auto 4.2 2-11 % Eosinophils Percent Auto 2.9 0-4 % Basophils Percent Auto 0.5 0-2 % NRBC Pct Auto 0.0 0.0-0.2 /100WBC Neutrophils Absolute Auto 8.2 2.0-8.3 x10*3/u L Imm Gran Abs Auto 0.05 0.00-0.03 X10*3/uL Lymphocytes Absolute Auto 1.7 1.2-4.9 X10*3/u L Monocytes Absolute Auto 0.5 0.1-1.2 X10*3/uL Eosinophils Absolute Auto 0.3 0.0-0.4 X10*3/u L Basophils Absolute Auto 0.1 0.0-0.2 X10*3/uL NRBC Abs Auto 0.000 0.0-0.012 X10*3/uL Prom[facility] Deyanira CHOW Reviewed date:02/21/2024 01:01:23 AM Interpretation: Performing Lab:[address] [phone] Notes/Report: Taraethyoannas Deyanira CHOW SEE NOTE SEE SCA NNED RESULTS IN EMR Calprotectin, Fecal Reviewed date:03/10/2024 10:06:47 PM Interpretation: Performing Lab:[facility] [address] [phone] Notes/Report: Calprotectin, Fecal 3340 Reference Range: <50 Normal 50-120 Borderline >120 Elevated Calprotectin in Crohn's disease and ulcerative colitis can be five to several thousand times above the reference population (50 mcg/g or less). Levels are usually 50 mcg/g or less in healthy patients and with irritable bowel syndrome. Repeat testing in 4-6 weeks is suggested for borderline values. THIS TEST WAS PERFORMED AT: [facility] [address] [place] [address] DAGOBERTO JOHNSON MD,PHD,SOREN Taiwo CHOW (Not ye t reviewed by provider) Interpretation: Performing Lab:[address] [phone] Notes/Report: Taiwo CHOW SEE NOTE SEE SCA NNED RESULTS IN EMR Complete Blood Count Auto Di ff Reviewed date:04/02/2024 06:00:11 PM Interpretation: Performing Lab:[facility], [address] [place] [phone] Notes/Report: White Blood Count 7.9 4.8-10.8 X10*3/uL Red Blood Count 4.26 4.60-5.80 X10*6/uL Hemoglobin 12.4 14.0-18.0 g/dl Hematocrit 38.4 42.0-52.0 % Mean Corpuscular Volume 90.1 80.0-98.0 fL Mean Corpuscular Hemoglobin 29.1 27.0-33.0 pg Mean Corpuscular HGB Conc 32.3 31.0-36.0 g/dl Red Cell Distribution Width 14.0 11.0-16.0 % Platelet Count 242 160-400 X10*3/uL Mean Platelet Volume 10.2 9.4-12.4 fL Neutrophils Percent Auto 58.3 45-73 % Imm Gran Pct Auto 0.3 0.0-0.4 % Lymphocytes Percent Auto 28.0 20-40 % Monocytes Percent Auto 8.5 2-11 % Eosinophils Percent Auto 4.3 0-4 % Basophils Percent Auto 0.6 0-2 % NRBC Pct Auto 0.0 0.0-0.2 /100WBC Neutrophils Absolute Auto 4.6 2.0-8.3 x10*3/u L Imm Gran Abs Auto 0.02 0.00-0.03 X10*3/uL Lymphocytes Absolute Auto 2.2 1.2-4.9 X10*3/u L Monocytes Absolute Auto 0.7 0.1-1.2 X10*3/uL Eosinophils Absolute Auto 0.3 0.0-0.4 X10*3/u L Basophils Absolute Auto 0.1 0.0-0.2 X10*3/uL NRBC Abs Auto 0.000 0.0-0.012 X10*3/uL Erythrocyte Sedimentation Ra te Reviewed date:04/02/2024 06:00:36 PM Interpretation: Performing Lab:[address] [phone] Notes/Report: Erythrocyte Sedimentation Rate 10 0-15 MM/HR Patients with polycythemia and many hemoglobin abnormalities may have depressed sed rates whereas patients with anemia may have elevated sed rates. C Reactive Protein Reviewed date:04/02/2024 06:00:20 PM Interpretation: Performing Lab:[facility], [address] [place] [phone] Notes/Report: C Reactive Protein < 0.10 < or = 0.50 mg/dL T Spot TB Reviewed date:11/18/2024 09:38:35 PM Interpretation: Performing Lab:[facility], [address] [place] [phone] Notes/Report: TSpotTB Negative Negative A negative test result does not exclude the possibility of exposure to or infection with Mycobacterium tuberculosis (M. tuberculosis). Patients with recent exposure to TB infected individuals exhibiting a negative T-SPOT.TB result should be considered for retesting within 6 weeks or if other relevant clinical symptoms indicate. Results from T-SPOT.TB testing must be used in conjunction with each individual's epidemiological history, current medical status, and results of other diagnostic evaluations. The T-SPOT.TB test is qualitative and results are reported as positive, borderline, or negative, given that the test controls perform as expected. In line with the Centers for Disease Control and Prevention's 2010 recommendation to report quantitative measurements alongside the qualitative result, the laboratory provides spot counts for informational purposes only. The T-SPOT.TB test should not be interpreted as a quantitative test. TS Panel A 0 TS Panel B 0 TS Negative Control Passed TS Positive Control Passed For additional information, please refer to http://education.[employer]faq/RAC827 (This link is being provided for informational/ educational purposes only.) THIS TEST WAS PERFORMED AT: [facility]/[address] [address] WANDA LESTER MD,PHD REASON FOR REFERRAL No Information MEDICATIONS Medication SIG (Take, Route, Frequency, Duration) Notes Start Date End Date Status Vitamin B Complex Ac tive Trospium Chloride 20 MG Oral for 30 Active Pepto-Bismol 262 MG/15ML 30 ml Orally Ev christ 4 to 6 hours as needed for indigestion for 30 day(s) 07/09/2024 Active Eliquis 5 MG 1 tablet Orally Twic e a day for 30 day(s) Active Donepezil HCl 5 MG 1 tablet at bedtime Orally Once a day Active Balsalazide Disodium 750 MG TAKE 3 CAPSULES 3 TIMES DAILY Orally Three times a day for 2 days Active Entyvio 300 MG 1 Intravenous Every 6 weeks for 42 days 10/26/2023 Active traZODone HCl 50 MG Oral for 30 Active predniSONE 5 MG 2 Orally Once a day for 30 day(s) 05/21/2023 Active metFORMIN HCl 500 MG TAKE 1 TABLET BY MO UTH DAILY Oral for 30 Active Omeprazole 40 MG TAKE 1 CAPSULE BY MO UTH EVERY DAY for 30 Active IMMUNIZATIONS Vaccine Route Administration Date Status Comme nts Influenza Unknown 07/11/2020 Administered Influenza Unknown 07/11/2021 Administered Influenza Unknown 07/11/2022 Administered Influenza Unknown 09/10/2023 Administered SOCIAL HISTORY Sex Assigned At : Social History Observation Description Sex Assigned At Unknown Alcohol Screen Question Answer Notes Did you have a drink containing alcohol in the p ast year? 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) Active confirmed Chronic u lcerative rectosigmoiditis (12736485) Problem Preprocedural examination (Z01.818) Active confirmed 575574899721046 Problem Ulcerative rectosigmoiditis without complication (K51.30) Active confirmed 08193067 Problem Constipation, unspecified constipation type (K59.00) Active confirmed 74984463 Problem 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) Active confirmed Chronic ulcerat edwin rectosigmoiditis (26724354) Problem 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) Active confirmed Diverticular disease of colon (662838867) Problem 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) Active confirmed 45396849 Problem Diarrhea of presumed infectious origin (R19.7) Active confirmed 42610074 VITAL SIGNS Heart Rate 72 /min 02/12/2024 Blood pressure diastolic 00 mm Hg 06/24/2024 Height 71 in 06/24/2024 Blood pressure systolic 00 mm Hg 06/24/2024 Weight 240 lbs 06/24/2024 BMI 33.47 kg/m2 06/24/2024 Encounters Encounter Location Date Provider Diagnosis [facility] [address] [place] [phone] 02/12/2024 Lang Wylie Chronic ulcerative rectosigmoiditis without complications K51.30 [facility] [address] [place] [phone] 06/24/2024 Lang Wylie Chronic ulcerative rectosigmoiditis without complications K51.30 [facility] [address] [place] [phone] 12/10/2023 Lang Wylie Ulcerative (chronic) rectosigmoiditis with rectal bleeding K51.311 [facility] [address] [place] [phone] 12/24/2023 Lang Wylie Ulcerative rectosigmoiditis with rectal bleeding K51.311 [facility] [address] [place] [phone] 03/07/2024 Lang Wylie Chronic ulcerative rectosigmoiditis without complications K51.30 [facility] [address] [place] [address] 04/07/2024 Lang Farfan [facility] [address] [place] [address] 06/08/2024 Lang Wylie [facility] [address] [place] [address] 07/09/2024 Lang Wylie ASSESSMENTS Encounter Date Diagnosis Assessment Notes Treatment Notes Treatment Clinical Notes 02/12/2024 Chronic ulcerative rectosigmoiditis without complications (ICD-10 - K51.30) Start alternating 2 of the 5mg prednisone with 1 of the 5mg prednisone every day for 1 month, and then decrease the prednisone to 1 of 5mg pill every day Continue the Balsalazide a total of 9 every day. Continue the Entyvio infusions every 6 weeks. 06/24/2024 Chronic ulcerative rectosigmoiditis without complications (ICD-10 - K51.30) Continue the Entyvio infusions every 6 weeks. Continue the 3 Balsalazide three times a day. Continue the one 5mg prednisone pill daily. 12/10/2023 Ulcerative (chronic) rectosigmoiditis with rectal bleeding (ICD-10 - K51.311) 12/24/2023 Ulcerative rectosigmoiditis with rectal bleeding (ICD-10 - K51.311) 03/07/2024 Chronic ulcerative rectosigmoiditis without complications (ICD-10 - K51.30) 06/24/2024 Other You can stop th e omeprazole, but resume it if you start having more reflux or heartburn PLAN OF TREATMENT Pending Test Test Name Order Date CHEM 7 PROFILE 03/31/2023 CHEM 7 PROFILE 11/17/2023 CHEM 7 PROFILE 12/10/2023 CHEM 7 PROFILE 09/10/2023 CHEM 7 PROFILE 11/01/2021 CHEM 7 PROFILE 07/18/2022 LIVER PROFILE 07/18/2022 LIVER PROFILE 03/31/2023 LIVER PROFILE 11/17/2023 LIVER PROFILE 12/10/2023 LIVER PROFILE 09/10/2023 LIVER PROFILE 11/01/2021 TSH (THYROID STIMULATING HORMONE) 2020 CRP 08/13/2022 CRP 11/01/2021 CRP 07/18/2022 CRP 03/31/2023 CRP 11/17/2023 CRP 03/07/2024 CRP 12/10/2023 VITAMIN B12 AND FOLATE 08/13/2022 CBC w DIFF 12/24/2023 CBC w DIFF 11/01/2021 CBC w DIFF 08/13/2022 CBC w DIFF 07/18/2022 CBC w DIFF 03/31/2023 CBC w DIFF 11/17/2023 CBC w DIFF 09/10/2023 CBC w DIFF 03/07/2024 CBC w DIFF 12/10/2023 SED RATE (ESR) 11/17/2023 SED RATE (ESR) 03/07/2024 SED RATE (ESR) 12/10/2023 SED RATE (ESR) 11/01/2021 SED RATE (ESR) 08/13/2022 SED RATE (ESR) 07/18/2022 SED RATE (ESR) 03/31/2023 STOOL WBC 03/31/2023 C DIFFICILE RFLX PCR 03/31/2023 IRON PROFILE 08/13/2022 Ferritin 08/13/2022 Prometheus Anser VDZ 09/10/2023 Prometheus Anser VDZ 03/07/2024 Prometheus Anser VDZ 04/02/2024 Prometheus Anser VDZ 12/24/2023 T Spot TB 07/18/2022 Calprotectin, Fecal 11/17/2023 Future Test Test Name Order Date COLONOSCOPY 02/16/2015 COLONOSCOPY 03/20/2021 COLONOSCOPY 11/02/2021 Next Appt Details Provider Name:Lang Wylie , 12/24/2024 01:00:00 PM, [address] [place] [address], [address], [place], [address], Insurance Providers Payer Name Payer Address Payer Phone Subscriber Number Group Number Insured Name Patient Relationship to Insured Coverage Start Date Coverage End Date MEDICARE OF [place] [address] [place] [address] [id number] JANIE GONZALEZ Self - patient is the insured [employer] CLAIMS [address] [place] [address] [phone] [id number] JANIE GONZALEZ Self - patient is the insured MEDICAL (GENERAL) HISTORY Medical History History ICD Code Denies [place],DM,CVA,Lung disease,renal dise ase Neg. screening colonoscopy, except for diverticulosis and internal hemorrhoids in 02/2002-Dr. Bejarano EGD in [id number] H.pylori-Dr. 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 Spencer Hospitalization at [facility], 20[facility], for increasing GI symptoms. A CT scan described active colitis, as well as raising a suspicion of diverticulitis. He was treated with both IV antibiotics and IV steroids at that time with improvement. He started his Entyvio infus ions in May of 2023. The infusions were increased from every 8 weeks to every 6 weeks in mid-November of 2023 due to a subtherapeutic level of 8 in September of 2023. The trough level on January 09, 2024 was up to 13.6 and then 18.3 on April 02, 2024. His Entyvio antibodies were nondetectable. As of the 02/12/24 office esau hendrix he was planning to go to [facility] in [place] the week of 02/16/24 to be evaluated by the neurosurgeon in regard to his ventriculoperitoneal shunt. 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 However, before he has the MRI the shunt apparently needs to be adjusted by the neurosurgeon. Surgical History Surgery Date(Month/Year) Tonsillectomy 1950,1967 Appendectomy 1955 V-P shunt placed at [facility] in [place] 2022 Bilateral Cataracts 2023
--- OUTSIDE RECORDS SUMMARY | 2024-12-09 17:45 | XMS_ITS ---
Author Organization [facility] Address [address] [place] [address] Care Team Providers Care Loader Operator Supervisor Name Role Phone Darrion Muse MD Primary Care Provider Alfred Rader Unavailable [phone] Allergies Allergen (clinical drug ingredient) Drug/Non Drug Allergy documented on EMR Reaction Allergy Type Onset Date Status Cabbage Cabbage (uncoded) throat swelling Allergy Active Medications Medication SIG (Take, Route, Fr equency, Duration) Notes Start Date End Date Status Custom Orthotics as directed 11/12/2023 Active Donepezil HCl 10 MG take 1 tablet by edwin th at bedtime Oral for 90 Active Tamsulosin HCl 0.4 MG Oral for 30 Active Social History Tobacco Use: Social History Observation Description Date Details (start date - stop date) Never Smoker NA - NA Tobacco Use/Smoking Question Answer Notes Are you a: nonsmoker Additional Findings: Tobacco Non-User Current no n-smoker Alcohol Screen Question Answer Notes Did you have a drink containing alcohol in the p ast year? No Points 0 Interpretation Negative Tobacco use other than smoking: Question Answer Notes Are you an other tobacco user? No Vital Signs Height 6 ft in 11/12/2023 Weight 200 lbs 11/12/2023 BMI 27.12 kg/m2 11/12/2023 Blood pressure systolic 120 mm Hg 11/12/19 24 Blood pressure diastolic 80 mm Hg 024 Encounters Encounter Location Date Provider Diagnosis [facility] [address] [place] [address] 11/12/2023 Alfred Chisholm Pain in left foot M79.672 ; Pain in right foot M79.671 ; Metatarsalgia, left foot M77.42 ; Metatarsalgia, right foot M77.41 ; Other hammer toe(s) (acquired), left foot M20.42 ; Other hammer toe(s) (acquired), right foot M20.41 ; Primary osteoarthritis, left ankle and foot M19.072 ; Primary osteoarthritis, right ankle and foot M19.071 and Plantar fascial fibromatosis M72.2 Assessments Encounter Date Diagnosis (ICD Code) Assessment Notes Treatment Notes Treatment Clinical Notes Section Notes 11/12/2023 Pain in left foot (ICD-10 - M79.672) 11/12/2023 Pain in right foot (ICD-10 - M79.671) 11/12/2023 Metatarsalgia, left foot (ICD-10 - M77.42) 11/12/2023 Metatarsalgia, right foot (ICD-10 - M77.41) 11/12/2023 Other hammer toe(s) (acquired), left foot (ICD-10 - M20.42) 11/12/2023 Other hammer toe(s) (acquired), right foot (ICD-10 - M20.41) 11/12/2023 Primary osteoarthritis, left ankle and foot (ICD-10 - M19.072) 11/12/2023 Primary osteoarthritis, right ankle and foot (ICD-10 - M19.071) 11/12/2023 Plantar fascial fibromatosis (ICD-10 - M72.2) Plan Of Treatment Medication Medication Name Sig Start Date Stop Date Notes Custom Orthotics as directed 11/12/2023 Next Appt Details Follow Up: prn, Reason: Progress Notes * Juventino ESCOBAR DDOB:[birth year] (78 yo M)Acc No.[id number]:11/12/2023 Progress Note Patient:?Juventino Escobar Provider:?Alfred Chisholm DPM :1945???Age:78 Y???Sex:Male Juan M e:11/12/2023 Address:[address] [place], [place] [id number] Pcp:Darrion Muse MD Subjective: * Chief Complaints: * ??? * HPI: ???Foot Pain:?Nature:?tenderness.?Location?Bottom, Forefoot, B/L, R>L.?Duration:?several years.?Onset/Cause:?gradual.?Course:?worse.?Aggrevated:?standing, walking, barefoot walking.?Treatments:?current orthoses are not helping.?Quality/Severity?moderate, severe.? * ROS:?General/Constitutional:?Nausea?denies.?Vomiting?denies.?Hunger Thirst?denies.?Loss appetite?denies.?Chills?denies.?Fatigue?denies.?Fever?denies.?Night Sweats?denies.?Unexplained weight loss?denies.?Unexplained weight gain?denies.?HEENTM:?Dentures?admits.?Dizziness?denies.?Glasses/contacts?admits.?Retinopathy?de nies.?Blurred/double vision?denies.?TMJ?denies.?Discharge/drainage?denies.?Implants?denies.?Sore throat?denies.?Dental implants?denies.?Hard of hearing ?denies.?Difficulty chewing/swallowing/speaking?denies.?Nose bleeds?denies.?Sore mouth?denies.?Respiratory:?On Oxygen?denies.?Pneumonia/pleurisy?denies.?Bronchitis?denies.?Emphysema?denies.?C oughing?denies.?Cough blood?denies.?Shortness of breath?denies.?Wheezing?denies.?Cardiovascular:?Pacemaker?denies.?MVP?denies.?WPW?denies.?CHF?denies.?Heart attack?denies.?Septal defect?denies.?Rapid beat?denies.?Chest pain ?denies.?Atrial Fib.?denies.?Murmur/Palpitations?denies.?Gastrointestinal:?Hemorrhoids?denies.?Stomach/Abdominal pain?denies.?Dark blood stool?denies.?Irritable bowel ?denies.?Constipation?denies.?Diarrhea?denies.?Hematology:?Swelling?denies.?Clots?denies.?Varicose Veins?denies.?Bruising?denies.?Bleeding problem?denies.?Genitourinary:?Blood urine?denies.?Frequent/Painfu/urination/bladder control?denies.?Kidney stones?denies.?Infection (UTI)?denies.?Nephropathy?denies.?sex trans dis (STD)?denies.?Prostate?admits.?Musculoskeletal:?Hammertoes?admits.?Bunions?denies.?Back Pain?admits.?Muscle Cramps/ Resting?admits.?Muscle cramps / walking?denies.?Generalized aches and pains?admits.?Weakness?denies.?Integ.:?Fowler?denies.?Scars?denies.?Corns/calluses?denies.?Ingrown nails?denies.?Painful nails?denies.?Open Sores?denies.?Rashes?denies.?Neurologic:?Difficulty sleeping?denies.?Brain disorder?denies.?Numbness?denies.?Balance trouble?admits.?Confusion?denies.?Fainting/blackouts?denies.?Tingling?denies.?Tr emors?denies.? * Medical History:? * Surgical History:?tonsillect riky ppendectomy 1955lumbar 02/2022 * Hospitalization/Major Diagno stic Procedure:?Denies Past Hospitalization * Family History:?Mother: dece ased, foot problems, diagnosed with Other malignant neoplasm of unspecified site.?Father: , diagnosed with Unspecified heart disease, Unspecified cerebral artery occlusion with cerebral infarction.? * Social History:?Tobacco Use:?Tobacco Use/Smoking?Are you a:?nonsmoker ?Additional Findings: Tobacco Non-User?Current non-smoker ?Tobacco use other than smoking?Are you an other tobacco user??No ???Drugs/Alcohol:?Drugs?Have you used drugs other than those for medical reasons in the past 12 months??No ?Alcohol Screen?Did you have a drink containing alcohol in the past year??No ?Points?0 ?Interpretation?Negative ???Miscellaneous:?Caffeine: yes, frequency:1 cup per day coffee. ?Children: yes. ?no Exercise. ?Marital status: . 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 * Medications:?TakingDonepezil HCl 10 MG Tablet take 1 tablet by mouth at bedtime Oral Tamsulosin HCl 0.4 MG Capsule Oral Medication List reviewed and reconciled with the patientTaking Donepezil HCl 10 MG Tablet take 1 tablet by mouth at bedtime Oral Taking Tamsulosin HCl 0.4 MG Capsule Oral Medication List reviewed and reconciled with the patient * Allergies:?Cabbage: throat s wellingyes[Allergies Verified] Objective: * Vitals:?Ht: 6 ft, Wt: 200, B UT: 27.12, Shoe size: 13E, BP: 120/80 mm Hg, Wt-k.72 kg. * Examination: ???General Examination: ?GENERAL APPEARANCE:?pleasant, alert, well nourished, well developed, well hydrated, with good attention to hygene/body habitus, and in no acute distress.?ORIENTED:?person,place, and time.?Neurological: ?SENSORY:?Neurological exam reveals intact sensorium, pain sensation normal, vibration sensation intact, pinprick sensation is normal in the lower extremities, Pt denies, anesthesia, burning, paresthesia, tingling, B/L, Neurological exam demonstrates pop sub right 1st and 5th mtpj.?TINEL'S COMPRESSION:?Negative tarsal tunnel, landry pedis, and medial calcaneal nerves B/L .?BABINSKI REFLEX:?absent .?Neuroma Pain: ?PALPATION:?No interspace pain noted on palpation.?Vascular: ?DP PULSES:?1/4, B/L.?PT PULSES:?0/4, B/L.?CAPILLARY FILL TIME:?3 secs. per digit, B/L .?SKIN TEMPERTURE GRADIENT OF THE LOWER EXTERMITIES:?warm to cool, proximal to distal, B/L .?HAIR GROWTH/TEXTURE/ELASTICITY/TURGOR:?normal, B/L .?PIGMENTATION:?normal, B/L .?EDEMA:?2/4, B/L, Feet, Ankle(s), Leg(s).?TELANGECTASIA:?moderate.?VARICOSITIES:?present, moderate, nonpainful, B/L.?Dermatologic: ?SKIN FINDINGS:?Skin exam reveals Keratotic lesion(s) located at, SUB MTH (s), 1, 5, B/L .?Orthopedic: ?MUSCLE STRENGTH:?5/5 all groups in a symmetrical fashion , B/L .?GAIT ABNORMALITY:?pronated, abducted, B/L .?DIGITAL DEFORMITIES:?Digital contracture, PIPJ, 2-5 B/L, incompl-reducable to push-up test, no over, nor underlapping.? Assessment: * Assessment: 1.?Pain in right foot - M79. 671?2.?Pain in left foot - M79.672 (Primary)?3.?Metatarsalgia, left foot - M77.42?4.?Metatarsalgia, right foot - M77.41?5.?Other hammer toe(s) (acquired), left foot - M20.42?6.?Other hammer toe(s) (acquired), right foot - M20.41?7.?Primary osteoarthritis, left ankle and foot - M19.072?8.?Primary osteoarthritis, right ankle and foot - M19.071?9.?Plantar fascial fibromatosis - M72.2? Plan: * Treatment: * Procedure Codes:? * Preventive Medicine:? ??Counseling:?Discussion:?-13: Office or other outpatient visit for the evaluation and management of an established patient, which required a medically appropriate history and/or examination and LOW level of DECISION MAKING for: 1 STABLE ACUTE UNCOMPLICATED PROBLEM, 2 OR MORE MINOR PROBLEMS, OR 1 STABLE CHRONIC PROBLEM, THAT POSE(S) A LOW RISK FOR MORBIDITY/MORTALITY. The visit on the day of the encounter encompassed interpreting the data and educating the patient as to the nature of their condition, treatment options available according to their individual PMH, meds, allergies, and overall health/living conditions, as well as any potential risks or complications that may occur from a failure to adhere to, and participate in, the recommended course of therapy. The discussion included a complete verbal, and/or written explanation of the examination results, any x-rays taken, the proposed diagnosis, and outline of the treatment plan. A schedule for future care needs was also explained. The patient verbalized an understanding of the instructions at this time and agreed to be an active participant in their treatment. If the patient should think of any questions or concerns after the visit, I have encouraged the patient to call the office.?Metatarsalgea:?I explained to the patient the possible etiologies of their Metatarsalgea Foot pain, including foot type/shoegear/activity level/exercise routine and the risks/benefits of all the different treatment options for pain including: No treatment at all, Rest, Ice, NSAIDs(only if well tolerated after meals), New/supportive Shoegear, Strappings and Tapings, Foot/Ankle AFO Bracing, Stretching exercises, Deep Tissue Massage, Arch support/shoe inserts, Custom orthoses, Topical analgesics including Aspercream/Voltaren gel, Physical Therapy, Cortisone injection therapy, EPAT/ESWT. Advantages and disadvantages of each option were discussed and the patients questions re: shoegear, custom vs prefabricated inserts, activity level, PO vs Topical medications (and their respective potential complications/drug interactions/side effects), and consistency in home treatment regimens for optimal success were answered to their verbally confirmed satisfaction.? * Follow Up:?prn * Images: * Sign off status: Completed true * Provider:?Alfred Chisholm DPM Date:? 024 Generated for Prosper lopez/Ken/Leeanne on:?12/09/2024 05:45 PM EST History and Physical Notes * HPI (History of Present Illness) Category Sub-Category Detail Notes Category Not es Foot Pain Aggrevated: standing, walking, barefoot walking Onset/Cause: gradual Course: worse Duration: several years Nature: tenderness Treatments: current orthoses are not helping Quality/Severity moderate, severe Location Bottom, Forefoot, B/ L, R>L Examination Category Sub-Category Detail Notes Category Not es Neuroma Pain PALPATION: No interspace pain noted on palpation Neurological SENSORY: Neurological exa m reveals intact sensorium, pain sensation normal, vibration sensation intact, pinprick sensation is normal in the lower extremities, Pt denies, anesthesia, burning, paresthesia, tingling, B/L, Neurological exam demonstrates pop sub right 1st and 5th mtpj BABINSKI REFLEX: absent TINEL'S COMPRESSION: Negative tarsal jenn evie, landry pedis, and medial calcaneal nerves B/L Dermatologic SKIN FINDINGS: Skin exam reveal s Keratotic lesion(s) located at, SUB MTH (s), 1, 5, B/L Orthopedic GAIT ABNORMALITY: pronated, abducted, B/L DIGITAL DEFORMITIES: Digital contracture , PIPJ, 2-5 B/L, incompl-reducable to push-up test, no over, nor underlapping MUSCLE STRENGTH: 5/5 all groups in a symmetrical fashion , B/L General Examination GENERAL APPEARANCE: pleasant , alert, well nourished, well developed, well hydrated, with good attention to hygene/body habitus, and in no acute distress ORIENTED: person,place, and ti me Vascular DP PULSES (B): 1/4, B/L PT PULSES (B): 0/4, B/L CAPILLARY FILL TIME: 3 secs. per digit, B/L TEMPERTURE GRADIENT (C): warm to cool, p roximal to distal, B/L TROPHIC CONDITION-TEXTURE/ELASTICITY/TURGOR/HAIR GROWTH (B): normal, B/L EDEMA (C): 2/4, B/L, Feet, Ankl e(s), Leg(s) TELANGECTASIA: moderate VARICOSITIES: present, moderate, n onpainful, B/L PIGMENTATION: normal, B/L
--- OUTSIDE RECORDS SUMMARY | 2024-12-09 17:45 | XMS_ITS ---
Author Organization [facility] Address [address] [place] [address] Care Team Providers Care Internal Consultant Name Role Phone Ana Dawkins Primary Care Provider Un available Lang Wylie Unavailable [phone] REASON FOR VISIT 2 day supply MEDICATIONS Medication SIG (Take, Route, Frequency, Duration) Notes Start Date End Date Status Balsalazide Disodium 750 MG TAKE 3 CAPSU LES 3 TIMES DAILY Orally Three times a day for 2 days Active Encounters Encounter Location Date Provider Diagnosis [facility] [address] [place] [address] 06/08/2024 Lang Wylie PLAN OF TREATMENT Medication Medication Name Sig Start Date Stop Date Notes Balsalazide Disodium 750 MG TAKE 3 CAPSU LES 3 TIMES DAILY Orally Three times a day for 2 days Next Appt Details Provider Name:Lang Wylie , 12/24/2024 01:00:00 PM, [address], [address], [place], [address],
--- OUTSIDE RECORDS SUMMARY | 2024-12-09 17:45 | XMS_ITS | Patient Health Record ---
Author [facility] Address [address] [place] [address] Care Team Providers Care Returning Officer Name Role Phone Almaz HARRIS, Darrion Primary Care Provider Alfred Rader Unavailable [phone] Allergies Allergen (clinical drug ingredient) Drug/Non Drug Allergy documented on EMR Reaction Allergy Type Onset Date Status Cabbage Cabbage (uncoded) throat swelling Allergy Active Reason For Referral No Information Medications Medication SIG (Take, Route, Fr equency, [...] Are you an other tobacco user? No Problems Problem Type SNOMED Code ICD Code Onset Dates Problem Status W/U Status Risk Notes Problem Localized, primary osteoarthritis of the ankle and/or foot (636347409) Primary osteoarthrit is, right ankle and foot (M19.071) Active confirmed Problem Localized, primary osteoarthritis of the ankle and/or foot (678865149) Primary osteoarthrit is, left ankle and foot (M19.072) Active confirmed Problem Acquired hammer toe of right foot (5205389080233803) Other hammer toe(s) (acquired), right foot (M20.41) Active confirmed Problem Acquired hammer toe of left foot (2027635260355070) Other hammer toe(s) (acquired), left foot (M20.42) Active confirmed Plan Of Treatment Pending Test Test Name Order Date X ray : Foot, left 2V 09/16/2018 X ray : Foot, right 2V 09/16/2018 X ray : Foot, right 3V 10/10/2022 Insurance Providers Payer Name Payer Address Payer Phone Subscriber Number Group Number Insured Name Patient Relationship to Insured Coverage Start Date Coverage End Date Medicare National [employer] [address] [place] [address] [id number] Juventino Escobar Self - patient is the insured [employer] [address] [place] [address] [id number] Juventino Escobar Self - patient is the insured Medical (General) History Medical History History ICD Code Back,Hip,and Knee pain Broken bones Chicken pox Measles Mumps Surgical History Surgery Date(Month/Year) tonsillectomy 1950 appendectomy 1955 lumbar 02/2022
== END 2024-12-09 15:47 | disposition home or self-care (01) ==
PROVIDERS: PCP Physician Assistant; Visit Provider Psychiatry & Neurology Neurology
DX: R41.89 Other symptoms and signs involving cognitive functions and awareness (principal); G47.00 Insomnia, unspecified; F41.9 Anxiety disorder, unspecified; R26.9 Unspecified abnormalities of gait and mobility
CPT/HCPCS: 99214

== ENCOUNTER → 2024-12-09 13:52 | Outpatient (BNVA) | payer MEDICARE, SELFPAY | PROVIDERS: PCP Physician Assistant; Visit Provider Psychiatry & Neurology Neurology | DX: R26.9 Unspecified abnormalities of gait and mobility (principal); R41.89 Other symptoms and signs involving cognitive functions and awareness; G47.00 Insomnia, unspecified; F41.9 Anxiety disorder, unspecified | CPT/HCPCS: 99212 ==

== ENCOUNTER 2024-12-27 11:00 | Outpatient (REF) | payer MEDICARE, SELFPAY ==
--- OUTSIDE RECORDS SUMMARY | 2024-12-27 11:04 | XMS_ITS | Encounter Summary ---
Author Organization [facility] Address [address] [place] [address] Care Team Providers Care Clinical Biostatistician Name Role Phone Ana Silveira Primary Care Provider Encounter Details Date Type Department Care Team (Late st Contact Info) Description 03/20/2021 Orders Only [facility] CT Scan [address] [place] [address] Emilie Cook MD [address] [place] [address] NPH (normal pressure hydrocephalus) (CMS/HCC) (HCC) [...] Info) Description 12/28/2024 10:00 AM EST Appointment [facility] Nuclear Medicine [address] [place] [address] Arsalan Goncalves MD [address] [place] [address] 01/04/2025 4:15 PM EST Telehealth [facility] [address] [place], [place] [id number] Arsalan Goncalves MD [address] [place], [place] [phone] documented as of this encounter Results * Due to [place] state law, this organization might not be sharing negative HIV tests. * COVID-19 PCR, Pre-Surgical (Asymptomatic) (04/07/2021 9:03 AM EDT) SARS CoV 2 RNA, RT PCR Not Detected Not Detected JOSÉ HER QUANT STUDIO 04/07/2021 3:34 PM EDT [facility] Comment:A Not Detected [...] AM EDT 04/07/2021 9:43 AM EDT Narrative [facility] - 04/07/2021 3:34 PM EDT These tests were developed, validated, and their performance characteristics determined by the Molecular Virology Laboratory at [facility] under CLIA [id number]. They have not been cleared or approved by the U.S. Food and Drug Administration (FDA). FDA Policy for Diagnostic Tests for Coronavirus Disease-2019 during the Public Health Emergency issued January 24, 2020, is followed. us Emilie Cook MD LAB BODY FLUIDS AND STOOLS OR DERABLES Final Result [facility] [address] [place], [place] [address] documented in this encounter Visit Diagnoses Diagnosis NPH (normal pressure hydrocephalus) (HCC)- Primary Idiopathic normal pressure hydrocephalus (INPH) documented in this encounter Care Teams Clinical Biostatistician Relationship Specialty Start Date End Date Ana Silveira [address] [place] [address] PCP - General 03/13/23 documented as of this encounter
--- OUTSIDE RECORDS SUMMARY | 2024-12-27 11:04 | XMS_ITS ---
Author Organization [facility] Address [address] [place] [address] Care Team Providers Care Blunger Machine Operator Name Role Phone Ana Dawkins Primary Care Provider Un available Lang Wylie Unavailable [phone] ALLERGIES No Known Allergies REASON FOR VISIT Patient presents today for ulcerative rectosigmoiditis MEDICATIONS Medication SIG (Take, Route, Frequency, Duration) Notes Start Date End Date Status predniSONE 5 MG 2 Orally Once a day for 30 day(s) 05/21/2023 Active Entyvio 300 MG 1 Intravenous Every 6 weeks for 42 days 10/26/2023 Active metFORMIN HCl 500 MG TAKE 1 TABLET BY [facility] DAILY Oral for 30 Active traZODone HCl 50 MG Oral for 30 Active Trospium Chloride 20 MG Oral for 30 Active Vitamin B Complex Ac tive Donepezil HCl 5 MG 1 tablet at bedtime Orally Once a day Active Pepto-Bismol 262 MG/15ML 30 ml Orally Ev christ 4 to 6 hours as needed for indigestion for 30 day(s) 07/09/2024 Active Eliquis 5 MG 1 tablet Orally Twic e a day for 30 day(s) Active Omeprazole 40 MG TAKE 1 CAPSULE BY MO UT EVERY DAY for 30 Active Balsalazide Disodium 750 MG TAKE 3 CAPSULES 3 TIMES DAILY Orally Three times a day for 2 days Active SOCIAL HISTORY Sex Assigned At : Social History Observation Description Sex Assigned At Unknown Alcohol Screen Question Answer Notes Did you have a drink containing alcohol in the p ast year? 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
--- OUTSIDE RECORDS SUMMARY | 2024-12-27 11:04 | XMS_ITS ---
Author Organization [facility] Address [address] [place] [address] Care Team Providers Care Filling Machine Operator Name Role Phone Ana Dawkins Primary Care Provider Un available Lang Wylie Unavailable [phone] REASON FOR VISIT needs renewal entyvio order Encounters Encounter Location Date Provider Diagnosis [facility] [address] [place] [address] 12/23/2024 Lang Wylie PLAN OF TREATMENT Next Appt Details Provider Name:Lang Wylie , 08/23/2025 01:20:00 PM, [address], [address], [place], [address],
--- OUTSIDE RECORDS SUMMARY | 2024-12-27 11:04 | XMS_ITS | Clinical Summary ---
Author Organization [facility] Address [address] [place] [address] Care Team Providers Care Recorder Of Deeds Name Role Phone Ana Silveira Primary Care Provider Allergies Active Allergy Reactions Criticality Noted Date [...] Type Department Care Team Description 12/09/2024 Telephone [facility] Neurosurgery Clinic [address] [place] [address] Telephone Intake, Staff 12/06/2024 Orders Only [facility] Nuclear Medicine [address] [place] [address] Luciana Gray MD 12/05/2024 Orders Only [facility] Neurosurgery Clinic [address] [place] [address] Stephanie Mckenzie PA FILTER WASHER (ventriculoperitone al) shunt status (Primary Dx) 12/03/2024 Orders Only [facility] Neurosurgery Clinic [address] [place] [address] Jamila Ventura, RUBEN FILTER WASHER (ventriculoperitone al) shunt status (Primary Dx) 12/01/2024 Telephone [facility] Neurosurgery Clinic [address] [place] [address] Arsalan Goncalves MD 10/05/2024 1:00 PM EST Follow-Up [facility] Neurosurgery [address] [address] Arsalan Goncalves MD Hydrocephalus, unspecified type (CMS/HCC) (HCC) (Primary Dx) 10/05/2024 11:04 AM EST - 10/05/2024 11:59 PM EST Hospital Encounter [facility] CT Scan [address] [place] [address] Arsalan Goncalves MD FILTER WASHER (ventriculoperitone al) shunt status Discharge Disposition: Home or Self Care () from Last 3 Months Immunizations Immunization Administration Dates Next Due INFLUENZA, SPLIT VIRUS, [...] Info) Description 12/28/2024 10:00 AM EST Appointment [facility] Nuclear Medicine [address] [place] [address] Arsalan Goncalves MD [address] [place] [address] 01/04/2025 4:15 PM EST Telehealth [facility] Building Neurosurgery Clinic [address] [place] [address] Arsalan Goncalves MD [address] [place], [place] [phone] Health Maintenance Due Date Last Done Comments Hepatitis C Screening 1945 DTaP,Tdap,and Td Vaccines (1 - Tdap) 1968 Alcohol/Substance Use Screening 11/10/2024 Depression Screening and Follow-Up 11/10/2024 Health Care Proxy Review 11/10/2024 Social Drivers of Health Annual Screening 11/10/2024 COVID-19 Vaccine ( season) 2025 07/26/2024, 09/25/2023, 08/30/2021, Additional history exists Colonoscopy Discontinued 12/04/2015 Zoster Vaccines Completed 09/21/2021, 06/11, 09/07/2015 Colon Cancer Screening Discontinued FOBT / Fit Test Discontinued 01/28/2023 Sigmoidoscopy Discontinued 01/28/2023 Pneumococcal Vaccine: 50+ Years Completed 09/25/2023, 08/27/2016 RSV Vaccine (60+ years old and patients) Completed 06/29/2024 Influenza Vaccine Completed 07/26/2024, , 11/14/2022, Additional history exists Cologuard Discontinued Hepatitis B Vaccines Aged Out No long er eligible based on patient's age to complete this topic Medical Devices Implanted Type Area Supervisor D[employer] Device Identifier Shelf Expiration Date Model / Serial / Lot Shunt Valve Programmable - [id number] Implanted:Qty: 1 on 02/05/2023 by Arsalan Goncalves MD at [facility] Right: Brain CODMAN 07/10/2027 [id number] / / [id number] Procedures * Due to [place] Umami law, this organization might not be sharing negative HIV tests. Procedure Name Priority Date/Time Associated Diagnosis Comments CT HEAD WO CONTRAST Routine 10/05/2024 1 1:13 AM EST FILTER WASHER (ventriculoperitone al) shunt status from Last 3 Months Results * Due to [place] Umami law, this organization might not be sharing [...] obtain the completed interpretation. ? Workstation ID: [id number] Up-to-date CT equipment and radiation dose reduction [...] status post lens replacement. Resulting Agency Comment [id number] Procedure Note Jose Alberto Lowe MD - [...] possible to obtain thecompleted interpretation. Workstation ID: [id number] Up-to-date CT equipment and radiation dose reduction techniques wereemployed. CTDIvol: 46.8 mGy. DLP: 1023 mGy-cm. 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
--- OUTSIDE RECORDS SUMMARY | 2024-12-27 11:04 | XMS_ITS | Encounter Summary ---
Author Organization [facility] Address [address] [place] [address] Care Team Providers Care Auto Damage Estimator Name Role Phone Ana Silveira Primary Care Provider Encounter Details Date Type Department Care Team (Late st Contact Info) Description 03/20/2021 Telephone [facility] Interventional Radiology [address] [place] [address] [phone] Mary Lou Social History Tobacco Use Types [...] this test performed. Your preference in location ([facility] or [facility]) will be included in the lab [...] postponement of your procedure.If you have a [employer] account for your [facility] medical record, you can view these results inyour account once they are ready. Don???t hesitate to contact our office if you have any questions.Please note that if your test returns POSITIVE for COVID-19, we will notify the [place] Department of Public Health, as we are [...] clean your hands with an alcohol-based hand deputy court that contains 60 to 95% alcohol, covering [...] Info) Description 12/28/2024 10:00 AM EST Appointment [facility] Nuclear Medicine [address] [place] [address] Arsalan Goncalves MD [address] [place] [address] 01/04/2025 4:15 PM EST Telehealth [facility] Building Neurosurgery Clinic [address] [place] [address] Arsalan Goncalves MD [address] [place] [address] documented as of this encounter Visit Diagnoses Not on filedocumented in this encounter Care Teams Auto Damage Estimator Relationship Specialty Start Date End Date Ana Silveira [address] [place] [phone] PCP - General 03/13/23 documented as of this encounter
--- OUTSIDE RECORDS SUMMARY | 2024-12-27 11:04 | XMS_ITS | Encounter Summary ---
Author Organization [facility] Address [address] [place] [address] Care Team Providers Care Rodbuster Name Role Phone Ana Silveira Primary Care Provider Encounter Details Date Type Department Care Team (Late st Contact Info) Description 03/22/[address] [facility] Interventional Radiology [address] [place] [address] Mackenzie Narayan PA [address] [place] [address] Social History Tobacco Use Types Packs/Day Years [...] Info) Description 12/28/2024 10:00 AM EST Appointment [facility] Nuclear Medicine [address] [place] [address] [phone] Arsalan Goncalves MD [address] [place] [address] 01/04/2025 4:15 PM EST Telehealth [facility] Neurosurgery Clinic [address] [place], [place] [phone] Arsalan Goncalves MD [address] [place] [address] documented as of this encounter Visit Diagnoses Not on filedocumented in this encounter Care Teams Rodbuster Relationship Specialty Start Date End Date Ana Silveira [address] [place] [phone] PCP - General 03/13/23 documented as of this encounter
--- OUTSIDE RECORDS SUMMARY | 2024-12-27 11:04 | XMS_ITS | Patient Health Record ---
[facility] Address [address] [place] [address] Care Team Providers Care Spray Crew Name Role Phone Almaz HARRIS, Darrion Primary Care Provider Alfred Rader Unavailable [phone] Allergies Allergen (clinical drug ingredient) Drug/Non Drug [...] primary osteoarthritis of the ankle and/or foot (150631328) Primary osteoarthrit is, right ankle and foot (M19.071) Active confirmed Problem Localized, primary osteoarthritis of the ankle and/or foot (929771263) Primary osteoarthrit is, left ankle and foot (M19.072) Active confirmed Problem Acquired hammer toe of right foot (8387264144090332) Other hammer toe(s) (acquired), right foot (M20.41) Active confirmed Problem Acquired hammer toe of left foot (5908154097868478) Other hammer toe(s) (acquired), left foot (M20.42) [...] Inc [address] [place] [address] [id number] Juventino Escobar Self - patient is the insured [employer] [address] [place] [address] [id number] Juventino Escobar Self - patient is the insured Medical (General) History Medical History History ICD Code Back,Hip,and Knee pain Broken bones Chicken pox Measles Mumps Surgical History Surgery Date(Month/Year) tonsillectomy 1950 appendectomy 1955 lumbar 02/2022
--- OUTSIDE RECORDS SUMMARY | 2024-12-27 11:05 | XMS_ITS | Patient Health Record ---
Author Organization [facility] Address [address] [place] [address] Care Team Providers Care Putty Maker Name Role Phone Ana Dawkins Primary Care Provider Un available Inessa Lang Unavailable [phone] ALLERGIES No Known Allergies RESULTS Component Value Reference Range Notes Complete Blood Count Auto Di ff Reviewed date:01/15/2024 12:52:04 AM Interpretation: Performing Lab:[facility], [address] [place] [phone] Notes/Report: White Blood Count 10.8 4.8-10.8 X10*3/uL [...] CHOW Reviewed date:02/21/2024 01:01:23 AM Interpretation: Performing Lab:[facility], [address] [place] [phone] Notes/Report: Janetteeus Deyanira CHOW SEE NOTE SEE SCA NNED RESULTS IN EMR Calprotectin, Fecal Reviewed date:03/10/2024 10:06:47 PM Interpretation: Performing Lab:[facility], [address] [place] [phone] Notes/Report: Calprotectin, Fecal 3340 Reference Range: <50 [...] borderline values. THIS TEST WAS PERFORMED AT: [employer]/[facility] [address] [place] [address] DAGOBERTO JOHNSON MD,PHD,SOREN Taiwo CHOW (Not ye t reviewed by provider) Interpretation: Performing Lab:[facility], [address] [place] [phone] Notes/Report: Jebs Deyanira CHOW SEE NOTE SEE SCA NNED RESULTS IN EMR Complete Blood Count Auto Di ff Reviewed date:04/02/2024 06:00:11 PM Interpretation: Performing Lab:[facility], [address] [place] [phone] Notes/Report: White Blood Count 7.9 4.8-10.8 X10*3/uL [...] te Reviewed date:04/02/2024 06:00:36 PM Interpretation: Performing Lab:[address] [address] Notes/Report: Erythrocyte Sedimentation Rate 10 0-15 MM/HR Patients with polycythemia and many hemoglobin abnormalities may have depressed sed rates whereas patients with anemia may have elevated sed rates. C Reactive Protein Reviewed date:04/02/2024 06:00:20 PM Interpretation: Performing Lab:[address] [address] Notes/Report: C Reactive Protein < 0.10 < or = 0.50 mg/dL T Spot TB Reviewed date:11/18/2024 09:38:35 PM Interpretation: Performing Lab:[facility], [address] [place] [address] Notes/Report: TSpotTB Negative Negative A negative test [...] Passed For additional information, please refer to http://education.[employer]/faq/YQZ475 (This link is being provided for informational/ educational purposes only.) THIS TEST WAS PERFORMED AT: [employer]/[address] [address] WANDA LESTER MD,PHD REASON FOR REFERRAL No Information MEDICATIONS Medication SIG (Take, Route, Frequency, Duration) Notes Start Date End Date Status predniSONE 5 MG 2 Orally Once a day for 30 day(s) 05/21/2023 Active Entyvio 300 MG 1 Intravenous Every 6 weeks for 42 days 10/26/2023 Active metFORMIN HCl 500 MG TAKE 1 TABLET BY [facility] DAILY Oral for 30 Active traZODone HCl 50 MG Oral for 30 Active Vitamin B Complex Ac tive Trospium Chloride 20 MG Oral for 30 Active Donepezil HCl 5 MG 1 tablet at bedtime Orally Once a day Active Pepto-Bismol 262 MG/15ML 30 ml Orally Ev christ 4 to 6 hours as needed for indigestion for 30 day(s) 07/09/2024 Active Eliquis 5 MG 1 tablet Orally Twic e a day for 30 day(s) Active Balsalazide Disodium 750 MG TAKE 3 CAPSULES 3 TIMES DAILY Orally Three times a day for 2 days Active Omeprazole 40 MG TAKE 1 CAPSULE BY [facility] EVERY DAY for 30 Active IMMUNIZATIONS Vaccine Route Administration Date Status Comme nts Influenza Unknown 07/11/2020 Administered Influenza Unknown 07/11/2021 Administered Influenza Unknown 07/11/2022 Administered Influenza Unknown 09/10/2023 Administered Influenza Unknown 08/03/2024 Administered SOCIAL HISTORY Sex Assigned At : Social History Observation Description Sex Assigned At Unknown Alcohol Screen Question Answer Notes Did you have a drink containing alcohol in the p ast year? 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) Active confirmed Chronic u lcerative rectosigmoiditis (90649169) Problem Preprocedural examination (Z01.818) Active confirmed 838791140966061 Problem Ulcerative rectosigmoiditis without complication (K51.30) Active confirmed 55877523 Problem Constipation, unspecified constipation type (K59.00) Active confirmed 80759968 Problem 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) Active confirmed Chronic ulcerat edwin rectosigmoiditis (40765016) Problem 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) Active confirmed Diverticular disease of colon (213458642) Problem 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) Active confirmed 46798069 Problem Diarrhea of presumed infectious origin (R19.7) Active confirmed 99081145 VITAL SIGNS Heart Rate 72 /min 02/12/2024 Temperature 97.9 degrees Fahrenheit 12/24/2024 Blood pressure diastolic 00 mm Hg 12/24/2024 Height 71 in 12/24/2024 Blood pressure systolic 000 mm Hg 12/24/2024 Weight 230 lbs 12/24/2024 BMI 32.07 kg/m2 12/24/2024 Encounters Encounter Location Date Provider Diagnosis [facility] [address] [place] [phone] 02/12/2024 Lang Wylie Chronic ulcerative rectosigmoiditis without complications K51.30 [facility] [address] [place] [phone] 06/24/2024 Lang Wylie Chronic ulcerative rectosigmoiditis without complications K51.30 [facility] [address] [place] [phone] 12/24/2024 Lang Wylie Encounter for screen ing for malignant neoplasm of colon Z12.11 and Chronic ulcerative rectosigmoiditis without complications K51.30 [facility] [address] [place] [phone] 03/07/2024 Lang Wylie Chronic ulcerative rectosigmoiditis without complications K51.30 [facility] [address] [place] [phone] 04/07/2024 Lang Wylie [facility] [address] [place] [phone] 06/08/2024 Lang Wylie [facility] [address] [place] [phone] 07/09/2024 Lang Wylie [facility] [address] [place] [phone] 12/23/2024 Lang Wylie ASSESSMENTS Encounter Date Diagnosis Assessment [...] Continue the one 5mg prednisone pill daily. 12/24/2024 Encounter for screening for malignant neoplasm of colon (ICD-10 - Z12.11) 12/24/2024 Chronic ulcerative rectosigmoiditis without complications (ICD-10 - K51.30) 03/07/2024 Chronic ulcerative rectosigmoiditis without complications (ICD-10 [...] PROFILE 11/17/2023 LIVER PROFILE 12/10/2023 LIVER PROFILE 12/24/2024 LIVER PROFILE 09/10/2023 LIVER PROFILE 11/01/2021 TSH (THYROID STIMULATING HORMONE) 2020 CRP 08/13/2022 CRP 11/01/2021 CRP 07/18/2022 CRP 03/31/2023 CRP 11/17/2023 CRP 03/07/2024 CRP 12/10/2023 VITAMIN B12 AND FOLATE 08/13/2022 CBC w DIFF 12/24/2023 CBC w DIFF 11/01/2021 CBC w DIFF 08/13/2022 CBC w DIFF 07/18/2022 CBC w DIFF 03/31/2023 CBC w DIFF 11/17/2023 CBC w DIFF 12/24/2024 CBC w DIFF 09/10/2023 CBC w DIFF 03/07/2024 CBC w DIFF 12/10/2023 SED RATE (ESR) 11/17/2023 SED RATE (ESR) 03/07/2024 SED RATE (ESR) 12/10/2023 SED RATE (ESR) 11/01/2021 SED RATE (ESR) 08/13/2022 SED RATE (ESR) 07/18/2022 SED RATE (ESR) 03/31/2023 STOOL WBC 03/31/2023 C DIFFICILE RFLX PCR 03/31/2023 IRON PROFILE 08/13/2022 Ferritin 08/13/2022 Prometheus Anser VDZ 12/24/2024 Prometheus Anser VDZ 09/10/2023 Prometheus Anser VDZ 03/07/2024 Prometheus Anser VDZ 04/02/2024 Prometheus Anser VDZ 12/24/2023 T Spot TB 07/18/2022 Calprotectin, Fecal 11/17/2023 Future Test Test Name Order Date COLONOSCOPY 02/16/2015 COLONOSCOPY 03/20/2021 COLONOSCOPY 11/02/2021 Next Appt Details Provider Name:Lang Wylie , 08/23/2025 01:20:00 PM, [address] [place] [address], [address], [place], [address], Insurance Providers Payer Name Payer Address Payer Phone Subscriber Number Group Number Insured Name Patient Relationship to Insured Coverage Start Date Coverage End Date MEDICARE OF [place] [address] [place] [address] [phone] [id number] JANIE GONZALEZ Self - patient is the insured [employer] CLAIM[employer] [address] [place] [address] [id number] JANIE GONZALEZ Self - patient is the insured MEDICAL (GENERAL) HISTORY Medical History History ICD Code Denies [place],DM,CVA,Lung disease,renal dise ase Neg. screening colonoscopy, except for diverticulosis and internal hemorrhoids in 02/2002-Dr. Bejarano EGD in [id number] H.pylori-Dr. 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 Spencer Hospitalization [facility] Mar, 2023, for increasing GI [...] hendrix he was planning to go to [facility] in [place] the week of 02/16/24 to be evaluated by the neurosurgeon in regard to his ventriculoperitoneal shunt. 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 However, before he has the MRI the shunt apparently needs to be adjusted by the neurosurgeon. Surgical History Surgery Date(Month/Year) Tonsillectomy 1950,1967 Appendectomy 1955 V-P shunt placed at [facility] in [place] 2022 Bilateral Cataracts 2023
--- OUTSIDE RECORDS SUMMARY | 2024-12-27 11:05 | XMS_ITS ---
Author Organization [facility] Address [address] [place] [address] Care Team Providers Care Hotel Sales Manager Name Role Phone Ana Dawkins Primary Care Provider Un available Lang Wylie Unavailable [phone] REASON FOR VISIT omperazole refill MEDICATIONS Medication SIG (Take, Route, Frequency, Duration) Notes Start Date End Date Status Pepto-Bismol 262 MG/15ML 30 ml Orally Ev christ 4 to 6 hours as needed for indigestion for 30 day(s) 07/09/2024 Active Encounters Encounter Location Date Provider Diagnosis [facility] [address] [place] [address] 07/09/2024 Lang Wylie PLAN OF TREATMENT Medication Medication Name Sig Start Date Stop Date Notes Pepto-Bismol 262 MG/15ML 30 ml Orally Ev christ 4 to 6 hours as needed for indigestion for 30 day(s) 07/09/2024 Next Appt Details Provider Name:Lang Wylie , 08/23/2025 01:20:00 PM, [address], [address], [place], [address],
--- OUTSIDE RECORDS SUMMARY | 2024-12-27 11:05 | XMS_ITS ---
Author Organization [facility] Address [address] [place] [address] Care Team Providers Care Senior Attorney Name Role Phone Darrion Muse MD Primary Care Provider Alfred Rader Unavailable [phone] Allergies Allergen (clinical drug ingredient) Drug/Non Drug [...] 024 Encounters Encounter Location Date Provider Diagnosis [facility] [address] [place] [address] 11/12/2023 Alfred Chisholm Pain in left foot [...] Juventino ESCOBAR DDOB:[birth year] (78 yo M)Acc No.[id number]:11/12/2023 Progress Note Patient:?Juventino Escobar Provider:?Alfred Chisholm DPM :1945???Age:78 Y???Sex:Male Juan M e:11/12/2023 Address:[address] [place], [place] [address] Pcp:Darrion Muse MD Subjective: * Chief Complaints: [...] ?Marital status: . 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 * Medications:?TakingDonepezil HCl 10 [...] * Vitals:?Ht: 6 ft, Wt: 200, B NM: 27.12, Shoe size: 13E, BP: 120/80 mm [...] DPM Date:? 024 Generated for Prosper lopez/Ken/Leeanne on:?12/27/2024 11:05 AM EST History and Physical Notes * HPI [...]
--- OUTSIDE RECORDS SUMMARY | 2024-12-27 11:05 | XMS_ITS | Encounter Summary ---
Author Organization [facility] Address [address] [place] [address] Care Team Providers Care Dope Sprayer Name Role Phone Ana Silveira Primary Care Provider Encounter Details Date Type Department Care Team (Late st Contact Info) Description 12/09/2024 Telephone [facility] Neurosurgery Clinic [address] [place] [address] Telephone Intake, Staff Social History Tobacco [...] the Shuntogram. Please contact Juventino directly at [phone] to schedule. documented in this encounter Plan of Treatment Upcoming Encounters Date Type Department Care Team (Late st Contact Info) Description 12/28/2024 10:00 AM EST Appointment [facility] Nuclear Medicine [address] [place] [address] Arsalan Goncalves MD [address] [place] [address] 01/04/2025 4:15 PM EST Telehealth [facility] Building Neurosurgery Clinic [address] [place] [address] Arsalan Goncalves MD [address] [place] [address] documented as of this encounter Visit Diagnoses Not on filedocumented in this encounter Care Teams Dope Sprayer Relationship Specialty Start Date End Date Ana Silveira [address] [place] [phone] PCP - General 03/13/23 documented as of this encounter
--- OUTSIDE RECORDS SUMMARY | 2024-12-27 11:05 | XMS_ITS | Encounter Summary ---
Author Organization [facility] Address [address] [place] [address] Care Team Providers Care Bailer Tenders Supervisor Name Role Phone Ana Silveira Primary Care Provider Encounter Details Date Type Department Care Team (Late st Contact Info) Description 12/06/2024 Orders Only [facility] Nuclear Medicine [address] [place] [address] [phone] Luciana Gray MD [address] [place] [phone] Social History Tobacco Use Types Packs/Day Years [...] Info) Description 12/28/2024 10:00 AM EST Appointment [facility] Nuclear Medicine [address] [place] [address] [phone] Arsalan Goncalves MD [address] [place] [address] [phone] 01/04/2025 4:15 PM EST Telehealth [facility] Neurosurgery Clinic [address] [place], [place] [phone] Arsalan Goncalves MD [address] [place] [address] documented as of this encounter Visit Diagnoses Not on filedocumented in this encounter Care Teams Bailer Tenders Supervisor Relationship Specialty Start Date End Date Ana Silveira [address] [place] [phone] PCP - General 03/13/23 documented as of this encounter
--- OUTSIDE RECORDS SUMMARY | 2024-12-27 11:05 | XMS_ITS | Referral Summary ---
Author Organization [facility] Address [address] [place] [address] Care Team Providers Care Music Rehabilitation Therapist Name Role Phone Ana Silveira Primary Care Provider Encounters Date Type Department Care Team Description 12/09/2024 Telephone [facility] Neurosurgery Clinic [address] [place] [phone] Telephone Intake, Staff 12/06/2024 Orders Only [facility] Nuclear Medicine [address] [place] [phone] Luciana Gray MD 12/05/2024 Orders Only [facility] Neurosurgery Clinic [address] [place] [phone] Stephanie Mckenzie PA PROCUREMENT PROFESSIONAL (ventriculoperitone al) shunt status (Primary Dx) 12/03/2024 Orders Only [facility] Neurosurgery Clinic [address] [place] [phone] Jamila Ventura NP PROCUREMENT PROFESSIONAL (ventriculoperitone al) shunt status (Primary Dx) 12/01/2024 Telephone [facility] Neurosurgery [address] [address] Arsalan Goncalves MD 10/05/2024 1:00 PM EST Follow-Up [facility] Neurosurgery [address] [address] Arsalan Goncalves MD Hydrocephalus, unspecified type (CMS/HCC) (HCC) (Primary Dx) 10/05/2024 11:04 AM EST - 10/05/2024 11:59 PM EST Hospital Encounter [facility] CT Scan [address] [place] [address] Arsalan Goncalves MD PROCUREMENT PROFESSIONAL (ventriculoperitone al) shunt status Discharge Disposition: Home [...] (CMS/HC C) 11/08/2022 Gait difficulty 05/17/2021 Immunizations Immunization Administration Dates Next Due INFLUENZA, [...] Info) Description 12/28/2024 10:00 AM EST Appointment [facility] Nuclear Medicine [address] [place] [address] Arsalan Goncalves MD [address] [place] [address] 01/04/2025 4:15 PM EST Telehealth [facility] Neurosurgery Clinic [address] [place] [address] Arsalan Goncalves MD [address] [place] [address] Medical Devices Implanted Type Area Ranch Hand Supervisor Device Identifier Shelf Expiration Date Model / Serial / Lot Shunt Valve Programmable - [id number] Implanted:Qty: 1 on 02/05/2023 by Arsalan Goncalves MD at [facility] Implant Right: Brain CODMAN 07/10/2027 [id number] / / [id number] Procedures * Due to [place] Squabbler law, this organization might not be sharing negative HIV tests. Procedure Name Priority Date/Time Associated Diagnosis Comments CT HEAD WO CONTRAST Routine 10/05/2024 1 1:13 AM EST PROCUREMENT PROFESSIONAL (ventriculoperitone al) shunt status from Last 3 Months Results * Due to [place] Squabbler law, this organization might not be sharing [...] obtain the completed interpretation. ? Workstation ID: [id number] Up-to-date CT equipment and radiation dose reduction [...] status post lens replacement. Resulting Agency Comment [id number] Procedure Note Jose Alberto Lowe MD - [...] possible to obtain thecompleted interpretation. Workstation ID: [id number] Up-to-date CT equipment and radiation dose reduction techniques wereemployed. CTDIvol: 46.8 mGy. DLP: 1023 mGy-cm. Arsalan Goncalves MD IM CT PROCEDURES Final Result from Last 3 Months Insurance MEDICARE BCBS MCR SUPP Advance Directives Documents on File Type Date Recorded Patient Instructor Apparel Manufacture Expl anation Health Care Proxy 01/28/2023 9:53 AM * Presumed Full Code (Latest Code Status on File) Date Activated Date Inactivated Comments 02/05/2023 5:07 PM 02/06/2023 8:04 PM * Presumed Full Code Date Activated Date Inactivated Comments 02/05/2023 8:04 AM 02/05/2023 5:07 PM Healthcare Agents on File Name Relationship Healthcare Agent Relationshi p Communication Etienne Major Health Care Agent Care Teams Music Rehabilitation Therapist Relationship Specialty Start Date End Date Ana Silveira [address] [place] [phone] PCP - General 03/13/23
--- OUTSIDE RECORDS SUMMARY | 2024-12-27 11:05 | XMS_ITS | Encounter Summary ---
Author Organization [facility] Address [address] [place] [address] Care Team Providers Care Fleece Tier Name Role Phone Ana Silveira Primary Care Provider Encounter Details Date Type Department Care Team (Late st Contact Info) Description 12/01/2024 Telephone [facility] Neurosurgery Clinic [address] [place] [address] Arsalan Goncalves MD [address] [place] [address] [phone] Social History Tobacco Use Types Packs/Day Years [...] he could have the shuntogram performed in [place] if possible. Hesaid he needs to stay close to home for an undefined period of time because his 's caregiver has been hospitalized for a major operation and he needs to be there with his for now. He can go to [facility] ([phone] - main switchboard) or [facility] if eitherof these locations could perform this test. Please contact him directly at [phone] to advise what can be done. * [...] Info) Description 12/28/2024 10:00 AM EST Appointment [facility] Nuclear Medicine [address] [place] [address] Arsalan Goncalves MD [address] [place] [phone] 01/04/2025 4:15 PM EST Telehealth [facility] Building Neurosurgery Clinic [address] [place] [address] Arsalan Goncalves MD [address] [place] [phone] documented as of this encounter Visit Diagnoses Not on filedocumented in this encounter Care Teams Fleece Tier Relationship Specialty Start Date End Date Ana Silveira [address] [place] [phone] PCP - General 03/13/23 documented as of this encounter
--- OUTSIDE RECORDS SUMMARY | 2024-12-27 11:05 | XMS_ITS | Encounter Summary ---
Author Organization [facility] Address [address] [place] [address] Care Team Providers Care Front Office Specialist Name Role Phone Ana Silveira Primary Care Provider Encounter Details Date Type Department Care Team (Late st Contact Info) Description 12/03/2024 Orders Only [facility] Neurosurgery Clinic [address] [place], [place] [phone] Jamila Ventura NP [address] [place] [address] FORESTRY BIOLOGY SPECIALIST (ventriculoperitoneal ) shunt status (Primary Dx) Social [...] Info) Description 12/28/2024 10:00 AM EST Appointment [facility] Nuclear Medicine [address] [place] [address] Arsalan Goncalves MD [address] [place] [address] 01/04/2025 4:15 PM [facility] Telehealth [facility] Neurosurgery Clinic [address] [place] [address] Arsalan Goncalves MD [address] [place] [address] documented as of this encounter Visit Diagnoses Diagnosis FORESTRY BIOLOGY SPECIALIST (ventriculoperitoneal) shunt status- Primary documented in this encounter Care Teams Front Office Specialist Relationship Specialty Start Date End Date Ana Silveira [address] [place] [phone] PCP - General 03/13/23 documented as of this encounter
--- OUTSIDE RECORDS SUMMARY | 2024-12-27 11:05 | XMS_ITS | Encounter Summary ---
Author Organization [facility] Address [address] [place] [address] Care Team Providers Care Art Conservator Name Role Phone Ana Silveira Primary Care Provider [phone] Reason for Referral * Diagnostic Imaging (Routine) - Authorized Specialty Diagnoses / Procedures Referred By Contac t Referred To Contact Diagnoses COLLAR BASTER JUMPBASTING (ventriculoperitoneal) shunt status Procedures NM Cerebral Shunt Patency Arsalan Goncalves MD [address] [place] [phone] Phone: tel: fax: Referral ID Status Reason Start Date Expiration Date V isits Requested Visits Authorized [id number] Authorized 12/05/2024 06/06/2026 4 4 Encounter Details Date Type Department Care Team (Late st Contact Info) Description 12/05/2024 Orders Only [facility] Neurosurgery Clinic [address] [place] [phone] Stephanie Mckenzie PA [address] [place] [phone] COLLAR BASTER JUMPBASTING (ventriculoperitoneal ) shunt status (Primary Dx) Social [...] Info) Description 12/28/2024 10:00 AM EST Appointment [facility] Nuclear Medicine [address] [place] [address] Arsalan Goncalves MD [address] [place] [address] 01/04/2025 4:15 PM EST Telehealth [facility] Building Neurosurgery Clinic [address] [place] [address] Arsalan Goncalves MD [address] [place] [phone] Scheduled Orders Name Type Priority Associated Diagnoses Orde r Schedule NM Cerebral Shunt Patency Imaging Routine COLLAR BASTER JUMPBASTING (ventriculoperitoneal) shunt status Expected: 12/05/2024 (Approximate), Expires: 02/02/2026 documented as of this encounter Visit Diagnoses Diagnosis COLLAR BASTER JUMPBASTING (ventriculoperitoneal) shunt status- Primary documented in this encounter Care Teams Art Conservator Relationship Specialty Start Date End Date Ana Silveira [address] [place] [phone] PCP - General 03/13/23 documented as of this encounter
[2024-12-27 11:16] LABS: MANUAL DIFF FLAG NO
[2024-12-27 11:33] LABS: Basophils Absolute Auto 0.1 X10*3/uL (0.0-0.2); Basophils Percent Auto 0.8 % (0-2); Eosinophils Absolute Auto 0.9 X10*3/uL (0.0-0.4); Eosinophils Percent Auto 9.5 % (0-4); Hematocrit 40.8 % (42.0-52.0); Hemoglobin 12.9 g/dl (14.0-18.0); Imm Gran Abs Auto 0.03 X10*3/uL (0.00-0.03); Imm Gran Pct Auto 0.3 % (0.0-0.4); Lymphocytes Absolute Auto 2.9 X10*3/uL (1.2-4.9); Mean Corpuscular HGB Conc 31.6 g/dl (31.0-36.0); Mean Corpuscular Hemoglobin 28.6 pg (27.0-33.0); Mean Corpuscular Volume 90.5 fL (80.0-98.0); Monocytes Absolute Auto 0.8 X10*3/uL (0.1-1.2); Monocytes Percent Auto 8.1 % (2-11); Neutrophils Absolute Auto 5.2 x10*3/uL (2.0-8.3); Neutrophils Percent Auto 52.3 % (45-73); Platelet Count 269 X10*3/uL (160-400); Red Blood Count 4.51 X10*6/uL (4.60-5.80); Red Cell Distribution Width 15.3 % (11.0-16.0); White Blood Count 9.9 X10*3/uL (4.8-10.8)
[2024-12-27 11:58] LABS: Alanine Aminotransferase 14 U/L (0-40); Albumin Level 4.1 g/dL (3.5-5.0); Alkaline Phosphatase 83 U/L (39-117); Aspartate Amino Transferase 27 U/L (5-37); Bilirubin Direct < 0.2 mg/dL (0.0-0.5); Bilirubin Total 0.2 mg/dL (0.0-1.0); Total Protein 8.2 g/dL (6.5-8.0)
== END 2024-12-27 11:01 | disposition home or self-care (01) ==
LOC: HO.LAB 11:00
PROVIDERS: PCP Internal Medicine; Visit Provider Internal Medicine
DX: K51.30 Ulcerative (chronic) rectosigmoiditis without complications (principal)
CPT/HCPCS: 36415; 80076; 80280; 82542; 85025

== ENCOUNTER → 2025-01-05 23:59 | Outpatient (BNV) | payer MEDICARE, SELFPAY ==
--- NOTE | 2025-01-10 08:48 | MHC.OFFVIS ---
Intake Visit Reasons: Remote ILR check- [employer] Allergies cabbage Allergy (Severe, Verified 12/09/24 14:05) throat swells [facility] Medical History T2DM (type 2 diabetes mellitus) SVT (supraventricular tachycardia) Type 2 diabetes mellitus with obesity Abnormal LFTs Insomnia Obesity COVID-19 vaccine administered Gait instability History of BPH Dementia Arthritis History of lumbar puncture Cerebral ventriculomegaly Surgical History History of brain shunt Hx of appendectomy History of esophagogastroduodenoscopy (EGD) H/O colonoscopy History of tonsillectomy Family History Father No problems noted. Mother No problems noted. Social History Household Members: Spouse Housing: House Do you presently have visiting nurse or other home services: No Alcohol intake: never Patient Tobacco Use Status: Never used Tobacco e-Cigarette/Vaping Use: Never Used Second Hand Smoke Exposure: No service: No Current occupational status: employed Cognitive needs: Yes (cane) Hearing needs: No Vision needs: Yes (Glasses) Office Procedures Cardiac Device Check Cardiac Device Check Details: Date of service 01/05/2025; in the current monitoring period, there are no significant events. [id number] Cardiac Interrogation, subcut cardiac rhythm monitor Procedure code (CPT) selection complete Assessment & Plan Assessment & Plan (1) Implantable loop recorder present: Code(s): Z95.818 - Presence of other cardiac implants and grafts Category: Medical (2) Atrial arrhythmia: Code(s): I49.8 - Other specified cardiac arrhythmias Category: Medical Plan x Coding Level of Care Code Procedure Only Diagnoses Implantable loop recorder present Z95.818 Atrial arrhythmia I49.8 CPT Codes Cardiac Device Check - Cardiac Device 16: [id number] Cardiac Interrogation, subcut cardiac rhythm monitor ([id number])
== END ==
PROVIDERS: PCP Internal Medicine; Visit Provider Internal Medicine
DX: I49.8 Other specified cardiac arrhythmias (principal); Z95.818 Presence of other cardiac implants and grafts
CPT/HCPCS: 93298

== ENCOUNTER 2025-01-13 10:32 | Outpatient (AMB) | payer MEDICARE, SELFPAY ==
--- NOTE | 2025-01-13 10:53 | A.OFFVIS_ITS ---
Vital Signs 01/13/25 10:56 Height 6 ft Weight 239 lb 6.752 oz BMI 32.5 BP 120/62 Blood Pressure Location Lt brachial Position Sitting Pulse 60 Pulse Source Pulse Oximeter Intake Visit Reasons: 6 mth f/up Logistics/Shipper Required: No Accompanied by: Self / Same As Patient Allergies cabbage Allergy (Severe, Verified 12/09/24 14:05) throat swells Medication List - Last Reconciled 01/13/25 by Jimenez Spencer MD apixaban (Eliquis) 5 mg PO BID 90 days balsalazide 2,250 mg PO TID blood sugar diagnostic (FreeStyle Lite Strips) test blood sugar twice a day blood-glucose meter (FreeStyle Lite Meter kit) As directed cholecalciferol (vitamin D3) 1,250 mcg PO QWEEK donepezil 10 mg PO BEDTIME flash glucose scanning reader (Lavaboomyle Tyrese [address] Day [place]) As directed lancets (Organically MaidStyle Lancets) As directed metformin 500 mg PO DAILY metformin ER 500 mg PO BID omeprazole 40 mg PO DAILY prednisone 5 mg PO tamsulosin 0.8 mg PO BEDTIME trazodone 50 mg PO BEDTIME 30 days trospium 20 mg PO DAILY HPI Comments Details: Juventino returns for follow-up. He underwent an implantable loop recorder implantation due to syncopal episodes. So far, no clear etiology detected. He has not had any recurring episodes of syncope either. Otherwise, also detected to have atrial fibrillation episodes and started anticoagulation. He also underwent cardiac catheterization but no significant findings. Has neurological issues for which he goes to [place]. Since last seen, he just feels about the same as before. However, no further syncope. [facility] Medical History T2DM (type 2 diabetes mellitus) SVT (supraventricular tachycardia) Type 2 diabetes mellitus with obesity Abnormal LFTs Insomnia Obesity COVID-19 vaccine administered Gait instability History of BPH Dementia Arthritis History of lumbar puncture Cerebral ventriculomegaly Surgical History History of brain shunt Hx of appendectomy History of esophagogastroduodenoscopy (EGD) H/O colonoscopy History of tonsillectomy Family History Father No problems noted. Mother No problems noted. Social History Household Members: Spouse Housing: House Do you presently have visiting nurse or other home services: No Alcohol intake: never Patient Tobacco Use Status: Never used Tobacco e-Cigarette/Vaping Use: Never Used Second Hand Smoke Exposure: No service: No Current occupational status: employed Cognitive needs: Yes (cane) Hearing needs: No Vision needs: Yes (Glasses) Review of Systems Const Denies chills, Denies fatigue, Denies fever(s), Denies frequent falls, Denies weakness, Denies weight gain and Denies weight loss ENT Denies dizziness Card Denies chest pain, Denies leg edema, Denies lightheadedness, Denies palpitations, Denies dyspnea and Denies dyspnea on exertion Resp Denies cough, Denies dyspnea and Denies dyspnea on exertion GI Denies hematochezia Musc Denies abnormal gait, Denies muscle weakness, Denies numbness, Denies radiating pain into limb and Denies tingling Neuro Denies abnormal gait, Denies dizziness, Denies frequent falls, Denies numbness, Denies tingling and Denies weakness Endo Denies fatigue and Denies palpitations Physical Exam Vital Signs: Last Vital Signs Pulse 60 01/13/25 10:56 BP 120/62 01/13/25 10:56 BMI result Body Mass Index 32.5 Const General: comfortable and no acute distress Orientation/consciousness: patient oriented x3 HEENT Other: Unremarkable Head: Yes normal to inspection Neck Neck: Yes normal visual inspection Chest Chest palpation & inspection: normal inspection of the chest Resp Auscultation: clear to auscultation bilaterally Cardio Palpation: normal PMI Heart sounds: S1 normal heart sound present, S2 normal heart sound present, no gallops, no murmurs and no rubs GI Palpation (GI): Soft to palpation Back/Spine/Pelvis Other: unremarkable Skin General skin exam: no rashes or lesions noted Neuro General: patient oriented x3 Extrem General: Yes normal to inspection Psych Mental Status: mental status grossly normal Office Procedures EKG Details: EKG with underlying sinus rhythm at 77/Min; supraventricular ectopy; cannot exclude old inferior infarct; normal CT and corrected QT; similar to prior. [id number], Complete Assessment & Plan Assessment & Plan (1) Syncope and collapse: Code(s): R55 - Syncope and collapse Category: Medical Plan: Two episodes of syncope of unknown etiology. Apparently, heart rate was noted to be in the 30s, blood pressure 80s. There is also mention of bladder/bowel incontinence. Possibly everything neurogenic than cardiac. Nothing documented in the implantable loop recorder monitoring. Carotid Dopplers also unremarkable. (2) Paroxysmal atrial fibrillation: Code(s): I48.0 - Paroxysmal atrial fibrillation Category: Medical Plan: Continue anticoagulation. (3) Abnormal EKG: Code(s): R94.31 - Abnormal electrocardiogram [ECG] [EKG] Category: Medical Plan: EKG shows inferior as well as anterolateral infarct. In the echocardiogram, LVEF is preserved at 60% but basal inferior hypokinesis; mid inferior septal/anteroseptal akinesis. In the perfusion imaging, thought to have fixed basal inferior/inferior septal defect. Report suggesting artifact. In the cardiac catheterization, normal coronary arteries. LVEDP was also normal. No further workup. (4) Implantable loop recorder present: Code(s): Z95.818 - Presence of other cardiac implants and grafts Category: Medical Plan: Can follow remotely. Coding Level of Care Code Est Pt Level 4 (65552) Complex EM visit Add On G2211 Diagnoses Syncope and collapse R55 Paroxysmal atrial fibrillation I48.0 Abnormal EKG R94.31 Implantable loop recorder present Z95.818 CPT Codes EKG - CPT: 84161-Tbykwthfmqrtjvgvi, Complete ([id number])
[2025-01-13 10:56] VITALS: BP 120/62; PULSE 60; BMI 32.5
== END 2025-01-13 11:15 | disposition home or self-care (01) ==
PROVIDERS: PCP Physician Assistant; Visit Provider Internal Medicine
DX: R55 Syncope and collapse (principal); I48.0 Paroxysmal atrial fibrillation; R94.31 Abnormal electrocardiogram [ECG] [EKG]; Z95.818 Presence of other cardiac implants and grafts
CPT/HCPCS: 93010; 99214; G2211

== ENCOUNTER → 2025-01-13 10:32 | Outpatient (BNVA) | payer MEDICARE, SELFPAY | PROVIDERS: PCP Physician Assistant; Visit Provider Internal Medicine | DX: I48.0 Paroxysmal atrial fibrillation (principal); R94.31 Abnormal electrocardiogram [ECG] [EKG]; R55 Syncope and collapse; Z95.818 Presence of other cardiac implants and grafts | CPT/HCPCS: 93005; 99212 ==

== ENCOUNTER → 2025-01-19 23:59 | Outpatient (BNV) | payer MEDICARE, SELFPAY ==
--- NOTE | 2025-01-23 10:53 | MHC.OFFVIS ---
Intake Visit Reasons: Remote ILR check- [employer] Allergies cabbage Allergy (Severe, Verified 12/09/24 14:05) throat swells [facility] Medical History T2DM (type 2 diabetes mellitus) SVT (supraventricular tachycardia) Type 2 diabetes mellitus with obesity Abnormal LFTs Insomnia Obesity COVID-19 vaccine administered Gait instability History of BPH Dementia Arthritis History of lumbar puncture Cerebral ventriculomegaly Surgical History (Reviewed 01/13/25 @ 10:56 by Sharon Islas [facility]) History of brain shunt Hx of appendectomy History of esophagogastroduodenoscopy (EGD) H/O colonoscopy History of tonsillectomy Family History Father No problems noted. Mother No problems noted. Social History Household Members: Spouse Housing: House Do you presently have visiting nurse or other home services: No Alcohol intake: never Patient Tobacco Use Status: Never used Tobacco e-Cigarette/Vaping Use: Never Used Second Hand Smoke Exposure: No service: No Current occupational status: employed Cognitive needs: Yes (cane) Hearing needs: No Vision needs: Yes (Glasses) Office Procedures Cardiac Device Check Cardiac Device Check Details: Date of service 01/19/2025; in the current monitoring period, there is evidence of atrial fibrillation. Percentage of time 10%. Ventricular rate is controlled. [id number] Cardiac Interrogation, subcut cardiac rhythm monitor Procedure code (CPT) selection complete Assessment & Plan Assessment & Plan (1) Status post placement of implantable loop recorder: Code(s): Z95.818 - Presence of other cardiac implants and grafts Category: Medical (2) Paroxysmal atrial fibrillation: Code(s): I48.0 - Paroxysmal atrial fibrillation Category: Medical Plan x Coding Level of Care Code Procedure Only Diagnoses Status post placement of implantable loop recorder Z95.818 Paroxysmal atrial fibrillation I48.0 CPT Codes Cardiac Device Check - Cardiac Device 16: 60083-Gawevg Cardiac Interrogation, subcut cardiac rhythm monitor ([id number])
== END ==
PROVIDERS: PCP Physician Assistant; Visit Provider Internal Medicine
DX: I48.0 Paroxysmal atrial fibrillation (principal); Z95.818 Presence of other cardiac implants and grafts
CPT/HCPCS: 93298

== ENCOUNTER → 2025-02-05 23:59 | Outpatient (BNV) | payer MEDICARE, SELFPAY ==
--- NOTE | 2025-02-13 13:46 | A.OFFVIS_ITS ---
Intake Visit Reasons: remote ILR check- [employer] Allergies cabbage Allergy (Severe, Verified 12/09/24 14:05) throat swells [facility] Medical History T2DM (type 2 diabetes mellitus) SVT (supraventricular tachycardia) Type 2 diabetes mellitus with obesity Abnormal LFTs Insomnia Obesity COVID-19 vaccine administered Gait instability History of BPH Dementia Arthritis History of lumbar puncture Cerebral ventriculomegaly Surgical History History of brain shunt Hx of appendectomy History of esophagogastroduodenoscopy (EGD) H/O colonoscopy History of tonsillectomy Family History Father No problems noted. Mother No problems noted. Social History Household Members: Spouse Housing: House Do you presently have visiting nurse or other home services: No Alcohol intake: never Patient Tobacco Use Status: Never used Tobacco e-Cigarette/Vaping Use: Never Used Second Hand Smoke Exposure: No service: No Current occupational status: employed Cognitive needs: Yes (cane) Hearing needs: No Vision needs: Yes (Glasses) Office Procedures Cardiac Device Check Cardiac Device Check Details: Date of service 02/05/2025; in the current monitoring period, AT/AF burden 1.7%. [id number] Cardiac Interrogation, subcut cardiac rhythm monitor Procedure code (CPT) selection complete Assessment & Plan Assessment & Plan (1) Implantable loop recorder present: Code(s): Z95.818 - Presence of other cardiac implants and grafts Category: Medical (2) Paroxysmal atrial fibrillation: Code(s): I48.0 - Paroxysmal atrial fibrillation Category: Medical Plan x Coding Level of Care Code Procedure Only Diagnoses Implantable loop recorder present Z95.818 Paroxysmal atrial fibrillation I48.0 CPT Codes Cardiac Device Check - Cardiac Device 16: [id number]-[id number] Cardiac Interrogation, subcut cardiac rhythm monitor ([id number])
== END ==
PROVIDERS: PCP Physician Assistant; Visit Provider Internal Medicine
DX: I48.0 Paroxysmal atrial fibrillation (principal); Z95.818 Presence of other cardiac implants and grafts
CPT/HCPCS: 93298

== ENCOUNTER → 2025-03-08 23:59 | Outpatient (BNV) | payer MEDICARE, SELFPAY ==
--- NOTE | 2025-03-17 20:53 | A.OFFVIS_ITS ---
Intake Visit Reasons: Remote ILR check- [employer] Allergies cabbage Allergy (Severe, Verified 12/09/24 14:05) throat swells [facility] Medical History T2DM (type 2 diabetes mellitus) SVT (supraventricular tachycardia) Type 2 diabetes mellitus with obesity Abnormal LFTs Insomnia Obesity COVID-19 vaccine administered Gait instability History of BPH Dementia Arthritis History of lumbar puncture Cerebral ventriculomegaly Surgical History History of brain shunt Hx of appendectomy History of esophagogastroduodenoscopy (EGD) H/O colonoscopy History of tonsillectomy Family History Father No problems noted. Mother No problems noted. Social History Household Members: Spouse Housing: House Do you presently have visiting nurse or other home services: No Alcohol intake: never Patient Tobacco Use Status: Never used Tobacco e-Cigarette/Vaping Use: Never Used Second Hand Smoke Exposure: No service: No Current occupational status: employed Cognitive needs: Yes (cane) Hearing needs: No Vision needs: Yes (Glasses) Office Procedures Cardiac Device Check Cardiac Device Check Details: Date of service 03/08/2025; in the current monitoring period, there is no evidence of atrial fibrillation. 61648-Yrpztg Cardiac Interrogation, subcut cardiac rhythm monitor Procedure code (CPT) selection complete Assessment & Plan Assessment & Plan (1) Status post placement of implantable loop recorder: Code(s): Z95.818 - Presence of other cardiac implants and grafts Category: Medical (2) Paroxysmal atrial fibrillation: Code(s): I48.0 - Paroxysmal atrial fibrillation Category: Medical Plan X Coding Level of Care Code Procedure Only Diagnoses Status post placement of implantable loop recorder Z95.818 Paroxysmal atrial fibrillation I48.0 CPT Codes Cardiac Device Check - Cardiac Device 16: 48720-Irksyd Cardiac Interrogation, subcut cardiac rhythm monitor ([id number])
== END ==
PROVIDERS: PCP Physician Assistant; Visit Provider Internal Medicine
DX: I48.0 Paroxysmal atrial fibrillation (principal); Z95.818 Presence of other cardiac implants and grafts
CPT/HCPCS: 93298

== ENCOUNTER → 2025-04-08 23:59 | Outpatient (BNV) | payer MEDICARE, SELFPAY ==
--- NOTE | 2025-04-10 09:26 | A.OFFVIS_ITS ---
Intake Visit Reasons: Remote ILR check- [employer] Allergies cabbage Allergy (Severe, Verified 12/09/24 14:05) throat swells [facility] Medical History T2DM (type 2 diabetes mellitus) SVT (supraventricular tachycardia) Type 2 diabetes mellitus with obesity Abnormal LFTs Insomnia Obesity COVID-19 vaccine administered Gait instability History of BPH Dementia Arthritis History of lumbar puncture Cerebral ventriculomegaly Surgical History History of brain shunt Hx of appendectomy History of esophagogastroduodenoscopy (EGD) H/O colonoscopy History of tonsillectomy Family History Father No problems noted. Mother No problems noted. Social History Household Members: Spouse Housing: House Do you presently have visiting nurse or other home services: No Alcohol intake: never Patient Tobacco Use Status: Never used Tobacco e-Cigarette/Vaping Use: Never Used Second Hand Smoke Exposure: No service: No Current occupational status: employed Cognitive needs: Yes (cane) Hearing needs: No Vision needs: Yes (Glasses) Office Procedures Cardiac Device Check Cardiac Device Check Details: Date of service- 04/08/2025; based on impedance data and physiological variables, there is no evidence of worsening congestive heart failure. [id number] Cardiac Device Interrogation, cardio physiologic monitor Procedure code (CPT) selection complete Assessment & Plan Assessment & Plan (1) Implantable loop recorder present: Code(s): Z95.818 - Presence of other cardiac implants and grafts Category: Medical (2) Atrial arrhythmia: Code(s): I49.8 - Other specified cardiac arrhythmias Category: Medical (3) Bradycardia: Code(s): R00.1 - Bradycardia, unspecified Category: Medical Plan x Coding Level of Care Code Procedure Only Diagnoses Implantable loop recorder present Z95.818 Atrial arrhythmia I49.8 Bradycardia R00.1 CPT Codes Cardiac Device Check - Cardiac Device 15: [id number] Cardiac Device Interrogation, cardio physiologic monitor ([id number])
== END ==
PROVIDERS: PCP Physician Assistant; Visit Provider Internal Medicine
DX: I49.8 Other specified cardiac arrhythmias (principal); Z95.818 Presence of other cardiac implants and grafts; R00.1 Bradycardia, unspecified
CPT/HCPCS: 93297

== ENCOUNTER 2025-04-17 13:38 | Emergency (ER) | payer MEDICARE, SELFPAY ==
[2025-04-17] VITALS (11 sets, daily range): BP systolic 93–159; BP diastolic 49–73; PULSE 64–88; RESP 14–20; TEMP 36.6–36.9; O2SAT 96–99; BMI 31.2
--- NOTE | ~2025-04-17 | CT_ITS ---
CLINICAL HISTORY: near syncope, [employer] shunt revision 2mo ago [address] Head WO Contrast COMPARISON: None FINDINGS: No acute intracranial hemorrhage. No evidence of acute infarction. Diffuse cortical volume loss. Nonspecific white matter hypodensities, most commonly associated with chronic microangiopathic changes. Chronic appearing right parietal encephalomalacia adjacent to [employer] shunt catheter. No mass-effect or midline shift. Moderately prominent lateral ventricles and 3rd ventricle. Right parietal approach [employer] shunt catheter in place with tip in the body of the right lateral ventricle. Visualized orbits are normal. Clear paranasal sinuses. Clear mastoid air cells. No acute fracture. Unremarkable soft tissues. IMPRESSION: Moderate hydrocephalus of unknown chronicity. Comparison with prior studies may be helpful if available. [employer] shunt catheter in place. Nonemergent/incidental findings in the report. This document has been electronically signed by: Alexis Osorio MD on 04/17/2025 16:50:54
--- NOTE | ~2025-04-17 | XR_ITS ---
CLINICAL HISTORY: near syncope, weakness Chest X-ray, 2 Views COMPARISON: None FINDINGS: No consolidation. No pleural effusion. No pneumothorax. Mild cardiomegaly. Cardiac monitoring device in place. No acute fracture. IMPRESSION: No acute findings. This document has been electronically signed by: Alexis Osorio MD on 04/17/2025 14:51:12
--- OUTSIDE RECORDS SUMMARY | 2025-04-17 14:11 | XMS_ITS | Clinical Summary ---
Author Organization [facility] Address [address] [place] [address] Care Team Providers Care Hand Folder Name Role Phone Ana Silveira Primary Care Provider [phone] Allergies Active Allergy Reactions Criticality Noted Date [...] mouth once a week. On Wednesdays Active docusate sodium (COLACE) 100 mg capsule Take 1 capsule (100 mg total) by mouth 2 times a day. 3 Active apixaban (ELIQUIS) 2.5 mg tablet Take 5 mg by mouth every 12 hours. Active levETIRAcetam (KEPPRA) 500 mg tablet Take 1 tablet (500 mg total) by mouth every 12 hours for 5 days. 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 Class 1 obesity 01/28/2023 Cobalamin deficiency 01/28/2023 Hemorrhoids 01/28/2023 Minimal cognitive impairment 01/28/2023 Primary localized osteoarthrosis of ankle and fo ot 01/28/2023 Idiopathic normal pressure hydrocephalus 022 Gait difficulty 05/17/2021 Encounters Date Type Department Care Team Description 03/24/2025 Telephone [facility] Neurosurgery [address] [address] Stephanie Mckenzie PA 03/24/2025 Orders Only [facility] Neurosurgery [address] [address] Stephanie Mckenzie PA COMMUNICATION STUDIES PROFESSOR (ventriculoperitone al) shunt status (Primary Dx); NPH (normal pressure hydrocephalus) (HCC) 03/23/2025 Telephone [facility] Neurosurgery [address] [address] Telephone Intake, Staff PAC Form/Letter/Records Request 03/22/2025 2:30 PM EDT Follow-Up [facility] Neurosurgery [address] [address] Arsalan Goncalves MD Hydrocephalus, unspecified type (HCC) (Primary Dx) 03/22/2025 11:54 AM EDT - 03/22/2025 11:59 PM EDT Hospital Encounter [facility] CT Scan [address] [place] [id number] Idiopathic normal pressure hydrocephalus (HCC) Discharge Disposition: Home or Self Care (01) 03/09/2025 Telephone [facility] Neurosurgery [address] [address] Telephone Intake, Staff Post-op Follow-up; PAC Patient Request Call Back 03/08/2025 Documentation [facility] [address] [place] [address] Furnace Maintenance: Ellen Olivares 03/07/2025 Telephone [facility] Neurosurgery [address] [address] Arsalan Goncalves MD 03/04/2025 Orders Only [facility] Neurosurgery [address] [address] Yonis Mccloud PA Idiopathic normal pressure hydrocephalus (HCC) (Primary Dx) 03/02/2025 2:00 PM EDT Anesthesia Event [facility] Operating Room [address] [place] [address] Rehana Reed MD Mitchon, Gregory J., MD 03/02/2025 12:15 PM EDT - 03/02/2025 3:40 PM EDT Surgery [facility] Operating Room [address] [place] [address] Arsalan Goncalves MD REVISION OF VALVE IN CEREBROSPINAL FLUID SHUNT SYSTEM [96910 (CPT??)] 03/02/2025 9:44 AM EDT - 03/04/2025 6:03 PM EDT Hospital Encounter [facility] [address] [place] [address] Arsalan Goncalves MD Idiopathic normal pressure hydrocephalus (Primary Dx) Discharge Disposition: Home or Self Care () 01/25/2025 2:30 PM EDT Follow-Up [facility] Neurosurgery [address] [address] Arsalan Goncalves MD Hydrocephalus, unspecified type (Primary Dx) from Last 3 Months Immunizations Immunization Administration [...] pur e alcohol) no alcohol since ~2012 [facility] Utilities Answer Date Recorded In the past 12 months has e electric, gas, oil, or water company threatened to shut off services in your home? No 03/02/2025 Hunger Vital Sign Answer Date Recorded Within the past 12 months, y ou worried that your food would run out before you got the money to buy more. Never true 03/02/20 25 Within the past 12 months, t he food you bought just didn't last and you didn't have money to get more. Never true 03/02/2025 Transportation Answer Date Recorded In the past 12 months, has l ack of reliable transportation kept you from medical appointments, meetings, work or from getting things needed for daily living? No 03/02/2025 Housing Answer Date Recorded Housing Risk Low 2 03/02/2025 Housing Risk Medium Not on file 03/02/2025 Housing Risk High Not on file 03/02/2025 What is your living situation today? [facility] 03/02/2025 Sex and Gender Information Value Date Recorded Sex Assigned at Male 10/29/2022 1:27 PM EST Legal Sex Male 3:19 PM EDT Gender Identity Male 10/29/2022 1:27 PM EST Sexual Orientation Choose not to disclose 2021 1:27 PM EST Last Filed Vital Signs Vital Sign Reading Time Taken Comments Blood Pressure 133/75 03/22/2025 3:03 PM EDT Pulse 82 03/22/2025 3:03 PM EDT Temperature 36.5 ??C (97.7 ??F) 03/04/2025 1 2:05 PM EDT Respiratory Rate 17 03/22/2025 3:03 PM EDT Oxygen Saturation 98% 03/22/2025 3:03 PM EDT Inhaled Oxygen Concentration - - Weight 115.2 kg (253 lb 15.5 oz) 03/02/2025 9:00 PM EDT Height 175.3 cm (5' 9 ) 03/02/2025 9:00 PM EDT Body Mass Index 37.5 03/02/2025 9:00 PM EDT Plan of Treatment Health Maintenance Due Date Last Done Comments Hepatitis C Screening 1945 Medicare AWV 1946 DTaP,Tdap,and Td Vaccines (1 - Tdap) 1968 Alcohol/Substance Use Screening 11/10/2024 Depression Screening and Follow-Up 11/10/2024 Health Care Proxy Review 11/10/2024 COVID-19 Vaccine () 01/23/2025 07/26/2024, 09/25/2023, 08/30/2021, Additional history exists Social Drivers of Health Annual Screening 03/02/2026 03/02/2025 Colonoscopy Discontinued 12/04/2015 Zoster Vaccines Completed 09/21/2021, [...] this topic Medical Devices Implanted Type Area Wood Machinist Apprentice Device Identifier Shelf Expiration Date Model / Serial / Lot Shunt Valve Programmable - [id number] Implanted:Qty: 1 on 02/05/2023 by Arsalan Goncalves MD at [facility] Implant Right: Brain [employer]ODMAN 07/10/2027 [id number] / / [id number] Procedures * Due to [place] state law, this organization might not be sharing negative HIV tests. Procedure Name Priority Date/Time Associated Diagnosis Comments CT HEAD WO CONTRAST Routine 03/22/2025 12:18 PM EDT Idiopathic normal pressure hydrocephalus (HCC) XR COMMUNICATION STUDIES PROFESSOR SHUNT SETTING Routine 03/03/2025 5 :08 PM EDT XR COMMUNICATION STUDIES PROFESSOR SHUNT SETTING Routine 03/03/2025 5 :07 PM EDT XR COMMUNICATION STUDIES PROFESSOR SHUNT SETTING Routine 03/03/2025 5 :07 PM EDT POCT GLUCOSE Routine 03/03/2025 10:18 AM EDT BASIC METABOLIC PANEL Routine 03/03/2025 6:51 AM EDT MAGNESIUM Routine 03/03/2025 6:51 AM EDT PHOSPHORUS Routine 03/03/2025 6:51 AM EDT CBC Routine 03/03/2025 6:[address] HEAD WO CONTRAST STAT 03/02/2025 5 :24 PM EDT XR COMMUNICATION STUDIES PROFESSOR SHUNT SETTING STAT 03/02/2025 5 :21 PM EDT XR COMMUNICATION STUDIES PROFESSOR SHUNT STAT 03/02/2025 5:21 PM EDT BASIC METABOLIC PANEL STAT 03/02/2025 4:29 PM EDT FL REPLACEMENT/REVISIO N,CSF SHUNT 03/02/2025 1:35 PM EDT Hydrocephalus, unspecified type (HCC) Special Needs Please place as the second startChecked by [facility] ECG 12-LEAD Routine 02/14/2025 1:02 PM EDT Pre-op evaluation Idiopathic normal pressure hydrocephalus (HCC) Hydrocephalus, unspecified type (HCC) DOMINGUEZ TOP, URN Routine 02/14/2025 12:41 PM EDT Pre-op evaluation Idiopathic normal pressure hydrocephalus (HCC) Hydrocephalus, unspecified type (HCC) UA/CULTURE REFLEX Routine 02/14/2025 12:41 PM EDT Pre-op evaluation Idiopathic normal pressure hydrocephalus (HCC) Hydrocephalus, unspecified type (HCC) URINALYSIS W/REFLEX TO MICROSCOPIC & CULTURE Routine 02/14/2025 12:41 PM EDT Pre-op evaluation Idiopathic normal pressure hydrocephalus (HCC) Hydrocephalus, unspecified type (HCC) PROTIME-INR Routine 02/14/2025 12:41 PM EDT Pre-op evaluation Idiopathic normal pressure hydrocephalus (HCC) Hydrocephalus, unspecified type (HCC) PTT Routine 02/14/2025 12:41 PM EDT Pre-op evaluation Idiopathic normal pressure hydrocephalus (HCC) Hydrocephalus, unspecified type (HCC) COMPREHENSIVE METABOLIC PANEL Routine 02/14/2025 12:41 PM EDT Pre-op evaluation Idiopathic normal pressure hydrocephalus (HCC) Hydrocephalus, unspecified type (HCC) CBC AUTO DIFFERENTIAL Routine 02/14/2025 12:41 PM EDT Pre-op evaluation Idiopathic normal pressure hydrocephalus (HCC) Hydrocephalus, unspecified type (HCC) from Last 3 Months Results * Due to [place] state law, this organization might not be sharing negative HIV tests. * CT Head WO Contrast (03/22/2025 12:18 PM EDT) Only the most recent of2 resultswithin the time period is included. Anatomical Region Laterality Modality Head and Neck Computed Tomogra phy 03/22/2025 2:36 PM EDT Impressions 03/22/2025 4:49 PM EDT 1. ??Ventriculostomy catheter tip in the right lateral ventricle, unchanged since the prior exam from 03/02/2025. 2. ??Moderate to marked enlargement of the lateral and third ventricles and mild enlargement of the fourth ventricle, unchanged since the previous exam from 03/02/2025. 3. ??No evidence of acute intracranial hemorrhage or acute large territorial infarct. I, Jose Alberto Lowe, have reviewed the examination and concur with the findings as reported or so edited. Trainee: ??Tony Castelan If this radiology report contains a blank impression section, it is an incomplete radiology report. ??Please contact the interpreting radiologist or applicable radiology division as soon as possible to obtain the completed interpretation. ? Workstation ID: [id number] Narrative 03/22/2025 4:[address] OF THE HEAD WITHOUT CONTRAST INDICATION: Hydrocephalus CTH prior to initiating eliquis G91.2 - I10 - (Idiopathic) normal pressure hydrocephalus. TECHNIQUE: Non Contrast CT of the head was performed without contrast. ??Multiplanar reformats were obtained. COMPARISON: CT head without contrast 03/02/2025. FINDINGS: BRAIN PARENCHYMA: No acute (large territory) infarction, intracranial hemorrhage, mass or mass effect, or abnormal extra-axial fluid collection. Small hypodensity in the right parietal lobe adjacent to the ventriculostomy catheter, likely representing edema/gliosis, unchanged from 03/02/2025. Scattered patchy subcortical and periventricular white matter hypodensities, likely representing chronic angiopathic changes. The density in the larger dural venous sinuses is grossly normal. VENTRICLES: There is nhexiiwb-ip-woiqnt enlargement of the lateral ventricles and third ventricle and mild enlargement of the fourth ventricle consistent with hydrocephalus. The ventricular size is unchanged since exam from 03/02/2025. There is a right posterior approach ventriculostomy catheter which terminates in the body the right lateral ventricle adjacent to the interventricular septum. This catheter is unchanged in position the prior exam from 03/02/2025. BONES/SINUSES: The skull base and calvarium demonstrate no acute abnormality. The included paranasal sinuses ??are clear. ??The mastoid air cells are clear. The orbits are intact with bilateral lens replacements. Resulting Agency Comment [id number] Procedure Note Jose Alberto Lowe MD - 03/22/2025 CT OF THE HEAD WITHOUT CONTRAST INDICATION: Hydrocephalus CTH prior to initiating eliquis G91.2 - I10 - (Idiopathic) normal pressure hydrocephalus. TECHNIQUE: Non Contrast CT of the head was performed without contrast.Multiplanar reformats were obtained. COMPARISON: CT head without contrast 03/02/2025. FINDINGS: BRAIN PARENCHYMA: No acute (large territory) infarction, intracranial hemorrhage, mass ormass effect, or abnormal extra-axial fluid collection. Small hypodensityin the right parietal lobe adjacent to the ventriculostomy catheter,likely representing edema/gliosis, unchanged from 03/02/2025. Scatteredpatchy subcortical and periventricular white matter hypodensities, likelyrepresenting chronic angiopathic changes. The density in the larger duralvenous sinuses is grossly normal. VENTRICLES: There is awcfuwjd-id-hoieru enlargement of the lateralventricles and third ventricle and mild enlargement of the fourthventricle consistent with hydrocephalus. The ventricular size is unchangedsince exam from 03/02/2025. There is a right posterior approachventriculostomy catheter which terminates in the body the right lateralventricle adjacent to the interventricular septum. This catheter isunchanged in position the prior exam from 03/02/2025. BONES/SINUSES: The skull base and calvarium demonstrate no acuteabnormality. The included paranasal sinuses are clear. The mastoid aircells are clear. The orbits are intact with bilateral lens replacements. IMPRESSION: 1. Ventriculostomy catheter tip in the right lateral ventricle, unchangedsince the prior exam from 03/02/2025. 2. Moderate to marked enlargement of the lateral and third ventricles andmild enlargement of the fourth ventricle, unchanged since the previousexam from 03/02/2025. 3. No evidence of acute intracranial hemorrhage or acute largeterritorial infarct. I, Jose Alberto Lowe, have reviewed the examination and concur with thefindings as reported or so edited. Trainee: Tony Castelan If this radiology report contains a blank impression section, it is anincomplete radiology report. Please contact the interpreting radiologistor applicable radiology division as soon as possible to obtain thecompleted interpretation. Workstation ID: [id number] us Yonis STORM IMDarnell CT PROCEDURES Final Resu lt * XR COMMUNICATION STUDIES PROFESSOR Shunt Setting (03/03/2025 5:08 PM EDT) Only the most recent of4 resultswithin the time period is included. Anatomical Region Laterality Modality Head Computed Radiogr aphy 03/03/2025 5:11 PM EDT Impressions 03/03/2025 5:33 PM EDT FINDINGS/IMPRESSION: Radiograph time stamp at 15.35: Programmable shunt valve setting at about 100 mm of H2O Radiograph time stamp at 15.44: Programmable shunt valve setting at about 100 mm of H2O Radiograph time stamp at 16.01: Programmable shunt valve setting at about 80 mm of H2O If this radiology report contains a blank impression section, it is an incomplete radiology report. ??Please contact the interpreting radiologist or applicable radiology division as soon as possible to obtain the completed interpretation. ? Workstation ID: [id number] Narrative 03/03/2025 5:33 PM EDT COMPARISON: 03/02/2025. ?? Resulting Agency Comment [id number] Procedure Note Willie Molina MD - 03/03/2025 COMPARISON: 03/02/2025. IMPRESSION: FINDINGS/IMPRESSION: Radiograph time stamp at 15.35: Programmable shunt valve setting at [id number] mm of H2O Radiograph time stamp at 15.44: Programmable shunt valve setting at [id number] mm of H2O Radiograph time stamp at 16.01: Programmable shunt valve setting at about80 mm of H2O If this radiology report contains a blank impression section, it is anincomplete radiology report. Please contact the interpreting radiologistor applicable radiology division as soon as possible to obtain thecompleted interpretation. Workstation ID: [id number] [employer] STORM IMG XR PROCEDURES Final Result * (ABNORMAL) POCT Glucose, interfaced (03/03/2025 10:18 AM EDT) [facility] Glucose, POCT 210(H) 70 - 99 mg/dL 03/03/2025 10:19 AM EDT [facility] Comment: The teletypesetter monitor has not determined the efficacy of this test in Critically ill patients. ??[facility] defines Critically ill patients for the purpose of blood glucose monitoring (BGM) by glucometer, as patients meeting one or more of the following criteria: Hypotension- non-ICU patients (systolic blood pressure Less than 90 mmHg) due to shock Hypotension -ICU patients ??(Mean Arterial Pressure (MAP) <60 mmHg or systolic blood pressure < 90 mmHg due to shock Patients receiving Vasopressors (phenylephrine, vasopressin or norepinephrine) Anasarca In all locations, BGM test results should not be relied upon in the above situations, unless these results confirmed with lab-based glucose values. Blood 03/03/2025 10:1 8 AM EDT 03/03/2025 10:19 AM EDT us Arsalan Goncalves MD LAB POCT ORDERABLES - DEVICE F inal Result [facility], POC [address] [place] [address], * (ABNORMAL) CBC (03/03/2025 6:51 AM EDT) WBC 9.1 3.8 - 10.8 10*3/uL 03/03/2025 7:13 AM EDT [employer] [facility] RBC 4.03(L) 4.20 - 5.80 10*6/uL 03/03/2025 7:13 AM EDT [facility] [facility] Hemoglobin 11.8(L) 13.2 - 17.1 g/dL 03/03/2025 7:13 AM EDT [employer] [facility] Hematocrit 36.6(L) 38.5 - 50.0 % 03/03/2025 7:13 AM EDT [facility] [facility] MCV 90.8 80.0 - 100.0 fL 03/03/2025 7:13 AM EDT [facility] [facility] MCH 29.3 27.0 - 33.0 pg 03/03/2025 7:13 AM EDT [facility] [facility] MCHC 32.2 32.0 - 36.0 g/dL 03/03/2025 7:13 AM EDT [employer] [facility] RDW 14.7 11.0 - 15.0 % 03/03/2025 7:13 AM EDT [facility] [employer] [facility] Platelets 238 140 - 400 10*3/uL 03/03/2025 7:13 AM EDT [facility] MPV 10.6 7.5 - 12.5 fL 03/03/2025 7:13 AM EDT [facility] Blood Structure of peripheral vein / Unknown Venipuncture / Unknown 03/03/2025 6:51 AM EDT 03/03/2025 7:06 AM EDT us Arsalan Goncalves MD LAB BLOOD ORDERABLES Final Res ult [facility] [employer] [facility] [address] [place] [address], [place] * (ABNORMAL) Phosphorus (03/03/2025 6:51 AM EDT) Phosphorus 2.4(L) 2.5 - 4.5 mg/dL 03/03/2025 7:47 AM EDT [facility] [employer] [facility] Blood Structure of peripheral vein / Unknown Venipuncture / Unknown 03/03/2025 6:51 AM EDT 03/03/2025 7:15 AM EDT us Arsalan Goncalves MD LAB BLOOD ORDERABLES Final Res ult [facility] [employer] [facility] [address] [place] [address], [place] * Magnesium (03/03/2025 6:51 AM EDT) MG 2.2 1.6 - 2.4 mg/dL 03/03/2025 7:47 AM EDT [facility] [employer] [facility] Blood Structure of peripheral vein / Unknown Venipuncture / Unknown 03/03/2025 6:51 AM EDT 03/03/2025 7:15 AM EDT us Arsalan Goncalves MD LAB BLOOD ORDERABLES Final Res ult [facility] [employer] [facility] [address] [place] [address], * (ABNORMAL) Basic Metabolic Panel (03/03/2025 6:51 AM EDT) Only the most recent of2 resultswithin the time period is included. NA 144 135 - 145 mmol/L 03/03/2025 7:[address] [facility] [employer] [facility] K 4.3 3.5 - 5.3 mmol/L 03/03/2025 7:[address] [facility] [employer] [facility] Cl 111(H) 98 - 107 mmol/L 03/03/2025 7:[address] [facility] [employer] [facility] CO2 24 22 - 32 mmol/L 03/03/2025 7:[address] [facility] [employer] [facility] BUN 14 7 - 23 mg/dL 03/03/2025 7:[address] [facility] [employer] [facility] Creatinine 1.00 0.60 - 1.30 mg/dL 03/03/2025 7:47 AM EDT [facility] [employer] [facility] Glucose 127(H) 65 - 99 mg/dL 03/03/2025 7:47 AM EDT [facility] [employer] [facility] Calcium 9.1 8.6 - 10.5 mg/dL 03/03/2025 7:[address] [facility] [employer] [facility] Anion Gap 9 5 - 15 03/03/2025 7:[address] [facility] [employer] [facility] eGFR 77 >=60 mL/min/1. 73m2 03/03/2025 7:47 AM EDT [facility] [employer] [facility] Comment:The estimated glomer ular filtration rate (eGFR) is calculated using a new formula developed by the NKF-ASN task force to eliminate race-based correction factors. The new formula uses serum/plasma creatinine, age, and gender to determine eGFR. A value below 60mls/min might indicate kidney disease and will be flagged. For additional information, see Aguirre et al, Am J Kidney Dis. 2021;79(2):268- 288, A Unifying Approach for GFR estimation: Recommendations of the NKF-ASN Task Force on Reassessing the Inclusion of Race in Diagnosing Kidney Disease . Blood Structure of peripheral vein / Unknown Venipuncture / Unknown 03/03/2025 6:51 AM EDT 03/03/2025 7:15 AM EDT us Arsalan Goncalves MD LAB BLOOD ORDERABLES Final Res ult [facility] [employer] [facility] [address] [place] [address], [place] * XR COMMUNICATION STUDIES PROFESSOR Shunt (03/02/2025 5:21 PM EDT) Anatomical Region Laterality Modality Head and Neck, Chest, Abdomen Co mputed Radiography 03/02/2025 5:25 PM EDT Impressions 03/02/2025 5:34 PM EDT FINDINGS/IMPRESSION: Programmable shunt valve setting at about 70-80 mm of H2O right parieto- occipital ventriculoperitoneal shunt catheter coursing across right side of the neck and terminating in the right subhepatic region. ??No kinking or breakage of the shunt catheter. If this radiology report contains a blank impression section, it is an incomplete radiology report. ??Please contact the interpreting radiologist or applicable radiology division as soon as possible to obtain the completed interpretation. ? Workstation ID: [id number] Narrative 03/02/2025 5:34 PM EDT COMPARISON: 09/25/2024 ?? Resulting Agency Comment [id number] Procedure Note Willie Molina MD - 03/02/2025 COMPARISON: 09/25/2024 IMPRESSION: FINDINGS/IMPRESSION: Programmable shunt valve setting at about 70-80 mm of H2O rightparieto-occipital ventriculoperitoneal shunt catheter coursing acrossright side of the neck and terminating in the right subhepatic region. Nokinking or breakage of the shunt catheter. If this radiology report contains a blank impression section, it is anincomplete radiology report. Please contact the interpreting radiologistor applicable radiology division as soon as possible to obtain thecompleted interpretation. Workstation ID: [id number] Arsalan Goncalves MD IMG XR PROCEDURES Final Result * ECG 12 lead For Preop? Yes (02/14/2025 1:02 PM EDT) Ventricular Rate EKG 67 BPM MUSE EKG Atrial Rate 67 BPM MUSE EKG FL Interval 188 ms MUSE EKG QRS Interval 94 ms MUSE EKG QT Interval 404 ms MUSE EKG QTC Interval 426 ms MUSE EKG P Malcolm 17 degrees MUSE EKG R Malcolm -24 degrees MUSE EKG T Wave Malcolm 4 degrees MUSE EKG 02/14/2025 1:02 PM EDT 02/15/2025 4:59 PM EDT Impressions MUSE EKG - 02/15/2025 4:59 PM EDT SINUS RHYTHM WITH PREMATURE ATRIAL COMPLEXES INFERIOR INFARCT (CITED ON OR BEFORE 28-JAN-2023) ABNORMAL ECG WHEN COMPARED WITH ECG OF 28-JAN-2023 10:57, PREMATURE ATRIAL COMPLEXES ARE NOW PRESENT Confirmed by Angie España ([id number]) on 02/15/2025 4:59:11 PM Joslyn White NP ECG ORDERABLES Final Result MUSE EKG * Doming[place] Top, Urine (02/14/2025 12:41 PM EDT) Extra Tube Hold for add-ons. 02/14/2025 6:05 PM EDT [facility] Comment:Auto resulted. Urine Urine specimen collection, clean catch / Unknown Non-Blood Collection / Unknown 02/14/2025 12:41 PM EDT 02/14/2025 5:59 PM EDT Joslyn White NP LAB URINE ORDERABLES F inal Result [facility] [address] [place] [address], * (ABNORMAL) Urinalysis W/Reflex to Microscopic & Culture (02/14/2025 12:41 PM EDT) Color, Urine Yellow Colorless, Light Yellow, Yellow, Dark Yellow 02/14/2025 6:17 PM EDT [employer] [facility] [employer] [facility] Clarity, Urine Clear Clear 02/14/2025 6:17 PM EDT [employer] [facility] [employer] [facility] Specific [place], Urine 1.029 1.005 - 1.030 02/14/2025 6:17 PM EDT [employer] [facility] pH, Urine 5.0 4.6 - 8.0 02/14/2025 6:17 PM EDT [employer] Protein, Urine 1+(A) Negative 02/14/2025 6:17 PM EDT [facility] [facility] [employer] Glucose, Urine Negative Negative 02/14/2025 6:17 PM EDT [employer] [facility] [facility] Ketones, Urine Negative Negative 02/14/2025 6:17 PM EDT [employer] [facility] [employer] [facility] Bilirubin, Urine Negative Negative 02/14/2025 6:17 PM EDT [employer] [facility] Blood, Urine Negative Negative 02/14/2025 6:17 PM EDT [facility] [employer] [employer] [facility] Nitrite, Urine Negative Negative 02/14/2025 6:17 PM EDT [employer] [facility] Urobilinogen, Urine Normal Normal 02/14/2025 6:17 PM EDT [employer] [facility] Leukocyte Esterase, Urine Negative Negative 02/14/2025 6:17 PM EDT [facility] [employer] [facility] WBC, Urine 1 0 - 2 /HPF 02/14/2025 6:17 PM EDT [employer] [facility] RBC, Urine 2 0 - 2 /HPF 02/14/2025 6:[address] [facility] Hyaline Casts, Urine 4(H) 0 - 2 /LPF 02/14/2025 6:[address] [facility] [employer] [facility] Bacteria, Urine None None /HPF /HPF 02/14/2025 6:[address] [facility] [employer] [facility] Mucus, Urine Occasional /LPF 02/14/2025 6:[address] [facility] [employer] [facility] Urine Urine specimen collection, clean catch / Unknown Non-Blood Collection / Unknown 02/14/2025 12:41 PM EDT 02/14/2025 5:59 PM EDT us Joslyn White MEDICAL STAFF DIRECTOR LAB URINE ORDERABLES F inal Result [facility] [employer] [facility] LAB[facility] [address] [place] [address], * (ABNORMAL) CBC Auto Differential (02/14/2025 12:41 PM EDT) WBC 8.5 3.8 - 10.8 10*3/uL 02/14/2025 6:[address] [facility] [employer] [facility] RBC 4.51 4.20 - 5.80 10*6/uL 02/14/2025 6:[address] [facility] [employer] [facility] Hemoglobin 13.2 13.2 - 17.1 g/dL 02/14/2025 6:[address] [facility] [employer] [facility] Hematocrit 41.6 38.5 - 50.0 % 02/14/2025 6:09 PM EDT [employer] [facility] MCV 92.2 80.0 - 100.0 fL 02/14/2025 6:[address] [facility] [employer] [facility] MCH 29.3 27.0 - 33.0 pg 02/14/2025 6:[address] [facility] [employer] [facility] MCHC 31.7(L) 32.0 - 36.0 g/dL 02/14/2025 6:09 PM EDT [facility] [facility] [employer] [facility] RDW 14.7 11.0 - 15.0 % 02/14/2025 6:09 PM EDT [facility] [facility] [employer] [facility] Platelets 262 140 - 400 10*3/uL 02/14/2025 6:09 PM EDT [facility] [facility] [employer] [facility] MPV 10.8 7.5 - 12.5 fL 02/14/2025 6:09 PM EDT [facility] [facility] [employer] [facility] Neutrophil % 57.7 % 02/14/2025 6:09 PM EDT [facility] [employer] [facility] Immature Grans % 0.2 0.0 - 0.9 % 02/14/2025 6:09 PM EDT [facility] [facility] [employer] [facility] Lymphocyte % 26.3 % 02/14/2025 6:09 PM EDT [facility] [facility] [employer] [facility] Monocyte % 7.2 % 02/14/2025 6:09 PM EDT [facility] [employer] [facility] Eosinophil % 7.9 % 02/14/2025 6:09 PM EDT [facility] [employer] [facility] Basophil % 0.7 % 02/14/2025 6:09 PM EDT [facility] [employer] [facility] Neutrophil # 4.88 1.50 - 7.80 10*3/uL 02/14/2025 6:09 PM EDT [facility] [employer] [facility] Immature Grans # <0.03 <=0.03 10*3/uL 02/14/2025 6:09 PM EDT [facility] [employer] [facility] Lymphocyte # 2.20 0.85 - 3.90 10*3/uL 02/14/2025 6:09 PM EDT [facility] [employer] [facility] Monocyte # 0.60 0.20 - 0.95 10*3/uL 02/14/2025 6:09 PM EDT [facility] [employer] Eosinophil # 0.70(H) 0.02 - 0.50 10*3/uL 02/14/2025 6:09 PM EDT [facility] Basophil # 0.10 0.00 - 0.20 10*3/uL 02/14/2025 6:09 PM EDT [facility] nRBC % 0.0 /100 WBCs 02/14/2025 6:09 PM EDT [facility] nRBC # <0.01 <0.01 10*3/uL 02/14/2025 6:09 PM EDT [facility] Blood Structure of peripheral vein / Unknown Venipuncture / Unknown 02/14/2025 12:41 PM EDT 02/14/2025 5:58 PM EDT Joslyn White MEDICAL STAFF DIRECTOR LAB BLOOD ORDERABLES F inal Result Performing Organization Address [facility]/ZIP Co de Phone Number [facility] [address] [place] [phone], [place] * PTT (02/14/2025 12:41 PM EDT) aPTT 31.3 23.0 - 32.0 Seconds 02/14/2025 6:27 PM EDT [facility] Comment: Current PTT reagent is not sensitive to detect all Lupus Anticoagulant (LA) Inhibitor Cases. ?? If a LA is suspected, please order a Lupus Anticoagulation w/ Reflex Test which is performed at [facility] in [place], [place]. Blood Structure of peripheral vein / Unknown Venipuncture / Unknown 02/14/2025 12:41 PM EDT 02/14/2025 5:58 PM EDT Joslyn White MEDICAL STAFF DIRECTOR LAB BLOOD ORDERABLES F inal Result [facility] [address] [place] [phone], [place] * Protime-INR (02/14/2025 12:41 PM EDT) PT 11.3 9.6 - 12.4 Seconds 02/14/2025 6:27 PM EDT [employer] [facility] INR 1.1 0.9 - 1.1 02/14/2025 6:27 PM EDT [facility] Comment:The optimal therapeu tic INR range for patients treated with Vitamin K antagonists (VKAS, e.g., Warfarin) is 2.0 to 3.5. Discuss the desired range with your doctor/care team. Blood Structure of peripheral vein / Unknown Venipuncture / Unknown 02/14/2025 12:41 PM EDT 02/14/2025 5:58 PM EDT us Joslyn White MEDICAL STAFF DIRECTOR LAB BLOOD ORDERABLES F inal Result [facility] [employer] [facility] [address] [place] [phone], * (ABNORMAL) Comprehensive Metabolic Panel (02/14/2025 12:41 PM EDT) Pathologist [facility] NA 142 135 - 145 mmol/L 02/14/2025 6:30 PM EDT [facility] K 4.0 3.5 - 5.3 mmol/L 02/14/2025 6:30 PM EDT [facility] Cl 104 98 - 107 mmol/L 02/14/2025 6:30 PM EDT [facility] CO2 26 22 - 32 mmol/L 02/14/2025 6:30 PM EDT [facility] Anion Gap 12 5 - 15 02/14/2025 6:30 PM EDT [facility] Glucose 196(H) 65 - 99 mg/dL 02/14/2025 6:30 PM EDT [facility] Creatinine 1.14 0.60 - 1.30 mg/dL 02/14/2025 6:30 PM EDT [employer] [facility] Calcium 10.5 8.6 - 10.5 mg/dL 02/14/2025 6:30 PM EDT [employer] [facility] Total Protein 7.5 6.0 - 8.0 g/dL 02/14/2025 6:30 PM EDT [employer] [facility] [employer] [facility] Albumin 4.1 3.5 - 5.2 g/dL 02/14/2025 6:30 PM EDT [employer] [facility] Bilirubin, Total 0.3 0.2 - 1.2 mg/dL 02/14/2025 6:30 PM EDT [employer] [facility] Alkaline Phosphatase 79 35 - 129 U/L 02/14/2025 6:30 PM EDT [facility] [facility] AST 15 10 - 40 U/L 02/14/2025 6:30 PM EDT [employer] [facility] ALT 10 10 - 40 U/L 02/14/2025 6:30 PM EDT [employer] [facility] BUN 19 7 - 23 mg/dL 02/14/2025 6:30 PM EDT [facility] [facility] eGFR 66 >=60 mL/min/1. 73m2 02/14/2025 6:30 PM EDT [employer] [facility] Comment:The estimated glomer ular filtration rate (eGFR) is calculated using a new formula developed by the NKF-ASN task force to eliminate race-based correction factors. The new formula uses serum/plasma creatinine, age, and gender to determine eGFR. A value below 60mls/min might indicate kidney disease and will be flagged. For additional information, see Timothy et al, Am J Kidney Dis. 2021;79(2):268- 288, A Unifying Approach for GFR estimation: Recommendations of the NKF-ASN Task Force on Reassessing the Inclusion of Race in Diagnosing Kidney Disease . Globulin, Total 3.4 2.1 - 4.2 g/dL 02/14/2025 6:30 PM EDT [employer] [facility] A/G Ratio 1.2(L) 1.5 - 3.0 02/14/2025 6:30 PM EDT [employer] [facility] Blood Structure of peripheral vein / Unknown Venipuncture / Unknown 02/14/2025 12:41 PM EDT 02/14/2025 5:58 PM EDT us Joslyn White MEDICAL STAFF DIRECTOR LAB BLOOD ORDERABLES F inal Result [facility] [facility] [address] [place] [address], [place] from Last [address] [facility] Advance Directives Documents on File Type Date Recorded Patient Access Manager Expl anation Health Care Proxy 01/28/2023 9:53 AM * Full Code (Latest Code Status on File) Date Activated Date Inactivated Comments 03/02/2025 3:54 PM 03/04/2025 8:08 PM * Full Code Date Activated Date Inactivated Comments 03/02/2025 10:46 AM 03/02/2025 3:54 PM * Presumed Full Code Date Activated Date Inactivated Comments 02/05/2023 5:07 PM 02/06/2023 8:04 PM * Presumed Full Code Date Activated Date Inactivated Comments 02/05/2023 8:04 AM 02/05/2023 5:07 PM Healthcare Agents on File Name Relationship Healthcare Agent Relationshi p Communication Etienne Major Health Care Agent Care Teams Hand Folder Relationship Specialty Start Date End Date Ana Silveira [address] [place] [phone] PCP - General 03/13/23
--- NOTE | 2025-04-17 14:14 | ECG_ITS ---
Test Reason : WEAKNESS/NEAR SYNCOPE Blood Pressure : */* mmHG Vent. 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
[2025-04-17 14:32] LABS: Glucose, Whole Blood 205 mg/dL (60-115)
--- NOTE | 2025-04-17 14:47 | ED.SYNCOPE ---
HPI - Syncope General Chief Complaint: Weakness Stated Complaint: near syncope Time Seen by Provider: 04/17/25 14:14 Source: patient, family and EMS Mode of arrival: EMS Limitations: no limitations History of Present Illness ED Provider: jose prekins np HPI narrative: Patient is a 79-year-old male who presents emergency department for evaluation. He reports that he was feeling ?off this morning? endorsing that he was feeling a bit foggy with increased stressors. His is currently in [place] [facility] diagnosis of ALS and has not been doing well recently. Regardless, he carried about his day was feeling overall is typical self. He went to a car show. While sitting down he felt the urge to have a bowel movement. Once he stood up and began walking he was feeling very weak, bystanders had instructed him to have a see as he did not look well, he endorsed having vision changes with ?spots? in his visual field that resolved. Soon after sitting down he then had an episode of bowel incontinence but states that he was aware that this happened, just could not prevent the urge. He does admit that he had a [employer]ARD[employer]ING [employer] OPER[employer] HELPER shunt revision 2 months ago and [place] secondary to hydrocephalus. He admits to having depression denying suicidal ideations, he does not have a therapist and is not interested in speaking with one. Prodromal symptoms? Denies history of similar episodes in the past. Denies associated headache, dizziness, lightheadedness, neck pain, chest pain, shortness of breath, palpitations, abdominal pain, hematochezia, melena, history of VTE, family history of sudden cardiac at a young age Related Data Home Medications ?Medication ?Instructions ?Recorded ?Confirmed balsalazide 750 mg capsule 2,250 mg PO TID 03/15/23 01/13/25 donepezil 10 mg tablet 10 mg PO BEDTIME 03/15/23 01/13/25 metformin 500 mg tablet 500 mg PO DAILY 03/15/23 01/13/25 tamsulosin 0.4 mg capsule 0.8 mg PO BEDTIME 03/15/23 01/13/25 prednisone 5 mg tablet 5 mg PO 11/04/23 01/13/25 metformin 500 mg tablet,extended 500 mg PO BID 05/10/24 01/13/25 release 24 hr omeprazole 40 mg capsule,delayed 40 mg PO DAILY 05/10/24 01/13/25 release trospium 20 mg tablet 20 mg PO DAILY 05/10/24 01/13/25 Previous Rx's ?Medication ?Instructions ?Recorded flash glucose scanning reader #1 ea 09/04/22 (FreeStyle Tyrese 14 Day Redig) blood-glucose meter (FreeStyle #1 ea 09/17/22 Lite Meter kit) cholecalciferol (vitamin D3) 1,250 1,250 mcg PO QWEEK #14 caps 11/18/22 mcg (50,000 unit) capsule blood sugar diagnostic (FreeStyle #100 ea 11/19/22 Lite Strips) lancets 28 gauge (FreeStyle #100 ea 11/20/22 Lancets) trazodone 50 mg tablet 50 mg PO BEDTIME 30 days #30 tabs 10/01/24 apixaban 5 mg tablet (Eliquis) 5 mg PO BID 90 days #180 tabs 01/20/25 Allergies Allergy/AdvReac Type Severity Reaction Status Date / Time cabbage Allergy Severe throat Verified 04/17/25 13:46 stepan Review of Systems Review of Systems: Yes all other systems are reviewed and are negative [facility] Past Medical History Attestation statement: The following information was validated with the patient. Source: old records reviewed Medical History T2DM (type 2 diabetes mellitus) SVT (supraventricular tachycardia) Type 2 diabetes mellitus with obesity Abnormal LFTs Insomnia Obesity COVID-19 vaccine administered Gait instability History of BPH Dementia Arthritis History of lumbar puncture Cerebral ventriculomegaly Surgical History History of brain shunt Hx of appendectomy History of esophagogastroduodenoscopy (EGD) H/O colonoscopy History of tonsillectomy Family History Family History Father No problems noted. Mother No problems noted. Social History Social History Household Members: Spouse Housing: House Do you presently have visiting nurse or other home services: No Alcohol intake: never Patient Tobacco Use Status: Never used Tobacco e-Cigarette/Vaping Use: Never Used Second Hand Smoke Exposure: No service: No Current occupational status: employed Cognitive needs: Yes (cane) Hearing needs: No Vision needs: Yes (Glasses) Physical Exam Vital Signs: Vital Signs: Last Vital Signs Temp 98.4 F 04/17/25 21:16 Pulse 70 04/17/25 21:16 Resp 16 04/17/25 21:16 BP 124/57 L 04/17/25 21:16 Pulse Ox 99 04/17/25 21:16 O2 Del Method Room Air 04/17/25 21:16 BMI result Body Mass Index 31.2 Appearance: Alert.?Oriented to person, place and time. No acute distress.?Normal affect. Eyes: Pupils equal, round and reactive to light.? EOMI. No nystagmus. ENT: Pharynx normal.?? Neck: Normal inspection.? Neck supple.??Full range of motion. No rigidity. CVS: Heart sounds normal. Normal heart rate and rhythm.? Pulses normal.?? Respiratory: No respiratory distress.? Lung sounds clear to auscultation bilaterally?? Abdomen: Soft and non-tender. Normoactive bowel sounds. No pulsatile mass.?? Skin: Skin warm and dry.? Normal skin color.? ? Extremities: No lower extremity edema.? No calf ttp? Neuro: Moves all extremities spontaneously. Sensation intact bilaterally. CN II-XII intact. No focal neuro deficits. Ambulatory with unsteady gait, per patient is at baseline Course Reevaluation(s) Reevaluation #1: CBC is without leukocytosis, has a mild normocytic anemia that does not meet transfusion criteria, no thrombocytopenia. No electrolyte derangement. Slight ADRIANA which I suspect is secondary to dehydration and should improve after fluids. LFTs unremarkable. High sensitive troponin within normal range, ECG reveals sinus rhythm with ventricular rate of 72, normal OSVALDO, QTC 429, no ST-elevation. Viral serologies negative. Received call from radiology regarding moderate hydrocephalus with evidence of HARD[employer]ACHINE OPERATOR HELPER catheter in place, per radiologist's account there is no prior available for comparison though I do note that he had a CT of the head in June of 2024 here at [facility]. Contacting Radiology back so that they may make inappropriate comparison between these 2. I additionally discussed this case with my attending Dr. Devi, who agrees that if there is no acute change in the CT, and he is otherwise asymptomatic with resolution of any orthostatic hypotension he may be appropriate for discharge and outpatient follow-up. Time: 17:03 Reevaluation #2: Radiologist was able to compare to prior imaging, hydrocephalus does not appear to be acutely changed. Orthostatic vital signs were negative after receiving IV fluids. He has been asymptomatic. Ambulatory at baseline. Requesting discharge home which I feel is reasonable at this time. Given strict return precautions, all questions answered Medications Administered Discontinued Medications Generic Name Dose Route Start Last Admin Trade Name Freq PRN Reason Stop Dose Admin Sodium Chloride 1,000 mls @ 999 mls/hr 04/17/25 15:45 04/17/25 17:37 Ns IV 04/17/25 16:45 Infused .Q1H1M CAMELIA Infusion Medical Decision Making Medical Decision Making MDM Narrative: Patient is a 79-year-old male with past medical history of type 2 diabetes, SVT, paroxysmal atrial fibrillation on Eliquis, implantable loop recorder, insomnia, obesity, dementia, arthritis, cerebral ventriculomegaly with [employer]PER[employer] shunt, by his account last revised 2 months ago in [place] presenting for evaluation after a near syncopal episode associated bowel incontinence the patient reportedly was aware of the movement as per HPI. He offers no physical complaints at the time of my evaluation, he has been focal neurological deficits. He denies any associated chest pain, shortness of breath or palpitations to suggest ACS, PE, aortic dissection, aortic stenosis. He endorses vision changes though these were brief spots in the field of vision during the episode of weakness, may be secondary to vasovagal syncope however given his past medical history plan to obtain head CT for further evaluation. Will obtain CBC to evaluate for leukocytosis/ anemia, CMP and lipase to evaluate for abnormal electrolytes /abnormal renal function/ abnormal hepatic/biliary function. Orthostatic vital signs were positive particularly from lying to sitting, for which he will be given 1 L normal saline IV fluid Differential Diagnosis Differential Diagnoses: The differential diagnosis associated with the presentation includes (See narrative above) Admission/Observation Consideration of admission/observation: Escalation of care including admission/observation considered (See narrative above) Lab Data [facility] Lab Attestation statement: I reviewed the patient's lab results. (See course narrative) 04/17/25 14:46 04/17/25 14:46 Labs: Lab Results 04/17/25 04/17/25 04/17/25 Range/Units 14:28 14:46 14:47 WBC 10.0 (4.8-10.8) X10*3/uL RBC 4.15 L (4.60-5.80) X10*6/uL Hgb 12.5 L (14.0-18.0) g/dl Hct 38.0 L (42.0-52.0) % MCV 91.6 (80.0-98.0) fL MCH 30.1 (27.0-33.0) pg MCHC 32.9 (31.0-36.0) g/dl RDW 14.3 (11.0-16.0) % Plt Count 229 (160-400) X10*3/uL MPV 9.6 (9.4-12.4) fL Immature Gran % (Auto) 0.4 (0.0-0.4) % Neut % (Auto) 82.7 H (45-73) % Lymph % (Auto) 10.6 L (20-40) % [place] % (Auto) 4.9 (2-11) % Eos % (Auto) 1.1 (0-4) % Baso % (Auto) 0.3 (0-2) % Lymph # (Auto) 1.1 L (1.2-4.9) X10*3/uL [place] # (Auto) 0.5 (0.1-1.2) X10*3/uL Eos # (Auto) 0.1 (0.0-0.4) X10*3/uL Baso # (Auto) 0.0 (0.0-0.2) X10*3/uL Abs Immat Gran (auto) 0.04 H (0.00-0.03) X10*3/uL Absolute Neuts (auto) 8.3 (2.0-8.3) x10*3/uL Absolute Nucleated RBC 0.000 (0.0-0.012) X10*3/uL Nucleated RBC % (auto) 0.0 (0.0-0.2) /100WBC APTT 37.1 H (26.0-36.8) SEC Sodium 142 (135-145) mmol/L Potassium 4.6 (3.3-5.1) mmol/L Chloride 107 (96-108) mmol/L Carbon Dioxide 24 (22-29) mmol/L Anion Gap 16 (12-20) BUN 27 H (9-16) mg/dL Creatinine 1.45 H (0.5-1.4) mg/dL Estim Creat Clear Calc 52.4 Estimated GFR 47 POC Glucose 205 H (60-115) mg/dL Random Glucose 222 H (60-115) mg/dL Calcium 9.8 (8.4-10.2) mg/dL Magnesium 2.2 (1.6-2.6) mg/dL Total Bilirubin 0.2 (0.0-1.0) mg/dL AST 18 (5-37) U/L ALT 13 (0-40) U/L Alkaline Phosphatase 73 (39-117) U/L Troponin I High Sens 3.4 (<3.5-35.0) ng/L B-Natriuretic Peptide 48 (<100) pg/mL Total Protein 6.9 (6.5-8.0) g/dL Albumin 4.0 (3.5-5.0) g/dL Triglycerides 134 (<150) mg/dL Cholesterol 184 (<200) mg/dL LDL Cholesterol, Calc 114 H (<100) mg/dL HDL Cholesterol 44 (>40) mg/dL Lipase 8 (8-78) U/L Urine Color Urine Appearance Urine pH (5.0-9.0) Ur Specific [place] (1.005-1.025) Urine Protein (Neg-Trace) mg/dL Urine Glucose (UA) (Negative) mg/dL Urine Ketones (Negative) mg/dL Urine Blood (Negative) Urine Nitrite (Negative) Ur Leukocyte Esterase (Negative) Influenza Type A (PCR) NEGATIVE (Negative) Influenza Type B (PCR) NEGATIVE (Negative) RSV RNA Qual (PCR) NEGATIVE (Negative) SARS-CoV-2 RNA (RT-PCR) NEGATIVE (Negative) 04/17/25 04/17/25 Range/Units 17:35 19:09 WBC (4.8-10.8) X10*3/uL RBC (4.60-5.80) X10*6/uL Hgb (14.0-18.0) g/dl Hct (42.0-52.0) % MCV (80.0-98.0) fL MCH (27.0-33.0) pg MCHC (31.0-36.0) g/dl RDW (11.0-16.0) % Plt Count (160-400) X10*3/uL MPV (9.4-12.4) fL Immature Gran % (Auto) (0.0-0.4) % Neut % (Auto) (45-73) % Lymph % (Auto) (20-40) % [place] % (Auto) (2-11) % Eos % (Auto) (0-4) % Baso % (Auto) (0-2) % Lymph # (Auto) (1.2-4.9) X10*3/uL [place] # (Auto) (0.1-1.2) X10*3/uL Eos # (Auto) (0.0-0.4) X10*3/uL Baso # (Auto) (0.0-0.2) X10*3/uL Abs Immat Gran (auto) (0.00-0.03) X10*3/uL Absolute Neuts (auto) (2.0-8.3) x10*3/uL Absolute Nucleated RBC (0.0-0.012) X10*3/uL Nucleated RBC % (auto) (0.0-0.2) /100WBC APTT (26.0-36.8) SEC Sodium (135-145) mmol/L Potassium (3.3-5.1) mmol/L Chloride (96-108) mmol/L Carbon Dioxide (22-29) mmol/L Anion Gap (12-20) BUN (9-16) mg/dL Creatinine (0.5-1.4) mg/dL Estim Creat Clear Calc Estimated GFR POC Glucose 158 H (60-115) mg/dL Random Glucose (60-115) mg/dL Calcium (8.4-10.2) mg/dL Magnesium (1.6-2.6) mg/dL Total Bilirubin (0.0-1.0) mg/dL AST (5-37) U/L ALT (0-40) U/L Alkaline Phosphatase (39-117) U/L Troponin I High Sens (<3.5-35.0) ng/L B-Natriuretic Peptide (<100) pg/mL Total Protein (6.5-8.0) g/dL Albumin (3.5-5.0) g/dL Triglycerides (<150) mg/dL Cholesterol (<200) mg/dL LDL Cholesterol, Calc (<100) mg/dL HDL Cholesterol (>40) mg/dL Lipase (8-78) U/L Urine Color Yellow Urine Appearance Clear Urine pH 6.5 (5.0-9.0) Ur Specific [place] 1.015 (1.005-1.025) Urine Protein Negative (Neg-Trace) mg/dL Urine Glucose (UA) Negative (Negative) mg/dL Urine Ketones Negative (Negative) mg/dL Urine Blood Negative (Negative) Urine Nitrite Negative (Negative) Ur Leukocyte Esterase Negative (Negative) Influenza Type A (PCR) (Negative) Influenza Type B (PCR) (Negative) RSV RNA Qual (PCR) (Negative) SARS-CoV-2 RNA (RT-PCR) (Negative) Independent Interpretation I performed an independent interpretation of an: EKG (See course narrative) Radiology Impression Discussion of test interpretation with radiology: I discussed test interpretation with the radiologist and I have reviewed the radiologist's reading. Radiologist Impression: Chest X-ray, 2 Views COMPARISON: None FINDINGS: No consolidation. No pleural effusion. No pneumothorax. Mild cardiomegaly. Cardiac monitoring device in place. No acute fracture. IMPRESSION: No acute findings. CT Head WO Contrast COMPARISON: None FINDINGS: No acute intracranial hemorrhage. No evidence of acute infarction. Diffuse cortical volume loss. Nonspecific white matter hypodensities, most commonly associated with chronic microangiopathic changes. Chronic appearing right parietal encephalomalacia adjacent to H[employer]ING [employer]ACH[employer] OPER[employer] shunt catheter. No mass-effect or midline shift. Moderately prominent lateral ventricles and 3rd ventricle. Right parietal approach HARD[employer]ING MACHINE OPERATOR HEL[employer] shunt catheter in place with tip in the body of the right lateral ventricle. Visualized orbits are normal. Clear paranasal sinuses. Clear mastoid air cells. No acute fracture. Unremarkable soft tissues. IMPRESSION: Moderate hydrocephalus of unknown chronicity. Comparison with prior studies may be helpful if available. HARDENING MACHINE OPERATOR HEL[employer] shunt catheter in place. Nonemergent/incidental findings in the report. Independent Historian Clinical information obtained from an independent historian. History obtained from or confirmed by: EMS External Record Review External record reviewed: Outpatient record Chronic Conditions Patient?s care impacted by: Other (See narrative above) Critical Care Time Critical Care Time Critical Care Time: Yes Total Critical Care Time: 36 Attestation: I personally attest to this critical care time spent taking care of the patient exclusive of all other billable procedures was approximately 36 minutes including initial evaluation of patient, ordering tests, CT interpretation, EKG interpretation, medical consultation, documentation, re-evaluation. Discharge Plan Discharge Clinical Impression: Vasovagal near syncope, Orthostatic hypotension Patient Disposition: Home, Self-Care Instructions: Near Syncope (ED) Additional Instructions: CT scan today did not show acute abnormal findings, hydrocephalus is present and HARDENING MACHINE OPERATOR HEL[employer] shunt appears in place. You did have a drop in your blood pressure with position change which is known as orthostatic hypotension, this may have resulted in the symptoms you were experiencing when you got up to walk to the bathroom. This improved after receiving IV fluids. But sure that you are staying well hydrated drinking at least 8 glasses of 8-12 oz of water daily. Be sure that you were changing position slowly. If you develop any new or worsening symptoms or concerns you should seek re-evaluation emergency department this includes but is not limited to headache, vision changes, dizziness, lightheadedness, chest pain, shortness of breath, numbness or tingling of extremities, new passing out sensation. Cardiac true primary care provider and arrange for a follow-up visit within the next 3 days. Prescriptions: No Action (DME) FreeStyle Tyrese 14 Day Redig Misc See Rx Instructions .Route Qty: 1 0RF Rx Instructions: As directed (DME) blood-glucose meter [FreeStyle Lite Meter] Kit See Rx Instructions .Route Qty: 1 0RF Rx Instructions: As directed cholecalciferol (vitamin D3) 1,250 mcg (50,000 unit) capsule 1,250 mcg PO QWEEK Qty: 14 0RF (DME) FreeStyle Lite Strips Strip See Rx Instructions .Route Qty: 100 0RF Rx Instructions: test blood sugar twice a day (DME) lancets [FreeStyle Lancets] 28 gauge misc See Rx Instructions .Route Qty: 100 3RF Rx Instructions: As directed trazodone 50 mg tablet 50 mg PO BEDTIME 30 Days Qty: 30 3RF Eliquis 5 mg tablet 5 mg PO BID 90 Days Qty: 180 1RF metformin 500 mg tablet 500 mg PO DAILY donepezil 10 mg tablet 10 mg PO BEDTIME tamsulosin 0.4 mg capsule 0.8 mg PO BEDTIME balsalazide 750 mg capsule 2,250 mg PO TID prednisone 5 mg tablet 5 mg PO omeprazole 40 mg capsule,delayed release(DR/EC) 40 mg PO DAILY trospium 20 mg tablet 20 mg PO DAILY metformin 500 mg tablet extended release 24 hr 500 mg PO BID Referrals: Michelle Flores PA [Primary Care Provider] - Interventions: ED Discharge Assessment Last Done: 04/17/25 21:16 Discharge Date/Time: 04/17/25 23:29 Print Language: Kazakh
[2025-04-17 14:51] LABS: MANUAL DIFF FLAG NO
[2025-04-17 14:52] LABS: Basophils Percent Auto 0.3 % (0-2); Eosinophils Absolute Auto 0.1 X10*3/uL (0.0-0.4); Eosinophils Percent Auto 1.1 % (0-4); Hemoglobin 12.5 g/dl (14.0-18.0); Imm Gran Abs Auto 0.04 X10*3/uL (0.00-0.03); Imm Gran Pct Auto 0.4 % (0.0-0.4); Lymphocytes Absolute Auto 1.1 X10*3/uL (1.2-4.9); Lymphocytes Percent Auto 10.6 % (20-40); Mean Corpuscular HGB Conc 32.9 g/dl (31.0-36.0); Mean Corpuscular Hemoglobin 30.1 pg (27.0-33.0); Mean Corpuscular Volume 91.6 fL (80.0-98.0); Mean Platelet Volume 9.6 fL (9.4-12.4); Monocytes Absolute Auto 0.5 X10*3/uL (0.1-1.2); Monocytes Percent Auto 4.9 % (2-11); Neutrophils Absolute Auto 8.3 x10*3/uL (2.0-8.3); Neutrophils Percent Auto 82.7 % (45-73); Platelet Count 229 X10*3/uL (160-400); Red Blood Count 4.15 X10*6/uL (4.60-5.80); Red Cell Distribution Width 14.3 % (11.0-16.0)
[2025-04-17 15:00] LABS: Partial Thromboplastin Time 37.1 SEC (26.0-36.8)
[2025-04-17 15:11] LABS: B Type Natriuretic Peptide 48 pg/mL (<100)
[2025-04-17 15:14] LABS: Alanine Aminotransferase 13 U/L (0-40); Anion Gap 16 (12-20); Aspartate Amino Transferase 18 U/L (5-37); Bilirubin Total 0.2 mg/dL (0.0-1.0); Blood Urea Nitrogen 27 mg/dL (9-16); Calcium 9.8 mg/dL (8.4-10.2); Carbon Dioxide 24 mmol/L (22-29); Chloride 107 mmol/L (96-108); Cholesterol 184 mg/dL (<200); Creatinine Clr Calc Pharmacy 52.4; Estimated Glomerular Filt Rate 47; Glucose Random 222 mg/dL (60-115); HDL Cholesterol 44 mg/dL (>40); LDL Cholesterol Calculated 114 mg/dL (<100); Lipase 8 U/L (8-78); Magnesium 2.2 mg/dL (1.6-2.6); Potassium 4.6 mmol/L (3.3-5.1); Sodium 142 mmol/L (135-145); Total Protein 6.9 g/dL (6.5-8.0); Triglycerides 134 mg/dL (<150)
[2025-04-17 15:15] LABS: Troponin-I High Sensitivity 3.4 ng/L (<3.5-35.0)
[2025-04-17 15:28] LABS: Influenza A PCR NEGATIVE (Negative); Influenza B PCR NEGATIVE (Negative); Resp Syncy Virus RNA Qual PCR NEGATIVE (Negative); SARS COV2 PCR INHOUSE NEGATIVE (Negative)
[2025-04-17] MEDS: 0.9 % Sodium Chloride 1,000 ML 999 ML IV (15:52)
[2025-04-17 16:16] LABS: Alkaline Phosphatase 73 U/L (39-117)
[2025-04-17 17:40] LABS: Glucose, Whole Blood 158 mg/dL (60-115)
[2025-04-17 19:18] LABS: Appearance Urine Clear; Color Urine Yellow; Glucose Urine UA Negative (Negative); Leukocyte Esterase Urine Negative (Negative); Nitrite Urine Negative (Negative); PH 6.5 (5.0-9.0); Specific Gravity - Urine 1.015 (1.005-1.025); Urine Blood Negative (Negative); Urine Ketones Negative (Negative); Urine Protein Negative (Neg-Trace)
== END 2025-04-17 23:29 | disposition home or self-care (01) ==
PROVIDERS: Emergency Medicine; Nurse Practitioner Family; Emergency Provider Emergency Medicine; PCP Physician Assistant
DX: R55 Syncope and collapse (principal); I95.1 Orthostatic hypotension; E11.9 Type 2 diabetes mellitus without complications; I48.0 Paroxysmal atrial fibrillation; Z79.01 Long term (current) use of anticoagulants; Z03.818 Encounter for observation for suspected exposure to other biological agents ruled out; Z79.84 Long term (current) use of oral hypoglycemic drugs; Z79.899 Other long term (current) drug therapy
CPT/HCPCS: 0241U; 36415; 70450; 71046; 80053; 80061; 81003; 82947; 83690; 83735; 83880; 84484; 85025; 85730; 93005; 96360; 96361; 99284

== ENCOUNTER → 2025-04-17 14:14 | Outpatient (BNV) | payer MEDICARE, SELFPAY | PROVIDERS: Emergency Provider Emergency Medicine; PCP Physician Assistant; Visit Provider Internal Medicine Cardiovascular Disease | DX: I49.1 Atrial premature depolarization (principal); I25.2 Old myocardial infarction | CPT/HCPCS: 93010 ==

== ENCOUNTER → 2025-04-17 14:15 | Outpatient (BNV) | payer MEDICARE, SELFPAY | PROVIDERS: PCP Physician Assistant; Visit Provider Radiology Diagnostic Radiology | DX: G93.89 Other specified disorders of brain (principal); R53.1 Weakness | CPT/HCPCS: 70450; 71046 ==

== ENCOUNTER → 2025-05-04 23:59 | Outpatient (BNV) | payer MEDICARE, SELFPAY ==
--- NOTE | 2025-05-09 11:59 | A.OFFVIS_ITS ---
Intake Visit Reasons: Remote ILR check- [employer] Allergies cabbage Allergy (Severe, Verified 04/17/25 13:46) throat swells [facility] Medical History T2DM (type 2 diabetes mellitus) SVT (supraventricular tachycardia) Type 2 diabetes mellitus with obesity Abnormal LFTs Insomnia Obesity COVID-19 vaccine administered Gait instability History of BPH Dementia Arthritis History of lumbar puncture Cerebral ventriculomegaly Surgical History History of brain shunt Hx of appendectomy History of esophagogastroduodenoscopy (EGD) H/O colonoscopy History of tonsillectomy Family History Father No problems noted. Mother No problems noted. Social History Household Members: Spouse Housing: House Do you presently have visiting nurse or other home services: No Alcohol intake: never Patient Tobacco Use Status: Never used Tobacco e-Cigarette/Vaping Use: Never Used Second Hand Smoke Exposure: No service: No Current occupational status: employed Cognitive needs: Yes (cane) Hearing needs: No Vision needs: Yes (Glasses) Office Procedures Cardiac Device Check Cardiac Device Check Details: Date of service 05/04/2025; in the current monitoring period, atrial fibrillation present 0.3% of the time. [id number] Cardiac Interrogation, subcut cardiac rhythm monitor Procedure code (CPT) selection complete Assessment & Plan Assessment & Plan (1) Status post placement of implantable loop recorder: Code(s): Z95.818 - Presence of other cardiac implants and grafts Category: Medical (2) Paroxysmal atrial fibrillation: Code(s): I48.0 - Paroxysmal atrial fibrillation Category: Medical Plan x Coding Level of Care Code Procedure Only Diagnoses Status post placement of implantable loop recorder Z95.818 Paroxysmal atrial fibrillation I48.0 CPT Codes Cardiac Device Check - Cardiac Device 16: [id number] Cardiac Interrogation, subcut cardiac rhythm monitor ([id number])
== END ==
PROVIDERS: PCP Physician Assistant; Visit Provider Internal Medicine Cardiovascular Disease
DX: I48.0 Paroxysmal atrial fibrillation (principal); Z95.818 Presence of other cardiac implants and grafts
CPT/HCPCS: 93298

== ENCOUNTER → 2025-05-09 23:59 | Outpatient (BNV) | payer MEDICARE, SELFPAY ==
--- NOTE | 2025-05-22 12:29 | A.OFFVIS_ITS ---
Intake Visit Reasons: Remote ILR check- [employer] Allergies cabbage Allergy (Severe, Verified 04/17/25 13:46) throat swells [facility] Medical History T2DM (type 2 diabetes mellitus) SVT (supraventricular tachycardia) Type 2 diabetes mellitus with obesity Abnormal LFTs Insomnia Obesity COVID-19 vaccine administered Gait instability History of BPH Dementia Arthritis History of lumbar puncture Cerebral ventriculomegaly Surgical History History of brain shunt Hx of appendectomy History of esophagogastroduodenoscopy (EGD) H/O colonoscopy History of tonsillectomy Family History Father No problems noted. Mother No problems noted. Social History Household Members: Spouse Housing: House Do you presently have visiting nurse or other home services: No Alcohol intake: never Patient Tobacco Use Status: Never used Tobacco e-Cigarette/Vaping Use: Never Used Second Hand Smoke Exposure: No service: No Current occupational status: employed Cognitive needs: Yes (cane) Hearing needs: No Vision needs: Yes (Glasses) Office Procedures Cardiac Device Check Cardiac Device Check Details: Date of service 05/09/2025; in the current monitoring period, atrial fibrillation noted 2.3%. [id number] Cardiac Interrogation, subcut cardiac rhythm monitor Procedure code (CPT) selection complete Assessment & Plan Assessment & Plan (1) Status post placement of implantable loop recorder: Code(s): Z95.818 - Presence of other cardiac implants and grafts Category: Medical (2) Paroxysmal atrial fibrillation: Code(s): I48.0 - Paroxysmal atrial fibrillation Category: Medical Plan x Coding Level of Care Code Procedure Only Diagnoses Status post placement of implantable loop recorder Z95.818 Paroxysmal atrial fibrillation I48.0 CPT Codes Cardiac Device Check - Cardiac Device 16: [id number] Cardiac Interrogation, subcut cardiac rhythm monitor ([id number])
== END ==
PROVIDERS: PCP Physician Assistant; Visit Provider Internal Medicine
DX: I48.0 Paroxysmal atrial fibrillation (principal); Z95.818 Presence of other cardiac implants and grafts
CPT/HCPCS: 93298

== ENCOUNTER 2025-05-10 11:01 | Outpatient (REF) | payer MEDICARE, SELFPAY ==
[2025-05-10 11:35] LABS: MANUAL DIFF FLAG NO
[2025-05-10 11:41] LABS: Hematocrit 38.2 % (42.0-52.0); Hemoglobin 12.4 g/dl (14.0-18.0); Imm Gran Abs Auto 0.02 X10*3/uL (0.00-0.03); Imm Gran Pct Auto 0.2 % (0.0-0.4); Lymphocytes Absolute Auto 3.0 X10*3/uL (1.2-4.9); Mean Corpuscular HGB Conc 32.5 g/dl (31.0-36.0); Mean Corpuscular Hemoglobin 29.7 pg (27.0-33.0); Mean Corpuscular Volume 91.6 fL (80.0-98.0); NRBC Abs Auto 0.000 X10*3/uL (0.0-0.012); NRBC Pct Auto 0.0 /100WBC (0.0-0.2); Platelet Count 243 X10*3/uL (160-400); Red Blood Count 4.17 X10*6/uL (4.60-5.80); White Blood Count 9.0 X10*3/uL (4.8-10.8)
[2025-05-10 11:53] LABS: Alanine Aminotransferase 14 U/L (0-40); Albumin Level 3.9 g/dL (3.5-5.0); Alkaline Phosphatase 68 U/L (39-117); Aspartate Amino Transferase 16 U/L (5-37); Total Protein 6.7 g/dL (6.5-8.0)
--- OUTSIDE RECORDS SUMMARY | 2025-05-10 12:16 | XMS_ITS | Clinical Summary ---
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 Structural Steel Worker Name Role Phone Ana Silveira Primary [...] Encounters Date Type Department Care Team Description 05/04/2025 Telephone [facility] [address] [place] [address] Arsalan Goncalves MD 03/24/2025 Telephone [facility] [address] [place] [address] Stephanie Mckenzie PA 03/24/2025 Orders Only [facility] [address] [place] [address] Stephanie Mckenzie PA DOCK GRADER (ventriculoperitone al) shunt status (Primary Dx); NPH (normal pressure hydrocephalus) (HCC) 03/23/2025 Telephone [facility] [address] [place] [address] Telephone Intake, Staff PAC Form/Letter/Records Request 03/22/2025 2:30 PM EDT Follow-Up [facility] [address] [place] [address] Arsalan Goncalves MD Hydrocephalus, unspecified type (HCC) (Primary Dx) 03/22/2025 11:54 AM EDT - 03/22/2025 11:59 PM EDT Hospital Encounter [facility] [address] [place] [address] Idiopathic normal pressure hydrocephalus (HCC) Discharge Disposition: Home or Self Care () 03/09/2025 Telephone [facility] [address] [place] [address] Telephone Intake, Staff Post-op Follow-up; PAC Patient Request Call Back 03/08/2025 Documentation [facility] [address] [place] [address] Inspector Bicycle: Ellen Olivares 03/07/2025 Telephone [facility] [address] [place] [phone] Arsalan Goncalves MD 03/04/2025 Orders Only [facility] [address] [address] Yonis Mccloud PA Idiopathic normal pressure hydrocephalus (HCC) (Primary Dx) 03/02/2025 2:00 PM EDT Anesthesia Event [facility] Operating Room [address] [place] [id number] Rehana Reed MD Mitchon, Gregory J., MD 03/02/2025 12:15 PM EDT - 03/02/2025 3:40 PM EDT Surgery [facility] Operating Room [address] [place] [phone] Arsalan Goncalves MD REVISION OF VALVE IN CEREBROSPINAL FLUID SHUNT SYSTEM [62691 (CPT )] 03/02/2025 9:44 AM EDT - 03/04/2025 6:03 PM EDT Hospital Encounter [facility] [address] [place] [address] Arsalan Goncalves MD Idiopathic normal pressure hydrocephalus [...] pur e alcohol) no alcohol since ~2012 [facility] Utilities Answer Date Recorded In the [...] 82 03/22/2025 3:03 PM EDT Temperature 36.5 C (97.7 F) 03/04/2025 12:05 PM EDT Respiratory Rate 17 03/22/2025 3:03 PM EDT Oxygen Saturation 98% 03/22/2025 3:03 PM EDT Inhaled Oxygen Concentration - - Weight 115.2 kg (253 lb 15.5 oz) 03/02/2025 9:00 PM EDT Height 175.3 cm (5' 9 ) 03/02/2025 9:00 PM EDT Body Mass Index 37.5 03/02/2025 9:00 PM EDT Plan of Treatment Upcoming Encounters Date Type Department Care Team (Late st Contact Info) Description 05/17/2025 1:00 PM EDT Appointment [facility] [address] [place] [address] Arsalan Goncalves MD [address] [place], [place] [phone] 05/17/2025 1:30 PM EDT Follow-Up [facility] [address], [place] [phone] Arsalan Goncalves MD [address] [place] [address] Health Maintenance Due Date Last Done Comments Hepatitis C Screening 1945 Medicare AWV 1946 Alcohol/Substance Use Screening 11/10/2024 Depression Screening and Follow-Up 11/10/2024 Health Care Proxy Review 11/10/2024 Influenza Vaccine (#1) 2025 , 08/07/2023, 11/14/2022, Additional history exists Social Drivers of Health Annual Screening 03/02/2026 03/02/2025 DTaP,Tdap,and Td Vaccines (2 - Td or Tdap) 04/14/2035 04/14/2025 Colonoscopy Discontinued 12/04/2015 Zoster Vaccines Completed 09/21/2021, 06/11, 09/07/2015 Colon Cancer Screening Discontinued FOBT / Fit Test Discontinued 01/28/2023 Sigmoidoscopy Discontinued 01/28/2023 Pneumococcal Vaccine: 50+ Years Completed 09/25/2023, 08/27/2016 RSV Vaccine (60+ years old and patients) Completed 06/29/2024 COVID-19 Vaccine Completed 04/14/2025, , 09/25/2023, Additional history exists Cologuard Discontinued Hepatitis B Vaccines Aged Out No long er eligible based on patient's age to complete this topic Medical Devices Implanted Type Area Ict Help Desk Officer Device Identifier Shelf Expiration Date Model / Serial / Lot Shunt Valve Programmable - [id number] Implanted:Qty: 1 on 02/05/2023 by Arsalan Goncalves MD at [facility] Implant Right: Brain CODMAN 07/10/2027 [id number] / / [id number] Procedures * Due to [place] state law, this organization might not be sharing negative HIV tests. Procedure Name Priority Date/Time Associated Diagnosis Comments CT HEAD WO CONTRAST Routine 03/22/2025 12:18 PM EDT Idiopathic normal pressure hydrocephalus (HCC) XR DOCK GRADER SHUNT SETTING Routine 03/03/2025 5 :08 PM EDT XR DOCK GRADER SHUNT SETTING Routine 03/03/2025 5 :07 PM EDT XR DOCK GRADER SHUNT SETTING Routine 03/03/2025 5 :07 PM EDT POCT GLUCOSE Routine 03/03/2025 10:18 AM EDT BASIC METABOLIC PANEL Routine 03/03/2025 6:51 AM EDT MAGNESIUM Routine 03/03/2025 6:51 AM EDT PHOSPHORUS Routine 03/03/2025 6:51 AM EDT CBC Routine 03/03/2025 6:[address] HEAD WO CONTRAST STAT 03/02/2025 5 :24 PM EDT XR DOCK GRADER SHUNT SETTING STAT 03/02/2025 5 :21 PM EDT XR DOCK GRADER SHUNT STAT 03/02/2025 5:21 PM EDT BASIC METABOLIC PANEL STAT 03/02/2025 4:29 PM EDT OR REPLACEMENT/REVISIO N,CSF SHUNT 03/02/2025 1:35 PM EDT [...] Last 3 Months Results * Due to [place] state law, this organization might not be sharing negative HIV tests. * CT Head WO Contrast (03/22/2025 12:18 PM EDT) Only the most recent of2 resultswithin the time period is included. Anatomical Region Laterality Modality Head and Neck Computed Tomogra phy 03/22/2025 2:36 PM EDT Impressions 03/22/2025 4:49 PM EDT 1. Ventriculostomy catheter tip in the right lateral ventricle, unchanged since the prior exam from 03/02/2025. 2. Moderate to marked enlargement of the lateral and third ventricles and mild enlargement of the fourth ventricle, unchanged since the previous exam from 03/02/2025. 3. No evidence of acute intracranial hemorrhage or acute large territorial infarct. I, Jose Alberto Lowe, have reviewed the examination and concur with the findings as reported or so edited. Trainee: Tony Castelan If this radiology report contains a blank impression section, it is an incomplete radiology report. Please contact the interpreting radiologist or applicable radiology division as soon as possible to obtain the completed interpretation. Workstation ID: [id number] Narrative 03/22/2025 4:[address] OF THE HEAD WITHOUT CONTRAST INDICATION: Hydrocephalus CTH prior to initiating eliquis G91.2 - I10 - (Idiopathic) normal pressure hydrocephalus. TECHNIQUE: Non Contrast CT of the head was performed without contrast. Multiplanar reformats were obtained. COMPARISON: CT head without [...] sinuses is grossly normal. VENTRICLES: There is [id number] enlargement of the lateral ventricles and third [...] no acute abnormality. The included paranasal sinuses are clear. The mastoid air cells are clear. The orbits are intact with bilateral lens replacements. Resulting Agency Comment [id number] Procedure Note Jose Alberto Lowe MD - [...] sinuses is grossly normal. VENTRICLES: There is [id number] enlargement of the lateralventricles and third ventricle [...] possible to obtain thecompleted interpretation. Workstation ID: [id number] Yonis STORM IMG CT PROCEDURES Final Resu lt * XR DOCK GRADER Shunt Setting (03/03/2025 5:08 PM EDT) Only [...] section, it is an incomplete radiology report. Please contact the interpreting radiologist or applicable radiology division as soon as possible to obtain the completed interpretation. Workstation ID: [id number] Narrative 03/03/2025 5:33 PM EDT COMPARISON: 03/02/2025. Resulting Agency Comment [id number] Procedure Note Willie Molina MD - 03/03/2025 COMPARISON: 03/02/2025. IMPRESSION: FINDINGS/IMPRESSION: Radiograph time stamp at 15.35: Programmable shunt valve setting at [id number] mm of H2O Radiograph time stamp at 15.44: Programmable shunt valve setting at [id number] mm of H2O Radiograph time stamp at 16.01: Programmable shunt valve setting at about80 mm of H2O If this radiology report contains a blank impression section, it is anincomplete radiology report. Please contact the interpreting radiologistor applicable radiology division as soon as possible to obtain thecompleted interpretation. Workstation ID: [id number] us [employer] STORM IMG XR PROCEDURES Final Result * (ABNORMAL) POCT Glucose, interfaced (03/03/2025 10:18 AM EDT) Glucose, POCT 210(H) 70 - 99 mg/dL 03/03/2025 10:19 AM EDT [facility] Comment: The lens assorter has not determined the efficacy of this test in Critically ill patients. [facility] defines Critically ill patients for the purpose of blood glucose monitoring (BGM) by glucometer, as patients meeting one or more of the following criteria: Hypotension- non-ICU patients (systolic blood pressure Less than 90 mmHg) due to shock Hypotension -ICU patients (Mean Arterial Pressure (MAP) <60 mmHg or systolic [...] POCT ORDERABLES - DEVICE F inal Result [facility] [address] [place] [address], * (ABNORMAL) CBC (03/03/2025 6:51 AM EDT) Pathologist [facility] WBC 9.1 3.8 - 10.8 10*3/uL 03/03/2025 7:13 AM EDT [facility] RBC 4.03(L) 4.20 - 5.80 10*6/uL 03/03/2025 7:13 AM EDT [facility] Hemoglobin 11.8(L) 13.2 - 17.1 g/dL 03/03/2025 7:13 AM EDT [facility] PATHOLOG[facility] LAB[facility] Hematocrit 36.6(L) 38.5 - 50.0 % 03/03/2025 7:13 AM EDT [facility] MCV 90.8 80.0 - 100.0 fL 03/03/2025 7:13 AM EDT [employer] [facility] LAB[facility] MCH 29.3 27.0 - 33.0 pg 03/03/2025 7:13 AM EDT [facility] MCHC 32.2 32.0 - 36.0 g/dL 03/03/2025 7:13 AM EDT [email or web address] LAB[facility] RDW 14.7 11.0 - 15.0 % 03/03/2025 7:13 AM EDT [email or web address] Platelets 238 140 - 400 10*3/uL 03/03/2025 7:13 AM EDT [email or web address] MPV 10.6 7.5 - 12.5 fL 03/03/2025 7:13 AM EDT [facility] Blood Structure of peripheral vein / Unknown Venipuncture / Unknown 03/03/2025 6:51 AM EDT 03/03/2025 7:06 AM EDT us Arsalan Goncalves MD LAB BLOOD ORDERABLES Final Res ult Performing Organization Address City/[facility]/ZIP Co de Phone Number [facility] [address] [place] [address], [place] * (ABNORMAL) Phosphorus (03/03/2025 6:51 AM EDT) Phosphorus 2.4(L) 2.5 - 4.5 mg/dL 03/03/2025 7:47 AM EDT [email or web address] Blood Structure of peripheral vein / Unknown Venipuncture / Unknown 03/03/2025 6:51 AM EDT 03/03/2025 7:15 AM EDT us Arsalan Goncalves MD LAB BLOOD ORDERABLES Final Res ult [facility] [address] [place] [address], [place] * Magnesium (03/03/2025 6:51 AM EDT) MG 2.2 1.6 - 2.4 mg/dL 03/03/2025 7:47 AM EDT [facility] Blood Structure of peripheral vein / Unknown Venipuncture / Unknown 03/03/2025 6:51 AM EDT 03/03/2025 7:15 AM EDT us Arsalan Goncalves MD LAB BLOOD ORDERABLES Final Res ult [email or web address] [address] [place] [address], * (ABNORMAL) Basic Metabolic Panel (03/03/2025 6:51 AM EDT) Only the most recent of2 resultswithin the time period is included. NA 144 135 - 145 mmol/L 03/03/2025 7:47 AM EDT [facility] K 4.3 3.5 - 5.3 mmol/L 03/03/2025 7:47 AM EDT [facility] Cl 111(H) 98 - 107 mmol/L 03/03/2025 7:47 AM EDT [facility] CO2 24 22 - 32 mmol/L 03/03/2025 7:47 AM EDT [facility] BUN 14 7 - 23 mg/dL 03/03/2025 7:47 AM EDT [facility] Creatinine 1.00 0.60 - 1.30 mg/dL 03/03/2025 7:47 AM EDT [facility] Glucose 127(H) 65 - 99 mg/dL 03/03/2025 7:47 AM EDT [facility] Calcium 9.1 8.6 - 10.5 mg/dL 03/03/2025 7:47 AM EDT [facility] Anion Gap 9 5 - 15 03/03/2025 7:47 AM EDT [facility] [employer] CLIN[facility] PATHOLOG[facility] LAB[facility] eGFR 77 >=60 mL/min/1. 73m2 03/03/2025 7:47 AM EDT [facility] PATHOLOG[facility] LABOR[facility] Comment:The estimated glomer ular [...] MD LAB BLOOD ORDERABLES Final Res ult [facility] LAB[facility] [address] [place] [address], [place] * XR DOCK GRADER Shunt (03/02/2025 5:21 PM EDT) Anatomical Region Laterality Modality Head and Neck, Chest, Abdomen Co mputed Radiography 03/02/2025 5:25 PM EDT Impressions 03/02/2025 5:34 PM EDT FINDINGS/IMPRESSION: Programmable shunt valve setting at about 70-80 mm of H2O right parieto- occipital ventriculoperitoneal shunt catheter coursing across right side of the neck and terminating in the right subhepatic region. No kinking or breakage of the shunt catheter. If this radiology report contains a blank impression section, it is an incomplete radiology report. Please contact the interpreting radiologist or applicable radiology division as soon as possible to obtain the completed interpretation. Workstation ID: [id number] Narrative 03/02/2025 5:34 PM EDT COMPARISON: 09/25/2024 Resulting Agency Comment [id number] Procedure Note Willie Molina MD - 03/02/2025 [...] possible to obtain thecompleted interpretation. Workstation ID: [id number] us Arsalan Goncalves MD IMG XR PROCEDURES Final Result * ECG 12 lead For Preop? Yes (02/14/2025 1:02 PM EDT) Ventricular Rate EKG 67 BPM MUSE EKG Atrial Rate 67 BPM MUSE EKG OR Interval 188 ms MUSE EKG QRS Interval 94 ms MUSE EKG QT Interval 404 ms MUSE EKG QTC Interval 426 ms MUSE EKG P [place] 17 degrees MUSE EKG R [place] -24 degrees MUSE EKG T Wave [place] 4 degrees MUSE EKG 02/14/2025 1:02 PM EDT 02/15/2025 4:59 PM EDT Impressions MUSE EKG - 02/15/2025 4:59 PM EDT SINUS RHYTHM WITH PREMATURE ATRIAL COMPLEXES INFERIOR INFARCT (CITED ON OR BEFORE 28-JAN-2023) ABNORMAL ECG WHEN COMPARED WITH ECG OF 28-JAN-2023 10:57, PREMATURE ATRIAL COMPLEXES ARE NOW PRESENT Confirmed by Angie España ([id number]) on 02/15/2025 4:59:11 PM us Joslyn White NP ECG ORDERABLES Final Result MUSE EKG * Dominguez Top, Urine (02/14/2025 12:41 PM EDT) Extra Tube Hold for add-ons. 02/14/2025 6:05 PM EDT [facility] Comment:Auto resulted. Urine Urine specimen collection, clean catch / Unknown Non-Blood Collection / Unknown 02/14/2025 12:41 PM EDT 02/14/2025 5:59 PM EDT us Joslyn White CORONER'S JUROR LAB URINE ORDERABLES F inal Result [facility] [address] [place] [address], * (ABNORMAL) Urinalysis W/Reflex to Microscopic & Culture (02/14/2025 12:41 PM EDT) Color, Urine Yellow Colorless, Light Yellow, Yellow, Dark Yellow 02/14/2025 6:17 PM EDT [facility] Clarity, Urine Clear Clear 02/14/2025 6:17 PM EDT [facility] Specific Holden, Urine 1.029 1.005 - 1.030 02/14/2025 6:17 PM EDT [facility] pH, Urine 5.0 4.6 - 8.0 02/14/2025 6:17 PM EDT [facility] Protein, Urine 1+(A) Negative 02/14/2025 6:17 PM EDT [facility] Glucose, Urine Negative Negative 02/14/2025 6:17 PM EDT [facility] Ketones, Urine Negative Negative 02/14/2025 6:17 PM EDT [facility] Bilirubin, Urine Negative Negative 02/14/2025 6:17 PM EDT [facility] Blood, Urine Negative Negative 02/14/2025 6:17 PM EDT [facility] Nitrite, Urine Negative Negative 02/14/2025 6:17 PM EDT [facility] Urobilinogen, Urine Normal Normal 02/14/2025 6:17 PM EDT [facility] Leukocyte Esterase, Urine Negative Negative 02/14/2025 6:17 PM EDT [email or web address] WBC, Urine 1 0 - 2 /HPF 02/14/2025 6:17 PM EDT [facility] RBC, Urine 2 0 - 2 /HPF 02/14/2025 6:17 PM EDT [email or web address] Hyaline Casts, Urine 4(H) 0 - 2 /LPF 02/14/2025 6:17 PM EDT [email or web address] Bacteria, Urine None None /HPF /HPF 02/14/2025 6:17 PM EDT [email or web address] Mucus, Urine Occasional /LPF 02/14/2025 6:17 PM EDT [email or web address] Urine Urine specimen collection, clean catch / Unknown Non-Blood Collection / Unknown 02/14/2025 12:41 PM EDT 02/14/2025 5:59 PM EDT us Joslyn White CORONER'S JUROR LAB URINE ORDERABLES F inal Result [facility] [address] [place] [address], * (ABNORMAL) CBC Auto Differential (02/14/2025 12:41 PM EDT) WBC 8.5 3.8 - 10.8 10*3/uL 02/14/2025 6:09 PM EDT [email or web address] RBC 4.51 4.20 - 5.80 10*6/uL 02/14/2025 6:09 PM EDT [email or web address] Hemoglobin 13.2 13.2 - 17.1 g/dL 02/14/2025 6:09 PM EDT [facility] Hematocrit 41.6 38.5 - 50.0 % 02/14/2025 6:09 PM EDT [facility] MCV 92.2 80.0 - 100.0 fL 02/14/2025 6:09 PM EDT [facility] MCH 29.3 27.0 - 33.0 pg 02/14/2025 6:09 PM EDT [facility] MCHC 31.7(L) 32.0 - 36.0 g/dL 02/14/2025 6:09 PM EDT [facility] RDW 14.7 11.0 - 15.0 % 02/14/2025 6:09 PM EDT [facility] Platelets 262 140 - 400 10*3/uL 02/14/2025 6:09 PM EDT [facility] MPV 10.8 7.5 - 12.5 fL 02/14/2025 6:09 PM EDT [facility] Neutrophil % 57.7 % 02/14/2025 6:09 PM EDT [facility] Immature Grans % 0.2 0.0 - 0.9 % 02/14/2025 6:09 PM EDT [facility] Lymphocyte % 26.3 % 02/14/2025 6:09 PM EDT [facility] Monocyte % 7.2 % 02/14/2025 6:09 PM EDT [facility] Eosinophil % 7.9 % 02/14/2025 6:09 PM EDT [facility] Basophil % 0.7 % 02/14/2025 6:09 PM EDT [facility] Neutrophil # 4.88 1.50 - 7.80 10*3/uL 02/14/2025 6:09 PM EDT [facility] Immature Grans # <0.03 <=0.03 10*3/uL 02/14/2025 6:09 PM EDT [facility] Lymphocyte # 2.20 0.85 - 3.90 10*3/uL 02/14/2025 6:09 PM EDT [facility] [employer] CL[facility] LAB[facility] Monocyte # 0.60 0.20 - 0.95 10*3/uL 02/14/2025 6:09 PM EDT [facility] PATHOLOG[facility] LABOR[facility] Eosinophil # 0.70(H) 0.02 - 0.50 10*3/uL 02/14/2025 6:09 PM EDT [facility] LAB[facility] Basophil # 0.10 0.00 - 0.20 10*3/uL 02/14/2025 6:09 PM EDT [facility] [employer] [facility] nRBC % 0.0 /100 WBCs 02/14/2025 6:09 PM EDT [facility] LAB[facility] nRBC # <0.01 <0.01 10*3/uL 02/14/2025 6:09 PM EDT [facility] Blood Structure of peripheral vein / Unknown Venipuncture / Unknown 02/14/2025 12:41 PM EDT 02/14/2025 5:58 PM EDT Joslyn White CORONER'S JUROR LAB BLOOD ORDERABLES F inal Result [facility] LAB[facility]ORY [address] [place] [address], * PTT (02/14/2025 12:41 PM EDT) [facility] Signature aPTT 31.3 23.0 - 32.0 Seconds 02/14/2025 6:27 PM EDT [facility] [employer] [facility] Comment: Current PTT reagent is not sensitive to detect all Lupus Anticoagulant (LA) Inhibitor Cases. If a LA is suspected, please order a Lupus Anticoagulation w/ Reflex Test which is performed at [facility] in [place], [place]. Blood Structure of peripheral vein / Unknown Venipuncture / Unknown 02/14/2025 12:41 PM EDT 02/14/2025 5:58 PM EDT us Joslyn White CORONER'S JUROR LAB BLOOD ORDERABLES F inal Result Performing Organization Address City/[facility]/ZIP Co de Phone Number [facility] [address] [place] [address], * Protime-INR (02/14/2025 12:41 PM EDT) PT 11.3 9.6 - 12.4 Seconds 02/14/2025 6:27 PM EDT [facility] INR 1.1 0.9 - 1.1 02/14/2025 6:27 PM EDT [facility] Comment:The optimal therapeu tic INR range for patients treated with Vitamin K antagonists (VKAS, e.g., Warfarin) is 2.0 to 3.5. Discuss the desired range with your doctor/care team. Blood Structure of peripheral vein / Unknown Venipuncture / Unknown 02/14/2025 12:41 PM EDT 02/14/2025 5:58 PM EDT Joslyn White CORONER'S JUROR LAB BLOOD ORDERABLES F inal Result Performing Organization Address [facility] Co de Phone Number [facility] [address] [place] [address], * (ABNORMAL) Comprehensive Metabolic Panel (02/14/2025 12:41 PM EDT) NA 142 135 - 145 mmol/L 02/14/2025 6:30 PM EDT [facility] K 4.0 3.5 - 5.3 mmol/L 02/14/2025 6:30 PM EDT [facility] Cl 104 98 - 107 mmol/L 02/14/2025 6:30 PM EDT [facility] CO2 26 22 - 32 mmol/L 02/14/2025 6:30 PM EDT [facility] Anion Gap 12 5 - 15 02/14/2025 6:30 PM EDT [facility] Glucose 196(H) 65 - 99 mg/dL 02/14/2025 6:30 PM EDT [facility] Creatinine 1.14 0.60 - 1.30 mg/dL 02/14/2025 6:30 PM EDT [facility] Calcium 10.5 8.6 - 10.5 mg/dL 02/14/2025 6:30 PM EDT [facility] Total Protein 7.5 6.0 - 8.0 g/dL 02/14/2025 6:30 PM EDT [facility] Albumin 4.1 3.5 - 5.2 g/dL 02/14/2025 6:30 PM EDT [facility] Bilirubin, Total 0.3 0.2 - 1.2 mg/dL 02/14/2025 6:30 PM EDT [facility] Alkaline Phosphatase 79 35 - 129 U/L 02/14/2025 6:30 PM EDT [facility] AST 15 10 - 40 U/L 02/14/2025 6:30 PM EDT [facility] ALT 10 10 - 40 U/L 02/14/2025 6:30 PM EDT [facility] BUN 19 7 - 23 mg/dL 02/14/2025 6:30 PM EDT [facility] eGFR 66 >=60 mL/min/1. 73m2 02/14/2025 6:30 PM EDT [facility] Comment:The estimated glomer ular [...] - 4.2 g/dL 02/14/2025 6:30 PM EDT [facility] A/G Ratio 1.2(L) 1.5 - 3.0 02/14/2025 6:30 PM EDT [facility] Blood Structure of peripheral vein / Unknown Venipuncture / Unknown 02/14/2025 12:41 PM EDT 02/14/2025 5:58 PM EDT us Joslyn White CORONER'S JUROR LAB BLOOD ORDERABLES F inal Result [facility] [address] [place] [address], [place] from Last 3 Months Insurance MEDICARE [facility] Advance Directives Documents on File Type Date Recorded Patient Mailing Jogger Expl [facility] Proxy 01/28/2023 9:53 AM * [...] Relationship Healthcare Agent Relationshi p Communication Etienne Luz [facility] Health Care Agent Care Teams Structural Steel Worker Relationship Specialty Start Date End Date Ana Silveira [address] [place] [address] [phone] PCP - General 03/13/23
== END 2025-05-10 11:02 | disposition home or self-care (01) ==
LOC: HO.LAB 11:01
PROVIDERS: Visit Provider Internal Medicine
DX: K51.30 Ulcerative (chronic) rectosigmoiditis without complications (principal)
CPT/HCPCS: 36415; 80076; 80280; 82542; 85025; 85652; 86140

== ENCOUNTER → 2025-06-09 23:59 | Outpatient (BNV) | payer MEDICARE, SELFPAY ==
--- NOTE | 2025-06-19 13:52 | A.OFFVIS_ITS ---
Intake Visit Reasons: Remote ILR check- [employer] Allergies cabbage Allergy (Severe, Verified 04/17/25 13:46) throat swells [facility] Medical History T2DM (type 2 diabetes mellitus) SVT (supraventricular tachycardia) Type 2 diabetes mellitus with obesity Abnormal LFTs Insomnia Obesity COVID-19 vaccine administered Gait instability History of BPH Dementia Arthritis History of lumbar puncture Cerebral ventriculomegaly Surgical History History of brain shunt Hx of appendectomy History of esophagogastroduodenoscopy (EGD) H/O colonoscopy History of tonsillectomy Family History Father No problems noted. Mother No problems noted. Social History Household Members: Spouse Housing: House Do you presently have visiting nurse or other home services: No Alcohol intake: never Patient Tobacco Use Status: Never used Tobacco e-Cigarette/Vaping Use: Never Used Second Hand Smoke Exposure: No service: No Current occupational status: employed Cognitive needs: Yes (cane) Hearing needs: No Vision needs: Yes (Glasses) Office Procedures Cardiac Device Check Cardiac Device Check Details: Date of service 06/09/2025; in the current monitoring period, atrial fibrillation was present 1.9%. [id number] Cardiac Interrogation, subcut cardiac rhythm monitor Procedure code (CPT) selection complete Assessment & Plan Assessment & Plan (1) Implantable loop recorder present: Code(s): Z95.818 - Presence of other cardiac implants and grafts Category: Medical (2) Paroxysmal atrial fibrillation: Code(s): I48.0 - Paroxysmal atrial fibrillation Category: Medical Plan x Coding Level of Care Code Procedure Only Diagnoses Implantable loop recorder present Z95.818 Paroxysmal atrial fibrillation I48.0 CPT Codes Cardiac Device Check - Cardiac Device 16: [id number] Cardiac Interrogation, subcut cardiac rhythm monitor ([id number])
== END ==
PROVIDERS: PCP Physician Assistant; Visit Provider Internal Medicine
DX: I48.0 Paroxysmal atrial fibrillation (principal); Z95.818 Presence of other cardiac implants and grafts
CPT/HCPCS: 93298

== ENCOUNTER → 2025-07-10 23:59 | Outpatient (BNV) | payer MEDICARE, SELFPAY ==
--- NOTE | 2025-07-27 20:23 | MHC.OFFVIS ---
Intake Visit Reasons: Remote ILR check- [employer] Allergies cabbage Allergy (Severe, Verified 04/17/25 13:46) throat swells [facility] Medical History T2DM (type 2 diabetes mellitus) SVT (supraventricular tachycardia) Type 2 diabetes mellitus with obesity Abnormal LFTs Insomnia Obesity COVID-19 vaccine administered Gait instability History of BPH Dementia Arthritis History of lumbar puncture Cerebral ventriculomegaly Surgical History History of brain shunt Hx of appendectomy History of esophagogastroduodenoscopy (EGD) H/O colonoscopy History of tonsillectomy Family History Father No problems noted. Mother No problems noted. Social History Household Members: Spouse Housing: House Do you presently have visiting nurse or other home services: No Alcohol intake: never Patient Tobacco Use Status: Never used Tobacco e-Cigarette/Vaping Use: Never Used Second Hand Smoke Exposure: No service: No Current occupational status: employed Cognitive needs: Yes (cane) Hearing needs: No Vision needs: Yes (Glasses) Office Procedures Cardiac Device Check Cardiac Device Check Details: Date of service 07/10/2025; in the current monitoring period, atrial fibrillation burden 1.2% [id number] Cardiac Interrogation, subcut cardiac rhythm monitor Procedure code (CPT) selection complete Assessment & Plan Assessment & Plan (1) Implantable loop recorder present: Code(s): Z95.818 - Presence of other cardiac implants and grafts Category: Medical (2) Atrial arrhythmia: Code(s): I49.8 - Other specified cardiac arrhythmias Category: Medical (3) Paroxysmal atrial fibrillation: Code(s): I48.0 - Paroxysmal atrial fibrillation Category: Medical Plan x Coding Level of Care Code Procedure Only Diagnoses Implantable loop recorder present Z95.818 Atrial arrhythmia I49.8 Paroxysmal atrial fibrillation I48.0 CPT Codes Cardiac Device Check - Cardiac Device 16: [id number] Cardiac Interrogation, subcut cardiac rhythm monitor ([id number])
== END ==
PROVIDERS: PCP Physician Assistant; Visit Provider Internal Medicine
DX: I49.8 Other specified cardiac arrhythmias (principal); Z95.818 Presence of other cardiac implants and grafts; I48.0 Paroxysmal atrial fibrillation
CPT/HCPCS: 93298

== ENCOUNTER 2025-07-28 13:46 | Observation (INO) | payer MEDICARE, SELFPAY ==
[2025-07-28] VITALS (7 sets, daily range): BP systolic 100–176; BP diastolic 64–81; PULSE 6–82; RESP 16–22; TEMP 36.6–36.7; O2SAT 97–100; BMI 34.1
--- NOTE | ~2025-07-28 | XR_ITS ---
EXAMINATION: XR CHEST CLINICAL INFORMATION: Syncope COMPARISON: April 17, 2025 TECHNIQUE: Frontal view of the chest was obtained. FINDINGS: Cardiomediastinal silhouette overlaps the right hemithorax due to patient's positioning. Poor inspiration. No gross consolidation, pleural effusion or pneumothorax. There is a catheter overlapping the right hemithorax. Cardiomediastinal silhouette size is normal. Multilevel thoracolumbar spondylosis with the severe kyphotic deformity. XR/XR chest 1V IMPRESSION: No acute airspace disease. 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 Electronically signed by: Kristian Jones MD 07/28/2025 02:31 PM EDT
--- NOTE | ~2025-07-28 | CT_ITS ---
EXAMINATION: CT HEAD WITHOUT IV CONTRAST HISTORY: Syncope on Eliquis and fall. TECHNIQUE: Unenhanced helical CT of the head was performed per standard departmental protocol. Coronal and sagittal reformats of the head were also evaluated. One or more of the following techniques was used for dose reduction: Automated exposure control, adjustment of the mA and/or kV according to patient size, use of iterative reconstruction technique. DLP: 976 mGy-cm COMPARISON: Comparison is made with the prior examination dated 04/17/2025. FINDINGS: BRAIN: Again seen is a ventriculostomy catheter from a right parietal approach with its tip in the body of the right lateral ventricle adjacent to the septum pellucidum. There is diffuse prominence of the ventricular system and cortical sulci, consistent with atrophy. The degree of ventricular dilatation is unchanged from the prior study. Periventricular and subcortical white matter hypodensities are noted which are nonspecific, but often seen in the setting of small vessel ischemic disease. There is no mass effect or midline shift. No intra- or extra-axial fluid collections are identified. SINUSES: The visualized paranasal sinuses are clear. The mastoid air cells and middle ear cavities are well pneumatized. ORBITS: The visualized orbits are unremarkable. BONES/SOFT TISSUES: The extracranial soft tissues are unremarkable. The calvarium is intact. No suspicious lytic or sclerotic lesions. CT/CT head/brain wo IV con IMPRESSION: No acute intracranial abnormality. Electronically signed by: Lang Tristan MD 07/28/2025 03:14 PM EDT
--- NOTE | ~2025-07-28 | CT_ITS ---
EXAMINATION: CT CERVICAL SPINE WITHOUT IV CONTRAST HISTORY: Syncope +fall. TECHNIQUE: Helical CT of the cervical spine was performed per standard departmental protocol. Coronal and sagittal reformatted images were also evaluated. One or more of the following techniques was used for dose reduction: Automated exposure control, adjustment of the mA and/or kV according to patient size, use of iterative reconstruction technique. DLP: 391 mGy-cm COMPARISON: There are no prior studies available for comparison. FINDINGS: CERVICAL SPINE: The vertebral bodies maintain normal height without evidence of fracture or subluxation. There is reversal of the normal cervical lordosis at the C3-4 level. There is moderate degenerative disc disease at the C4-5, C5-6, and C6-7 levels, with disc space narrowing and osteophyte formation. Evaluation for disc pathology is limited by lack of intrathecal contrast material, however. BRAIN: The visualized portion of the brain is unremarkable. SINUSES: The visualized paranasal sinuses, mastoid air cells and middle ear cavities are unremarkable. LUNG APICES: The visualized lung apices are clear. SOFT TISSUES: The visualized paraspinal soft tissues are unremarkable. CT/CT cervical spine wo IV con IMPRESSION: No evidence of fracture or subluxation of the cervical spine. Degenerative changes as described. Electronically signed by: Lang Tristna MD 07/28/2025 03:27 PM EDT
--- NOTE | 2025-07-28 13:58 | ECG_ITS ---
Test Reason : SYNCOPY Blood Pressure : */* mmHG Vent. Rate : 58 BPM Atrial Rate : 58 BPM P-R Int : 176 ms QRS Dur : 86 ms QT Int : 420 ms P-R-T Axes : 25 -23 0 degrees QTcB Int : 412 ms Sinus bradycardia with Premature atrial complexes Inferior infarct (cited on or before 05-Apr-2022) Abnormal ECG When compared with ECG of 17-Apr-2025 14:20, Premature atrial complexes are now Present Referred By: Jacquie Godwin Electronically Signed By: VICKY AMAYA
--- NOTE | 2025-07-28 14:00 | ED.SYNCOPE ---
HPI - Syncope General Chief Complaint: Syncope Stated Complaint: Syncope, + thinners Time Seen by Provider: 07/28/25 13:49 Source: patient, EMS and old records reviewed Mode of arrival: EMS Limitations: no limitations History of Present Illness ED Provider: DR. Godwin HPI narrative: 79-year-old male past medical history T2 DM, paroxysmal AFib on Eliquis, ulcerative colitis, normal pressure hydrocephalus s/p shunt, cerebral ventriculomegaly, megaly, BPH presented today for evaluation after having 1 syncopal episode while he was eating lunch, before patient passed out patient became diaphoretic nauseous and had 1 vomiting at inpatient collapsed witnessed by his sister, +head injury patient is on Eliquis, complaining of mild headache now but no blurry vision, no neck pain, no weakness, no numbness, no CP, no SOB. Related Data Home Medications ?Medication ?Instructions ?Recorded ?Confirmed balsalazide 750 mg capsule 2,250 mg PO TID 03/15/23 01/13/25 donepezil 10 mg tablet 10 mg PO BEDTIME 03/15/23 01/13/25 metformin 500 mg tablet 500 mg PO DAILY 03/15/23 01/13/25 tamsulosin 0.4 mg capsule 0.8 mg PO BEDTIME 03/15/23 01/13/25 prednisone 5 mg tablet 5 mg PO 11/04/23 01/13/25 metformin 500 mg tablet,extended 500 mg PO BID 05/10/24 01/13/25 release 24 hr omeprazole 40 mg capsule,delayed 40 mg PO DAILY 05/10/24 01/13/25 release trospium 20 mg tablet 20 mg PO DAILY 05/10/24 01/13/25 Previous Rx's ?Medication ?Instructions ?Recorded flash glucose scanning reader #1 ea 09/04/22 (FreeStyle Tyrese 14 Day Pyrites) blood-glucose meter (FreeStyle #1 ea 09/17/22 Lite Meter kit) cholecalciferol (vitamin D3) 1,250 1,250 mcg PO QWEEK #14 caps 11/18/22 mcg (50,000 unit) capsule blood sugar diagnostic (FreeStyle #100 ea 11/19/22 Lite Strips) lancets 28 gauge (FreeStyle #100 ea 11/20/22 Lancets) trazodone 50 mg tablet 50 mg PO BEDTIME 30 days #30 tabs 10/01/24 apixaban 5 mg tablet (Eliquis) 5 mg PO BID 90 days #180 tabs 01/20/25 Allergies Allergy/AdvReac Type Severity Reaction Status Date / Time cabbage Allergy Severe throat Verified 07/28/25 14:18 stepan Review of Systems Review of Systems: All other systems are reviewed and are negative Constitutional: Reports as per HPI and Reports no additional constitutional complaints Eyes: Reports as per HPI and Reports no additional eye complaints Reports system reviewed and no additional complaints, except as documented Cardiovascular: Reports as per HPI and Reports no additional cardiovascular complaints Respiratory: Reports as per HPI and Reports no additional respiratory complaints Gastrointestinal: Reports as per HPI and Reports no additional gastrointestinal complaints Genitourinary: Reports no additional female genitourinary complaints Musculoskeletal: Reports no additional musculoskeletal complaints Skin/Breast: Reports system reviewed and no additional complaints, except as docu Psychiatric: Reports no additional psychiatric complaints Endocrine: Reports no additional endocrine complaints Hematologic/Lymphatic: Reports no additional hematologic/lymphatic complaints Allergic/Immunologic: Reports no additional allergic/immunologic complaints Reports system reviewed and no additional complaints, except as documented and Reports Abnormal speech present [facility] Past Medical History Medical History T2DM (type 2 diabetes mellitus) SVT (supraventricular tachycardia) Type 2 diabetes mellitus with obesity Abnormal LFTs Insomnia Obesity COVID-19 vaccine administered Gait instability History of BPH Dementia Arthritis History of lumbar puncture Cerebral ventriculomegaly Surgical History History of brain shunt Hx of appendectomy History of esophagogastroduodenoscopy (EGD) H/O colonoscopy History of tonsillectomy Family History Family History Father No problems noted. Mother No problems noted. Social History Social History Household Members: Spouse Housing: House Do you presently have visiting nurse or other home services: No Alcohol intake: never Patient Tobacco Use Status: Never used Tobacco e-Cigarette/Vaping Use: Never Used Second Hand Smoke Exposure: No Advance Directives: No Advance Directives Information Provided: Yes service: No Current occupational status: employed Cognitive needs: Yes (cane) Hearing needs: No Vision needs: Yes (Glasses) Physical Exam Vital Signs: Vital Signs: Last Vital Signs Temp 98 F 07/28/25 14:16 Pulse 82 07/28/25 14:32 Resp 16 07/28/25 14:16 BP 150/65 H 07/28/25 14:32 Pulse Ox 97 07/28/25 14:16 O2 Del Method Room Air 07/28/25 14:16 BMI result Body Mass Index 34.1 Vital signs have been reviewed and appear to be correct. Blood pressure elevated. Heart rate normal. Respiratory rate normal. Temperature normal. Oxygen saturation normal. Orthostatic vital signs were checked patient is slightly tachycardic when he stand up. Appearance: Alert. Oriented X3. No acute distress. Head: Normal external exam. Normocephalic. Atraumatic. No Cisneros signs noted. No raccoon eyes noted Eyes: PERRLA. EOMI. Conjunctiva and sclera normal. Eyelids normal. ENT: TM's Normal. Pharynx normal. Uvula midline. Moist mucous membranes. No trismus noted. No drooling noted. No muffled voice noted. Neck: Normal inspection. Neck supple. FROM. No adenopathy. Thyroid Normal. No meningeal signs. No neck mass noted. CVS: Normal heart rate and rhythm. Heart sound normal. No murmurs noted. Pulses normal throughout. Respiratory: No respiratory distress. Painless inspiration. Breath sounds normal. No wheezes/rales/rhonchi noted. Chest nontender. No accessory muscle usage noted or decreased air movement noted. Abdomen: Soft and nontender. Bowel sounds normal in all 4 quadrants. No distention noted. No organomegaly noted. No visible injury noted. Back: No CVA tenderness. Full range of motion noted. Skin: Skin warm and dry. Normal skin color. Normal skin turgor. No rashes/lesions/lacerations noted. Extremities: No lower extremity edema. Extremities exhibit normal range of motion. Extremities nontender. Neuro: Mental status: Normal attention, orientation, memory, and affect. Cranial nerves: Pupils are equal, round and reactive to light, EOMI, visual robertson are fall, face is symmetric, facial sensations are normal. Motor examination normal muscle tone, strength to 4 extremities. DTR are +2, planter's are flexor. Sensory exam; normal coordination, no ataxia, gait stable. Cerebellar exam: [id number]-rk-ftva and xbba-pz-nahz is normal. Extrapyramidal system: No tremors, no rigidity with normal facial expressions. Pronator drift not present Course Reevaluation(s) Reevaluation #1: AFib on Eliquis presented after had syncopal episode. Orthostatic is slightly abnormal becoming tachycardic when he stood up. Negative head CT for intracranial bleed, Patient is a high-risk cardiac patient will admit for further monitoring. Time: 15:26 Medical Decision Making Differential Diagnosis Differential Diagnoses: The differential diagnosis associated with the presentation includes (Dehydration, orthostatic hypotension, electrolyte derangement, severe anemia, ACS, intracranial bleed, cervical spine injury, coagulopathy.) Admission/Observation Consideration of admission/observation: Escalation of care including admission/observation considered Consult Healthcare Provider Management of the patient was discussed with: Hospitalist (Dr. Bello) Lab Data MDM Lab Attestation statement: I reviewed the patient's lab results. 07/28/25 14:21 07/28/25 14:21 Labs: Lab Results 07/28/25 Range/Units 14:21 WBC 7.4 (4.8-10.8) X10*3/uL RBC 3.98 L (4.60-5.80) X10*6/uL Hgb 12.1 L (14.0-18.0) g/dl Hct 36.3 L (42.0-52.0) % MCV 91.2 (80.0-98.0) fL MCH 30.4 (27.0-33.0) pg MCHC 33.3 (31.0-36.0) g/dl RDW 13.8 (11.0-16.0) % Plt Count 261 (160-400) X10*3/uL MPV 9.8 (9.4-12.4) fL Immature Gran % (Auto) 0.3 (0.0-0.4) % Neut % (Auto) 64.2 (45-73) % Lymph % (Auto) 22.7 (20-40) % [place] % (Auto) 7.0 (2-11) % Eos % (Auto) 5.1 H (0-4) % Baso % (Auto) 0.7 (0-2) % Lymph # (Auto) 1.7 (1.2-4.9) X10*3/uL [place] # (Auto) 0.5 (0.1-1.2) X10*3/uL Eos # (Auto) 0.4 (0.0-0.4) X10*3/uL Baso # (Auto) 0.1 (0.0-0.2) X10*3/uL Abs Immat Gran (auto) 0.02 (0.00-0.03) X10*3/uL Absolute Neuts (auto) 4.8 (2.0-8.3) x10*3/uL Absolute Nucleated RBC 0.000 (0.0-0.012) X10*3/uL Nucleated RBC % (auto) 0.0 (0.0-0.2) /100WBC PT 15.4 H (10.9-12.4) SEC INR 1.3 H (0.9-1.1) Sodium 143 (135-145) mmol/L Potassium 4.2 (3.3-5.1) mmol/L Chloride 110 H (96-108) mmol/L Carbon Dioxide 24 (22-29) mmol/L Anion Gap 13 (12-20) BUN 21 H (9-16) mg/dL Creatinine 1.39 (0.5-1.4) mg/dL Estim Creat Clear Calc 57.0 Estimated GFR 49 Random Glucose 167 H (60-115) mg/dL Calcium 9.5 (8.4-10.2) mg/dL Total Bilirubin 0.3 (0.0-1.0) mg/dL Direct Bilirubin 0.2 (0.0-0.5) mg/dL AST 20 (5-37) U/L ALT 10 (0-40) U/L Alkaline Phosphatase 71 (39-117) U/L Troponin I High Sens 3.6 (<3.5-35.0) ng/L Total Protein 7.0 (6.5-8.0) g/dL Albumin 3.9 (3.5-5.0) g/dL Lipase 7 L (8-78) U/L Independent Interpretation I performed an independent interpretation of an: Plain X-Ray (Chest:No acute airspace disease. Probable ankylosing spondylitis, thoracic.) and CT Scan (Head/ cervical spine: no acute intracranial abnormality, no cervical spine fracture.) Radiology Impression Discussion of test interpretation with radiology: I have reviewed the radiologist's reading. Discharge Plan Discharge Clinical Impression: Syncope and collapse Patient Disposition: Admitted As Inpatient Print Language: Rwandan
[2025-07-28 14:33] LABS: Hematocrit 36.3 % (42.0-52.0); Hemoglobin 12.1 g/dl (14.0-18.0); Imm Gran Abs Auto 0.02 X10*3/uL (0.00-0.03); Imm Gran Pct Auto 0.3 % (0.0-0.4); Lymphocytes Absolute Auto 1.7 X10*3/uL (1.2-4.9); MANUAL DIFF FLAG NO; Mean Corpuscular HGB Conc 33.3 g/dl (31.0-36.0); Mean Corpuscular Hemoglobin 30.4 pg (27.0-33.0); Mean Corpuscular Volume 91.2 fL (80.0-98.0); NRBC Abs Auto 0.000 X10*3/uL (0.0-0.012); NRBC Pct Auto 0.0 /100WBC (0.0-0.2); Platelet Count 261 X10*3/uL (160-400); Red Blood Count 3.98 X10*6/uL (4.60-5.80); White Blood Count 7.4 X10*3/uL (4.8-10.8)
[2025-07-28 14:40] LABS: INTERNATIONAL NORM RATIO 1.3 (0.9-1.1); Prothrombin Time 15.4 SEC (10.9-12.4)
[2025-07-28 14:53] LABS: Alanine Aminotransferase 10 U/L (0-40); Albumin Level 3.9 g/dL (3.5-5.0); Alkaline Phosphatase 71 U/L (39-117); Anion Gap 13 (12-20); Aspartate Amino Transferase 20 U/L (5-37); Blood Urea Nitrogen 21 mg/dL (9-16); Calcium 9.5 mg/dL (8.4-10.2); Carbon Dioxide 24 mmol/L (22-29); Chloride 110 mmol/L (96-108); Creatinine Clr Calc Pharmacy 57.0; Estimated Glomerular Filt Rate 49; Lipase 7 U/L (8-78); Potassium 4.2 mmol/L (3.3-5.1); Sodium 143 mmol/L (135-145); Total Protein 7.0 g/dL (6.5-8.0)
[2025-07-28 14:59] LABS: Troponin-I High Sensitivity 3.6 ng/L (<3.5-35.0)
--- NOTE | 2025-07-28 16:00 | PM.IMHP ---
History of Present Illness Date of Service: 07/28/25 Chief Complaint: Witnessed syncope in the setting of multiple stresses Per ED-Patient is a 79-year-old male past medical history T2 DM, paroxysmal AFib on Eliquis, ulcerative colitis, normal pressure hydrocephalus s/p shunt, cerebral ventriculomegaly, BPH presented today for evaluation after having 1 syncopal episode while he was eating lunch, before patient passed out patient became diaphoretic nauseous and had 1 vomiting at inpatient collapsed witnessed by his sister, +head injury patient is on Eliquis, complaining of mild headache now but no blurry vision, no neck pain, no weakness, no numbness, no CP, no SOB. Daughter was at the bedside, she and the patient reported that the patient had 2 cousins sisters within a span of 2 weeks, his was recently diagnosed with HALF-WAY and this afternoon, he was at his sister's , had not had his breakfast but had a protein bar, reports having 4 glasses of water with 1 self limited episode of nausea. Patient denies any presyncopal or syncopal episodes prior to the fall from the sitting position. He was on the chair and he fell down and hit his right head. He was concerned about his shunt and imaging thus far has been unremarkable for any intracranial bleed or shunt pathology. Patient reports being an active person, working 3 jobs and always on the go go go, but he has had significant stresses recently. Sepsis is also less likely Cardiac workup troponin, loop recorder interrogation cardiology has been unremarkable for any arrhythmias , EKG similar to prior Patient likely had vasovagal syncope in the setting of severe ongoing acute stresses-and his PCP had also suggested that he start taking therapy- which he said he finished 1 episode last week. Vitals WNL Review of Systems Review of Systems: Yes all other systems are reviewed and are negative [facility] Medical History T2DM (type 2 diabetes mellitus) SVT (supraventricular tachycardia) Type 2 diabetes mellitus with obesity Abnormal LFTs Insomnia Obesity COVID-19 vaccine administered Gait instability History of BPH Dementia Arthritis History of lumbar puncture Cerebral ventriculomegaly Family History Father No problems noted. Mother No problems noted. Surgical History History of brain shunt Hx of appendectomy History of esophagogastroduodenoscopy (EGD) H/O colonoscopy History of tonsillectomy Social History Household Members: Spouse Housing: House Do you presently have visiting nurse or other home services: No Alcohol intake: never Patient Tobacco Use Status: Never used Tobacco e-Cigarette/Vaping Use: Never Used Second Hand Smoke Exposure: No Advance Directives: No Advance Directives Information Provided: Yes service: No Current occupational status: employed Cognitive needs: Yes (cane) Hearing needs: No Vision needs: Yes (Glasses) Meds Allergies Allergy/AdvReac Type Severity Reaction Status Date / Time cabbage Allergy Severe throat Verified 07/28/25 14:18 swells Home Medications ?Medication ?Instructions ?Recorded ?Confirmed ?Last Taken ?Type balsalazide 750 mg capsule 2,250 mg PO TID 03/15/23 01/13/25 Unknown History donepezil 10 mg tablet 10 mg PO BEDTIME 03/15/23 01/13/25 Unknown History metformin 500 mg tablet 500 mg PO DAILY 03/15/23 01/13/25 Unknown History tamsulosin 0.4 mg capsule 0.8 mg PO BEDTIME 03/15/23 01/13/25 Unknown History omeprazole 40 mg capsule,delayed 40 mg PO DAILY 05/10/24 01/13/25 Unknown History release trospium 20 mg tablet 20 mg PO DAILY 05/10/24 01/13/25 Unknown History mirtazapine 7.5 mg tablet 7.5 mg PO BEDTIME 07/28/25 07/28/25 07/27/25 History Physical Exam Vital Signs and Narrative: Vital Signs: Last Vital Signs Temp 98 F 07/28/25 14:16 Pulse 82 07/28/25 14:32 Resp 16 07/28/25 14:16 BP 150/65 H 07/28/25 14:32 Pulse Ox 97 07/28/25 14:16 O2 Del Method Room Air 07/28/25 14:16 BMI result Body Mass Index 34.1 General: AOx3, no acute distress, morbid obesity Resp: CTA bilaterally CVS: S1, S2, RRR GI: +BS, NT, no distention Skin: Warm, dry Neuro: Cranial nerves II-XII grossly intact bilaterally. Motor grossly intact bilaterally Extremities: No edema Psych: Very tearful, anxious about his health Results Labs 07/28/25 14:21 07/28/25 14:21 Labs: Laboratory Results - last 24 hr 07/28/25 14:21 MCV 91.2 MCH 30.4 MCHC 33.3 RDW 13.8 Plt Count 261 MPV 9.8 Immature Gran % (Auto) 0.3 Neut % (Auto) 64.2 Lymph % (Auto) 22.7 [place] % (Auto) 7.0 Eos % (Auto) 5.1 H Baso % (Auto) 0.7 Lymph # (Auto) 1.7 [place] # (Auto) 0.5 Eos # (Auto) 0.4 Baso # (Auto) 0.1 Abs Immat Gran (auto) 0.02 Absolute Neuts (auto) 4.8 Absolute Nucleated RBC 0.000 Nucleated RBC % (auto) 0.0 PT 15.4 H INR 1.3 H Anion Gap 13 Estim Creat Clear Calc 57.0 Estimated GFR 49 Random Glucose 167 H Calcium 9.5 Total Bilirubin 0.3 Direct Bilirubin 0.2 AST 20 ALT 10 Alkaline Phosphatase 71 Troponin I High Sens 3.6 Total Protein 7.0 Albumin 3.9 Lipase 7 L Imaging Radiologist's Impressions: Impressions Chest X-Ray 07/28/25 14:06 IMPRESSION: No acute airspace disease. 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 Electronically signed by: Kristian Jones MD 07/28/2025 02:31 PM EDT RP Cervical Spine CT 07/28/25 14:43 IMPRESSION: No evidence of fracture or subluxation of the cervical spine. Degenerative changes as described. Electronically signed by: Lang Tristan MD 07/28/2025 03:27 PM EDT RP Head CT 07/28/25 14:43 IMPRESSION: No acute intracranial abnormality. Electronically signed by: Lang Tristan MD 07/28/2025 03:14 PM EDT RP Assessment and Plan (1) Syncope and collapse: Status: Acute Patient is a 79-year-old male past medical history T2 DM, paroxysmal AFib on Eliquis, ulcerative colitis, normal pressure hydrocephalus s/p shunt, cerebral ventriculomegaly, BPH who reports having had significant high stresses in the past 2 weeks and being admitted for workup of syncope. Vasovagal Syncope in a patient with severe multiple cardiac comorbidities given recent stresses and negative cardiac, intracranial workup Paroxysmal AFib on Eliquis Orthostats to be checked tomorrow Fluid support Patient hypotensive at the time of my examination-continue home meds, including Eliquis Fall precaution Fall precautions PTOT Type 2 DM Diabetic diet and insulin sliding scale while inpatient UC chronic -stable Cerebral ventriculomegaly NPH s/p shunt No intracranial pathology or shunt pathology noted based on current imaging and examination Severe stresses Patient offered to seek more therapy, offered the patient to start an SSRI-patient wants to think about it Initially the patient did not want to get admitted however given his medical comorbidities have convinced him to at least be observed for a day to rule out morbid pthologies. . DVT prophylaxis with home Eliquis This note is constructed using voice recognition software. While every effort has been made to ensure accuracy, predictive maintenance specialist errors may have been included. Quality Stroke Does the patient have a stroke diagnosis?: No VTE Prior VTE?: No VTE Risk Level:: Medical - moderate - high VTE Device Contraindication: N/A - Device Ordered VTE Drug Contraindication: N/A - Med Ordered
--- OUTSIDE RECORDS SUMMARY | 2025-07-28 16:21 | XMS_ITS | Encounter Summary ---
Author Organization [facility] Address [address] [place] [address] Care Team Providers Care Pharmacy Aide Name Role Phone Ana Silveira Primary Care Provider Encounter Details Date Type Department Care Team (Late st Contact Info) Description 12/06/2024 Orders Only [facility] Nuclear Medicine [address] [place], [place] [id number] Luciana Gray MD [address] [place] [address] Social History Tobacco Use Types Packs/Day Years [...] as of this encounter Plan of Treatment Not on file documented as of this encounter Visit Diagnoses Not on filedocumented in this encounter Care Teams Pharmacy Aide Relationship Specialty Start Date End Date Ana Silveira [address] [place] [address] PCP - General 03/13/23 documented as of this encounter
--- OUTSIDE RECORDS SUMMARY | 2025-07-28 16:21 | XMS_ITS | Clinical Summary ---
Author Organization [facility] Address [address] [place] [address] Care Team Providers Care Market Maker Name Role Phone Ana Silveira Primary Care [...] mouth 2 times a day. 3 Active Additional Information Patient not taking.Reported on 06/28/2025 apixaban (ELIQUIS) 2.5 mg tablet Take 5 mg by mouth every 12 hours. Active levETIRAcetam (KEPPRA) 500 mg tablet Take 1 tablet (500 mg total) by mouth every 12 hours for 5 days. 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 Class 1 obesity 01/28/2023 Cobalamin deficiency 01/28/2023 Hemorrhoids 01/28/2023 Minimal cognitive impairment 01/28/2023 Primary localized osteoarthrosis of ankle and fo ot 01/28/2023 NPH (normal pressure hydrocephalus) 11/08/2022 Gait difficulty 05/17/2021 Encounters Date Type Department Care Team Description 06/28/2025 2:30 PM EDT Follow-Up [facility] Neurosurgery [address] [address] Arsalan Goncalves MD NPH (normal pressure hydrocephalus) (HCC) (Primary Dx) 06/28/2025 12:30 PM EDT - 06/28/2025 11:59 PM EDT Hospital Encounter [address] [address] NPH (normal pressure hydrocephalus) (HCC) Discharge Disposition: Home or Self Care (01) 06/03/2025 Telephone [facility] Neurosurgery [address] [address] Telephone Intake, Staff 06/01/2025 Orders Only [facility] Neurosurgery [address] [address] Catrina Mcdermott PA NPH (normal pressure hydrocephalus) (HCC) (Primary Dx) 05/31/2025 Telephone [facility] Neurosurgery [address] [address] Telephone Intake, Staff PAC Appt Request - Established 05/17/2025 1:30 PM EDT Follow-Up [facility] Neurosurgery [address] [address] Arsalan Goncalves MD Hydrocephalus, unspecified type (HCC) (Primary Dx) 05/17/2025 1:00 PM EDT - 05/17/2025 11:59 PM EDT [facility] [address] [place] [address] Arsalan Goncalves MD Hydrocephalus, unspecified type (HCC) Discharge Disposition: Home or Self Care (01) 05/04/2025 Telephone [facility] [address] [place] [address] Arsalan Goncalves MD from Last 3 Months Immunizations Immunization Administration Dates Next Due INFLUENZA, SPLIT VIRUS, TRIVALENT, PF 09/07/2015 Influenza, High Dose Seasona l, Preservative Free (FLUZONE HIGH-DOSE) 07/28/2019,07/28/2018 Influenza, High Dose Seasonal, Quadrivalent PF 1 Influenza, Injectable, Quadrivalent Preservative Free 11/14/2022 Influenza, Injectable, Quadrivalent, Preservativ e Free 06/11/2017 Influenza, Trivalent, Adjuvanted, PF (FLUAD) Pneumococcal Polysaccharide Vaccine, 23 Valent 1 Zoster [...] pur e alcohol) no alcohol since ~2012 [facility] Utilities Answer Date Recorded In the past 12 months has [employer], gas, oil, or water company threatened to [...] Sign Reading Time Taken Comments Blood Pressure 161/83 06/28/2025 2:49 PM EDT Pulse 54 06/28/2025 2:49 PM EDT Temperature 36.5 C (97.7 F) 03/04/2025 12:05 PM EDT Respiratory Rate 17 03/22/2025 3:03 PM EDT Oxygen Saturation 96% 06/28/2025 2:49 PM EDT Inhaled Oxygen Concentration - - [...] this topic Medical Devices Implanted Type Area Valve Machine Operator Device Identifier Shelf Expiration Date Model / Serial / Lot Shunt Valve Programmable - [id number] Implanted:Qty: 1 on 02/05/2023 by Arsalan Goncalves MD at [facility] Implant Right: Brain CODMAN 07/10/2027 [id number] / / [id number] Procedures * Due to [place] [employer] law, this organization might not be sharing negative HIV tests. Procedure Name Priority Date/Time Associated Diagnosis Comments DIABETES EYE EXAM 07/14/2025 CT HEAD WO CONTRAST Routine 06/28/2025 1 :18 PM EDT NPH (normal pressure hydrocephalus) (HCC) CT HEAD WO CONTRAST Routine 05/17/2025 1 :12 PM EDT Hydrocephalus, unspecified type (HCC) from Last 3 Months Results * Due to [place] [employer] law, this organization might not be sharing negative HIV tests. * Eye Exam, Diabetic (07/14/2025) 07/14/2025 us Onbase Scan [facility] Final Resu lt * CT Head WO Contrast (06/28/2025 1:18 PM EDT) Only the most recent of2 resultswithin the time period is included. Anatomical Region Laterality Modality Head and Neck Computed Tomogra phy 06/28/2025 1:26 PM EDT Impressions 06/28/2025 1:34 PM EDT 1. Ventriculostomy catheter in the right lateral ventricle, unchanged from prior exam on 05/17/2025. 2. Moderate to marked enlargement of the lateral and third ventricles and mild enlargement of the fourth ventricle, unchanged from prior exam from 05/17/20. If this radiology report contains a blank impression section, it is an incomplete radiology report. Please contact the interpreting radiologist or applicable radiology division as soon as possible to obtain the completed interpretation. Workstation ID: [id number] Up-to-date CT equipment and radiation dose reduction techniques were employed. CTDIvol: 41.7 mGy. DLP: 884 mGy-cm. Narrative 06/28/2025 1:[address] OF THE HEAD WITHOUT CONTRAST INDICATION: f/u hydrocephalus G91.2 - I10 - (Idiopathic) normal pressure hydrocephalus TECHNIQUE: Non Contrast CT of the head was performed without contrast. Multiplanar reformats were obtained. COMPARISON: CT scan of brain from 05/17/2025 FINDINGS: No acute hemorrhage, large territory infarct, mass effect, or midline shift. Moderate to marked enlargement of the lateral and third ventricles and mild enlargement of the fourth ventricle consistent with hydrocephalus, unchanged from prior exam on 05/17/2025. There is a right posterior approach ventriculostomy catheter which terminates in the body the right lateral ventricle adjacent to the interventricular septum. The catheter is unchanged in position compared to prior exam. No acute calvarial fracture. There is mild membrane thickening in the ethmoid and maxillary sinuses. The mastoid sinuses are clear. Resulting Agency Comment [id number] Procedure Note Jose Alberto Lowe MD - 06/28/2025 CT OF THE HEAD WITHOUT CONTRAST INDICATION: f/u hydrocephalus G91.2 - I10 - (Idiopathic) normal pressurehydrocephalus TECHNIQUE: Non Contrast CT of the head was performed without contrast.Multiplanar reformats were obtained. COMPARISON: CT scan of brain from 05/17/2025 FINDINGS: No acute hemorrhage, large territory infarct, mass effect, or midlineshift. Moderate to marked enlargement of the lateral and third ventricles andmild enlargement of the fourth ventricle consistent with hydrocephalus,unchanged from prior exam on 05/17/2025. There is a right posteriorapproach ventriculostomy catheter which terminates in the body the rightlateral ventricle adjacent to the interventricular septum. The catheter isunchanged in position compared to prior exam. No acute calvarial fracture. There is mild membrane thickening in theethmoid and maxillary sinuses. The mastoid sinuses are clear. IMPRESSION: 1. Ventriculostomy catheter in the right lateral ventricle, unchangedfrom prior exam on 05/17/2025. 2. Moderate to marked enlargement of the lateral and third ventricles andmild enlargement of the fourth ventricle, unchanged from prior exam from05/17/20. If this radiology report contains a blank impression section, it is anincomplete radiology report. Please contact the interpreting radiologistor applicable radiology division as soon as possible to obtain thecompleted interpretation. Workstation ID: [id number] Up-to-date CT equipment and radiation dose reduction techniques wereemployed. CTDIvol: 41.7 mGy. DLP: 884 mGy-cm. Catrina STORM IMG CT PROCEDURES Final Result from Last 3 Months Insurance MEDICARE [facility] Advance Directives Documents on File Type Date Recorded Patient Smooth Stucco Resurfacer Expl [facility] Health Care Proxy 01/28/2023 9:53 AM * [...] Agents on File Name Relationship Healthcare Agent [facility] Etienne Luz [facility] Health Care Agent Care Teams Market Maker Relationship Specialty Start Date End Date Ana Silveira [address] [place] [phone] PCP - General 03/13/23
--- OUTSIDE RECORDS SUMMARY | 2025-07-28 16:21 | XMS_ITS | Encounter Summary ---
Author Organization [facility] Address [address] [place] [address] Care Team Providers Care Datastage Developer Name Role Phone Ana Silveira Primary Care Provider Encounter Details Date Type Department Care Team (Late st Contact Info) Description 03/22/2021 Orders Only [facility] Entrance B Interventional Radiology [address] [place] [address] Mackenzie Narayan PA [address] [place] [phone] Social History Tobacco Use Types Packs/Day Years [...] on filedocumented in this encounter Care Teams Datastage Developer Relationship Specialty Start Date End Date Ana Silveira [address] [place] [phone] PCP - General 03/13/23 documented as of this encounter
--- OUTSIDE RECORDS SUMMARY | 2025-07-28 16:21 | XMS_ITS | Encounter Summary ---
Author Organization [facility] Address [address] [facility] [address] [place] [phone] Phone Care Team Providers Care Rn Transition Name Role Phone Darrion Muse MD Primary Care Provider [phone] Michelle Flores Primary Care Provider [phone] Encounter Details Date Type Department Care Team (Late st Contact Info) Description 06/20/2023 Procedure Pass [facility], [address] [address] Social History Tobacco Use Types Packs/Day Years Used Date Smoking Tobacco: Never Smokeless Tobacco: Never Alcohol Use Standard Drinks/Week Comments Not Currently 0 (1 standard drink = 0.6 oz pur e alcohol) Education Answer Date Recorded Are you interested in more education? Not on rupert e 03/07/2023 Are you concerned about learning? Not on file 03/07/2023 No 03/07/2023 No 03/07/2023 Digital Access Answer Date Recorded No 04/08/2023 No 04/08/2023 Reliable internet access at home? Not on file 04/08/2023 Device with a working camera? Not on file Sex and Gender Information Value Date Recorded Sex Assigned at Male 03/11/2019 3:44 PM EDT Legal Sex Male 3:42 PM EDT Gender Identity Male 03/11/2019 3:44 PM EDT Sexual Orientation Not on file documented as of this encounter Plan of Treatment Not on file documented as of this encounter Visit Diagnoses Not on filedocumented in this encounter Care Teams Rn Transition Relationship Specialty Start Date End Date Darrion Muse MD [address] [place] [address] [place] [address] PCP - General Internal Medicine 12/06/19 01/19/25 Michelle Flores PA [address] [place] [phone] [email or web address] PCP - General Physician Improvement Spec 01/20/25 documented as of this encounter Additional Source Comments The information contained in this document represents components of the legal health record. It is not the complete legal health record.[facility]
--- OUTSIDE RECORDS SUMMARY | 2025-07-28 16:21 | XMS_ITS | Clinical Summary ---
Author Organization [facility] Address [address] [facility] [address] [place] [phone] Phone Care Team Providers Care Chairman Emeritus Name Role Phone Michelle Flores Primary Care Provider Allergies Active Allergy Reactions Criticality Noted Date Comments Cabbage (Brassica Oleracea) 07/26/20 19 Medications donepezil (ARICEPT) 10 MG tablet 0 07/07/20 19 Active tamsulosin (FLOMAX) 0.4 mg Cap 0 07/07/20 19 Active balsalazide (COLAZAL) 750 mg capsule 02/04/20 22 Active traZODone (DESYREL) 50 MG tablet Take 50 mg by mouth nightly at bedtime as needed. 02/08/20 22 Active FREESTYLE LITE Strp strips USE TO TEST BLOOD SUGAR TWICE DAILY 01/02/20 23 Active trospium (SANCTURA) 20 mg tablet 08/16/20 22 Active traZODone (DESYREL) 50 MG tablet Take 50 mg by mouth. Active apixaban (ELIQUIS) 5 mg tablet 0 Refills, Maintenance, 12/15/23 14:07:00 EST, Partial fill upon patient request if the prescription is for a schedule II opioid drug. 12/15/19 24 Active bismuth subsalicylate (PEPTO-BISMOL) 262 mg/15 mL suspension 30 ml Orally Every 4 to 6 hours as needed for indigestion for 30 day(s) 07/09/20 24 Active FREESTYLE 28 gauge lancets USE TWICE DAILY TO MONITOR GLUCOSE 07/08/20 24 Active metFORMIN (GLUCOPHAGE-XR) 500 MG 24 hr tablet Take 2 tablets by mouth every morning. 05/18/20 24 Active omeprazole (PRILOSEC) 40 MG capsule 07/22/20 24 Active vedolizumab (ENTYVIO) 300 mg SolR injection 0 Refills, Maintenance, 12/15/23 14:07:00 EST, Partial fill upon patient request if the prescription is for a schedule II opioid drug. 12/15/19 24 Active levETIRAcetam (KEPPRA) 500 MG tablet Take 500 mg by mouth. 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 Class 1 obesity 01/28/2023 Diverticular disease 01/28/2023 Minimal cognitive impairment 01/28/2023 Primary localized osteoarthrosis of ankle and fo ot 01/28/2023 Gait difficulty 05/17/2021 Encounters Date Type Department Care Team Description 05/30/2025 2:15 PM EDT Office Visit [address] [address] Jennie Macedo, RUBEN gottlieb, Heydi, PT Difficulty walking (Primary Dx) 05/23/2025 2:15 PM EDT Office Visit [address] [address] Jennie Macedo NP Menard-Johnsto n, Heydi, PT Difficulty walking (Primary Dx) 05/18/2025 12:45 PM EDT Office Visit [address] [address] Jennie Macedo, RUBEN gottlieb, Heydi, PT Difficulty walking (Primary Dx) from Last 3 Months Immunizations Immunization Administration Dates Next Due INFLUENZA, SPLIT VIRUS, TRIVALENT PF 09/07/2015 Influenza High-Dose Quadriva lent Preservative Free IM 08/07/2023,08/16/2021,09/05/2020 Influenza High-Dose Trivalen t Preservative Free IM 07/28/2019,07/28/2018 Influenza Quadrivalent Adjuv anted Preservative Free IM 11/14/2022 Influenza Quadrivalent Preservative Free IM 12/2016 Influenza Trivalent Adjuvant ed Preservative free IM 07/10/2016 Pneumococcal conjugate PCV20 09/25/2023 Pneumococcal polysaccharide PPSV23 08/27/2016 RSV Vaccine (bivalent) 06/29/2024 Zoster live 09/07/2015 Zoster recombinant 09/21/2021,07/08/2021 Social History Tobacco Use Types Packs/Day Years [...] with a working camera? Not on file Intimate Partner Violence Answer Date R ecorded Are you denied basic needs s uch as food, clothing, or medical care? No 03/20/2025 In the past 12 months have y ou been in a relationship with a person who hurts, threatens, or tries to control you? No 03/20/2025 Are you denied basic needs s uch as food, clothing, or medical care? No 03/20/2025 In the past 12 months have y ou been in a relationship with a person who hurts, threatens, or tries to control you? No 03/20/2025 Sex and Gender Information Value Date Recorded Sex Assigned at Male 03/11/2019 3:44 PM EDT Legal Sex Male 3:42 PM EDT Gender Identity Male 03/11/2019 3:44 PM EDT Sexual Orientation Not on file Last Filed Vital Signs Vital Sign Reading Time Taken Comments Blood Pressure 160/87 03/20/2025 4:57 PM EDT Pulse 63 03/20/2025 4:57 PM EDT Temperature 36.1 C (97 F) 03/20/2025 4:57 PM EDT Respiratory Rate 15 03/20/2025 4:57 PM EDT Oxygen Saturation 100% 03/20/2025 4:57 PM EDT Inhaled Oxygen Concentration - - Weight 104.3 kg (230 lb) 03/20/2025 1:00 PM EDT Height 182.9 cm (6') 03/20/2025 1:00 PM EDT Body Mass Index 31.19 03/20/2025 1:00 PM EDT Plan of Treatment Health Maintenance Due Date Last Done Comments Adult Td,Tdap Booster 1945 LIPID PANEL 1945 DEPRESSION SCREENING 1958 HEPATITIS C SCREENING 1964 INFLUENZA VACCINE (#1) 2025 , 08/07/2023, 11/14/2022, Additional history exists COVID-19 VACCINE (6 - Pfizer risk 2023- season) 2025 07/26/2024, 09/25/2023, 08/30/2021, Additional history exists CREATININE LEVEL 10/29/2025 10/29/2024, , 03/06/2022, Additional history exists ZOSTER VACCINES Completed 09/21/2021, 06/11, 09/07/2015 PNEUMOCOCCAL VACCINES (50+ years) Completed 09/25/2023, 08/27/2016 RSV VACCINE Completed 06/29/2024 SMOKING STATUS SCREENING (Once After 26 Yrs) Completed 07/22/2024 HEPATITIS A VACCINES Aged Out No long er eligible based on patient's age to complete this topic HIB VACCINES Aged Out No longer eligi ble based on patient's age to complete this topic MENINGOCOCCAL VACCINES (ACWY) Aged Out No longer eligible based on patient's age to complete this topic MENINGOCOCCAL VACCINES (B) Aged Out N o longer eligible based on patient's age to complete this topic Medical Devices Not on file Procedures Procedure Name Priority Date/Time Associated Diagnosis Comments BASIC METABOLIC PANEL STAT 10/29/2024 2:20 PM EST from Last 3 Months or Most Recently Relevant to Health Maintenance Results * (ABNORMAL) Basic metabolic panel (10/29/2024 2:20 PM EST) SODIUM 141 133 - 146 mmol/L [facility] CHLORIDE 106 96 - 108 mmol/L [facility] POTASSIUM 4.3 3.3 - 5.1 mmol/L [facility] CO2 25 21 - 35 mmol/L [facility] BUN 20(H) 6 - 19 mg/dL [facility] CREATININE 1.00 0.5 - 1.5 mg/dL [facility] GLUCOSE 216(H) 70 - 99 mg/dL [facility] CALCIUM 10.3 8.4 - 10.3 mg/dL [facility] EGFR 77 >59 mL/min/1.7 3m2 [facility] Comment:Estimated glomerular filtration rate calculated using the CKD-EPI refit equation. ANION GAP 14 10 - 20 mmol/L [facility] Blood 10/29/2024 2:20 PM EST 10/29/2024 2:23 PM EST us Gareth Bashir MD LAB BLOOD ORDERAB LES Final Result Performing Organization Address City/State/[facility] Co de Phone Number [address] [address] from Last 3 Months or Most Recently Relevant to Health Maintenance Insurance MEDICARE PART A & B [employer] CROSS MEDEX SUPPLEMENT MEDICARE PART A & B [employer] MEDEX SUPPLEMENT MEDICARE PART A & B [employer] MEDEX SUPPLEMENT MEDICARE PART A & [place] [address] [place] [address] [employer] MEDEX SUPPLEMENT MEDICARE PART A & B Member Subscriber Plan / Payer ( fective 2011-Present) Name:Juventino Escobar Member ID:[id number] Relation to Subscriber:Self Name:Juventino Escobar Subscriber ID:[id number] Payer ID:[id number] Group ID:Not on file Type:Medicare Address: [employer] [address] [employer] MEDEX SUPPLEMENT MEDICARE PART A & B [employer] MEDEX SUPPLEMENT MEDICARE PART A & B Member Subscriber Plan / Payer ( fective 2011-Present) Name:Juventino Escobar Member ID:[id number] Relation to Subscriber:Self Name:TimJuventino Subscriber ID:[id number] Payer ID:[id number] Group ID:Not on file Type:Medicare Address: [place] [address] [place] [phone] [employer]UE [employer]OSS MEDEX SUPPLEMENT MEDICARE PART A & B Member Subscriber Plan / Payer ( fective 2011-Present) Name:Juventino Escobar Member ID:[id number] Relation to Subscriber:Self Name:TimJuventino vazquez Subscriber ID:[id number] Payer ID:[id number] Group ID:Not on file Type:Medicare Address: [place] [address] [place] [phone] [employer] CROSS MEDEX SUPPLEMENT MEDICARE PART A & B [employer]EX SUPPLEMENT Care Teams Chairman Emeritus Relationship Specialty Start Date End Date Michelle Flores PA [address] [place] [phone] [email or web address] PCP - General Physician Pv Installer Tech 01/20/25 Additional Source Comments The information contained in this document represents components of the legal health record. It is not the complete legal health record.[facility]
--- OUTSIDE RECORDS SUMMARY | 2025-07-28 16:21 | XMS_ITS | Encounter Summary ---
Author Organization [facility] Address [address] [place] [address] Care Team Providers Care Model Builder Display Name Role Phone Ana Silveira Primary Care Provider Encounter Details Date Type Department Care Team (Late st Contact Info) Description 03/20/2021 Telephone [facility] Interventional Radiology [address] [place] [address] [phone] Mary Lou Social History Tobacco Use Types [...] this test performed. Your preference in location ([facility] or [facility]) will be included in the lab [...] postponement of your procedure.If you have a [employer] account for your [facility] medical record, you can view these results inyour account once they are ready. Don???t hesitate to contact our office if you have any questions.Please note that if your test returns POSITIVE for COVID-19, we will notify the [place] Department of Public Health, as we are [...] clean your hands with an alcohol-based hand flame channeler that contains 60 to 95% alcohol, covering [...] documented in this encounter Plan of Treatment Not on file documented as of this encounter Visit Diagnoses Not on filedocumented in this encounter Care Teams Model Builder Display Relationship Specialty Start Date End Date Ana Silveira [address] [place] [phone] PCP - General 03/13/23 documented as of this encounter
--- OUTSIDE RECORDS SUMMARY | 2025-07-28 16:22 | XMS_ITS | Encounter Summary ---
Author Organization [facility] Address [address] [place] [address] Care Team Providers Care Parts Expediter Name Role Phone Ana Silveira Primary Care Provider Encounter Details Date Type Department Care Team (Late st Contact Info) Description 03/20/2021 Orders Only [facility] [address] [place] [address] Emilie Cook MD [address] [place] [address] NPH (normal pressure hydrocephalus) (Primary Dx) Social History Tobacco Use Types [...] on file documented as of this encounter Results * Due to [place] state law, this organization might not be sharing negative HIV tests. * COVID-19 PCR, Pre-Surgical (Asymptomatic) (04/07/2021 9:03 AM EDT) SARS CoV 2 RNA, RT PCR Not Detected Not Detected [facility]UD[facility] 04/07/2021 3:34 PM EDT [facility] Comment:A Not Detected (Nega [...] AM EDT 04/07/2021 9:43 AM EDT Narrative [facility] - 04/07/2021 3:34 PM EDT These tests were developed, validated, and their performance characteristics determined by the [facility] Laboratory at [facility] under CLIA [id number]. They have not been cleared or approved by the U.S. Food and Drug Administration (FDA). FDA Policy for Diagnostic Tests for Coronavirus Disease-2019 during the Public Health Emergency issued January 24, 2020, is followed. Emilie Cook MD LAB BODY FLUIDS AND STOOLS OR DERABLES Final Result [facility] [address] [place] [address], documented in this encounter Visit Diagnoses Diagnosis NPH (normal pressure hydrocephalus) (HCC)- Primary Idiopathic normal pressure hydrocephalus (INPH) documented in this encounter Care Teams Parts Expediter Relationship Specialty Start Date End Date Ana Silveira [address] [place] [address] PCP - General 03/13/23 documented as of this encounter
--- NOTE | 2025-07-28 17:18 | PHA.MEDREC ---
Pharmacy Consult ? Medication Reconciliation Pharmacy has completed the medication reconciliation. Spoke to patient and daughter Shadia at bedside to confirm medication list. Patient confirmed he takes eliquis 5 mg bid, metformin 1000 mg bid, tamsulosin 0.4 mg bid and that he hasn't been taking his weekly vitamin D 50,000 units. Last dose of medications was yesterday 07/27/25.
[2025-07-28 18:03] LABS: Cholesterol 211 mg/dL (<200); HDL Cholesterol 44 mg/dL (>40); Triglycerides 146 mg/dL (<150)
[2025-07-28 18:04] LABS: NT Pro B Type Natriuretic Pept 161.9 pg/mL (<300)
[2025-07-28 18:18] LABS: Thyroid Stimulating Hormone 1.58 uIU/mL (0.32-4.0)
[2025-07-28 21:38] LABS: Appearance Urine Clear; Glucose Urine UA Negative (Negative); PH 7.0 (5.0-9.0); Specific Gravity - Urine 1.015 (1.005-1.025)
--- NOTE | 2025-07-28 22:44 | HO.NURTONUR ---
Pt was out to dinner w/ family when he had sudden onset of diaphoresis, stood up from table and had syncopal episode striking right side of head. Pt arrived to ED A&O x 4 and denied any c/o's. integration software developer in ED afib 50-50 and is baseline. Pt also has a ANALYSIS DIRECTOR shunt R side of head. All work up was neg, but wanted to keep pt for observation. Pt is independent w/ ADL's
[2025-07-29] VITALS (9 sets, daily range): BP systolic 121–173; BP diastolic 64–82; PULSE 49–106; RESP 16–18; TEMP 36.2–36.7; O2SAT 95–98; BMI 32.8
[2025-07-29] MEDS: 0.9 % Sodium Chloride Flush 3 ML SYRINGE IVFLUSH ×2 (00:17→08:56)
[2025-07-29 06:14] LABS: MANUAL DIFF FLAG NO
[2025-07-29 06:19] LABS: Hematocrit 33.3 % (42.0-52.0); Hemoglobin 11.2 g/dl (14.0-18.0); Imm Gran Abs Auto 0.03 X10*3/uL (0.00-0.03); Imm Gran Pct Auto 0.5 % (0.0-0.4); Lymphocytes Absolute Auto 1.8 X10*3/uL (1.2-4.9); Mean Corpuscular HGB Conc 33.6 g/dl (31.0-36.0); Mean Corpuscular Hemoglobin 30.4 pg (27.0-33.0); Mean Corpuscular Volume 90.2 fL (80.0-98.0); NRBC Abs Auto 0.000 X10*3/uL (0.0-0.012); NRBC Pct Auto 0.0 /100WBC (0.0-0.2); Platelet Count 212 X10*3/uL (160-400); Red Blood Count 3.69 X10*6/uL (4.60-5.80); White Blood Count 6.1 X10*3/uL (4.8-10.8)
[2025-07-29 06:40] LABS: Alanine Aminotransferase 7 U/L (0-40); Albumin Level 3.4 g/dL (3.5-5.0); Alkaline Phosphatase 65 U/L (39-117); Anion Gap 9 (12-20); Aspartate Amino Transferase 18 U/L (5-37); Blood Urea Nitrogen 17 mg/dL (9-16); Calcium 9.1 mg/dL (8.4-10.2); Carbon Dioxide 27 mmol/L (22-29); Chloride 110 mmol/L (96-108); Creatinine Clr Calc Pharmacy 74.1; Estimated Glomerular Filt Rate > 60; Magnesium 1.8 mg/dL (1.6-2.6); Potassium 4.0 mmol/L (3.3-5.1); Sodium 142 mmol/L (135-145); Total Protein 6.0 g/dL (6.5-8.0)
--- NOTE | 2025-07-29 07:37 | HO.PM.IMPN ---
Subjective Subjective Date of Service: 07/29/25 Physical Exam Vital Signs: Vital Signs: Last Vital Signs Temp 97.1 F 07/29/25 03:22 Pulse 52 07/29/25 03:22 Resp 18 07/29/25 03:22 BP 151/64 H 07/29/25 03:22 Pulse Ox 95 07/29/25 03:22 O2 Del Method Room Air 07/29/25 03:22 BMI result Body Mass Index 32.8 Objective Data Active Medications Acetaminophen (Acetaminophen 325 Mg Tablet) 650 mg PO Q6H PRN PRN Reason: Pain, Mild 1-3,fever,headache Last Admin: 07/29/25 00:15 Dose: 650 mg Documented By: RADHA Apixaban (Apixaban 5 Mg Tablet) 5 mg PO BID [facility] Last Admin: 07/28/25 22:53 Dose: 5 mg Documented By: GREGOR Calcium Carbonate (Calcium Carbonate 750 Mg Tab.Chew) 750 mg PO Q4H PRN PRN Reason: Heartburn Docusate Sodium (Docusate Sodium 100 Mg Capsule) 100 mg PO BID [facility] Last Admin: 07/28/25 22:54 Dose: 100 mg Documented By: GREGOR Donepezil HCl (Donepezil Hcl 10 Mg Tablet) 10 mg PO BEDTIME [facility] Last Admin: 07/28/25 22:55 Dose: 10 mg Documented By: GREGOR Sodium Chloride (Ns) 1,000 mls @ 75 mls/hr IVCONT .[id number] [facility] Last Admin: 07/28/25 22:56 Dose: 75 mls/hr Documented By: GREGOR Magnesium Hydroxide (Milk Of Magnesia 30 Ml Oral.Susp) 30 ml PO DAILY PRN PRN Reason: Constipation Melatonin (Melatonin 3 Mg Tablet) 6 mg PO BEDTIME PRN PRN Reason: Insomnia Last Admin: 07/29/25 00:22 Dose: 6 mg Documented By: RADHA Metformin HCl (Metformin Hcl 1,000 Mg Tablet) 1,000 mg PO BID [facility] Last Admin: 07/28/25 22:54 Dose: 1,000 mg Documented By: GREGOR Mirtazapine (Mirtazapine 7.5 Mg Tablet) 7.5 mg PO BEDTIME [facility] Last Admin: 07/28/25 22:54 Dose: 7.5 mg Documented By: GREGOR Non-Formulary Medication (Balsalazide) 2,250 mg PO TID [facility] Non-Formulary Medication (Trospium) 20 mg PO DAILY [facility] Omeprazole (Omeprazole 40 Mg Capsule.Dr) 40 mg PO DAILY@0630 [facility] Last Admin: 07/29/25 04:59 Dose: 40 mg Documented By: RADHA Ondansetron HCl (Ondansetron Hcl 4 Mg/2 Ml Vial) 4 mg IVPUSH Q8H PRN PRN Reason: Nausea and Vomiting Oxycodone HCl (Oxycodone Hcl Immed Release 5 Mg Tablet) 5 mg PO Q6H PRN PRN Reason: Pain, Severe (Pain Scale 7-10) Polyethylene Glycol (Polyethylene Glycol 3350 17 Gm Powd.Pack) 17 gm PO DAILY PRN PRN Reason: Constipation Senna (Sennosides 8.6 Mg Tablet) 17.2 mg PO BEDTIME [facility] Last Admin: 07/28/25 22:53 Dose: 8.6 mg Documented By: GREGOR Sodium Chloride (0.9 % Sodium Chloride Flush 3 Ml Syringe) 3 ml IVFLUSH QSHIFT [facility] Last Admin: 07/29/25 00:17 Dose: 3 ml Documented By: RADHA Tamsulosin HCl (Tamsulosin Hcl 0.4 Mg Capsule) 0.4 mg PO BID [facility] Last Admin: 07/28/25 22:54 Dose: 0.4 mg Documented By: GREGOR Labs 07/29/25 05:59 07/29/25 05:59 Labs: Laboratory Results - last 24 hr 07/28/25 07/28/25 07/28/25 14:21 17:25 21:23 MCV 91.2 MCH 30.4 MCHC 33.3 RDW 13.8 Plt Count 261 MPV 9.8 Immature Gran % (Auto) 0.3 Neut % (Auto) 64.2 Lymph % (Auto) 22.7 [place] % (Auto) 7.0 Eos % (Auto) 5.1 H Baso % (Auto) 0.7 Lymph # (Auto) 1.7 [place] # (Auto) 0.5 Eos # (Auto) 0.4 Baso # (Auto) 0.1 Abs Immat Gran (auto) 0.02 Absolute Neuts (auto) 4.8 Absolute Nucleated RBC 0.000 Nucleated RBC % (auto) 0.0 PT 15.4 H INR 1.3 H Anion Gap 13 Estim Creat Clear Calc 57.0 Estimated GFR 49 Random Glucose 167 H Calcium 9.5 Magnesium Total Bilirubin 0.3 Direct Bilirubin 0.2 AST 20 ALT 10 Alkaline Phosphatase 71 Troponin I High Sens 3.6 NT-Pro-B Natriuret Pep 161.9 Total Protein 7.0 Albumin 3.9 Triglycerides 146 Cholesterol 211 H LDL Cholesterol, Calc 138 H HDL Cholesterol 44 Lipase 7 L TSH 1.58 Urine Color Yellow Urine Appearance Clear Urine pH 7.0 Ur Specific [place] 1.015 Urine Protein Negative Urine Glucose (UA) Negative Urine Ketones Negative Urine Blood Negative Urine Nitrite Negative Ur Leukocyte Esterase Negative 07/29/25 05:59 MCV 90.2 MCH 30.4 MCHC 33.6 RDW 13.8 Plt Count 212 MPV 9.6 Immature Gran % (Auto) 0.5 H Neut % (Auto) 52.5 Lymph % (Auto) 29.7 [place] % (Auto) 10.4 Eos % (Auto) 6.4 H Baso % (Auto) 0.5 Lymph # (Auto) 1.8 [place] # (Auto) 0.6 Eos # (Auto) 0.4 Baso # (Auto) 0.0 Abs Immat Gran (auto) 0.03 Absolute Neuts (auto) 3.2 Absolute Nucleated RBC 0.000 Nucleated RBC % (auto) 0.0 PT INR Anion Gap 9 L Estim Creat Clear Calc 74.1 Estimated GFR > 60 Random Glucose 102 Calcium 9.1 Magnesium 1.8 Total Bilirubin 0.5 Direct Bilirubin AST 18 ALT 7 Alkaline Phosphatase 65 Troponin I High Sens NT-Pro-B Natriuret Pep Total Protein 6.0 L Albumin 3.4 L Triglycerides Cholesterol LDL Cholesterol, Calc HDL Cholesterol Lipase TSH Urine Color Urine Appearance Urine pH Ur Specific [place] Urine Protein Urine Glucose (UA) Urine Ketones Urine Blood Urine Nitrite Ur Leukocyte Esterase Quality Stroke Does the patient have a stroke diagnosis?: No VTE Prior VTE?: No VTE Risk Level:: Medical - moderate - high VTE Device Contraindication: N/A - Device Ordered VTE Drug Contraindication: N/A - Med Ordered
--- NOTE | 2025-07-29 09:20 | MHC.CM.PN ---
IMM 07/29/25, Pt. lives alone, he does not use home health services, he uses a cane. PCP confirmed: Ana Silveira, HCP discussed, form to be completed here and added to chart. Pt. can arrange transport home at DC, DCP: home, self care. CM to follow for DC needs.
--- NOTE | 2025-07-29 12:15 | P.DS_ITS ---
DS: Providers Provider Date of Service: 07/29/25 Date of admission: 07/28/25 16:46 Date of discharge: 07/29/25 Primary care physician: Ana Silveira PA-C DS: Diagnosis Discharge Diagnosis (1) Syncope and collapse: Status: Acute DS: Summary Hospital Course Hospital Course: Vasovagal Syncope in a patient with severe multiple cardiac comorbidities given recent stresses and negative cardiac, intracranial workup Paroxysmal AFib on Eliquis Significant subacute and acute stresses in life stresses 79-year-old male past medical history T2 DM, paroxysmal AFib on Eliquis, ulcerative colitis, normal pressure hydrocephalus s/p shunt, cerebral ve ntriculomegaly, BPH presented today for evaluation after having 1 syncopal episode while he was eating lunch, before patient passed out patient became diaphoretic nauseous and had 1 vomiting at inpatient collapsed witnessed by his sister, +head injury patient is on Eliquis. Orthostats were unremarkable. Patient was hemodynamically stable throughout this hospitalization. Patient educated about stress reduction and was offered SSRI, patient currently deferred that. Advised the patient to seek more psychotherapy and medical therapy for his stress. Type 2 DM Diabetic diet and insulin sliding scale while inpatient UC chronic -stable Cerebral ventriculomegaly NPH s/p shunt No intracranial pathology or shunt pathology noted based on current imaging and examination . DVT prophylaxis with home Eliquis This note is constructed using voice recognition software. While every effort has been made to ensure accuracy, rental boats caretaker errors may have been included. Time spent discussing smoking cessation with patient: more than 10 minutes Status at Discharge Functional status at discharge: independent ambulation Overall status at discharge: patient is back to baseline Time Attestation Discharge Coordination Time (in mins): 35 Quality: Safe Use of Opioids Does Pt have an Active Cancer Diagnosis on the Problem List?: No Quality: Stroke Does the patient have a stroke diagnosis?: No Physical Exam Vital Signs: Vital Signs: Last Vital Signs Temp 98.1 F 07/29/25 07:59 Pulse 85 07/29/25 09:19 Resp 16 07/29/25 07:59 BP 157/74 H 07/29/25 07:59 Pulse Ox 96 07/29/25 07:59 O2 Del Method Room Air 07/29/25 07:59 BMI result Body Mass Index 32.8 DS: Data Data Completed and Pending Labs on day of discharge: Laboratory Results - last 24 hr 0907/28/25 07/28/25 14:21 17:25 21:23 WBC 7.4 RBC 3.98 L Hgb 12.1 L Hct 36.3 L MCV 91.2 MCH 30.4 MCHC 33.3 RDW 13.8 Plt Count 261 MPV 9.8 Immature Gran % (Auto) 0.3 Neut % (Auto) 64.2 Lymph % (Auto) 22.7 [place] % (Auto) 7.0 Eos % (Auto) 5.1 H Baso % (Auto) 0.7 Lymph # (Auto) 1.7 [place] # (Auto) 0.5 Eos # (Auto) 0.4 Baso # (Auto) 0.1 Abs Immat Gran (auto) 0.02 Absolute Neuts (auto) 4.8 Absolute Nucleated RBC 0.000 Nucleated RBC % (auto) 0.0 PT 15.4 H INR 1.3 H Sodium 143 Potassium 4.2 Chloride 110 H Carbon Dioxide 24 Anion Gap 13 BUN 21 H Creatinine 1.39 Estim Creat Clear Calc 57.0 Estimated GFR 49 Random Glucose 167 H Calcium 9.5 Magnesium Total Bilirubin 0.3 Direct Bilirubin 0.2 AST 20 ALT 10 Alkaline Phosphatase 71 Troponin I High Sens 3.6 NT-Pro-B Natriuret Pep 161.9 Total Protein 7.0 Albumin 3.9 Triglycerides 146 Cholesterol 211 H LDL Cholesterol, Calc 138 H HDL Cholesterol 44 Lipase 7 L TSH 1.58 Urine Color Yellow Urine Appearance Clear Urine pH 7.0 Ur Specific [place] 1.015 Urine Protein Negative Urine Glucose (UA) Negative Urine Ketones Negative Urine Blood Negative Urine Nitrite Negative Ur Leukocyte Esterase Negative 07/29/25 05:59 WBC 6.1 RBC 3.69 L Hgb 11.2 L Hct 33.3 L MCV 90.2 MCH 30.4 MCHC 33.6 RDW 13.8 Plt Count 212 MPV 9.6 Immature Gran % (Auto) 0.5 H Neut % (Auto) 52.5 Lymph % (Auto) 29.7 [place] % (Auto) 10.4 Eos % (Auto) 6.4 H Baso % (Auto) 0.5 Lymph # (Auto) 1.8 [place] # (Auto) 0.6 Eos # (Auto) 0.4 Baso # (Auto) 0.0 Abs Immat Gran (auto) 0.03 Absolute Neuts (auto) 3.2 Absolute Nucleated RBC 0.000 Nucleated RBC % (auto) 0.0 PT INR Sodium 142 Potassium 4.0 Chloride 110 H Carbon Dioxide 27 Anion Gap 9 L BUN 17 H Creatinine 1.05 Estim Creat Clear Calc 74.1 Estimated GFR > 60 Random Glucose 102 Calcium 9.1 Magnesium 1.8 Total Bilirubin 0.5 Direct Bilirubin AST 18 ALT 7 Alkaline Phosphatase 65 Troponin I High Sens NT-Pro-B Natriuret Pep Total Protein 6.0 L Albumin 3.4 L Triglycerides Cholesterol LDL Cholesterol, Calc HDL Cholesterol Lipase TSH Urine Color Urine Appearance Urine pH Ur Specific [place] Urine Protein Urine Glucose (UA) Urine Ketones Urine Blood Urine Nitrite Ur Leukocyte Esterase Discharge Plan Discharge Anticipated Discharge Date/Time: 07/29/25 12:12 Patient Disposition: Home, Self-Care Discharge Diagnosis: Vasovagal syncope Referrals: Ana Silveira PA-C [Primary Care Provider, Family Practice] - 1 Week Discharge Medications: Continued (DME) FreeStyle Tyrese 14 Day [place] Misc See Rx Instructions .Route Qty: 1 0RF Rx Instructions: As directed (DME) blood-glucose meter [FreeStyle Lite Meter] Kit See Rx Instructions .Route Qty: 1 0RF Rx Instructions: As directed (DME) FreeStyle Lite Strips Strip See Rx Instructions .Route Qty: 100 0RF Rx Instructions: test blood sugar twice a day (DME) lancets [FreeStyle Lancets] 28 gauge misc See Rx Instructions .Route Qty: 100 3RF Rx Instructions: As directed Eliquis 5 mg tablet 5 mg PO BID 90 Days Qty: 180 1RF mirtazapine 7.5 mg tablet 7.5 mg PO BEDTIME metformin 500 mg tablet 1,000 mg PO BID donepezil 10 mg tablet 10 mg PO BEDTIME tamsulosin 0.4 mg capsule 0.4 mg PO BID balsalazide 750 mg capsule 2,250 mg PO TID omeprazole 40 mg capsule,delayed release(DR/EC) 40 mg PO DAILY trospium 20 mg tablet 20 mg PO DAILY Discharge Orders: Discharge Order (Routine); Ordered 07/29/25 Ordered By: Patricia Mendoza Diet: Low salt diet Activity on Discharge: As tolerated Stand Alone Forms: Patient Portal Discharge page Print Language: Tanzanian Care Plan Goals: Stress reduction Scaling back on work and trying to take more rest Advised the patient to seek therapy at least twice a week Offered the patient an SSRI which the patient deferred for now Health Concerns: See above Plan of Treatment: See above Assessment: See above Patient Instructions: Syncope in Older Adults (DC) Discharge Date/Time: 07/29/25 13:48
--- OUTSIDE RECORDS SUMMARY | 2025-08-01 13:41 | XMS_ITS | Encounter Summary ---
Author Organization [facility] Address [address] [facility] [address] [place] [phone] Phone Care Team Providers Care Rn Charge Name Role Phone Darrion Muse MD Primary Care Provider [phone] Michelle Flores Primary Care Provider [phone] Encounter Details Date Type Department Care Team (Late st Contact Info) Description 06/20/2023 Procedure Pass [facility], [address] [address] Social History Tobacco Use Types Packs/Day Years [...] filedocumented in this encounter Care Teams Rn Charge Relationship Specialty Start Date End Date Darrion Muse MD [address] [place] [address] [place] [address] PCP - General Internal Medicine 12/06/19 01/19/25 Michelle Flores PA [address] [place] [id number] PCP - General Physician Fuel House Attendant 01/20/25 documented as of this encounter Additional Source Comments The information contained in this document represents components of the legal health record. It is not the complete legal health record.[facility]
--- OUTSIDE RECORDS SUMMARY | 2025-08-01 13:41 | XMS_ITS | Clinical Summary ---
Author Organization [facility] Address [address] [facility] [address] [place] [phone] Phone Care Team Providers Care Compliance Nurse Name Role Phone Michelle Flores Primary Care Provider [phone] Allergies Active Allergy Reactions Criticality Noted Date [...] Description 05/30/2025 2:15 PM EDT Office Visit [address] [address] Jennie Macedo, RUBEN gottlieb, Heydi, PT Difficulty walking (Primary Dx) 05/23/2025 2:15 PM EDT Office Visit [address] [address] Jennie Macedo NP Menard-Johnsto n, Heydi, PT Difficulty walking (Primary Dx) 05/18/2025 12:45 PM EDT Office Visit [address] [address] Jennie Macedo, RUBEN gottlieb, Heydi, PT Difficulty [...] EST) SODIUM 141 133 - 146 mmol/L [facility] CHLORIDE 106 96 - 108 mmol/L [facility] POTASSIUM 4.3 3.3 - 5.1 mmol/L [facility] CO2 25 21 - 35 mmol/L [facility] BUN 20(H) 6 - 19 mg/dL [facility] CREATININE 1.00 0.5 - 1.5 mg/dL [facility] GLUCOSE 216(H) 70 - 99 mg/dL [facility] CALCIUM 10.3 8.4 - 10.3 mg/dL [facility] EGFR 77 >59 mL/min/1.7 3m2 [facility] Comment:Estimated glomerular filtration rate calculated using the CKD-EPI refit equation. ANION GAP 14 10 - 20 mmol/L [facility] Blood 10/29/2024 2:20 PM EST 10/29/2024 2:23 PM EST us Gareth Bashir MD LAB BLOOD ORDERAB LES Final Result Performing Organization Address City/State/[facility] Co de Phone Number [address] [address] from Last 3 Months or Most Recently Relevant to Health Maintenance Insurance MEDICARE PART A & B Do It In Person CROSS MEDEX SUPPLEMENT MEDICARE PART A & B [employer] MEDEX SUPPLEMENT MEDICARE PART A & B [employer] MEDEX SUPPLEMENT MEDICARE PART [place] [address] [place] [address] [employer] MEDEX SUPPLEMENT MEDICARE PART A & B Member Subscriber Plan / Payer ( fective 2011-Present) Name:Juventino Escobar Member ID:[id number] Relation to Subscriber:Self Name:Juventino Escobar Subscriber ID:[id number] Payer ID:[id number] Group ID:Not on file Type:Medicare Address: [place] [address] [employer] MEDEX SUPPLEMENT MEDICARE PART A & B [employer] MEDEX SUPPLEMENT MEDICARE PART A & B Member Subscriber Plan / Payer ( fective 2011-Present) Name:Juventino Escobar Member ID:[id number] Relation to Subscriber:Self Name:TimJuventino Subscriber ID:[id number] Payer ID:[id number] Group ID:Not on file Type:Medicare Address: [place] [address] [place] [phone] BLUE CROSS MEDEX SUPPLEMENT MEDICARE PART A & B Member Subscriber Plan / Payer ( fective 2011-Present) Name:Juventino Escobar Member ID:[id number] Relation to Subscriber:Self Name:TimJuventino vazquez Subscriber ID:[id number] Payer ID:[id number] Group ID:Not on file Type:Medicare Address: [place] [address] [place] [phone] Do It In Person CROSS MEDEX SUPPLEMENT MEDICARE PART A & B [employer] MEDEX SUPPLEMENT Care Teams Compliance Nurse Relationship Specialty Start Date End Date Michelle Flores PA [address] [place] [id number] [email or web address] PCP - General Physician Jigger Artisan 01/20/25 Additional Source Comments The information contained in this document represents components of the legal health record. It is not the complete legal health record.[facility]
--- OUTSIDE RECORDS SUMMARY | 2025-08-01 13:41 | XMS_ITS | Encounter Summary ---
Author Organization [facility] Address [address] [place] [address] Care Team Providers Care Flying Teacher Name Role Phone Ana Silveira Primary Care Provider Encounter Details Date Type Department Care Team (Late st Contact Info) Description 12/06/2024 Orders Only [facility] Nuclear Medicine [address] [place], [place] [id number] Luciana Gray MD [address] [place] [address] Social History Tobacco Use Types Packs/Day Years [...] on filedocumented in this encounter Care Teams Flying Teacher Relationship Specialty Start Date End Date Ana Silveira [address] [place] [address] PCP - General 03/13/23 documented as of this encounter
--- OUTSIDE RECORDS SUMMARY | 2025-08-01 13:41 | XMS_ITS | Clinical Summary ---
Author Organization [facility] Address [address] [place] [address] Care Team Providers Care Press Brake Operator Name Role Phone Ana Silveira Primary Care [...] Team Description 06/28/2025 2:30 PM EDT Follow-Up [facility] Neurosurgery [address] [address] Arsalan Goncalves MD NPH (normal pressure hydrocephalus) (HCC) (Primary Dx) 06/28/2025 12:30 PM EDT - 06/28/2025 11:59 PM EDT Hospital Encounter [address] [address] NPH (normal pressure hydrocephalus) (HCC) Discharge Disposition: Home or Self Care (01) 06/03/2025 Telephone [facility] Neurosurgery [address] [address] Telephone Intake, Staff 06/01/2025 Orders Only [facility] Neurosurgery [address] [address] Catrina Mcdermott PA NPH (normal pressure hydrocephalus) (HCC) (Primary Dx) 05/31/2025 Telephone [facility]surgery [address] [address] Telephone Intake, Staff PAC Appt Request - Established 05/17/2025 1:30 PM EDT Follow-Up [facility] Neurosurgery [address] [address] Arsalan Goncalves MD Hydrocephalus, unspecified type (HCC) (Primary Dx) 05/17/2025 1:00 PM EDT - 05/17/2025 11:59 PM EDT [facility] [address] [place] [address] Arsalan Goncalves MD Hydrocephalus, unspecified type (HCC) Discharge Disposition: Home or Self Care (01) 05/04/2025 Telephone [facility] [address] [place] [address] Arsalan Goncalves MD from Last 3 Months [...] pur e alcohol) no alcohol since ~2012 [facility] Utilities Answer Date Recorded In the past 12 months has [employer], gas, oil, or water company threatened to [...] this topic Medical Devices Implanted Type Area Glaze Handler Device Identifier Shelf Expiration Date Model / Serial / Lot Shunt Valve Programmable - [id number] Implanted:Qty: 1 on 02/05/2023 by Arsalan Goncalves MD at [facility] Implant Right: Brain CODMAN 07/10/2027 [id number] / / [id number] Procedures * Due to [place] [employer] law, this organization might not be sharing negative HIV tests. Procedure Name Priority Date/Time Associated Diagnosis Comments DIABETES EYE EXAM 07/14/2025 CT HEAD WO CONTRAST Routine 06/28/2025 1 :18 PM EDT NPH (normal pressure hydrocephalus) (HCC) CT HEAD WO CONTRAST Routine 05/17/2025 1 :12 PM EDT Hydrocephalus, unspecified type (HCC) from Last 3 Months Results * Due to [place] [employer] law, this organization might not be sharing negative HIV tests. * Eye Exam, Diabetic (07/14/2025) 07/14/2025 us Onbase Scan [facility] Final Resu lt * CT Head WO [...] to obtain the completed interpretation. Workstation ID: [id number] Up-to-date CT equipment and radiation dose reduction [...] mastoid sinuses are clear. Resulting Agency Comment [id number] Procedure Note Jose Alberto Lowe MD - [...] possible to obtain thecompleted interpretation. Workstation ID: [id number] Up-to-date CT equipment and radiation dose reduction techniques wereemployed. CTDIvol: 41.7 mGy. DLP: 884 mGy-cm. Catrina STORM IMG CT PROCEDURES Final Result from Last 3 Months Insurance MEDICARE [facility] Advance Directives Documents on File Type Date Recorded Patient Preschool Teacher Assistant Expl [facility] Health Care Proxy 01/28/2023 9:53 AM * [...] on File Name Relationship Healthcare Agent [facility] Etienne Luz [facility] Health Care Agent Care Teams Press Brake Operator Relationship Specialty Start Date End Date Ana Silveira [address] [place] [phone] PCP - General 03/13/23
--- OUTSIDE RECORDS SUMMARY | 2025-08-01 13:42 | XMS_ITS | Encounter Summary ---
Author Organization [facility] Address [address] [place] [address] Care Team Providers Care Nutritional Yeast Supervisor Name Role Phone Ana Silveira Primary Care Provider Encounter Details Date Type Department Care Team (Late st Contact Info) Description 03/20/2021 Orders Only [facility] [address] [place] [address] Emilie Cook MD [address] [place] [address] NPH (normal pressure hydrocephalus) (Primary [...] of this encounter Results * Due to [place] state law, this organization might not be sharing negative HIV tests. * COVID-19 PCR, Pre-Surgical (Asymptomatic) (04/07/2021 9:03 AM EDT) SARS CoV 2 RNA, RT PCR Not Detected Not Detected [facility] QUANT STUDIO 04/07/2021 3:34 PM EDT [facility] Comment:A Not Detected [...] AM EDT 04/07/2021 9:43 AM EDT Narrative [facility] - 04/07/2021 3:34 PM EDT These tests were developed, validated, and their performance characteristics determined by the Molecular Virology Laboratory at [facility] under CLIA [id number]. They have not been cleared or approved by the U.S. Food and Drug Administration (FDA). FDA Policy for Diagnostic Tests for Coronavirus Disease-2019 during the Public Health Emergency issued January 24, 2020, is followed. Emilie Cook MD LAB BODY FLUIDS AND STOOLS OR DERABLES Final Result [facility] [address] [place] [address], documented in this encounter Visit Diagnoses Diagnosis NPH (normal pressure hydrocephalus) (HCC)- Primary Idiopathic normal pressure hydrocephalus (INPH) documented in this encounter Care Teams Nutritional Yeast Supervisor Relationship Specialty Start Date End Date Ana Silveira [address] [place] [phone] PCP - General 03/13/23 documented as of this encounter
--- OUTSIDE RECORDS SUMMARY | 2025-08-01 13:42 | XMS_ITS | Encounter Summary ---
Author Organization [facility] Address [address] [place] [address] Care Team Providers Care Lobby Attendant Name Role Phone Ana Silveira Primary Care Provider Encounter Details Date Type Department Care Team (Late st Contact Info) Description 03/22/2021 Orders Only [facility] Entrance B Interventional Radiology [address] [place] [address] Mackenzie Narayan PA [address] [place] [phone] Social History Tobacco Use Types Packs/Day Years [...] on filedocumented in this encounter Care Teams Lobby Attendant Relationship Specialty Start Date End Date Ana Silveira [address] [place] [phone] PCP - General 03/13/23 documented as of this encounter
--- OUTSIDE RECORDS SUMMARY | 2025-08-01 13:42 | XMS_ITS | Encounter Summary ---
Author Organization [facility] Address [address] [place] [address] Care Team Providers Care Manager Hardware Name Role Phone Ana Silveira Primary Care Provider [phone] Encounter Details Date Type Department Care Team (Late st Contact Info) Description 03/20/2021 Telephone [facility] Interventional Radiology [address] [place] [address] [phone] Mary Lou Social History Tobacco Use Types [...] this test performed. Your preference in location ([facility] or [facility]) will be included in the [...] postponement of your procedure.If you have a [employer] account for your [facility] medical record, you can view these results inyour account once they are ready. Don???t hesitate to contact our office if you have any questions.Please note that if your test returns POSITIVE for COVID-19, we will notify the [place] Department of Public Health, as we are [...] clean your hands with an alcohol-based hand fiction writer that contains 60 to 95% alcohol, covering [...] on filedocumented in this encounter Care Teams Manager Hardware Relationship Specialty Start Date End Date Ana Silveira [address] [place] [phone] PCP - General 03/13/23 documented as of this encounter
== END 2025-07-29 13:48 | disposition home or self-care (01) ==
LOC: HO.ED 15:29 → HO.IMC 22:34 → HO.EDOVER 08-01 11:02 → HO.IMC 08-01 11:02
PROVIDERS: Admitting Provider Student in an Organized Health Care Education/Training Program; Emergency Provider Emergency Medicine; PCP Physician Assistant; Visit Provider Student in an Organized Health Care Education/Training Program
DX: R55 Syncope and collapse (principal); G91.2 (Idiopathic) normal pressure hydrocephalus; K51.90 Ulcerative colitis, unspecified, without complications; E11.9 Type 2 diabetes mellitus without complications; I48.0 Paroxysmal atrial fibrillation; N40.0 Benign prostatic hyperplasia without lower urinary tract symptoms; R51.9 Headache, unspecified; R11.10 Vomiting, unspecified; S09.90XA Unspecified injury of head, initial encounter; W19.XXXA Unspecified fall, initial encounter; Y93.9 Activity, unspecified; Y92.9 Unspecified place or not applicable; Y99.9 Unspecified external cause status; I47.10 Supraventricular tachycardia, unspecified; Z98.2 Presence of cerebrospinal fluid drainage device; Z79.01 Long term (current) use of anticoagulants; Z79.84 Long term (current) use of oral hypoglycemic drugs; Z79.899 Other long term (current) drug therapy
CPT/HCPCS: 36415; 70450; 71045; 72125; 80048; 80053; 80061; 80076; 81003; 83690; 83735; 83880; 84443; 84484; 85025; 85610; 93005; 96360; 96361; 97162; 97166; 99222; 99285

== ENCOUNTER → 2025-07-28 13:58 | Outpatient (BNV) | payer MEDICARE, SELFPAY | PROVIDERS: Emergency Provider Emergency Medicine; PCP Physician Assistant; Visit Provider Radiology Diagnostic Radiology | DX: R55 Syncope and collapse (principal) | CPT/HCPCS: 71045 ==

== ENCOUNTER → 2025-07-28 16:46 | Outpatient (BNV) | payer MEDICARE, SELFPAY | PROVIDERS: Admitting Provider Student in an Organized Health Care Education/Training Program; Emergency Provider Emergency Medicine; PCP Physician Assistant; Visit Provider Student in an Organized Health Care Education/Training Program | DX: R55 Syncope and collapse (principal) | CPT/HCPCS: 99222; 99239 ==

== ENCOUNTER → 2025-07-28 23:59 | Outpatient (BNV) | payer MEDICARE, SELFPAY | PROVIDERS: PCP Physician Assistant; Visit Provider Internal Medicine | DX: I49.1 Atrial premature depolarization (principal); I25.2 Old myocardial infarction; R00.1 Bradycardia, unspecified | CPT/HCPCS: 93010 ==

== ENCOUNTER → 2025-08-10 23:59 | Outpatient (BNV) | payer MEDICARE, SELFPAY ==
--- NOTE | 2025-08-23 19:25 | MHC.OFFVIS ---
Intake Visit Reasons: Remote ILR check- [employer] Allergies cabbage Allergy (Severe, Verified 07/28/25 14:18) throat swells PFSH Medical History T2DM (type 2 diabetes mellitus) SVT (supraventricular tachycardia) Type 2 diabetes mellitus with obesity Abnormal LFTs Insomnia Obesity COVID-19 vaccine administered Gait instability History of BPH Dementia Arthritis History of lumbar puncture Cerebral ventriculomegaly Surgical History History of brain shunt Hx of appendectomy History of esophagogastroduodenoscopy (EGD) H/O colonoscopy History of tonsillectomy Family History Father No problems noted. Mother No problems noted. Social History Household Members: None Housing: House Do you presently have visiting nurse or other home services: No Alcohol intake: never Patient Tobacco Use Status: Never used Tobacco e-Cigarette/Vaping Use: Never Used Second Hand Smoke Exposure: No service: No Current occupational status: employed Cognitive needs: Yes (cane) Hearing needs: No Vision needs: Yes (Glasses) Office Procedures Cardiac Device Check Cardiac Device Check Details: Date of service 08/10/2025; in the current monitoring period, there is no evidence of atrial fibrillation or significant pauses. [id number] Cardiac Interrogation, subcut cardiac rhythm monitor Procedure code (CPT) selection complete Assessment & Plan Assessment & Plan (1) Implantable loop recorder present: Code(s): Z95.818 - Presence of other cardiac implants and grafts Category: Medical (2) Atrial arrhythmia: Code(s): I49.8 - Other specified cardiac arrhythmias Category: Medical (3) Dizziness: Code(s): R42 - Dizziness and giddiness Category: Medical Plan x Coding Level of Care Code Procedure Only Diagnoses Implantable loop recorder present Z95.818 Atrial arrhythmia I49.8 Dizziness R42 CPT Codes Cardiac Device Check - Cardiac Device 16: [id number] Cardiac Interrogation, subcut cardiac rhythm monitor ([id number])
== END ==
PROVIDERS: PCP Physician Assistant; Visit Provider Internal Medicine
DX: I49.8 Other specified cardiac arrhythmias (principal); Z95.818 Presence of other cardiac implants and grafts; R42 Dizziness and giddiness
CPT/HCPCS: 93298

== ENCOUNTER 2025-08-15 13:24 | Outpatient (AMB) | payer MEDICARE, SELFPAY ==
--- NOTE | 2025-08-15 13:54 | MHC.OFFVIS ---
Vital Signs 08/15/25 13:55 Height 6 ft Weight 246 lb 14.684 oz BMI 33.5 BP 118/66 Blood Pressure Location Lt brachial Position Sitting Pulse 102 H Pulse Source Pulse Oximeter Intake Visit Reasons: 6m follow up Allergies cabbage Allergy (Severe, Verified 07/28/25 14:18) throat swells Medication List - Last Reconciled 08/15/25 by Jimenez Spencer MD apixaban (Eliquis) 5 mg PO BID 90 days balsalazide 2,250 mg PO TID blood sugar diagnostic (FreeStyle Lite Strips) test blood sugar twice a day blood-glucose meter (Online DealerStyle Lite Meter kit) As directed donepezil 10 mg PO BEDTIME flash glucose scanning reader ([employer] Tyrese 14 Day [place]) As directed lancets ([employer]yle Lancets) As directed metformin 1,000 mg PO BID mirtazapine 7.5 mg PO BEDTIME omeprazole 40 mg PO DAILY tamsulosin 0.4 mg PO BID trospium 20 mg PO DAILY HPI Comments Details: Juventino returns for follow-up. He underwent an implantable loop recorder implantation due to syncopal episodes. So far, no cardiac etiology detected. Otherwise, also detected to have atrial fibrillation episodes and started anticoagulation. He also underwent cardiac catheterization but no significant findings. Has neurological issues for which he goes to [place]. Recently, it seems he had another syncopal episode and per hospitalist notes, thought to be vasovagal and recommendation was stress reduction. [facility] Medical History T2DM (type 2 diabetes mellitus) SVT (supraventricular tachycardia) Type 2 diabetes mellitus with obesity Abnormal LFTs Insomnia Obesity COVID-19 vaccine administered Gait instability History of BPH Dementia Arthritis History of lumbar puncture Cerebral ventriculomegaly Surgical History History of brain shunt Hx of appendectomy History of esophagogastroduodenoscopy (EGD) H/O colonoscopy History of tonsillectomy Family History Father No problems noted. Mother No problems noted. Social History Household Members: None Housing: House Do you presently have visiting nurse or other home services: No Alcohol intake: never Patient Tobacco Use Status: Never used Tobacco e-Cigarette/Vaping Use: Never Used Second Hand Smoke Exposure: No service: No Current occupational status: employed Cognitive needs: Yes (cane) Hearing needs: No Vision needs: Yes (Glasses) Review of Systems Const Denies weakness ENT Denies dizziness Card Denies chest pain, Denies chest pain with activity, Denies syncope, Denies rapid heart rate, Denies pedal edema, Denies edema, Denies leg edema, Denies lightheadedness, Denies palpitations, Denies dyspnea, Denies dyspnea on exertion and Denies orthopnea Resp Denies cough, Denies dyspnea and Denies dyspnea on exertion GI Denies hematochezia and Denies change in stool character Musc Denies abnormal gait, Denies muscle cramps, Denies muscle weakness, Denies numbness, Denies radiating pain into limb and Denies tingling Neuro Denies abnormal gait, Denies dizziness, Denies syncope, Denies numbness, Denies tingling and Denies weakness Endo Denies palpitations Physical Exam Vital Signs: Last Vital Signs Pulse 102 H 08/15/25 13:55 BP 118/66 08/15/25 13:55 BMI result Body Mass Index 33.5 Const General: comfortable and no acute distress Orientation/consciousness: patient oriented x3 HEENT Other: Unremarkable Head: Yes normal to inspection Neck Neck: Yes normal visual inspection Chest Chest palpation & inspection: normal inspection of the chest Resp Auscultation: clear to auscultation bilaterally Cardio Palpation: normal PMI Heart sounds: S1 normal heart sound present, S2 normal heart sound present, no gallops, no murmurs and no rubs GI Palpation (GI): Soft to palpation Back/Spine/Pelvis Other: unremarkable Skin General skin exam: no rashes or lesions noted Neuro General: patient oriented x3 Extrem General: Yes normal to inspection Psych Mental Status: mental status grossly normal Assessment & Plan Assessment & Plan (1) Syncope and collapse: Code(s): R55 - Syncope and collapse Category: Medical Plan: Based on implantable loop recorder recordings, no clear cardiac etiology. Of note, he was recently in the hospital for another syncope episode but there were no alerts corresponding to that time. Per hospital documentation, thought to be vasovagal syncope in the setting of severe life stresses. (2) Paroxysmal atrial fibrillation: Code(s): I48.0 - Paroxysmal atrial fibrillation Category: Medical Plan: Continue anticoagulation. (3) Abnormal EKG: Code(s): R94.31 - Abnormal electrocardiogram [ECG] [EKG] Category: Medical Plan: EKG in the past with inferior as well as anterolateral infarct. In the echocardiogram, LVEF is preserved at 60% but basal inferior hypokinesis; mid inferior septal/anteroseptal akinesis. In the perfusion imaging, thought to have fixed basal inferior/inferior septal defect. Report suggesting artifact. In the cardiac catheterization, normal coronary arteries. LVEDP was also normal. No further workup. (4) Implantable loop recorder present: Code(s): Z95.818 - Presence of other cardiac implants and grafts Category: Medical Plan: Can follow remotely. Coding Level of Care Code Est Pt Level 4 (79928) Complex EM visit Add On G2211 Diagnoses Syncope and collapse R55 Paroxysmal atrial fibrillation I48.0 Abnormal EKG R94.31 Implantable loop recorder present Z95.818
[2025-08-15 13:55] VITALS: BP 118/66; PULSE 102; BMI 33.5
--- OUTSIDE RECORDS SUMMARY | 2025-08-15 15:48 | XMS_ITS | Encounter Summary ---
Author Organization [facility] Address [address] [facility] [address] [place] [address] Phone Care Team Providers Care Advertising Traffic Manager Name Role Phone Darrion Msue MD Primary Care Provider [phone] Michelle Flores Primary Care Provider [phone] Encounter Details Date Type Department Care Team (Late st Contact Info) Description 06/20/2023 Procedure Pass [facility], [address] [address] Social History Tobacco Use Types Packs/Day Years [...] on filedocumented in this encounter Care Teams Advertising Traffic Manager Relationship Specialty Start Date End Date Darrion Muse MD [address] [place] [address] [place] [address] PCP - General Internal Medicine 12/06/19 01/19/25 Michelle Flores PA [address] [place] [phone] [email or web address] PCP - General Physician Book Critic 01/20/25 documented as of this encounter Additional Source Comments The information contained in this document represents components of the legal health record. It is not the complete legal health record.[facility]
--- OUTSIDE RECORDS SUMMARY | 2025-08-15 15:48 | XMS_ITS | Encounter Summary ---
Author Organization [facility] Address [address] [place] [address] Care Team Providers Care Department Of Natural Resources Officer Name Role Phone Ana Silveira Primary Care Provider Encounter Details Date Type Department Care Team (Late st Contact Info) Description 03/22/2021 Orders Only [facility] Entrance B Interventional Radiology [address] [place] [address] Mackenzie Narayan PA [address] [place] [phone] Social History Tobacco Use Types Packs/Day Years [...] on filedocumented in this encounter Care Teams Department Of Natural Resources Officer Relationship Specialty Start Date End Date Ana Silveira [address] [place] [phone] PCP - General 03/13/23 documented as of this encounter
--- OUTSIDE RECORDS SUMMARY | 2025-08-15 15:48 | XMS_ITS | Clinical Summary ---
Author Organization [facility] Address [address] [facility] [address] [place] [address] Phone Care Team Providers Care Senior Energy Consultant Name Role Phone Michelle Flores Primary Care [...] Description 05/30/2025 2:15 PM EDT Office Visit [address] [address] Jennie Macedo, RUBEN gottlieb, Heydi, PT Difficulty walking (Primary Dx) 05/23/2025 2:15 PM EDT Office Visit [address] [address] Jennie Macedo NP Menard-Johnsto n, Heydi, PT Difficulty walking (Primary Dx) 05/18/2025 12:45 PM EDT Office Visit [address] [address] Jennie Macedo, RUBEN gottlieb, Heydi, PT Difficulty [...] EST) SODIUM 141 133 - 146 mmol/L [facility] CHLORIDE 106 96 - 108 mmol/L [facility] POTASSIUM 4.3 3.3 - 5.1 mmol/L [facility] CO2 25 21 - 35 mmol/L [facility] BUN 20(H) 6 - 19 mg/dL [facility] CREATININE 1.00 0.5 - 1.5 mg/dL [facility] GLUCOSE 216(H) 70 - 99 mg/dL [facility] CALCIUM 10.3 8.4 - 10.3 mg/dL [facility] EGFR 77 >59 mL/min/1.7 3m2 [facility] Comment:Estimated glomerular filtration rate calculated using the CKD-EPI refit equation. ANION GAP 14 10 - 20 mmol/L [facility] Blood 10/29/2024 2:20 PM EST 10/29/2024 2:23 PM EST us Gareth aBshir MD LAB BLOOD ORDERAB LES Final Result Performing Organization Address City/State/[facility] Co de Phone Number [address] [address] from Last 3 Months or Most Recently Relevant to Health Maintenance Insurance MEDICARE PART A & B Member Subscriber Plan / Payer (Ef fective 2011-Present) Name:Juventino Escobar Member ID:[id number] Relation to Subscriber:Self Name:Juventino Escobar Subscriber ID:[id number] Payer ID:[id number] Group ID:Not on file Type:Medicare Address: [facility] Ischemia Care [facility] [address] [place] [phone] [employer] MEDEX SUPPLEMENT MEDICARE PART A & B [employer] MEDEX SUPPLEMENT MEDICARE PART A & B [employer] MEDEX SUPPLEMENT MEDICARE PART A [place] [address] [place] [address] [employer] MEDEX SUPPLEMENT MEDICARE PART A & B Member Subscriber Plan / Payer ( fective 2011-Present) Name:Juventino Escobar Member ID:[id number] Relation to Subscriber:Self Name:Juventino Escobar Subscriber ID:[id number] Payer ID:[id number] Group ID:Not on file Type:Medicare Address: [employer] [address] [employer] MEDEX SUPPLEMENT MEDICARE PART A & B [employer] MEDEX SUPPLEMENT MEDICARE PART A & B Member Subscriber Plan / Payer ( fective 2011-Present) Name:Juventino Escobar Member ID:[id number] Relation to Subscriber:Self Name:TimJuventino Subscriber ID:[id number] Payer ID:[id number] Group ID:Not on file Type:Medicare Address: [employer] [address] [place] [phone] [employer] SUPPLEMENT MEDICARE PART A & B Member Subscriber Plan / Payer ( fective 2011-Present) Name:Juventino Escobar Member ID:[id number] Relation to Subscriber:Self Name:TimJuventino vazquez Subscriber ID:[id number] Payer ID:[id number] Group ID:Not on file Type:Medicare Address: [employer] [address] [place] [phone] [employer] SUPPLEMENT MEDICARE PART A & B Member Subscriber Plan / Payer (Ef fective 2011-Present) Name:Juventino Escobar Member ID:[id number] Relation to Subscriber:Self Name:Juventino Escobar Subscriber ID:[id number] Payer ID:[id number] Group ID:Not on file Type:Medicare Address: [facility] Ischemia Care [facility] [address] [place] [address] [employer] SUPPLEMENT Care Teams Senior Energy Consultant Relationship Specialty Start Date End Date Michelle Flores PA [address] [place] [phone] [email or web address] PCP - General Physician Lead Generation Representative 01/20/25 Additional Source Comments The information contained in this document represents components of the legal health record. It is not the complete legal health record.[facility]
--- OUTSIDE RECORDS SUMMARY | 2025-08-15 15:48 | XMS_ITS | Encounter Summary ---
Author Organization [facility] Address [address] [place] [address] Care Team Providers Care Cow Trimmer Name Role Phone Ana Silveira Primary Care Provider Encounter Details Date Type Department Care Team (Late st Contact Info) Description 03/20/2021 Telephone [facility] Interventional Radiology [address] [place] [phone] Mary Lou Social History Tobacco Use Types [...] this test performed. Your preference in location ([facility] or [facility]) will be included in the lab [...] postponement of your procedure.If you have a [employer] account for your [facility] medical record, you can view these results inyour account once they are ready. Don???t hesitate to contact our office if you have any questions.Please note that if your test returns POSITIVE for COVID-19, we will notify the [place] Department of Public Health, as we are [...] clean your hands with an alcohol-based hand recreation adviser that contains 60 to 95% alcohol, covering [...] on filedocumented in this encounter Care Teams Cow Trimmer Relationship Specialty Start Date End Date Ana Silveira [address] [place] [phone] PCP - General 03/13/23 documented as of this encounter
--- OUTSIDE RECORDS SUMMARY | 2025-08-15 15:48 | XMS_ITS | Encounter Summary ---
Author Organization [facility] Address [address] [place] [address] Care Team Providers Care Forming Tube Selector Name Role Phone Ana Silveira Primary Care Provider Encounter Details Date Type Department Care Team (Late st Contact Info) Description 03/20/2021 Orders Only [facility] [address] [place] [address] Emilie Cook MD [address] [place] [address] NPH (normal pressure hydrocephalus) (Primary [...] RT PCR Not Detected Not Detected [facility] QUANT STUDIO 04/07/2021 3:34 PM EDT [facility] Comment:A Not Detected [...] AM EDT 04/07/2021 9:43 AM EDT Narrative [facility] - 04/07/2021 3:34 PM EDT These tests were developed, validated, and their performance characteristics determined by the Molecular Virology Laboratory at [facility] under CLIA [id number]. They have not been cleared or approved by the U.S. Food and Drug Administration (FDA). FDA Policy for Diagnostic Tests for Coronavirus Disease-2019 during the Public Health Emergency issued January 24, 2020, is followed. Emilie Cook MD LAB BODY FLUIDS AND STOOLS OR DERABLES Final Result [facility] [address] [place] [address], documented in this encounter Visit Diagnoses Diagnosis NPH (normal pressure hydrocephalus)- Primary Idiopathic normal pressure hydrocephalus (INPH) documented in this encounter Care Teams Forming Tube Selector Relationship Specialty Start Date End Date Ana Silveira [address] [place] [phone] PCP - General 03/13/23 documented as of this encounter
--- OUTSIDE RECORDS SUMMARY | 2025-08-15 15:48 | XMS_ITS | Clinical Summary ---
Author Organization [facility] Address [address] [place] [address] Care Team Providers Care Transition Mgr Name Role Phone Ana Silveira Primary Care [...] Team Description 06/28/2025 2:30 PM EDT Follow-Up [facility] [address] [address] Arsalan Goncalves MD NPH (normal pressure hydrocephalus) (HCC) (Primary Dx) 06/28/2025 12:30 PM EDT - 06/28/2025 11:59 PM EDT Hospital Encounter [address] [address] NPH (normal pressure hydrocephalus) (HCC) Discharge Disposition: Home or Self Care (01) 06/03/2025 Telephone [facility] [address] [address] Telephone Intake, Staff 06/01/2025 Orders Only [facility] [address] [address] Catrina Mcdermott PA NPH (normal pressure hydrocephalus) (HCC) (Primary Dx) 05/31/2025 Telephone [facility] [address] [address] Telephone Intake, Staff PAC Appt Request - Established 05/17/2025 1:30 PM EDT Follow-Up [facility] [address] [address] Arsalan Goncalves MD Hydrocephalus, unspecified type (HCC) (Primary Dx) 05/17/2025 1:00 PM EDT - 05/17/2025 11:59 PM EDT [facility] [address] [place] [address] Arsalan Goncalves MD Hydrocephalus, unspecified type (HCC) Discharge Disposition: Home or Self Care (01) from Last 3 Months Immunizations Immunization Administration [...] pur e alcohol) no alcohol since ~2012 [facility] Utilities Answer Date Recorded In the past 12 months has [employer], [employer], oil, or water [employer] threatened to shut off services in your [...] Colonoscopy Discontinued 12/04/2015 Zoster Vaccines Completed 09/21/2021, 08/2 07/2021, 09/07/2015 Colon Cancer Screening Discontinued FOBT / Fit Test Discontinued 01/28/2023 Sigmoidoscopy Discontinued 01/28/2023 Pneumococcal Vaccine: 50+ Years Completed 09/25/2023, 08/27/2016 RSV Vaccine (60+ years old and patients) Completed 06/29/2024 COVID-19 Vaccine Completed 04/14/2025, , 09/25/2023, Additional history exists Cologuard Discontinued Hepatitis B Vaccines Aged Out No long er eligible based on patient's age to complete this topic Medical Devices Implanted Type Area Systems Analysis Manager Device Identifier Shelf Expiration Date Model / Serial / Lot Shunt Valve Programmable - [id number] Implanted:Qty: 1 on 02/05/2023 by Arsalan Goncalves MD at [facility] Implant Right: Brain [employer]ODMAN 07/10/2027 [id number] / / [id number] Procedures * Due to [place] [employer] law, this organization might not be sharing negative HIV tests. Procedure Name Priority Date/Time Associated Diagnosis Comments DIABETES EYE EXAM 07/14/2025 CT HEAD WO CONTRAST Routine 06/28/2025 1 :18 PM EDT NPH (normal pressure hydrocephalus) (HCC) CT HEAD WO CONTRAST Routine 05/17/2025 1 :12 PM EDT Hydrocephalus, unspecified type (HCC) from Last 3 Months Results * Due to [place] [employer] law, this organization might not be sharing negative HIV tests. * Eye Exam, Diabetic (07/14/2025) 07/14/2025 us Onbase Scan [facility] Final Resu lt * CT Head WO [...] to obtain the completed interpretation. Workstation ID: [id number] Up-to-date CT equipment and radiation dose reduction [...] mastoid sinuses are clear. Resulting Agency Comment [id number] Procedure Note Jose Alberto Lowe MD - [...] possible to obtain thecompleted interpretation. Workstation ID: [id number] Up-to-date CT equipment and radiation dose reduction techniques wereemployed. CTDIvol: 41.7 mGy. DLP: 884 mGy-cm. Catrina STORM IMDarnell CT PROCEDURES Final Result from Last 3 Months Insurance MEDICARE [facility] Advance Directives Documents on File Type Date Recorded Patient Asp Net Developer Expl anation Health Care Proxy 01/28/2023 9:53 [...] Etienne Major Health Care Agent Care Teams Transition Mgr Relationship Specialty Start Date End Date Ana Silveira [address] [place] [phone] PCP - General 03/13/23
--- OUTSIDE RECORDS SUMMARY | 2025-08-15 15:48 | XMS_ITS | Encounter Summary ---
Author Organization [facility] Address [address] [place] [address] Care Team Providers Care Auxiliary Power Equipment Operator Name Role Phone Ana Silveira Primary Care Provider Encounter Details Date Type Department Care Team (Late st Contact Info) Description 12/06/2024 Orders Only [facility] [address], [place] [id number] Luciana Gray MD [address] [place] [address] Social History Tobacco Use Types Packs/Day Years [...] on filedocumented in this encounter Care Teams Auxiliary Power Equipment Operator Relationship Specialty Start Date End Date Ana Silveira [address] [place] [phone] PCP - General 03/13/23 documented as of this encounter
== END 2025-08-15 14:26 | disposition home or self-care (01) ==
LOC: HO.HCS 13:25
PROVIDERS: PCP Physician Assistant; Visit Provider Internal Medicine
DX: R55 Syncope and collapse (principal); I48.0 Paroxysmal atrial fibrillation; R94.31 Abnormal electrocardiogram [ECG] [EKG]; Z95.818 Presence of other cardiac implants and grafts
CPT/HCPCS: 99214; G2211

== ENCOUNTER → 2025-08-15 13:24 | Outpatient (BNVA) | payer MEDICARE, SELFPAY | PROVIDERS: PCP Physician Assistant; Visit Provider Internal Medicine | DX: I48.0 Paroxysmal atrial fibrillation (principal); R55 Syncope and collapse; R94.31 Abnormal electrocardiogram [ECG] [EKG]; Z95.818 Presence of other cardiac implants and grafts | CPT/HCPCS: 99212 ==

== ENCOUNTER → 2025-09-10 23:59 | Outpatient (BNV) | payer MEDICARE, SELFPAY ==
--- NOTE | 2025-09-14 16:03 | MHC.OFFVIS ---
Intake Visit Reasons: Remote ILR check- [employer] Allergies cabbage Allergy (Severe, Verified 07/28/25 14:18) throat swells [facility] Medical History T2DM (type 2 diabetes mellitus) SVT (supraventricular tachycardia) Type 2 diabetes mellitus with obesity Abnormal LFTs Insomnia Obesity COVID-19 vaccine administered Gait instability History of BPH Dementia Arthritis History of lumbar puncture Cerebral ventriculomegaly Surgical History History of brain shunt Hx of appendectomy History of esophagogastroduodenoscopy (EGD) H/O colonoscopy History of tonsillectomy Family History Father No problems noted. Mother No problems noted. Social History Household Members: None Housing: House Do you presently have visiting nurse or other home services: No Alcohol intake: never Patient Tobacco Use Status: Never used Tobacco e-Cigarette/Vaping Use: Never Used Second Hand Smoke Exposure: No service: No Current occupational status: employed Cognitive needs: Yes (cane) Hearing needs: No Vision needs: Yes (Glasses) Office Procedures Cardiac Device Check Cardiac Device Check Details: Date of service 09/10/2025; in the current monitoring period, % of time in atrial fibrillation 0.1%. [id number] Cardiac Interrogation, subcut cardiac rhythm monitor Procedure code (CPT) selection complete Assessment & Plan Assessment & Plan (1) Status post placement of implantable loop recorder: Code(s): Z95.818 - Presence of other cardiac implants and grafts Category: Medical (2) Paroxysmal atrial fibrillation: Code(s): I48.0 - Paroxysmal atrial fibrillation Category: Medical Plan x Coding Level of Care Code Procedure Only Diagnoses Status post placement of implantable loop recorder Z95.818 Paroxysmal atrial fibrillation I48.0 CPT Codes Cardiac Device Check - Cardiac Device 16: [id number] Cardiac Interrogation, subcut cardiac rhythm monitor ([id number])
== END ==
PROVIDERS: PCP Physician Assistant; Visit Provider Internal Medicine
DX: I48.0 Paroxysmal atrial fibrillation (principal); Z95.818 Presence of other cardiac implants and grafts
CPT/HCPCS: 93298

== ENCOUNTER → 2025-10-02 15:44 | Outpatient (BNV) | payer MEDICARE, SELFPAY | PROVIDERS: PCP Physician Assistant; Visit Provider Internal Medicine | DX: I48.0 Paroxysmal atrial fibrillation (principal); I49.8 Other specified cardiac arrhythmias; Z95.818 Presence of other cardiac implants and grafts | CPT/HCPCS: 93298 ==

== ENCOUNTER → 2025-11-02 10:05 | Outpatient (BNV) | payer MEDICARE, SELFPAY | PROVIDERS: PCP Physician Assistant; Visit Provider Internal Medicine | DX: I48.0 Paroxysmal atrial fibrillation (principal); I49.8 Other specified cardiac arrhythmias | CPT/HCPCS: 93298 ==